=== PATIENT | male | born 1940 | race Caucasian/White ===

== ENCOUNTER 2018-01-16 05:33 | Day surgery (SDC) | payer MEDICARE, SELFPAY ==
--- NOTE | 2018-01-11 15:00 | EKG12_ITS ---
Test Reason : PRE OP Blood Pressure : / mmHG Vent. Rate : 065 BPM Atrial Rate : 048 BPM P-R Int : 000 ms QRS Dur : 102 ms QT Int : 436 ms P-R-T Axes : 000 -25 088 degrees QTc Int : 453 ms Normal sinus rhythm Nonspecific T wave abnormality Abnormal ECG Confirmed by JOHN ABEBE ([id number]), design editor SNOW JHA ([id number]) on 01/15/2018 4:07:25 PM Referred By: Bull Mendoza Confirmed By:JOHN ABEBE
[2018-01-11 15:04] LABS: Hematocrit 32.8 % (40-54); Hemoglobin 10.9 g/dl (13.0-16.5); Mean Corp Hgb Conc 33.2 g/gl (32-36); Mean Corpuscular Hgb 31.6 pg (27.0-32.0); Mean Corpuscular Volume 95.1 fL (80-94); Mean Platelet Vol. 9.9 fl (6.2-12.0); Platelet Count 123 K/mm3 (150-450); RBC Distribution Width CV 13.7 % (11.6-14.6); Red Blood Count 3.45 M/mm3 (4.6-6.2); White Blood Count 5.9 K/mm3 (4.4-11.0)
[2018-01-11 15:11] LABS: Scan Indicated on CBC? Y/N NO
[2018-01-11 15:23] LABS: Anion Gap 8 (5-15); BUN 55 mg/dL (7-18); BUN/Creat Ratio 17.9 RATIO (10-20); Calcium,Total 8.1 mg/dL (8.5-10.1); Chloride 110 mmol/L (98-107); Creatinine, Serum 3.07 mg/dL (0.70-1.30); EST Glomerular Filtration Rate 21 mL/min (>60); Est Glom Filt Rate - Afr Amer 25 mL/min (>60); Glucose 229 mg/dL (74-106); Potassium 4.7 mmol/L (3.5-5.1); Sodium Level 142 mmol/L (136-145)
[2018-01-16 06:06] LABS: Prothrombin Time Fingerstick 15.1 SEC (11.9-14.4)
[2018-01-16 06:12] VITALS: BP 146/57; PULSE 64; RESP 16; TEMP 36.4; O2SAT 97; BMI 34.2
[2018-01-16 06:40] LABS: Bedside Glucose 139 mg/dL (70-110)
[2018-01-16] MEDS: Cefazolin 2 GM in 0.9% Normal Saline 100 ML IV (07:02)
--- NOTE | 2018-01-16 07:08 | PCM.DC.FIST ---
Discharge Diet: Renal Diet Discharge Activity: May Not Drive - for 2-3 days or while taking narcotic pain medications., May Shower, May Take a Tub Bath - in 5 days. Lifting Restrictions: 5 pounds Keep extremity elevated above heart level: - - Keep arm elevated above the heart level for 3 days. Additional Activity Instructions:: Exercise hand vigorously with a stress ball. Call your doctor if your incision/area has: Continuous Slow Oozing, Sudden Increased Bleeding - apply pressure and call your doctor., Increased Pain/ Swelling, Increased Redness, Foul Smelling Discharge Call your doctor if you observe: Fever of 101 or Higher Suture Line Care: Avoid Pulling/Pushing, Avoid Pinching/Bending Cleanse incision/area with: Keep Dressing Clean & Dry Additional Dressing/Incision Instructions:: Elevate your left arm to limit swelling. You may start your left hand exercises tomorrow. You may leave the jony wrap dressing on for 2 days then you may remove it. Continue to keep the incision clean and dry for 4 days total. Allergies/Adverse Reactions: Allergies No Known Allergies Allergy (Unverified 01/11/18 13:18) Medications to take at Discharge amlodipine 5 mg tablet 5 mg PO QDAY 01/09/18 carvedilol 25 mg tablet 25 mg PO BID 01/09/18 clonidine HCl 0.1 mg tablet 0.1 mg PO QDAY tab 01/09/18 furosemide 80 mg tablet 80 mg PO QDAY 01/09/18 glimepiride 4 mg tablet 4 mg PO QAM 01/09/18 hydralazine 25 mg tablet 25 mg PO BID tab 01/09/18 insulin aspart U-100 100 unit/mL subcutaneous pen 5 unit SC TID PRN ml 01/09/18 insulin glargine (U-300) 300 unit/mL (1.5 mL) subcutaneous pen 15 unit SC QHS 01/09/18 pen needle, diabetic 32 gauge x 1/6 See Dose Instructions .ROUTE .MEDSUPPLY #100 ea 01/09/18 simvastatin 40 mg tablet 60 mg PO QPM tab 01/09/18 vitamins-lipotropics tablet 2 tab PO BID 01/09/18 warfarin 1 mg tablet 7 mg PO MOWETHFRSA tab 01/09/18 warfarin 6 mg tablet 8 mg PO SUTU tab 01/09/18 Hydrocodone Bitart/Apap 5-325 [[place] 5MG-325MG] 1 tablet PO Q6H PRN PRN 3 Days #8 tablet 01/16/18 The following prescriptions were given: Hydrocodone Bitart/Apap 5-325 [[place] 5MG-325MG] 1 tablet PO Q6H PRN PRN 3 Days #8 tablet PRN Reason: Pain Primary Care Physician: Sarah Hawkins [Primary Care Provider] - Please Follow Up With: Bull Mnedoza MD - [phone] When: Call to make an appointment for suture removal and follow up in 10 days
[2018-01-16] MEDS: Bupivacaine Mpf 0.5% 30 ML VIAL (07:24)
[2018-01-16] MEDS: Heparin Injection (Vial) 5,000 UNIT/ML VIAL 5000 UNIT (07:40)
--- NOTE | 2018-01-16 09:05 | PCM.OPRPT ---
Problem List (1) Chronic renal disease, stage IV Status: Acute Report of Operation Date of Procedure: 01/16/18 Pre-Operative Diagnosis: Stage IV renal insufficiency Post-Operative Diagnosis: Same Surgery/Procedure Performed:: Transposition left forearm cephalic vein to radial artery arteriovenous fistula creation Description of Surgical Findings:: Timeout and informed consent was obtained. 77-year-old gentleman was taken out from placement table he underwent monitored anesthesia care. Ancef 2 g are given intravenously preoperatively. The left upper extremity was sterilely prepped and draped. 1% lidocaine mixed 50-50 with 0.5% Marcaine was used as a local anesthetic total 23 cc was used. I performed ultrasound imaging of the cephalic vein and marked it out preoperatively. Local was instilled and then a longitudinal incision was made along the vein. Tedious sharp and blunt dissection was performed. Vein branches were secured with 4-0 Vicryl ligatures as well as hemoclips. Dissected free to the antecubital space. Then sharp and blunt dissection used to identify the radial artery and it was circumferentially dissected free. Unfortunately moderately calcified with a thickened wall. The vein was then tunneled medial to the incision from the antecubital space down to the radial artery. At this point the patient received 9000 units of heparin. After adequate circling time peripheral vascular clamps were placed on the radial artery. An 11 blade was used to make an arteriotomy. The vein was spatulated to length and a end-to-side anastomosis was created with a running 7-0 Prolene. Prior to completion the repair appeared to be good positional lie. The anastomosis was completed and immediately there was good pulsatile flow through the fistula with a palpable and audible thrill and bruit. A couple repair sutures of 7-0 Prolene required. Hemostasis was nicely intact. The wound was then closed with a deep layer of interrupted 3-0 Vicryl and then a running septic or 4-0 Monocryl. Steri-Strips Telfa soft roll Roberto wrap gently applied. Sponge instrument and needle counts were reported to the surgeon to be correct. Hand was viable at the completion. No apparent complication. Specimens none. Drains none. Blood loss minimal. Bull Mendoza M.D., F.A.C.S. Type of Anesthesia:: MAC Anesthesiologist: Natalie Cobos
[2018-01-16 09:26] VITALS: BP 141/69; BP 146/57; PULSE 54; RESP 14; TEMP 36.7; O2SAT 96
[2018-01-16 09:30] VITALS: BP 142/63; BP 146/57; PULSE 54; RESP 14; O2SAT 96
[2018-01-16 09:35] VITALS: BP 141/63; BP 146/57; PULSE 52; RESP 16; O2SAT 94
[2018-01-16 09:43] VITALS: BP 142/65; BP 146/57; PULSE 48; RESP 16; TEMP 36.5; O2SAT 97
[2018-01-16 10:55] VITALS: BP 146/57
== END 2018-01-16 10:57 | disposition home or self-care (01) ==
LOC: SDC 05:33 → AC 05:35
PROVIDERS: Family Provider Nurse Practitioner; PCP Nurse Practitioner; Visit Provider Surgery
PROC: (CPT 36820; principal; 2018-01-16 07:00)
DX: Z49.01 Encounter for fitting and adjustment of extracorporeal dialysis catheter (principal); E11.22 Type 2 diabetes mellitus with diabetic chronic kidney disease; I13.0 Hypertensive heart and chronic kidney disease with heart failure and stage 1 through stage 4 chronic kidney disease, or unspecified chronic kidney disease; N18.9 Chronic kidney disease, unspecified; I50.9 Heart failure, unspecified; I25.2 Old myocardial infarction; I48.91 Unspecified atrial fibrillation; G47.30 Sleep apnea, unspecified; K21.9 Gastro-esophageal reflux disease without esophagitis; E78.00 Pure hypercholesterolemia, unspecified; Z85.038 Personal history of other malignant neoplasm of large intestine; Z95.1 Presence of aortocoronary bypass graft; Z79.899 Other long term (current) drug therapy; Z79.01 Long term (current) use of anticoagulants; Z79.4 Long term (current) use of insulin; Z87.891 Personal history of nicotine dependence
CPT/HCPCS: 36820; 36415; 36416; 80048; 82962; 85027; 85610; 93005

== ENCOUNTER → 2018-03-01 09:25 | Outpatient (CLI) | payer MEDICARE, SELFPAY ==
[2018-03-01 12:29] LABS: International Normalized Ratio 2.5; Prothrombin Time (Protime)PT. 27.1 SECONDS (11.7-14.9)
[2018-03-03 10:25] LABS: Carcinoembryonic Antigen 3.9 ng/mL (0.0-4.7)
== END ==
PROVIDERS: Internal Medicine Hematology & Oncology; Family Provider Nurse Practitioner; PCP Nurse Practitioner; Visit Provider Internal Medicine
DX: I48.91 Unspecified atrial fibrillation (principal); C18.2 Malignant neoplasm of ascending colon
CPT/HCPCS: 36415; 82378; 85610

== ENCOUNTER → 2018-07-19 14:16 | Outpatient (CLI) | payer MEDICARE, SELFPAY ==
[2018-07-19 14:46] LABS: International Normalized Ratio 2.2; Prothrombin Time (Protime)PT. 24.8 SECONDS (11.7-14.9)
== END ==
PROVIDERS: Family Provider Nurse Practitioner; PCP Nurse Practitioner; Referring Provider Internal Medicine; Visit Provider Internal Medicine
DX: Z79.01 Long term (current) use of anticoagulants (principal)
CPT/HCPCS: 85610

== ENCOUNTER 2018-08-19 15:40 | Inpatient (IN) | payer MEDICARE, SELFPAY ==
[2018-08-19] VITALS (11 sets, daily range): BP systolic 115–146; BP diastolic 47–87; PULSE 65–102; RESP 16–29; TEMP 36.8–36.9; O2SAT 93–97; BMI 33.5; BMI 33.1; BMI 33.2
--- NOTE | 2018-08-19 15:45 | RAD_ITS ---
STUDY: X-RAY CHEST REASON FOR EXAM: Male, 77 years old. Weakness. Dyspnea. Patient is on renal dialysis. TECHNIQUE: PA and lateral views of the chest. COMPARISON: Comparison is made with prior study dated April 11, 2016. FINDINGS: Mild increased markings at the lung bases suggestive of bibasilar linear atelectasis. Blunting of both costophrenic angles. Mild vascular congestion. Sternal cerclage wires and vascular clips are present from a prior sternotomy and coronary artery bypass graft procedure (CABG). Normal mediastinum and estefany. Normal visualized pulmonary arteries. There is atherosclerotic calcification of the aortic arch with tortuosity. There is demineralization of the osseous structures. Normal visualized ribs, clavicles, and shoulders. Surgical clips are seen in the right upper quadrant. RAD/Chest PA and Lateral IMPRESSION: Mild increased markings at the lung bases suggestive of bibasilar atelectasis with blunting of both costophrenic angle. Mild vascular congestion. Electronically Signed: Jose Junior MD at 16:07 EST Tel [phone], Service support ,
--- NOTE | 2018-08-19 17:22 | EKG12_ITS ---
Test Reason : SOB Blood Pressure : / mmHG Vent. Rate : 076 BPM Atrial Rate : 083 BPM P-R Int : 000 ms QRS Dur : 104 ms QT Int : 432 ms P-R-T Axes : 000 -15 103 degrees QTc Int : 486 ms Atrial fibrillation with a competing junctional pacemaker Nonspecific ST and T wave abnormality Prolonged QT Abnormal ECG Confirmed by RACHEL OLMOS, JOSE DE JESUS ([id number]), newspaper editor managing [facility]OW [facility] ([id number]) on 08/22/2018 1:36:51 PM Referred By: SHEA Confirmed By:JOSE DE JESUS RAMOS MD
[2018-08-19 18:14] LABS: Absolute Lymphocyte Count 0.68 X10^3/ul (0.83-4.51); Absolute Neutrophil Count 5.9 X10^3/uL (2.0-7.7); Basophil# 0.01 X10^3/uL; Basophil% 0.1 % (0-1); Eosinophil# 0.05 X10^3/uL; Eosinophils% 0.7 % (0-5); Hematocrit 26.3 % (40-54); Hemoglobin 8.4 g/dl (13.0-16.5); Lymphocyte # 0.68 X10^3/ul (4.0); Mean Corp Hgb Conc 31.9 g/gl (32-36); Mean Corpuscular Hgb 31.6 pg (27.0-32.0); Mean Corpuscular Volume 98.9 fL (80-94); Mean Platelet Vol. 9.3 fl (6.2-12.0); Monocyte# 0.87 X10^3/uL; Monocyte% 11.6 % (0-10); Neutrophil # 5.85 X10^3/uL (2.7-7.7); Neutrophil % 77.8 % (47-70); POSITIVE COUNT NO; POSITIVE DIFFERENTIAL NO; POSITIVE MORPHOLOGY NO; Platelet Count 164 K/mm3 (150-450); RBC Distribution Width CV 16.4 % (11.6-14.6); Red Blood Count 2.66 M/mm3 (4.6-6.2); White Blood Count 7.5 K/mm3 (4.4-11.0)
[2018-08-19 18:18] LABS: International Normalized Ratio 1.3; Prothrombin Time (Protime)PT. 16.2 SECONDS (11.7-14.9)
[2018-08-19 18:31] LABS: Anion Gap 13 (5-15); BUN 38 mg/dL (7-18); BUN/Creat Ratio 9.3 RATIO (10-20); Calcium,Total 7.8 mg/dL (8.5-10.1); Chloride 96 mmol/L (98-107); Creatinine, Serum 4.08 mg/dL (0.70-1.30); EST Glomerular Filtration Rate 15 mL/min (>60); Est Glom Filt Rate - Afr Amer 18 mL/min (>60); Estimated Creatinine Clearance 15.64 ml/min; Glucose 187 mg/dL (74-106); Potassium 3.7 mmol/L (3.5-5.1); Sodium Level 139 mmol/L (136-145)
--- NOTE | 2018-08-19 20:49 | ED.VISSUMM ---
- ER Visit Summary Date of Service: 08/19/18 Chief Complaint: Shortness of breath. History of Present Illness: The patient is a 77 M history of insulin diabetes, hypertension, CAD, A. fib, recent liver resection end-stage renal disease on dialysis he was dialyzed today. Prior single-vessel CABG. On Coumadin. Patient states that he has progressively been more short of breath over the last several weeks to months. He feels deconditioned. He denies any nausea or vomiting. No melena. No fever. He denies any chest pain. He denies any hemoptysis. Just states he is feeling worse each week. Physical Examination: Older male no acute distress. Vital signs are stable afebrile. Pulse ox 97% on room air no signs of hypoxia. HEENT exam unremarkable. Neck nontender. Lungs there to auscultation bilaterally. Heart irregularly irregular rate in 70s. Consistent with A. fib. Abdomen soft nontender. Normal bowel sounds no peritoneal signs. Patient moving all 4 extremities. Calves are nontender without edema or cords. Skin is pale. Neurologically is awake and alert with no focal motor deficits. Test Results: Chest x-ray chronic changes no acute process. CBC White count 7. Hemoglobin 8.4 previously was 10.9. Electrolytes are unremarkable BUN of 38 creatinine of 4.0. Gap of 13. He supposedly on Coumadin his INR however is only 1.3. Troponin normal. EKG A. fib with lateral ST depression which is consistent with her prior EKG in December. Emergency Department Course and Treatment: Repeat exam is unchanged at 2044. Patient family just states that they are having trouble caring for him at home. He is having difficulty in daily activities. Treatment Plan: Admission. I spoke to the hospitalist. Disposition: Observation Impression: Dyspnea Chronic A. fib Failure to thrive Acute on chronic anemia Subtherapeutic anticoagulation Generalized weakness This note was generated with [employer] dictation software. It may contain incorrect words, spelling, and punctuation that were not noted in review of the chart prior to signing ED Disposition - Plan for ED Patient: Chief Complaint: Shortness of Breath Referrals: Sarah Hawkins, DELIVERY ROOM CLERK-C [Primary Care Provider] -
--- NOTE | 2018-08-19 21:10 | HP.PCM_ITS ---
Problem List (1) Debility Status: Acute (2) Chronic renal disease, stage IV Status: Chronic (3) Hypercholesterolemia Status: Chronic (4) History of colectomy Status: Chronic (5) Acid reflux Status: Chronic (6) Hypertension Status: Chronic (7) Afib Status: Chronic (8) Heart disease Status: Chronic (9) Colon cancer Status: Chronic (10) Diabetes Status: Chronic (11) Renal failure Status: Chronic History of Present Illness Date of Admission: 08/19/18 Chief Complaint: generalized weakness The patient is a 77 year old male patient presents to the ER with generalized weakness. He has a history of hypertension, diabetes, CAD, atrial fibrillation, colon cancer status post partial liver resection for metastatic disease one week ago, end stage renal disease now on dialysis for three weeks. He is short of breath and unable to walk for more than a few steps without feeling as if he would fall. No chest pain at this time. His pulse oxygenation on room air is 97% at rest but he is unable physically to walk for more than a few steps. He is unable to perform activities of daily living and will be admitted for further management. He states his appetite is intact. Hemoglobin today is 8.4. Past Medical History Past Medical History (Chronic Problems): Chronic Problems (Last Reviewed 04/04/18 @ 08:44 by Kendra Aviles) Chronic renal disease, stage IV (Chronic) Hypercholesterolemia (Chronic) History of colectomy (Chronic) Acid reflux (Chronic) Hypertension (Chronic) Afib (Chronic) Heart disease (Chronic) Colon cancer (Chronic) Diabetes (Chronic) Renal failure (Chronic) Medical History: Medical History (Last Reviewed 04/04/18 @ 08:44 by Kendra Aviles) Hypercholesterolemia (Acute) E78.00 Blood in stool (Acute) K92.1 Hemorrhoids (Acute) K64.9 Acid reflux (Acute) K21.9 Hypertension (Chronic) I10 Afib (Acute) I48.91 Heart disease (Acute) I51.9 Colon cancer (Acute) C18.9 Diabetes (Acute) E11.9 Renal failure (Acute) N19 Allergies No Known Allergies Allergy (Verified 04/04/18 08:45) Home Medications: Ambulatory Orders Medication Instructions Recorded amlodipine 5 mg tablet 5 mg PO QDAY 01/09/18 carvedilol 25 mg tablet 25 mg PO BID 04/25/18 clonidine HCl 0.1 mg tablet 0.1 mg PO QDAY tab 01/09/18 furosemide 80 mg tablet 80 mg PO QDAY 01/09/18 glimepiride 4 mg tablet 4 mg PO QAM 01/09/18 hydralazine 25 mg tablet 25 mg PO BID tab 01/09/18 insulin aspart U- 100 100 unit/mL 5 unit SC TID PRN ml 01/09/18 subcutaneous pen insulin glargine (U-300) conc. 300 15 unit SC QHS 01/09/18 unit/mL (1.5 mL) subcutaneous pen pen needle, diabetic 32 gauge x See Dose Instructions .ROUTE 01/09/1809/22 .MEDSUPPLY #100 ea simvastatin 40 mg tablet 60 mg PO QPM tab 01/09/18 vitamins-lipotropics tablet 2 tab PO BID 01/09/18 warfarin 1 mg tablet 7 mg PO MOWETHFRSA tab 01/09/18 warfarin 6 mg tablet 8 mg PO SUTUTH tab 01/09/18 Hydrocodone Bitart/Apap 5-325 1 tab PO Q6H PRN PRN 3 Days #8 tab 01/16/18 [[place] 5MG-325MG] Surgical History: Surgical History (Last Updated 04/04/18 @ 08:45 by Kendra Aviles) Surgically constructed arteriovenous graft (Acute) Onset Date: ~02/2018 Z95.828 01/16/2018 History of colectomy (Acute) Z90.49 Surgical History: no surgical history Smoking Status: Former smoker - *Family History Maternal Family History: Family History (Last Reviewed 04/04/18 @ 08:44 by Kendra Aviles) Father Colon cancer Sister Diabetes Brother Diabetes Mother Heart disease History Items: No pertinent history Review of Systems Constitutional: Reports: Malaise, Weakness, Fatigue. Denies: Chills, Fever, Weight Change HEENT: Denies: Head Aches, Sinus Congestion, Sinus Drainage Cardiovascular: Denies: Chest Pain, Palpitations Respiratory: Reports: Shortness of breath at rest. Denies: Cough, Sputum production Gastrointestinal: Denies: Abdominal Pain, Nausea, Vomiting Genitourinary: Denies: Dysuria Musculoskeletal: Denies: Joint Pain, Joint Tenderness Skin: Denies: Rash, Wounds Neurological: Denies: Numbness, Tingling, Focal weakness Psychiatric: Denies: Anxiety, Depression, Homicidal Ideations, Suicidal Ideations Hematologic/ Lymphatic: Denies: Easy Bruising, Easy Bleeding VTE Information - Inpt Only VTE Present on Admission: No VTE Mechan Device Prophylaxis: SCD's VTE Pharm Prophylaxis ordered?: No Reason prophylaxis not ordered:: Medical Contraindication Patient Problems: Active and Suspected Problems (Last Reviewed 04/04/18 @ 08:44 by Kendra Aviles) Debility (Acute) - Physical Exam General: Alert, Oriented x3, Cooperative HEENT: Atraumatic, Normocephalic Neck: Supple Lungs: Clear to auscultation, Normal air movement, No rhonchi, No wheeze, No rales Cardiovascular: Normal S1, Normal S2, No murmurs, Irregular Rate Abdomen: Bowel Sounds Present, Soft, Non Tender, Obese Extremities: Capillary Refill Less than 3 Seconds, Edema - 2+lower ext edema Skin: No rashes, No breakdown Musculoskeletal: No Tenderness to Palpation of Joints or Extremities Neurological: Neuro grossly intact Psych/Mental Status: Normal Affect, Appropriate Vital Signs Temp Pulse Resp BP Pulse Ox 98.3 F 65 20 H 128/49 H 94 08/19/18 15:40 08/19/18 20:30 08/19/18 20:30 08/19/18 20:30 08/19/18 20:30 Oxygen Delivery Method Room Air Weight: 240 lb Body Mass Index (BMI) 33.5 Laboratory Tests Past 24 Hrs 08/19/18 08/19/18 08/19/18 18:00 18:00 18:00 WBC 7.5 RBC 2.66 L Hgb 8.4 L Hct 26.3 L MCV 98.9 H MCH 31.6 MCHC 31.9 L RDW 16.4 H RDW Differential 55.0 H Plt Count 164 MPV 9.3 Immature Gran % (Auto) 0.800 Neut % (Auto) 77.8 H Lymph % (Auto) 9.0 L [place] % (Auto) 11.6 H Eos % (Auto) 0.7 Baso % (Auto) 0.1 Absolute Neuts (auto) 5.9 Absolute Lymphs (auto) 0.68 L Total Counted Not Reportable PT 16.2 H INR 1.3 Sodium 139 Potassium 3.7 Chloride 96 L Carbon Dioxide 30.0 Anion Gap 13 BUN 38 H Creatinine 4.08 H Estim Creat Clear Calc 15.64 Est GFR (MDRD) Af Amer 18 L Est GFR (MDRD) Non-Af 15 L BUN/Creatinine Ratio 9.3 L Glucose 187 H Calcium 7.8 L Troponin I 0.028 Assessment/Plan All Active Problems (Last Reviewed 04/04/18 @ 08:44 by Kendra Aviles) Debility (Acute) Surgically constructed arteriovenous graft (Acute ~02/2018) Blood in stool (Acute) Hemorrhoids (Acute) Assessment - Generalized weakness, debility with significant risk for falling Chronic Problems (Last Reviewed 04/04/18 @ 08:44 by Kendra Aviles) Chronic renal disease, stage IV (Chronic) Hypercholesterolemia (Chronic) History of colectomy (Chronic) Acid reflux (Chronic) Hypertension (Chronic) Afib (Chronic) Heart disease (Chronic) Colon cancer (Chronic) Diabetes (Chronic) Renal failure (Chronic) Plan - admit to medical surgical floor - renal diet - cbc, bmp in am - consult PT evaluate and treat for ADLs, disease case manager rn for dc plan - continue routine home medications - bedside commode with assistance otherwise bed rest - scds for dvt prophylaxis Code Visit Inpatient E&M: 96310 Init Hosp L3
[2018-08-19] MEDS: hydrALAZINE 25 MG Tablet PO (22:55)
[2018-08-19] MEDS: Carvedilol 25 MG Tablet PO (22:55)
[2018-08-19] MEDS: Atorvastatin Calcium 10 MG Tablet 30 MG PO (22:56)
[2018-08-19 23:05] LABS: Bedside Glucose 203 mg/dL (70-110)
[2018-08-20] VITALS (14 sets, daily range): BP systolic 104–124; BP diastolic 43–60; PULSE 63–68; RESP 18; TEMP 36.5–37.1; O2SAT 93–99
[2018-08-20 05:59] LABS: Absolute Lymphocyte Count 1.06 X10^3/ul (0.83-4.51); Absolute Neutrophil Count 4.2 X10^3/uL (2.0-7.7); Basophil# 0.01 X10^3/uL; Basophil% 0.2 % (0-1); Eosinophil# 0.08 X10^3/uL; Eosinophils% 1.3 % (0-5); Hematocrit 23.3 % (40-54); Hemoglobin 7.1 g/dl (13.0-16.5); Lymphocyte # 1.06 X10^3/ul (4.0); Lymphocyte % 17.1 % (19-41); Mean Corp Hgb Conc 30.5 g/gl (32-36); Mean Corpuscular Hgb 31.3 pg (27.0-32.0); Mean Corpuscular Volume 102.6 fL (80-94); Mean Platelet Vol. 9.7 fl (6.2-12.0); Monocyte# 0.76 X10^3/uL; Monocyte% 12.3 % (0-10); Neutrophil # 4.23 X10^3/uL (2.7-7.7); Neutrophil % 68.1 % (47-70); Platelet Count 164 K/mm3 (150-450); RBC Distribution Width CV 16.5 % (11.6-14.6); RBC Distribution Width SD 54.4 fl (35.1-43.9); Red Blood Count 2.27 M/mm3 (4.6-6.2); White Blood Count 6.2 K/mm3 (4.4-11.0)
[2018-08-20 06:07] LABS: POSITIVE COUNT NO; POSITIVE DIFFERENTIAL NO; POSITIVE MORPHOLOGY NO
[2018-08-20 06:11] LABS: Anion Gap 9 (5-15); BUN 47 mg/dL (7-18); BUN/Creat Ratio 9.5 RATIO (10-20); Calcium,Total 7.2 mg/dL (8.5-10.1); Chloride 98 mmol/L (98-107); Creatinine, Serum 4.94 mg/dL (0.70-1.30); EST Glomerular Filtration Rate 12 mL/min (>60); Est Glom Filt Rate - Afr Amer 15 mL/min (>60); Estimated Creatinine Clearance 12.52 ml/min; Glucose 175 mg/dL (74-106); Potassium 3.7 mmol/L (3.5-5.1); Sodium Level 138 mmol/L (136-145)
--- NOTE | 2018-08-20 07:28 | PCM.PN.HOSP ---
Patient Problems: Active and Suspected Problems (Last Reviewed 04/04/18 @ 08:44 by Kendra Aviles) Debility (Acute) Subjective: Patient is a 77-year-old gentleman with multiple comorbidities including diabetes mellitus type 2, end-stage renal disease on hemodynamic with previous CABG, paroxysmal A. fib on systemic anticoagulation with Coumadin and recent resection of the liver who presented with progressive shortness of breath. Checks x-ray obtained in the emergency department demonstrated vascular congestion patient was also found to be anemic with hemoglobin of 7.1 admitted to regular nursing floor for subsequent evaluation and management. Objective: GENERAL: cooperative HEENT: Atraumatic; EYES; Anicteric, NECK; supple, normal thyroid, RESPIRATORY: Diminished to auscultation bilaterally, CARDIOVASCULAR: Regular S1 S2, no audible murmurs GI: Right upper quadrant incision clean dry and intact : No Renal angle tenderness; EXTREMITIES: Trace bipedal edema, no clubbing, MUSCULOSKELETAL: No Joint Tenderness; NEURO: Awake; no lateralizing signs. SKIN: No Rash PSYCH; Normal affect Vitals/I&O's: Vital Signs Temp Pulse Resp BP Pulse Ox 98.6 F 64 18 120/50 L 93 08/20/18 04:03 08/20/18 04:03 08/20/18 04:03 08/20/18 04:03 08/20/18 04:03 Oxygen Delivery Method Room Air Weight: 104.8 kg Body Mass Index (BMI) 33.1 Intake and Output for Last 24 Hours 08/18/18 08/19/18 08/20/18 23:59 23:59 23:59 Intake Total 50 / 50 100 / 100 Output Total 100 / 100 Balance -50 / -50 100 / 100 Laboratory Results 08/19/18 18:00: WBC 7.5, RBC 2.66 L, Hgb 8.4 L, Hct 26.3 L, MCV 98.9 H, MCH 31.6, MCHC 31.9 L, RDW 16.4 H, RDW Differential 55.0 H, Plt Count 164, MPV 9.3, Immature Gran % (Auto) 0.800, Neut % (Auto) 77.8 H, Lymph % (Auto) 9.0 L, Stevens % (Auto) 11.6 H, Eos % (Auto) 0.7, Baso % (Auto) 0.1, Absolute Neuts (auto) 5.9, Absolute Lymphs (auto) 0.68 L, Total Counted Not Reportable 08/19/18 18:00: Sodium 139, Potassium 3.7, Chloride 96 L, Carbon Dioxide 30.0, Anion Gap 13, BUN 38 H, Creatinine 4.08 H, Estim Creat Clear Calc 15.64, Est GFR (MDRD) Af Amer 18 L, Est GFR (MDRD) Non-Af 15 L, BUN/Creatinine Ratio 9.3 L, Glucose 187 H, Calcium 7.8 L, Troponin I 0.028 08/19/18 18:00: PT 16.2 H, INR 1.3 08/19/18 22:54: POC Glucose 203 H 08/20/18 05:25: WBC 6.2, RBC 2.27 L, Hgb 7.1 L, Hct 23.3 L, MCV 102.6 H, MCH 31.3, MCHC 30.5 L, RDW 16.5 H, RDW Differential 54.4 H, Plt Count 164, MPV 9.7, Immature Gran % (Auto) 1.000 H, Neut % (Auto) 68.1, Lymph % (Auto) 17.1 L, Stevens % (Auto) 12.3 H, Eos % (Auto) 1.3, Baso % (Auto) 0.2, Absolute Neuts (auto) 4.2, Absolute Lymphs (auto) 1.06, Total Counted Not Reportable 08/20/18 05:25: Sodium 138, Potassium 3.7, Chloride 98, Carbon Dioxide 31.0, Anion Gap 9, BUN 47 H, Creatinine 4.94 H, Estim Creat Clear Calc 12.52, Est GFR (MDRD) Af Amer 15 L, Est GFR (MDRD) Non-Af 12 L, BUN/Creatinine Ratio 9.5 L, Glucose 175 H, Calcium 7.2 L 08/20/18 07:16: Blood Type Pending, Antibody Screen Pending, Crossmatch See Detail Current Medications Hydrocodone Bitart/Acetaminophen ([place] 5mg-325mg) 1 tablet PO Q6H PRN PRN PRN Reason: PAIN Amlodipine Besylate (Norvasc) 5 mg PO DAILY [facility] Atorvastatin Calcium (Lipitor) 30 mg PO QHS [facility] Last Admin: 08/19/18 22:56 Dose: 30 mg Carvedilol (Coreg) 25 mg PO BID [facility] Last Admin: 08/19/18 22:55 Dose: 25 mg Clonidine (Catapres) 0.1 mg PO DAILY [facility] Furosemide (Lasix) 80 mg PO DAILY [facility] Glimepiride (Amaryl) 4 mg PO QAM@0800 [facility] Hydralazine HCl (Apresoline) 25 mg PO BID [facility] Last Admin: 08/19/18 22:55 Dose: 25 mg Insulin Glargine (Lantus (Bkc)) 15 units SC QHS [facility] Last Admin: 08/19/18 22:56 Dose: 15 units Insulin Human Lispro (Humalog Kwikpen ([facility])) 5 unit SC TIDCM PRN PRN Reason: IF BS>100 Magnesium Hydroxide (Milk Of Magnesia) 30 ml PO DAILY PRN PRN PRN Reason: Constipation Sodium Chloride () 5 - 15 ml IV UD PRN PRN Reason: SALINE FLUSH Warfarin Sodium (Coumadin (Pbkc)) 8 mg PO SuTuThSa@1700 [facility] Warfarin Sodium 5 mg/ Warfarin (Sodium 2 mg) 7 mg PO MoWeFr@1700 [facility] Medical Necessity - Tobacco Use Smoking Status: Former smoker Assessment/Plan All Active Problems (Last Reviewed 04/04/18 @ 08:44 by Kendra Aviles) Debility (Acute) Surgically constructed arteriovenous graft (Acute ~02/2018) Blood in stool (Acute) Hemorrhoids (Acute) Patient is a 77-year-old gentleman with multiple comorbidities including diabetes mellitus type 2, end-stage renal disease on hemodynamic with previous CABG, paroxysmal A. fib on systemic anticoagulation with Coumadin and recent resection of the liver who presented with progressive shortness of breath. Checks x-ray obtained in the emergency department demonstrated vascular congestion patient was also found to be anemic with hemoglobin of 7.1 admitted to regular nursing floor for subsequent evaluation and management. 1. Acute dyspnea secondary to pulmonary vascular congestion as well as symptomatic anemia 2. Anemia secondary to anemia of chronic blood loss as well as acute blood loss from patient recent surgery with the patient be symptomatic and was given for patient to be transfusing 1 unit PRBC with subsequent serial H&H ordered following his transfusion 3. Recent resection of the liver to [facility]. Requisition placed for old records 4. Acute congestive heart failure possibly diastolic echo ordered for EF assessment patient is on Lasix with monitoring of daily weights and strict input and output 5. Diabetes mellitus type 2 with complications including end-stage renal disease patient is on long-acting insulin in addition to scheduled pre-meal insulin. Also placed on Accu-Cheks before meals and at bedtime with sliding scale coverage 6. Paroxysmal A. fib rate controlled on carvedilol on systemic anticoagulation with Coumadin and INR on admission was 1.3 7. End-stage renal disease on hemodialysis on Wednesdays and Fridays patient was placed to the patient's upholsterer inside for dialysis orders 8. Dyslipidemia-patient is on statin therapy, continued at home dose 9. CAD with previous history of single-vessel CABG 10. DVT prophylaxis on Coumadin no need for additional measures Active Medications Hydrocodone Bitart/Acetaminophen ([place] 5mg-325mg) 1 tablet PO Q6H PRN PRN PRN Reason: PAIN Amlodipine Besylate (Norvasc) 5 mg PO DAILY [facility] Atorvastatin Calcium (Lipitor) 30 mg PO QHS [facility] Last Admin: 08/19/18 22:56 Dose: 30 mg Carvedilol (Coreg) 25 mg PO BID [facility] Last Admin: 08/19/18 22:55 Dose: 25 mg Clonidine (Catapres) 0.1 mg PO DAILY [facility] Furosemide (Lasix) 80 mg PO DAILY [facility] Glimepiride (Amaryl) 4 mg PO QAM@0800 [facility] Last Admin: 08/20/18 07:45 Dose: 4 mg Hydralazine HCl (Apresoline) 25 mg PO BID [facility] Last Admin: 08/19/18 22:55 Dose: 25 mg Insulin Glargine (Lantus (Bkc)) 15 units SC QHS [facility] Last Admin: 08/19/18 22:56 Dose: 15 units Insulin Human Lispro (Humalog Kwikpen (Bkc)) 5 unit SC TIDCM PRN PRN Reason: IF BS>100 Magnesium Hydroxide (Milk Of Magnesia) 30 ml PO DAILY PRN PRN PRN Reason: Constipation Sodium Chloride () 5 - 15 ml IV UD PRN PRN Reason: SALINE FLUSH Warfarin Sodium (Coumadin (Pbkc)) 8 mg PO SuTuThSa@1700 [facility] Warfarin Sodium 5 mg/ Warfarin (Sodium 2 mg) 7 mg PO MoWeFr@1700 [facility] Clinical Impression(s) from Imaging Studies Chest X-Ray 08/19/18 15:45 IMPRESSION: Mild increased markings at the lung bases suggestive of bibasilar atelectasis with blunting of both costophrenic angle. Mild vascular congestion. Electronically Signed: Jose Junior MD at 16:07 EST Tel [phone], Service support , Code Visit Inpatient E&M: 44271 Subs Hosp L3
--- NOTE | 2018-08-20 07:38 | PN_ITS ---
Patient Problems: Active and Suspected Problems (Last Reviewed 04/04/18 @ 08:44 by Kendra Aviles) Debility (Acute) Subjective: Patient is a 77-year-old gentleman with multiple comorbidities including diabetes mellitus type 2, end-stage renal disease on hemodynamic with previous CABG, paroxysmal A. fib on systemic anticoagulation with Coumadin and recent resection of the liver who presented with progressive shortness of breath. Checks x-ray obtained in the emergency department demonstrated vascular congestion patient was also found to be anemic with hemoglobin of 7.1 admitted to regular nursing floor for subsequent evaluation and management. Objective: GENERAL: cooperative HEENT: Atraumatic; EYES; Anicteric, NECK; supple, normal thyroid, RESPIRATORY: Diminished to auscultation bilaterally, CARDIOVASCULAR: Regular S1 S2, no audible murmurs GI: Right upper quadrant incision clean dry and intact : No Renal angle tenderness; EXTREMITIES: Trace bipedal edema, no clubbing, MUSCULOSKELETAL: No Joint Tenderness; NEURO: Awake; no lateralizing signs. SKIN: No Rash PSYCH; Normal affect Vitals/I&O's: Vital Signs Temp Pulse Resp BP Pulse Ox 98.6 F 64 18 120/50 L 93 08/20/18 04:03 08/20/18 04:03 08/20/18 04:03 08/20/18 04:03 08/20/18 04:03 Oxygen Delivery Method Room Air Weight: 104.8 kg Body Mass Index (BMI) 33.1 Intake and Output for Last 24 Hours 08/18/18 08/19/18 08/20/18 23:59 23:59 23:59 Intake Total 50 / 50 100 / 100 Output Total 100 / 100 Balance -50 / -50 100 / 100 Laboratory Results 08/19/18 18:00: WBC 7.5, RBC 2.66 L, Hgb 8.4 L, Hct 26.3 L, MCV 98.9 H, MCH 31.6, MCHC 31.9 L, RDW 16.4 H, RDW Differential 55.0 H, Plt Count 164, MPV 9.3, Immature Gran % (Auto) 0.800, Neut % (Auto) 77.8 H, Lymph % (Auto) 9.0 L, [place] % (Auto) 11.6 H, Eos % (Auto) 0.7, Baso % (Auto) 0.1, Absolute Neuts (auto) 5.9, Absolute Lymphs (auto) 0.68 L, Total Counted Not Reportable 08/19/18 18:00: Sodium 139, Potassium 3.7, Chloride 96 L, Carbon Dioxide 30.0, Anion Gap 13, BUN 38 H, Creatinine 4.08 H, Estim Creat Clear Calc 15.64, Est GFR (MDRD) Af Amer 18 L, Est GFR (MDRD) Non-Af 15 L, BUN/Creatinine Ratio 9.3 L, Glucose 187 H, Calcium 7.8 L, Troponin I 0.028 08/19/18 18:00: PT 16.2 H, INR 1.3 08/19/18 22:54: POC Glucose 203 H 08/20/18 05:25: WBC 6.2, RBC 2.27 L, Hgb 7.1 L, Hct 23.3 L, MCV 102.6 H, MCH 31.3, MCHC 30.5 L, RDW 16.5 H, RDW Differential 54.4 H, Plt Count 164, MPV 9.7, Immature Gran % (Auto) 1.000 H, Neut % (Auto) 68.1, Lymph % (Auto) 17.1 L, Stan[place] % (Auto) 12.3 H, Eos % (Auto) 1.3, Baso % (Auto) 0.2, Absolute Neuts (auto) 4.2, Absolute Lymphs (auto) 1.06, Total Counted Not Reportable 08/20/18 05:25: Sodium 138, Potassium 3.7, Chloride 98, Carbon Dioxide 31.0, Anion Gap 9, BUN 47 H, Creatinine 4.94 H, Estim Creat Clear Calc 12.52, Est GFR (MDRD) Af Amer 15 L, Est GFR (MDRD) Non-Af 12 L, BUN/Creatinine Ratio 9.5 L, Glucose 175 H, Calcium 7.2 L 08/20/18 07:16: Blood Type Pending, Antibody Screen Pending, Crossmatch See Detail Current Medications Hydrocodone Bitart/Acetaminophen ([place] 5mg-325mg) 1 tablet PO Q6H PRN PRN PRN Reason: PAIN Amlodipine Besylate (Norvasc) 5 mg PO DAILY [facility] Atorvastatin Calcium (Lipitor) 30 mg PO QHS [facility] Last Admin: 08/19/18 22:56 Dose: 30 mg Carvedilol (Coreg) 25 mg PO BID [facility] Last Admin: 08/19/18 22:55 Dose: 25 mg Clonidine (Catapres) 0.1 mg PO DAILY [facility] Furosemide (Lasix) 80 mg PO DAILY [facility] Glimepiride (Amaryl) 4 mg PO QAM@0800 [facility] Hydralazine HCl (Apresoline) 25 mg PO BID [facility] Last Admin: 08/19/18 22:55 Dose: 25 mg Insulin Glargine (Lantus (Bkc)) 15 units SC QHS [facility] Last Admin: 08/19/18 22:56 Dose: 15 units Insulin Human Lispro (Humalog Kwikpen ([facility])) 5 unit SC TIDCM PRN PRN Reason: IF BS>100 Magnesium Hydroxide (Milk Of Magnesia) 30 ml PO DAILY PRN PRN PRN Reason: Constipation Sodium Chloride () 5 - 15 ml IV UD PRN PRN Reason: SALINE FLUSH Warfarin Sodium (Coumadin (Pbkc)) 8 mg PO SuTuThSa@1700 [facility] Warfarin Sodium 5 mg/ Warfarin (Sodium 2 mg) 7 mg PO MoWeFr@1700 [facility] Medical Necessity - Tobacco Use Smoking Status: Former smoker Assessment/Plan All Active Problems (Last Reviewed 04/04/18 @ 08:44 by Kendra Aviles) Debility (Acute) Surgically constructed arteriovenous graft (Acute ~02/2018) Blood in stool (Acute) Hemorrhoids (Acute) Patient is a 77-year-old gentleman with multiple comorbidities including diabetes mellitus type 2, end-stage renal disease on hemodynamic with previous CABG, paroxysmal A. fib on systemic anticoagulation with Coumadin and recent resection of the liver who presented with progressive shortness of breath. Checks x-ray obtained in the emergency department demonstrated vascular congestion patient was also found to be anemic with hemoglobin of 7.1 admitted to regular nursing floor for subsequent evaluation and management. 1. Acute dyspnea secondary to pulmonary vascular congestion as well as symptomatic anemia 2. Anemia secondary to anemia of chronic blood loss as well as acute blood loss from patient recent surgery with the patient be symptomatic and was given for patient to be transfusing 1 unit PRBC with subsequent serial H&H ordered following his transfusion 3. Recent resection of the liver to [facility]. Requisition placed for old records 4. Acute congestive heart failure possibly diastolic echo ordered for EF assessment patient is on Lasix with monitoring of daily weights and strict input and output 5. Diabetes mellitus type 2 with complications including end-stage renal disease patient is on long-acting insulin in addition to scheduled pre-meal insulin. Also placed on Accu-Cheks before meals and at bedtime with sliding scale coverage 6. Paroxysmal A. fib rate controlled on carvedilol on systemic anticoagulation with Coumadin and INR on admission was 1.3 7. 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 Dyslipidemia-patient is on statin therapy, continued at home dose 9. CAD with previous history of single-vessel CABG 10. DVT prophylaxis on Coumadin no need for additional measures Active Medications Hydrocodone Bitart/Acetaminophen ([place] 5mg-325mg) 1 tablet PO Q6H PRN PRN PRN Reason: PAIN Amlodipine Besylate (Norvasc) 5 mg PO DAILY [facility] Atorvastatin Calcium (Lipitor) 30 mg PO QHS [facility] Last Admin: 08/19/18 22:56 Dose: 30 mg Carvedilol (Coreg) 25 mg PO BID [facility] Last Admin: 08/19/18 22:55 Dose: 25 mg Clonidine (Catapres) 0.1 mg PO DAILY [facility] Furosemide (Lasix) 80 mg PO DAILY [facility] Glimepiride (Amaryl) 4 mg PO QAM@0800 [facility] Last Admin: 08/20/18 07:45 Dose: 4 mg Hydralazine HCl (Apresoline) 25 mg PO BID [facility] Last Admin: 08/19/18 22:55 Dose: 25 mg Insulin Glargine (Lantus (Bkc)) 15 units SC QHS [facility] Last Admin: 08/19/18 22:56 Dose: 15 units Insulin Human Lispro (Humalog Kwikpen (Bkc)) 5 unit SC TIDCM PRN PRN Reason: IF BS>100 Magnesium Hydroxide (Milk Of Magnesia) 30 ml PO DAILY PRN PRN PRN Reason: Constipation Sodium Chloride () 5 - 15 ml IV UD PRN PRN Reason: SALINE FLUSH Warfarin Sodium (Coumadin (Pbkc)) 8 mg PO SuTuThSa@1700 [facility] Warfarin Sodium 5 mg/ Warfarin (Sodium 2 mg) 7 mg PO MoWeFr@1700 [facility] Clinical Impression(s) from Imaging Studies Chest X-Ray 08/19/18 15:45 IMPRESSION: Mild increased markings at the lung bases suggestive of bibasilar atelectasis with blunting of both costophrenic angle. Mild vascular congestion. Electronically Signed: Jose Junior MD at 16:07 EST Tel [phone], Service support , Code Visit Inpatient E&M: 94014 Subs Hosp L3
[2018-08-20] MEDS: Glimepiride 4 MG Tablet PO (07:45)
--- NOTE | 2018-08-20 08:41 | ECHOCS_ITS ---
Reason For Study: CHF Procedure This was a 2D Doppler, Color Flow transthoracic echocardiogram. The study was technically difficult. Contrast injection was performed. Exam performed portable in patient room. Left Ventricle Normal LV size. Left ventricular systolic function is normal. The estimated ejection fraction is 65 %. No regional wall motion abnormalities noted. Right Ventricle Normal RV size. Normal systolic function. Atria The left atrium is moderately enlarged. Normal right atrium. No doppler evidence for ASD. Mitral Valve There is moderate mitral annular calcification. Extension of the mitral annular calcification onto the posterior mitral valve leaflet. Trivial mitral valve insufficiency. Tricuspid Valve Normal tricuspid valve. Mild tricuspid valve insufficiency. Right ventricular systolic pressure estimated to be 40 mmHg. Aortic Valve Trisinus/trileaflet aortic valve. Mild focal aortic valve thickening. Pulmonic Valve The pulmonic valve is not well visualized. Great Vessels Normal sized aortic root. Pericardium/Pleural No pericardial effusion. Medication Diluted definity 3.0ml given slow IV push to enhance endocardial definition. MMode/2D Measurements & Calculations LVIDd: 4.7 cm IVSd: 1.3 cm LVOT diam: 2.2 cm LVIDs: 3.2 cm LVPWd: 1.3 cm RVDd: 4.0 cm FS: 31.3 % LVOT area: 3.7 cm2 Ao root diam: 3.6 cm LAV(MOD-bp): 94.5 ml LA A4 area: 26.4 cm2 LAV(MOD-bp) Indexed: 42.6 ml/m2 LAV(MOD-sp2): 96.2 ml LAV(MOD-sp4): 87.9 ml LA dimension(2D): 4.6 cm RA A4 area: 20.2 cm2 Time Measurements MV dec time: 0.32 sec Doppler Measurements & Calculations MV E max alejandro: 170.6 cm/sec Lat Peak E' Alejandro: 9.2 cm/sec Med Peak E' Alejandro: 6.8 cm/sec MV A max alejandro: 77.5 cm/sec E/E' lat: 18.5 E/E' med: 25.1 MV E/A: 2.2 MV V2 max: 184.1 cm/sec MV P1/2t max alejandro: 174.5 cm/sec Ao V2 max: 161.2 cm/sec MV max P.6 mmHg MV P1/2t: 82.4 msec Ao max P.4 mmHg MV V2 mean: 90.2 cm/sec MV dec slope: 620.2 cm/sec2 MAKAYLA(V,D): 2.3 cm2 MV mean P.1 mmHg MV V2 VTI: 50.1 cm MVA(P1/2t): 2.7 cm2 LV V1 max: 100.9 cm/sec PA V2 max: 106.9 cm/sec TR max alejandro: 280.9 cm/sec LV V1 max P.1 mmHg TR max P.6 mmHg MV P1/2t-pr_phl: 107.5 msec Interpretation Summary The study was technically difficult. Contrast injection was performed. Left ventricular systolic function is normal. The estimated ejection fraction is 65 %. The left atrium is moderately enlarged. Trivial mitral valve insufficiency. Mild tricuspid valve insufficiency. Mild focal aortic valve thickening. Right ventricular systolic pressure estimated to be 40 mmHg. Transmitral diastolic flow velocities suggest diastolic dysfunction (pseudonormal pattern). Ordering Physician: Owen Aquino Referring Physician: Sarah Hawkins Performed By: Johanne Evans RDCS, RVT
[2018-08-20] MEDS: cloNIDine HCl 0.1 MG Tablet PO (10:14)
[2018-08-20] MEDS: hydrALAZINE 25 MG Tablet PO ×2 (10:14→21:18)
[2018-08-20] MEDS: Furosemide 80 MG Tablet PO (10:14)
[2018-08-20] MEDS: Carvedilol 25 MG Tablet PO ×2 (10:14→21:18)
[2018-08-20] MEDS: amLODIPine 5 MG Tablet PO (10:16)
[2018-08-20] MEDS: Senna/Docusate Sodium 1 Tablet 2 TABLET PO ×2 (10:18→21:19)
--- NOTE | 2018-08-20 10:50 | CASEMGMT ---
NERY MAJOR INITIAL ASSESSMENT D/C PLAN: Home Face to Face with patient for initial transition planning/care coordination assessment. NERY MAJOR introduced self and role at [facility]. Pt resting in bed. Family at bedside visiting. Pt agreeable to participate in assessment and states okay for family/visitors to be present. Care providers, pharmacy, and demographics verified. PCP: Sarah Hawkins Specialists: Sina Ruano (manager group home @ [place]) Preferred Pharmacy: [facility] Insurance: [employer] [facility] Prescription Benefit: Yes Living Will/HPOA: Has both LW and HCPOA, who is Yovanny Little LNOK: Living Arrangements: Lives with in one-story home w/ramp @ entrance. Transportation: Pt drives. able to help provide transportation if needed. DME: Has shower chair, hand-held shower, and cane, which he uses. Has a walker and W/C available but does not use either. HHC: Has never used HHC services before. States if he would go home with HHC, he has no preference of any agency. SNF: Pt states he has been @ [facility] in the past. Dialysis: Pt gets dialysis @ [facility] in [place] . Chair time is @ 1000. Pt wishes to return home. States he does not want to go to a SNF. States is agreeable to HHC or possibly Out-pt therapy, depending on how he does with therapy and his level of strength. If he would do Out-pt therapy, pt states would prefer going to [facility] in [place]. Awaiting PT/OT nikki. PEDRITO to follow for any further discharge planning needs that may arise. Karolina PENAN NERY MAJOR
[2018-08-20 11:40] LABS: Bedside Glucose 190 mg/dL (70-110)
[2018-08-20] MEDS: Insulin Lispro 100 UNIT/ML INSULN.PEN SQ ×3 (11:45→21:18)
[2018-08-20] MEDS: Insulin Lispro 100 UNIT/ML INSULN.PEN SC (16:45)
[2018-08-20 16:46] LABS: Hematocrit 26.7 % (40-54); Hemoglobin 8.5 g/dl (13.0-16.5)
[2018-08-20 17:06] LABS: Bedside Glucose 175 mg/dL (70-110)
[2018-08-20] MEDS: Atorvastatin Calcium 10 MG Tablet 30 MG PO (21:19)
[2018-08-20 22:11] LABS: Bedside Glucose 178 mg/dL (70-110)
[2018-08-21] VITALS (8 sets, daily range): BP systolic 110–125; BP diastolic 47–50; PULSE 63–66; RESP 18–20; TEMP 36.4–37.2; O2SAT 96–99
[2018-08-21 06:05] LABS: Hematocrit 25.8 % (40-54); Mean Corpuscular Hgb 31.3 pg (27.0-32.0); Mean Corpuscular Volume 100.8 fL (80-94); Mean Platelet Vol. 9.7 fl (6.2-12.0); Platelet Count 162 K/mm3 (150-450); RBC Distribution Width CV 18.1 % (11.6-14.6); RBC Distribution Width SD 59.5 fl (35.1-43.9); Red Blood Count 2.56 M/mm3 (4.6-6.2); White Blood Count 6.4 K/mm3 (4.4-11.0)
[2018-08-21 06:10] LABS: International Normalized Ratio 1.3; Prothrombin Time (Protime)PT. 15.9 SECONDS (11.7-14.9)
[2018-08-21 06:11] LABS: Scan Indicated on CBC? Y/N NO
[2018-08-21 06:27] LABS: Anion Gap 11 (5-15); BUN 66 mg/dL (7-18); BUN/Creat Ratio 10.6 RATIO (10-20); Calcium,Total 7.2 mg/dL (8.5-10.1); Chloride 98 mmol/L (98-107); Creatinine, Serum 6.23 mg/dL (0.70-1.30); EST Glomerular Filtration Rate 9 mL/min (>60); Est Glom Filt Rate - Afr Amer 11 mL/min (>60); Estimated Creatinine Clearance 9.93 ml/min; Glucose 165 mg/dL (74-106); Magnesium 2.7 mg/dL (1.6-2.6); Potassium 3.7 mmol/L (3.5-5.1); Sodium Level 138 mmol/L (136-145)
[2018-08-21] MEDS: Insulin Lispro 100 UNIT/ML INSULN.PEN SQ ×3 (06:44→21:17)
[2018-08-21 07:01] LABS: Bedside Glucose 155 mg/dL (70-110)
--- NOTE | 2018-08-21 08:42 | PN_ITS ---
Patient Problems: Active and Suspected Problems (Last Reviewed 04/04/18 @ 08:44 by Kendra Aviles) Debility (Acute) Subjective: Patient seen remains somewhat dyspneic at rest. Patient was transfused with 1 unit PRBC on 08/20/2018. Hemoglobin went up to 8.5 following the blood transfusion dropped to 8.0 this a.m. Patient is scheduled to undergo dialysis Objective: GENERAL: cooperative HEENT: Atraumatic; EYES; Anicteric, NECK; supple, normal thyroid, RESPIRATORY: Diminished to auscultation bilaterally, CARDIOVASCULAR: Regular S1 S2, no audible murmurs GI: Right upper quadrant incision clean dry and intact : No Renal angle tenderness; EXTREMITIES: Trace bipedal edema, no clubbing, MUSCULOSKELETAL: No Joint Tenderness; NEURO: Awake; no lateralizing signs. SKIN: No Rash PSYCH; Normal affect Vitals/I&O's: Vital Signs Temp Pulse Resp BP Pulse Ox 98.4 F 66 18 110/49 L 97 08/21/18 08:39 08/21/18 08:39 08/21/18 08:39 08/21/18 08:39 08/21/18 08:39 Oxygen Flow Rate (L/min) 2 Oxygen Delivery Method Room Air Weight: 105.6 kg Body Mass Index (BMI) 33.1 Intake and Output for Last 24 Hours 08/19/18 08/20/18 08/21/18 23:59 23:59 23:59 Intake Total 50 / 50 1875 / 1875 300 / 300 Output Total 100 / 100 Balance -50 / -50 1875 / 1875 300 / 300 Laboratory Results 08/20/18 07:16: Blood Type A POSITIVE, Antibody Screen NEGATIVE, Crossmatch See Detail 08/20/18 11:20: POC Glucose 190 H 08/20/18 16:24: Hgb 8.5 L, Hct 26.7 L 08/20/18 16:43: POC Glucose 175 H 08/20/18 21:16: POC Glucose 178 H 08/21/18 05:45: WBC 6.4, RBC 2.56 L, Hgb 8.0 L, Hct 25.8 L, MCV 100.8 H, MCH 31.3, MCHC 31.0 L, RDW 18.1 H, RDW Differential 59.5 H, Plt Count 162, MPV 9.7 08/21/18 05:45: PT 15.9 H, INR 1.3 08/21/18 05:45: Sodium 138, Potassium 3.7, Chloride 98, Carbon Dioxide 29.0, Anion Gap 11, BUN 66 H, Creatinine 6.23 H, Estim Creat Clear Calc 9.93, Est GFR (MDRD) Af Amer 11 L, Est GFR (MDRD) Non-Af 9 L, BUN/Creatinine Ratio 10.6, Glucose 165 H, Calcium 7.2 L, Magnesium 2.7 H 08/21/18 06:41: POC Glucose 155 H Current Medications Hydrocodone Bitart/Acetaminophen ([place] 5mg-325mg) 1 tablet PO Q6H PRN PRN PRN Reason: PAIN Amlodipine Besylate (Norvasc) 5 mg PO DAILY [facility] Last Admin: 08/20/18 10:16 Dose: 5 mg Atorvastatin Calcium (Lipitor) 30 mg PO QHS [facility] Last Admin: 08/20/18 21:19 Dose: 30 mg Carvedilol (Coreg) 25 mg PO BID [facility] Last Admin: 08/20/18 21:18 Dose: 25 mg Clonidine (Catapres) 0.1 mg PO DAILY [facility] Last Admin: 08/20/18 10:14 Dose: 0.1 mg Dextrose (D50w Syringe) 0 gm IV X1 PRN; Protocol PRN Reason: Hypoglycemia Furosemide (Lasix) 80 mg PO DAILY [facility] Last Admin: 08/20/18 10:14 Dose: 80 mg Glucagon () 1 mg IM .X1 PRN PRN Reason: Hypoglycemia Hydralazine HCl (Apresoline) 25 mg PO BID [facility] Last Admin: 08/20/18 21:18 Dose: 25 mg Insulin Glargine (Lantus (Bkc)) 15 units SC QHS [facility] Last Admin: 08/20/18 21:19 Dose: 15 units Insulin Human Lispro (Humalog Kwikpen (Bkc)) 5 unit SC TIDCM PRN PRN Reason: IF BS>100 Last Admin: 08/20/18 16:45 Dose: 5 u Insulin Human Lispro (Humalog Kwikpen (Bkc)) 0 unit SQ ACHS [facility]; Protocol Last Admin: 08/21/18 06:44 Dose: 1 u Magnesium Hydroxide (Milk Of Magnesia) 30 ml PO DAILY PRN PRN PRN Reason: Constipation Senna/Docusate Sodium (Senokot-S, [place]Colace) 2 tablet PO BID [facility] Last Admin: 08/20/18 21:19 Dose: 2 tablet Sodium Chloride () 5 - 15 ml IV UD PRN PRN Reason: SALINE FLUSH Warfarin Sodium (Coumadin (Pbkc)) 8 mg PO SuTuThSa@1700 [facility] Last Admin: 08/20/18 16:49 Dose: 8 mg Warfarin Sodium 5 mg/ Warfarin (Sodium 2 mg) 7 mg PO MoWeFr@1700 [facility] Medical Necessity - Tobacco Use Smoking Status: Former smoker Assessment/Plan All Active Problems (Last Reviewed 04/04/18 @ 08:44 by Kendra Aviles) Debility (Acute) Surgically constructed arteriovenous graft (Acute ~02/2018) Blood in stool (Acute) Hemorrhoids (Acute) Patient is a 77-year-old gentleman with multiple comorbidities including diabetes mellitus type 2, end-stage renal disease on hemodynamic with previous CABG, paroxysmal A. fib on systemic anticoagulation with Coumadin and recent resection of the liver who presented with progressive shortness of breath. Chest x-ray obtained in the emergency department demonstrated vascular congestion patient was also found to be anemic with hemoglobin of 7.1 admitted to regular nursing floor for subsequent evaluation and management. 1. Acute dyspnea secondary to pulmonary vascular congestion as well as sy mptomatic anemia; management as discussed below 2. Anemia secondary to anemia of chronic blood loss as well as acute blood loss from patient recent surgery with the patient be symptomatic and was given for patient to be transfusing 1 unit PRBC with subsequent serial H&H ordered following his transfusion. Hemoglobin did go up to 8.5 following the transfusion dropped to 8.0 on the morning of 08/21/2018 3. Recent resection of the liver to more at [facility]. Requisition placed for old records 4. Acute congestive heart failure possibly diastolic echo ordered for EF assessment patient is on Lasix with monitoring of daily weights and strict input and output 5. Diabetes mellitus type 2 with complications including end-stage renal disease patient is on long-acting insulin in addition to scheduled pre-meal insulin. Also placed on Accu-Cheks before meals and at bedtime with sliding scale coverage 6. Paroxysmal A. fib rate controlled on carvedilol on systemic anticoagulation with Coumadin and INR on admission was 1.3 7. 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 Dyslipidemia-patient is on statin therapy, continued at home dose 9. CAD with previous history of single-vessel CABG 10. DVT prophylaxis on Coumadin no need for additional measures Active Medications Hydrocodone Bitart/Acetaminophen ([place] 5mg-325mg) 1 tablet PO Q6H PRN PRN PRN Reason: PAIN Amlodipine Besylate (Norvasc) 5 mg PO DAILY [facility] Atorvastatin Calcium (Lipitor) 30 mg PO QHS [facility] Last Admin: 08/19/18 22:56 Dose: 30 mg Carvedilol (Coreg) 25 mg PO BID [facility] Last Admin: 08/19/18 22:55 Dose: 25 mg Clonidine (Catapres) 0.1 mg PO DAILY [facility] Furosemide (Lasix) 80 mg PO DAILY [facility] Glimepiride (Amaryl) 4 mg PO QAM@0800 [facility] Last Admin: 08/20/18 07:45 Dose: 4 mg Hydralazine HCl (Apresoline) 25 mg PO BID [facility] Last Admin: 08/19/18 22:55 Dose: 25 mg Insulin Glargine (Lantus (Bkc)) 15 units SC QHS [facility] Last Admin: 08/19/18 22:56 Dose: 15 units Insulin Human Lispro (Humalog Kwikpen (Bkc)) 5 unit SC TIDCM PRN PRN Reason: IF BS>100 Magnesium Hydroxide (Milk Of Magnesia) 30 ml PO DAILY PRN PRN PRN Reason: Constipation Sodium Chloride () 5 - 15 ml IV UD PRN PRN Reason: SALINE FLUSH Warfarin Sodium (Coumadin (Pbkc)) 8 mg PO SuTuThSa@1700 [facility] Warfarin Sodium 5 mg/ Warfarin (Sodium 2 mg) 7 mg PO MoWeFr@1700 [facility] Clinical Impression(s) from Imaging Studies Chest X-Ray 08/19/18 15:45 IMPRESSION: Mild increased markings at the lung bases suggestive of bibasilar atelectasis with blunting of both costophrenic angle. Mild vascular congestion. Electronically Signed: Jose Junior MD at 16:07 EST Tel [phone], Service support , Code Visit Inpatient E&M: 35231 Subs Hosp L3
[2018-08-21] MEDS: cloNIDine HCl 0.1 MG Tablet PO (09:02)
[2018-08-21] MEDS: hydrALAZINE 25 MG Tablet PO ×2 (09:02→21:17)
[2018-08-21] MEDS: Carvedilol 25 MG Tablet PO ×2 (09:03→21:17)
[2018-08-21] MEDS: Senna/Docusate Sodium 1 Tablet 2 TABLET PO ×2 (09:03→21:19)
[2018-08-21] MEDS: amLODIPine 5 MG Tablet PO (09:03)
[2018-08-21] MEDS: Furosemide 80 MG Tablet PO (09:03)
[2018-08-21 12:11] LABS: Bedside Glucose 245 mg/dL (70-110)
--- NOTE | 2018-08-21 12:14 | PCM.CONS.R ---
Consultation - Renal 08/21/18 PCP/ Referring MD: Requesting physician: [] Primary care physician: Sarah Hawkins NP Reason for Consultation:: ESRD - History of Present Illness History of Present Illness: The patient is a 77 year old M with multiple comorbidities including diabetes mellitus type 2, end-stage renal disease on hemodynamic with previous CABG, paroxysmal A. fib on systemic anticoagulation with Coumadin and recent resection of the liver who presented with progressive shortness of breath. Hemoglobin of 7.1 admitted to regular nursing floor for subsequent evaluation and management.S/P PRBC. - Allergies Allergies: Allergies No Known Allergies Allergy (Verified 04/04/18 08:45) - Current Medications Current Medications: Current Medications Hydrocodone Bitart/Acetaminophen ([place] 5mg-325mg) 1 tablet PO Q6H PRN PRN PRN Reason: PAIN Amlodipine Besylate (Norvasc) 5 mg PO DAILY [facility] Last Admin: 08/21/18 09:03 Dose: 5 mg Atorvastatin Calcium (Lipitor) 30 mg PO QHS [facility] Last Admin: 08/20/18 21:19 Dose: 30 mg Carvedilol (Coreg) 25 mg PO BID [facility] Last Admin: 08/21/18 09:03 Dose: 25 mg Clonidine (Catapres) 0.1 mg PO DAILY [facility] Last Admin: 08/21/18 09:02 Dose: 0.1 mg Dextrose (D50w Syringe) 0 gm IV X1 PRN; Protocol PRN Reason: Hypoglycemia Furosemide (Lasix) 80 mg PO DAILY [facility] Last Admin: 08/21/18 09:03 Dose: 80 mg Glucagon () 1 mg IM .X1 PRN PRN Reason: Hypoglycemia Hydralazine HCl (Apresoline) 25 mg PO BID [facility] Last Admin: 08/21/18 09:02 Dose: 25 mg Insulin Glargine (Lantus (Bkc)) 15 units SC QHS [facility] Last Admin: 08/20/18 21:19 Dose: 15 units Insulin Human Lispro (Humalog Kwikpen (Bkc)) 5 unit SC TIDCM PRN PRN Reason: IF BS>100 Last Admin: 08/20/18 16:45 Dose: 5 u Insulin Human Lispro (Humalog Kwikpen (Bkc)) 0 unit SQ ACHS [facility]; Protocol Last Admin: 08/21/18 12:03 Dose: 3 u Magnesium Hydroxide (Milk Of Magnesia) 30 ml PO DAILY PRN PRN PRN Reason: Constipation Senna/Docusate Sodium (Senokot-S, [place]Colace) 2 tablet PO BID [facility] Last Admin: 08/21/18 09:03 Dose: 2 tablet Sodium Chloride () 5 - 15 ml IV UD PRN PRN Reason: SALINE FLUSH Warfarin Sodium (Coumadin (Pbkc)) 8 mg PO SuTuThSa@1700 [facility] Last Admin: 08/20/18 16:49 Dose: 8 mg Warfarin Sodium 5 mg/ Warfarin (Sodium 2 mg) 7 mg PO MoWeFr@1700 [facility] - Past Medical History Past Medical History (Chronic Problems): Chronic Problems (Last Reviewed 04/04/18 @ 08:44 by Kendra Aviles) Chronic renal disease, stage IV (Chronic) Hypercholesterolemia (Chronic) History of colectomy (Chronic) Acid reflux (Chronic) Hypertension (Chronic) Afib (Chronic) Heart disease (Chronic) Colon cancer (Chronic) Diabetes (Chronic) Renal failure (Chronic) - Past Surgical History Surgical History: no surgical history - Social History Smoking Status: Former smoker - Family History Maternal Family History: Family History (Last Reviewed 04/04/18 @ 08:44 by Kendra Aviles) Father Colon cancer Sister Diabetes Brother Diabetes Mother Heart disease History Items: No pertinent history Review of Systems Constitutional: Denies: Chills, Fever, Weight Change HEENT: Reports: Difficulty Hearing Cardiovascular: Denies: Chest Pain, Palpitations Respiratory: Denies: Cough, Shortness of breath at rest, Sputum production Gastrointestinal: Denies: Abdominal Pain, Nausea, Vomiting Genitourinary: Denies: Dysuria Musculoskeletal: Denies: Joint Pain, Joint Tenderness Skin: Denies: Rash, Wounds Neurological: Denies: Numbness, Tingling, Focal weakness Psychiatric: Denies: Anxiety, Depression, Homicidal Ideations, Suicidal Ideations Hematologic/ Lymphatic: Reports: Adenopathy Patient Problems: Active and Suspected Problems (Last Reviewed 04/04/18 @ 08:44 by Kendra Aviles) Debility (Acute) - Physical Exam General: Alert, Oriented x3, Cooperative HEENT: Atraumatic, PERRLA, EOMI, Normocephalic Neck: Supple, No JVD, Negative Carotid Bruits Lungs: Clear to auscultation, Normal air movement Cardiovascular: Regular rate, No murmurs Abdomen: Bowel Sounds Present, Soft, Non Tender Extremities: No clubbing Skin: No rashes, No breakdown Musculoskeletal: No Tenderness to Palpation of Joints or Extremities Neurological: Cranial nerves II-XII grossly intact Vital Signs Temp Pulse Resp BP Pulse Ox 98.4 F 66 18 110/49 L 97 08/21/18 08:39 08/21/18 09:02 08/21/18 08:39 08/21/18 09:02 08/21/18 08:39 Oxygen Flow Rate (L/min) 2 Oxygen Delivery Method Room Air Weight: 105.6 kg Body Mass Index (BMI) 33.1 Intake and Output for Last 24 Hours 08/19/18 08/20/18 08/21/18 23:59 23:59 23:59 Intake Total 50 / 50 1875 / 1875 300 / 300 Output Total 100 / 100 Balance -50 / -50 1875 / 1875 300 / 300 Laboratory Tests Past 24 Hrs 08/20/18 08/20/18 08/21/18 07:16 16:24 05:45 WBC 6.4 RBC 2.56 L Hgb 8.5 L 8.0 L Hct 26.7 L 25.8 L MCV 100.8 H MCH 31.3 MCHC 31.0 L RDW 18.1 H RDW Differential 59.5 H Plt Count 162 MPV 9.7 PT INR Sodium Potassium Chloride Carbon Dioxide Anion Gap BUN Creatinine Estim Creat Clear Calc Est GFR (MDRD) Af Amer Est GFR (MDRD) Non-Af BUN/Creatinine Ratio Glucose Calcium Magnesium Crossmatch See Detail 08/21/18 08/21/18 05:45 05:45 WBC RBC Hgb Hct MCV MCH MCHC RDW RDW Differential Plt Count MPV PT 15.9 H INR 1.3 Sodium 138 Potassium 3.7 Chloride 98 Carbon Dioxide 29.0 Anion Gap 11 BUN 66 H Creatinine 6.23 H Estim Creat Clear Calc 9.93 Est GFR (MDRD) Af Amer 11 L Est GFR (MDRD) Non-Af 9 L BUN/Creatinine Ratio 10.6 Glucose 165 H Calcium 7.2 L Magnesium 2.7 H Crossmatch POC Glucose 08/21/18 08/21/18 08/20/18 12:00 06:41 21:16 POC Glucose 245 H 155 H 178 H 08/20/18 16:43 POC Glucose 175 H Assessment/Plan All Active Problems (Last Reviewed 04/04/18 @ 08:44 by Kendra Aviles) Debility (Acute) Surgically constructed arteriovenous graft (Acute ~02/2018) Blood in stool (Acute) Hemorrhoids (Acute) ESRD at [facility] via left AVF HD MWF Anemia s/p PRBC HD today follow chronic orders Acute dyspnea secondary to pulmonary vascular congestion as well as symptomatic anemia; management PCP Diabetes mellitus type 2 with complications including end-stage renal disease patient is on long-acting insulin in addition to scheduled pre-meal insulin. Also placed on Accu-Cheks before meals and at bedtime with sliding scale coverage Paroxysmal A. fib rate controlled on carvedilol on systemic anticoagulation with Coumadin and INR on admission was 1.3 Dyslipidemia-patient is on statin therapy, continued at home dose CAD with previous history of single-vessel CABG DVT prophylaxis on Coumadin no need for additional measures
--- NOTE | 2018-08-21 12:17 | CON.PCM_ITS ---
Consultation - Renal 08/21/18 PCP/ Referring MD: Requesting physician: [] Primary care physician: Sarah Hawkins NP Reason for Consultation:: ESRD - History of Present Illness History of Present Illness: The patient is a 77 year old M with multiple comorbidities including diabetes mellitus type 2, end-stage renal disease on hemodynamic with previous CABG, paroxysmal A. fib on systemic anticoagulation with Coumadin and recent resection of the liver who presented with progressive shortness of breath. Hemoglobin of 7.1 admitted to regular nursing floor for subsequent evaluation and management.S/P PRBC. - Allergies Allergies: Allergies No Known Allergies Allergy (Verified 04/04/18 08:45) - Current Medications Current Medications: Current Medications Hydrocodone Bitart/Acetaminophen ([place] 5mg-325mg) 1 tablet PO Q6H PRN PRN PRN Reason: PAIN Amlodipine Besylate (Norvasc) 5 mg PO DAILY [facility] Last Admin: 08/21/18 09:03 Dose: 5 mg Atorvastatin Calcium (Lipitor) 30 mg PO QHS [facility] Last Admin: 08/20/18 21:19 Dose: 30 mg Carvedilol (Coreg) 25 mg PO BID [facility] Last Admin: 08/21/18 09:03 Dose: 25 mg Clonidine (Catapres) 0.1 mg PO DAILY [facility] Last Admin: 08/21/18 09:02 Dose: 0.1 mg Dextrose (D50w Syringe) 0 gm IV X1 PRN; Protocol PRN Reason: Hypoglycemia Furosemide (Lasix) 80 mg PO DAILY [facility] Last Admin: 08/21/18 09:03 Dose: 80 mg Glucagon () 1 mg IM .X1 PRN PRN Reason: Hypoglycemia Hydralazine HCl (Apresoline) 25 mg PO BID [facility] Last Admin: 08/21/18 09:02 Dose: 25 mg Insulin Glargine (Lantus (Bkc)) 15 units SC QHS [facility] Last Admin: 08/20/18 21:19 Dose: 15 units Insulin Human Lispro (Humalog Kwikpen (Bkc)) 5 unit SC TIDCM PRN PRN Reason: IF BS>100 Last Admin: 08/20/18 16:45 Dose: 5 u Insulin Human Lispro (Humalog Kwikpen (Bkc)) 0 unit SQ ACHS [facility]; Protocol Last Admin: 08/21/18 12:03 Dose: 3 u Magnesium Hydroxide (Milk Of Magnesia) 30 ml PO DAILY PRN PRN PRN Reason: Constipation Senna/Docusate Sodium (Senokot-S, [place]Colace) 2 tablet PO BID [facility] Last Admin: 08/21/18 09:03 Dose: 2 tablet Sodium Chloride () 5 - 15 ml IV UD PRN PRN Reason: SALINE FLUSH Warfarin Sodium (Coumadin (Pbkc)) 8 mg PO SuTuThSa@1700 [facility] Last Admin: 08/20/18 16:49 Dose: 8 mg Warfarin Sodium 5 mg/ Warfarin (Sodium 2 mg) 7 mg PO MoWeFr@1700 [facility] - Past Medical History Past Medical History (Chronic Problems): Chronic Problems (Last Reviewed 04/04/18 @ 08:44 by Kendra Aviles) Chronic renal disease, stage IV (Chronic) Hypercholesterolemia (Chronic) History of colectomy (Chronic) Acid reflux (Chronic) Hypertension (Chronic) Afib (Chronic) Heart disease (Chronic) Colon cancer (Chronic) Diabetes (Chronic) Renal failure (Chronic) - Past Surgical History Surgical History: no surgical history - Social History Smoking Status: Former smoker - Family History Maternal Family History: Family History (Last Reviewed 04/04/18 @ 08:44 by Kendra Aviles) Father Colon cancer Sister Diabetes Brother Diabetes Mother Heart disease History Items: No pertinent history Review of Systems Constitutional: Denies: Chills, Fever, Weight Change HEENT: Reports: Difficulty Hearing Cardiovascular: Denies: Chest Pain, Palpitations Respiratory: Denies: Cough, Shortness of breath at rest, Sputum production Gastrointestinal: Denies: Abdominal Pain, Nausea, Vomiting Genitourinary: Denies: Dysuria Musculoskeletal: Denies: Joint Pain, Joint Tenderness Skin: Denies: Rash, Wounds Neurological: Denies: Numbness, Tingling, Focal weakness Psychiatric: Denies: Anxiety, Depression, Homicidal Ideations, Suicidal Id eations Hematologic/ Lymphatic: Reports: Adenopathy Patient Problems: Active and Suspected Problems (Last Reviewed 04/04/18 @ 08:44 by Kendra Aviles) Debility (Acute) - Physical Exam General: Alert, Oriented x3, Cooperative HEENT: Atraumatic, PERRLA, EOMI, Normocephalic Neck: Supple, No JVD, Negative Carotid Bruits Lungs: Clear to auscultation, Normal air movement Cardiovascular: Regular rate, No murmurs Abdomen: Bowel Sounds Present, Soft, Non Tender Extremities: No clubbing Skin: No rashes, No breakdown Musculoskeletal: No Tenderness to Palpation of Joints or Extremities Neurological: Cranial nerves II-XII grossly intact Vital Signs Temp Pulse Resp BP Pulse Ox 98.4 F 66 18 110/49 L 97 08/21/18 08:39 08/21/18 09:02 08/21/18 08:39 08/21/18 09:02 08/21/18 08:39 Oxygen Flow Rate (L/min) 2 Oxygen Delivery Method Room Air Weight: 105.6 kg Body Mass Index (BMI) 33.1 Intake and Output for Last 24 Hours 08/19/18 08/20/18 08/21/18 23:59 23:59 23:59 Intake Total 50 / 50 1875 / 1875 300 / 300 Output Total 100 / 100 Balance -50 / -50 1875 / 1875 300 / 300 Laboratory Tests Past 24 Hrs 08/20/18 08/20/18 08/21/18 07:16 16:24 05:45 WBC 6.4 RBC 2.56 L Hgb 8.5 L 8.0 L Hct 26.7 L 25.8 L MCV 100.8 H MCH 31.3 MCHC 31.0 L RDW 18.1 H RDW Differential 59.5 H Plt Count 162 MPV 9.7 PT INR Sodium Potassium Chloride Carbon Dioxide Anion Gap BUN Creatinine Estim Creat Clear Calc Est GFR (MDRD) Af Amer Est GFR (MDRD) Non-Af BUN/Creatinine Ratio Glucose Calcium Magnesium Crossmatch See Detail 08/21/18 08/21/18 05:45 05:45 WBC RBC Hgb Hct MCV MCH MCHC RDW RDW Differential Plt Count MPV PT 15.9 H INR 1.3 Sodium 138 Potassium 3.7 Chloride 98 Carbon Dioxide 29.0 Anion Gap 11 BUN 66 H Creatinine 6.23 H Estim Creat Clear Calc 9.93 Est GFR (MDRD) Af Amer 11 L Est GFR (MDRD) Non-Af 9 L BUN/Creatinine Ratio 10.6 Glucose 165 H Calcium 7.2 L Magnesium 2.7 H Crossmatch POC Glucose 08/21/18 08/21/18 08/20/18 12:00 06:41 21:16 POC Glucose 245 H 155 H 178 H 08/20/18 16:43 POC Glucose 175 H Assessment/Plan All Active Problems (Last Reviewed 04/04/18 @ 08:44 by Kendra Aviles) Debility (Acute) Surgically constructed arteriovenous graft (Acute ~02/2018) Blood in stool (Acute) Hemorrhoids (Acute) ESRD at [facility] via left AVF HD MWF Anemia s/p PRBC HD today follow chronic orders Acute dyspnea secondary to pulmonary vascular congestion as well as symptomatic anemia; management PCP Diabetes mellitus type 2 with complications including end-stage renal disease patient is on long-acting insulin in addition to scheduled pre-meal insulin. Also placed on Accu-Cheks before meals and at bedtime with sliding scale coverage Paroxysmal A. fib rate controlled on carvedilol on systemic anticoagulation with Coumadin and INR on admission was 1.3 Dyslipidemia-patient is on statin therapy, continued at home dose CAD with previous history of single-vessel CABG DVT prophylaxis on Coumadin no need for additional measures
--- NOTE | 2018-08-21 13:21 | CASEMGMT ---
As per admitting RN, pt not able to bring in LW/POA forms at this time. HANNAH Slaughter, STAMP CLASSIFIER
--- NOTE | 2018-08-21 17:22 | DIALYSIS ---
Hemodialysis tx completed x 3.5 hours without complications. Pt tolerated tx well. Fluid removed 2,000ml. Verbal report given to NERY Jsoue post tx. Next scheduled dialysis tx 08/23/18.
[2018-08-21 18:10] LABS: Bedside Glucose 136 mg/dL (70-110)
[2018-08-21] MEDS: Atorvastatin Calcium 10 MG Tablet 30 MG PO (21:18)
[2018-08-21 21:27] LABS: Bedside Glucose 216 mg/dL (70-110)
[2018-08-22 03:20] VITALS: BP 141/57; PULSE 64; RESP 18; TEMP 37.3; O2SAT 96
[2018-08-22 05:47] LABS: Hematocrit 26.8 % (40-54); Hemoglobin 8.5 g/dl (13.0-16.5); Mean Corp Hgb Conc 31.7 g/gl (32-36); Mean Corpuscular Volume 100.8 fL (80-94); Mean Platelet Vol. 9.8 fl (6.2-12.0); Platelet Count 173 K/mm3 (150-450); RBC Distribution Width CV 17.6 % (11.6-14.6); RBC Distribution Width SD 59.1 fl (35.1-43.9); Red Blood Count 2.66 M/mm3 (4.6-6.2); White Blood Count 6.7 K/mm3 (4.4-11.0)
[2018-08-22 05:51] LABS: Scan Indicated on CBC? Y/N NO
[2018-08-22 05:52] LABS: International Normalized Ratio 1.3; Prothrombin Time (Protime)PT. 16.2 SECONDS (11.7-14.9)
[2018-08-22 06:06] LABS: Anion Gap 8 (5-15); BUN 42 mg/dL (7-18); BUN/Creat Ratio 10.2 RATIO (10-20); Calcium,Total 7.3 mg/dL (8.5-10.1); Chloride 99 mmol/L (98-107); Creatinine, Serum 4.11 mg/dL (0.70-1.30); EST Glomerular Filtration Rate 15 mL/min (>60); Est Glom Filt Rate - Afr Amer 18 mL/min (>60); Estimated Creatinine Clearance 15.05 ml/min; Glucose 129 mg/dL (74-106); Potassium 3.9 mmol/L (3.5-5.1); Sodium Level 137 mmol/L (136-145)
[2018-08-22 06:31] LABS: Bedside Glucose 112 mg/dL (70-110)
[2018-08-22 07:34] VITALS: O2SAT 95
[2018-08-22 09:24] VITALS: BP 124/64; PULSE 65; RESP 16; TEMP 36.7; O2SAT 98
--- NOTE | 2018-08-22 09:25 | DCINST_ITS ---
- Discharge Diagnoses Current Active Problems: Current Active and Chronic Problems (Last Reviewed 04/04/18 @ 08:44 by Kendra Aviles) Debility (Acute) You will use the following diet at home:: Calorie/Carbohydrate Controlled (specify 1200, 1400, etc) - 1800, Renal (restricted protein/sodium) Your food should be the consistency of: Regular Discharge Activity: Return to Normal Activity, May not drive while taking narcotic pain medications. Allergies/Adverse Reactions: Allergies No Known Allergies Allergy (Verified 04/04/18 08:45) Medications to take at Discharge amlodipine 5 mg tablet 5 mg PO QDAY 01/09/18 carvedilol 25 mg tablet 25 mg PO BID 01/09/18 clonidine HCl 0.1 mg tablet 0.1 mg PO QDAY tab 01/09/18 furosemide 80 mg tablet 80 mg PO QDAY 01/09/18 hydralazine 25 mg tablet 25 mg PO BID tab 01/09/18 insulin aspart U- 100 100 unit/mL subcutaneous pen 5 unit SC TIDCM ml 01/09/18 insulin glargine (U-300) conc. 300 unit/mL (1.5 mL) subcutaneous pen 15 unit SC QHS 01/09/18 pen needle, diabetic 32 gauge x 1/6 See Dose Instructions .ROUTE .MEDSUPPLY #100 ea 01/09/18 simvastatin 40 mg tablet 60 mg PO QPM tab 01/09/18 vitamins-lipotropics tablet 2 tab PO BID 01/09/18 warfarin 6 mg tablet 8 mg PO SUTUTHSA tab 01/09/18 Warfarin [Coumadin] 8 mg PO DAILY tablet 08/22/18 Primary Care Physician: Sarah Hawkins, SARAVANAN-C [Primary Care Provider] - Please follow up with your Primary Care Physician in: in 5-7 days Test Results: Test results from this visit will be discussed in further detail at your follow- up appointment, if applicable. Please Follow Up With: Greg Negro MD When: for dialysis Please Follow Up With: WITH YOUR SURGEON When: as previously scheduled Proposed Discharge Date: 08/22/18
--- NOTE | 2018-08-22 09:25 | PCM.DC.SUM ---
Discharge Date and Diagnosis - Problem List Patient Problems: Active and Suspected Problems (Last Reviewed 04/04/18 @ 08:44 by Kendra Aviles) Debility (Acute) Date of Admission: 08/19/18 Date of Discharge: 08/22/18 - Primary Discharge Diagnosis Active and Suspected Problems (Last Reviewed 04/04/18 @ 08:44 by Kendra Aviles) Debility (Acute) - Secondary Discharge Diagnosis Chronic Problems (Last Reviewed 04/04/18 @ 08:44 by Kendra Aviles) Chronic renal disease, stage IV (Chronic) Hypercholesterolemia (Chronic) History of colectomy (Chronic) Acid reflux (Chronic) Hypertension (Chronic) Afib (Chronic) Heart disease (Chronic) Colon cancer (Chronic) Diabetes (Chronic) Renal failure (Chronic) Hospital Course and Treatment Imaging Results: Clinical Impression(s) from Imaging Studies Chest X-Ray 08/19/18 15:45 IMPRESSION: Mild increased markings at the lung bases suggestive of bibasilar atelectasis with blunting of both costophrenic angle. Mild vascular congestion. Electronically Signed: Jose Junior MD at 16:07 EST Tel [phone], Service support , Summary of Care Provided: Patient is a 77-year-old gentleman with multiple comorbidities including diabetes mellitus type 2, end-stage renal disease on hemodynamic with previous CABG, paroxysmal A. fib on systemic anticoagulation with Coumadin and recent resection of the liver who presented with progressive shortness of breath. Chest x-ray obtained in the emergency department demonstrated vascular congestion patient was also found to be anemic with hemoglobin of 7.1 admitted to regular nursing floor for subsequent evaluation and management. 1. Acute dyspnea secondary to pulmonary vascular congestion as well as symptomatic anemia; management as discussed below 2. Anemia secondary to anemia of chronic blood loss as well as acute blood loss from patient recent surgery with the patient be symptomatic and was given for patient to be transfusing 1 unit PRBC with subsequent serial H&H ordered following his transfusion. Hemoglobin did go up to 8.5 following the transfusion dropped to 8.0 on the morning of 08/21/2018 3. Recent resection of the liver to [facility]. Requisition placed for old records 4. Acute congestive heart failure possibly diastolic echo ordered for EF assessment patient is on Lasix with monitoring of daily weights and strict input and output 5. Diabetes mellitus type 2 with complications including end-stage renal disease patient is on long-acting insulin in addition to scheduled pre-meal insulin. Also placed on Accu-Cheks before meals and at bedtime with sliding scale coverage 6. Paroxysmal A. fib rate controlled on carvedilol on systemic anticoagulation with Coumadin and INR on admission was 1.3; patient Coumadin dose was adjusted on this 7. 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 Dyslipidemia-patient is on statin therapy, continued at home dose 9. CAD with previous history of single-vessel CABG 10. DVT prophylaxis on Coumadin no need for additional measures Patient Problems: Active and Suspected Problems (Last Reviewed 04/04/18 @ 08:44 by Kendra Aviles) Debility (Acute) - Physical Exam General: Alert, Oriented x3 Neck: Supple Lungs: Diminished Cardiovascular: Regular rate Extremities: No clubbing, No cyanosis Neurological: Neuro grossly intact Psych/Mental Status: Normal Affect Vital Signs Temp Pulse Resp BP Pulse Ox 99.1 F 64 18 141/57 H 95 08/22/18 03:20 08/22/18 03:20 08/22/18 03:20 08/22/18 03:20 08/22/18 07:34 Oxygen Flow Rate (L/min) 2 Oxygen Delivery Method Room Air Weight: 105.6 kg Body Mass Index (BMI) 33.1 Intake and Output for Last 24 Hours 08/20/18 08/21/18 08/22/18 23:59 23:59 23:59 Intake Total 1874 1090 / 1090 Output Total 1999 Balance 1875 / 187 -910 / -910 Laboratory Tests Past 24 Hrs 08/22/18 08/22/18 08/22/18 05:04 05:04 05:04 WBC 6.7 RBC 2.66 L Hgb 8.5 L Hct 26.8 L MCV 100.8 H MCH 32.0 MCHC 31.7 L RDW 17.6 H RDW Differential 59.1 H Plt Count 173 MPV 9.8 PT 16.2 H INR 1.3 Sodium 137 Potassium 3.9 Chloride 99 Carbon Dioxide 30.0 Anion Gap 8 BUN 42 H Creatinine 4.11 H Estim Creat Clear Calc 15.05 Est GFR (MDRD) Af Amer 18 L Est GFR (MDRD) Non-Af 15 L BUN/Creatinine Ratio 10.2 Glucose 129 H Calcium 7.3 L POC Glucose 08/22/18 08/21/18 08/21/18 06:25 21:13 18:03 POC Glucose 112 H 216 H 136 H 08/21/18 12:00 POC Glucose 245 H Discharge Diet: 1800 Calorie Control Diet, Renal Diet Discharge Activity: Return to Normal Activity, May not drive while taking narcotic pain medications. Home Medications: Medications to take at Discharge amlodipine 5 mg tablet 5 mg PO QDAY 01/09/18 carvedilol 25 mg tablet 25 mg PO BID 01/09/18 clonidine HCl 0.1 mg tablet 0.1 mg PO QDAY tab 01/09/18 furosemide 80 mg tablet 80 mg PO QDAY 01/09/18 hydralazine 25 mg tablet 25 mg PO BID tab 01/09/18 insulin aspart U- 100 100 unit/mL subcutaneous pen 5 unit SC TIDCM ml 01/09/18 insulin glargine (U-300) conc. 300 unit/mL (1.5 mL) subcutaneous pen 15 unit SC QHS 01/09/18 pen needle, diabetic 32 gauge x 1/6 See Dose Instructions .ROUTE .MEDSUPPLY #100 ea 01/09/18 simvastatin 40 mg tablet 60 mg PO QPM tab 01/09/18 vitamins-lipotropics tablet 2 tab PO BID 01/09/18 warfarin 6 mg tablet 8 mg PO SUTUTHSA tab 01/09/18 Warfarin [Coumadin] 8 mg PO DAILY tablet 08/22/18 Primary Care Physician: Sarah Hawkins NP-C [Primary Care Provider] - Please follow up with your Primary Care Physician in: in 5-7 days Please Follow Up With: Greg Negro MD When: for dialysis Please Follow Up With: WITH YOUR SURGEON When: as previously scheduled Disposition: Home Minutes spent on discharge:: 45 Patient Condition:: Stable Medical Necessity - Tobacco Use Smoking Status: Former smoker Meaningful Use Info Meaningful Use Diagnoses (Choose all that apply): CHF - CHF VIOLET/ARB ordered at discharge?: No Reason VIOLET/ARB not ordered?: Worsening renal disease Documented LVEF (%): 65 Code Visit Inpatient E&M: 73499 Disch Hosp
--- NOTE | 2018-08-22 09:28 | DS.PCM_ITS ---
Discharge Date and Diagnosis - Problem List Patient Problems: Active and Suspected Problems (Last Reviewed 04/04/18 @ 08:44 by Kendra Aviles) Debility (Acute) Date of Admission: 08/19/18 Date of Discharge: 08/22/18 - Primary Discharge Diagnosis Active and Suspected Problems (Last Reviewed 04/04/18 @ 08:44 by Kendra Aviles) Debility (Acute) - Secondary Discharge Diagnosis Chronic Problems (Last Reviewed 04/04/18 @ 08:44 by Kendra Aviles) Chronic renal disease, stage IV (Chronic) Hypercholesterolemia (Chronic) History of colectomy (Chronic) Acid reflux (Chronic) Hypertension (Chronic) Afib (Chronic) Heart disease (Chronic) Colon cancer (Chronic) Diabetes (Chronic) Renal failure (Chronic) Hospital Course and Treatment Imaging Results: Clinical Impression(s) from Imaging Studies Chest X-Ray 08/19/18 15:45 IMPRESSION: Mild increased markings at the lung bases suggestive of bibasilar atelectasis with blunting of both costophrenic angle. Mild vascular congestion. Electronically Signed: Jose Junior MD at 16:07 EST Tel [phone], Service support , Summary of Care Provided: Patient is a 77-year-old gentleman with multiple comorbidities including diabetes mellitus type 2, end-stage renal disease on hemodynamic with previous CABG, paroxysmal A. fib on systemic anticoagulation with Coumadin and recent resection of the liver who presented with progressive shortness of breath. Chest x-ray obtained in the emergency department demonstrated vascular congestion patient was also found to be anemic with hemoglobin of 7.1 admitted to regular nursing floor for subsequent evaluation and management. 1. Acute dyspnea secondary to pulmonary vascular congestion as well as symptomatic anemia; management as discussed below 2. Anemia secondary to anemia of chronic blood loss as well as acute blood loss from patient recent surgery with the patient be symptomatic and was given for patient to be transfusing 1 unit PRBC with subsequent serial H&H ordered following his transfusion. Hemoglobin did go up to 8.5 following the transfu anahy dropped to 8.0 on the morning of 08/21/2018 3. Recent resection of the liver to [facility]. Requisition placed for old records 4. Acute congestive heart failure possibly diastolic echo ordered for EF assessment patient is on Lasix with monitoring of daily weights and strict input and output 5. Diabetes mellitus type 2 with complications including end-stage renal disease patient is on long-acting insulin in addition to scheduled pre-meal insulin. Also placed on Accu-Cheks before meals and at bedtime with sliding scale coverage 6. Paroxysmal A. fib rate controlled on carvedilol on systemic anticoagulation with Coumadin and INR on admission was 1.3; patient Coumadin dose was adjusted on this 7. End-stage renal disease on hemodialysis on Wednesdays and Fridays patient was placed to the patient's hand molder and caster for dialysis orders 8. Dyslipidemia-patient is on statin therapy, continued at home dose 9. CAD with previous history of single-vessel CABG 10. DVT prophylaxis on Coumadin no need for additional measures Patient Problems: Active and Suspected Problems (Last Reviewed 04/04/18 @ 08:44 by Kendra Aviles) Debility (Acute) - Physical Exam General: Alert, Oriented x3 Neck: Supple Lungs: Diminished Cardiovascular: Regular rate Extremities: No clubbing, No cyanosis Neurological: Neuro grossly intact Psych/Mental Status: Normal Affect Vital Signs Temp Pulse Resp BP Pulse Ox 99.1 F 64 18 141/57 H 95 08/22/18 03:20 08/22/18 03:20 08/22/18 03:20 08/22/18 03:20 08/22/18 07:34 Oxygen Flow Rate (L/min) 2 Oxygen Delivery Method Room Air Weight: 105.6 kg Body Mass Index (BMI) 33.1 Intake and Output for Last 24 Hours 08/20/18 08/21/18 08/22/18 23:59 23:59 23:59 Intake Total 1874 1090 / 1090 Output Total 1999 Balance 1875 / 1875 -910 / -910 Laboratory Tests Past 24 Hrs 08/22/18 08/22/18 08/22/18 05:04 05:04 05:04 WBC 6.7 RBC 2.66 L Hgb 8.5 L Hct 26.8 L MCV 100.8 H MCH 32.0 MCHC 31.7 L RDW 17.6 H RDW Differential 59.1 H Plt Count 173 MPV 9.8 PT 16.2 H INR 1.3 Sodium 137 Potassium 3.9 Chloride 99 Carbon Dioxide 30.0 Anion Gap 8 BUN 42 H Creatinine 4.11 H Estim Creat Clear Calc 15.05 Est GFR (MDRD) Af Amer 18 L Est GFR (MDRD) Non-Af 15 L BUN/Creatinine Ratio 10.2 Glucose 129 H Calcium 7.3 L POC Glucose 08/22/18 08/21/18 08/21/18 06:25 21:13 18:03 POC Glucose 112 H 216 H 136 H 08/21/18 12:00 POC Glucose 245 H Discharge Diet: 1800 Calorie Control Diet, Renal Diet Discharge Activity: Return to Normal Activity, May not drive while taking narcotic pain medications. Home Medications: Medications to take at Discharge amlodipine 5 mg tablet 5 mg PO QDAY 01/09/18 carvedilol 25 mg tablet 25 mg PO BID 01/09/18 clonidine HCl 0.1 mg tablet 0.1 mg PO QDAY tab 01/09/18 furosemide 80 mg tablet 80 mg PO QDAY 01/09/18 hydralazine 25 mg tablet 25 mg PO BID tab 01/09/18 insulin aspart U- 100 100 unit/mL subcutaneous pen 5 unit SC TIDCM ml 01/09/18 insulin glargine (U-300) conc. 300 unit/mL (1.5 mL) subcutaneous pen 15 unit SC QHS 01/09/18 pen needle, diabetic 32 gauge x 1/6 See Dose Instructions .ROUTE .MEDSUPPLY #100 ea 01/09/18 simvastatin 40 mg tablet 60 mg PO QPM tab 01/09/18 vitamins-lipotropics tablet 2 tab PO BID 01/09/18 warfarin 6 mg tablet 8 mg PO SUTUTHSA tab 01/09/18 Warfarin [Coumadin] 8 mg PO DAILY tablet 08/22/18 Primary Care Physician: Sarah Hawkins NP-C [Primary Care Provider] - Please follow up with your Primary Care Physician in: in 5-7 days Please Follow Up With: Greg Negro MD When: for dialysis Please Follow Up With: WITH YOUR SURGEON When: as previously scheduled Disposition: Home Minutes spent on discharge:: 45 Patient Condition:: Stable Medical Necessity - Tobacco Use Smoking Status: Former smoker Meaningful Use Info Meaningful Use Diagnoses (Choose all that apply): CHF - CHF VIOLET/ARB ordered at discharge?: No Reason VIOLET/ARB not ordered?: Worsening renal disease Documented LVEF (%): 65 Code Visit Inpatient E&M: 73312 Disch Hosp
--- NOTE | 2018-08-22 09:41 | CASEMGMT ---
NERY MAJOR NOTE: PT/OT notes reviewed. To room to talk with pt re: therapy. Pt states he prefers HHC instead of Out-pt therapy, stating it is still difficult to leave his home d/t SOB and weakness. States has no preference of HHC agency. Referral made with Mayela @ [facility] and she is aware pt is discharging today. Awaiting acceptance. Karolina BOTELLO RN CM
--- NOTE | 2018-08-22 09:59 | CASEMGMT ---
NERY MAJOR NOTE: Received call from Mayela @ [facility]. They are able to accept pt. Pt receiveS dialysis MWF and states is really tired after dialysis, so he prefers [facility] to come on Tuesdays and and is agreeable to Start of Care Sunday08/27/18. Mayela @ [facility] aware. Karolina BOTELLO RN CM
--- NOTE | 2018-08-22 11:20 | NURSING ---
signed home medication list arrived to unit after pts dc. communication sent and response received from dr thompson. called pt at home to clarify, spoke to pts and instructed to stop the amaryl and take 8mg coumadin daily.
--- NOTE | 2018-08-23 16:05 | CASEMGMT ---
NERY MAJOR Discharge Follow-Up Phone Call. STELLA: William Strata: 3 Discharge Date: 08-22-18 Adm Dx: Generalized Weakness. Call placed to pt to inquire about how he has been doing since he left the hospital. Pt states, I've done really good. States he had dialysis today and that always makes me tired but that he is doing well over-all. Pt states he still does not have much strength but that he is able to take rest breaks and relax until he feels better. Pt denies having any questions about discharge instructions or medications. He states he plans on calling to make an appt with [facility] Sarah Hawkins today yet, stating, they're open until 5 today so I'm going to try and call them yet today. Pt states he is also aware he needs to make an appt with his surgeon. Pt states he already has an appt coming up soon with Dr Ruano. Pt states [facility] has not contacted him yet to set up HHC. Pt states is aware they were planning on starting care on Sunday. NERY MAJOR provided pt with [facility] phone number and instructed him to contact them if he has not heard from them by Sunday or Sunday. Pt voices understanding. Pt also instructed to contact CM office @ [facility] if he would have any questions or concerns. Pt states he has no suggestions for [facility], stating, they done really good and that everyone treated him really well. NERY MAJOR thanked pt for taking the time to talk to NERY MAJOR today and thanked him for choosing [facility]. Karolina BOTELLO RN, CM
== END 2018-08-22 10:25 | disposition home or self-care (01) | DRG 811 ==
LOC: ED 17:32 → MS2 21:19
PROVIDERS: Admitting Provider Family Medicine; Emergency Provider Emergency Medicine; Family Provider Nurse Practitioner; PCP Nurse Practitioner; Visit Provider Internal Medicine
DX: D62 Acute posthemorrhagic anemia (principal); I50.31 Acute diastolic (congestive) heart failure; I13.2 Hypertensive heart and chronic kidney disease with heart failure and with stage 5 chronic kidney disease, or end stage renal disease; D50.0 Iron deficiency anemia secondary to blood loss (chronic); E11.22 Type 2 diabetes mellitus with diabetic chronic kidney disease; I48.0 Paroxysmal atrial fibrillation; R53.81 Other malaise; I25.10 Atherosclerotic heart disease of native coronary artery without angina pectoris; K21.9 Gastro-esophageal reflux disease without esophagitis; Z95.1 Presence of aortocoronary bypass graft; Z99.2 Dependence on renal dialysis; Z79.01 Long term (current) use of anticoagulants; Z90.49 Acquired absence of other specified parts of digestive tract; Z79.4 Long term (current) use of insulin; Z79.899 Other long term (current) drug therapy; Z87.891 Personal history of nicotine dependence; Z85.038 Personal history of other malignant neoplasm of large intestine; E78.00 Pure hypercholesterolemia, unspecified
CPT/HCPCS: 36415; 71046; 80048; 82962; 83735; 84484; 85014; 85018; 85025; 85027; 85610; 86850; 86900; 86920; 86922; 90937; 93005; 93306; 97116; 97162; 97165; 97530; 97802; 99283; J0885; J1756; J7040; P9016; Q9957; A4216; C8929; G0257

== ENCOUNTER 2018-10-10 08:34 | Day surgery (SDC) | payer MEDICARE, SELFPAY ==
[2018-09-03 14:01] VITALS: BMI 33.1
[2018-09-26 11:10] VITALS: BP 147/60; PULSE 68; RESP 18; TEMP 36.8; O2SAT 99; BMI 32.7
[2018-09-26 11:16] LABS: Absolute Lymphocyte Count 1.74 X10^3/ul (0.83-4.51); Absolute Neutrophil Count 4.7 X10^3/uL (2.0-7.7); Basophil# 0.02 X10^3/uL; Basophil% 0.3 % (0-1); Eosinophil# 0.07 X10^3/uL; Hematocrit 39.3 % (40-54); Hemoglobin 12.2 g/dl (13.0-16.5); Lymphocyte # 1.74 X10^3/ul (4.0); Lymphocyte % 24.4 % (19-41); Mean Corpuscular Hgb 31.8 pg (27.0-32.0); Mean Corpuscular Volume 102.3 fL (80-94); Mean Platelet Vol. 10.2 fl (6.2-12.0); Monocyte# 0.58 X10^3/uL; Monocyte% 8.1 % (0-10); Neutrophil # 4.71 X10^3/uL (2.7-7.7); Neutrophil % 65.9 % (47-70); Platelet Count 150 K/mm3 (150-450); RBC Distribution Width CV 15.9 % (11.6-14.6); RBC Distribution Width SD 59.3 fl (35.1-43.9); Red Blood Count 3.84 M/mm3 (4.6-6.2); White Blood Count 7.1 K/mm3 (4.4-11.0)
[2018-09-26 11:18] LABS: POSITIVE COUNT NO; POSITIVE DIFFERENTIAL NO; POSITIVE MORPHOLOGY NO
[2018-09-26 11:28] LABS: Anion Gap 12 (5-15); BUN 31 mg/dL (7-18); BUN/Creat Ratio 8.7 RATIO (10-20); Calcium,Total 8.9 mg/dL (8.5-10.1); Chloride 101 mmol/L (98-107); Creatinine, Serum 3.58 mg/dL (0.70-1.30); EST Glomerular Filtration Rate 18 mL/min (>60); Est Glom Filt Rate - Afr Amer 21 mL/min (>60); Estimated Creatinine Clearance 17.28 ml/min; Glucose 195 mg/dL (74-106); Sodium Level 142 mmol/L (136-145)
--- NOTE | 2018-10-10 08:53 | EKG12_ITS ---
Test Reason : PREOP Blood Pressure : / mmHG Vent. Rate : 075 BPM Atrial Rate : 085 BPM P-R Int : 000 ms QRS Dur : 098 ms QT Int : 426 ms P-R-T Axes : 000 -25 165 degrees QTc Int : [address] & T wave abnormality, consider anterolateral ischemia Prolonged QT Abnormal ECG Confirmed by RACHEL OLMOS, JOSE DE JESUS ([id number]), video effects editor SNOW JHA ([id number]) on 10/15/2018 3:59:51 PM Referred By: Bull Mendoza Confirmed By:JOSE DE JESUS RAMOS MD
[2018-10-10 08:54] VITALS: BP 139/75; PULSE 82; RESP 16; TEMP 36.6; O2SAT 100; BMI 32.9
[2018-10-10 09:05] LABS: Prothrombin Time Fingerstick 15.6 SEC (11.9-14.4)
[2018-10-10 09:11] LABS: Bedside Glucose 172 mg/dL (70-110)
--- NOTE | 2018-10-10 10:51 | PCM.HP.STD ---
Problem List (1) Chronic renal failure, stage 5 Status: Acute History of Present Illness Date of Admission: 10/10/18 Chief Complaint: Chronic renal failure. In need of dialysis access via home therapy The patient is a 77 year old M who I am following for chronic renal failure. He presents for an elective peritoneal dialysis catheter placement and update history and physical. Patient notes he recently, 2 days ago, had a fistulogram at [place]. Per patient, they were not able to perform angioplasty down to the anastomosis, so they will have to perform a repeat fistulogram. I do not have that operative report present. Patient was previously scheduled for the peritoneal dialysis catheters, however he did not stop his Coumadin. Patient denies recent hospitalizations or illnesses. He denies recent medications changes. He notes cardiac bypass in approximately late 1989'. He is on Coumadin for A Fib. He is currently on dialysis M,W,F. Patient's previous history per Dr. Mendoza: ANDERSON PAEZ, is a 77 M who presents to the office today for discussion of peritoneal dialysis catheter placement. On January 16, 2018 I created for him a transposition left forearm cephalic vein to radial artery arteriovenous hemodialysis fistula. By verbal report from him it is functioning well. The patient however does not like to be in the dialysis center 3 times per week for 3-4-hour sessions. He is interested in pursuing peritoneal dialysis catheters. He notes that just a month ago at [facility] performed a liver resection of a tumor. The patient states that adjuvant chemoradiation will not be required. The patient also notes that in 2012 he had a colectomy done for colon cancer. That operation was performed at [facility]. The patient also states that he has had mesh repair of a hiatal hernia or ventral hernia. Body weight is 233 pounds with a BMI of 33.4 with majority of his weight carried in his abdomen Patient is referred for surgical consultation by for the placement of peritoneal dialysis catheters and a written copy of my surgical consult recommendations will be returned to him. I have information dated August 15, [address] Sarahi Torre who at [facility] performed a laparoscopic partial right hepatic lobectomy and laparoscopic liver ultrasound for hepatocellular carcinoma. Final pathology demonstrated a 9 x 6 x 4.5 cm solitary tumor. Margins were clear by 2.5 mm. Small vessel at venous invasion. Regional nodes were not sampled. The gallbladder was not remarkable. No mention is made during this liver resection of any additional adhesions within the abdomen It is of additional note that March 21, 2013 the patient had a right colectomy. This was started laparoscopically and converted to an open procedure. 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 The tumor extends through the muscular wall and into the pericolonic fat but not to the free serosal margin. Surgical margins were free. 15 lymph nodes were negative. That tumor measured 4.7 x 4.5 cm. With this information I believe that it would be best to discuss potential placement of peritoneal dialysis catheter with . Past Medical History Past Medical History (Chronic Problems): Chronic Problems (Last Reviewed 09/03/18 @ 13:49 by Johanne Geiger) Chronic renal disease, stage IV (Chronic) Hypercholesterolemia (Chronic) History of colectomy (Chronic) Acid reflux (Chronic) Hypertension (Chronic) Afib (Chronic) Heart disease (Chronic) Colon cancer (Chronic) Diabetes (Chronic) Renal failure (Chronic) Medical History: Medical History (Last Reviewed 10/10/18 @ 11:02 by Elisha Torres PA-C) Debility (Acute) R53.81 Chronic renal disease, stage IV (Chronic) N18.4 Hypercholesterolemia (Chronic) E78.00 Blood in stool (Acute) K92.1 Hemorrhoids (Acute) K64.9 Acid reflux (Chronic) K21.9 Hypertension (Chronic) I10 Afib (Chronic) I48.91 Heart disease (Chronic) I51.9 Colon cancer (Chronic) C18.9 Diabetes (Chronic) E11.9 Renal failure (Chronic) N19 Heart disease I51.9 Liver cancer C22.9 Allergies mold Adverse Reaction (Verified 09/25/18 09:29) Other Home Medications: Ambulatory Orders Medication Instructions Recorded amlodipine 5 mg tablet 5 mg PO QDAY 01/09/18 carvedilol 25 mg tablet 25 mg PO BID 01/09/18 clonidine HCl 0.1 mg tablet 0.1 mg PO QDAY tab 01/09/18 furosemide 80 mg tablet 80 mg PO QDAY 01/09/18 insulin aspart U- 100 100 unit/mL 5 unit SC TIDCM ml 01/09/18 subcutaneous pen insulin glargine (U-300) conc. 300 15 unit SC QHS 01/09/18 unit/mL (1.5 mL) subcutaneous pen pen needle, diabetic 32 gauge x See Dose Instructions .ROUTE 01/09/1809/22 .MEDSUPPLY #100 ea simvastatin 40 mg tablet 60 mg PO QPM tab 01/09/18 vitamins-lipotropics tablet 2 tab PO BID 01/09/18 warfarin 6 mg tablet 8 mg PO SUTUTHSA tab 01/09/18 Warfarin [Coumadin] 8 mg PO DAILY tab 08/22/18 glimepiride 4 mg tablet 4 mg PO QAM 09/03/18 hydralazine 25 mg tablet 50 mg PO TID tab 09/03/18 Surgical History: Surgical History (Last Reviewed 10/10/18 @ 11:02 by Elisha Torres PA-C) Surgically constructed arteriovenous graft (Acute) Onset Date: ~02/2018 Z95.828 01/16/2018 History of colectomy (Chronic) Z90.49 Surgical History: no surgical history Psychiatric History: No pertinent psych hx Lives: Spouse/ Significant Other Smoking Status: Former smoker - *Family History Maternal Family History: Family History (Last Reviewed 10/10/18 @ 11:02 by Elisha Torres PA-C) Father Colon cancer Sister Diabetes Brother Diabetes Mother Heart disease History Items: No pertinent history Review of Systems Constitutional: Reports: Weight Change, Fatigue. Denies: Anorexia, Weakness HEENT: Denies: Head Aches, Sinus Congestion, Sinus Drainage Cardiovascular: Denies: Chest Pain, Palpitations Respiratory: Reports: Shortness of Breath. Denies: Cough, Shortness of breath at rest, Sputum production, Wheezing Gastrointestinal: Reports: Melena. Denies: Abdominal Pain, Nausea, Vomiting Genitourinary: Reports: Retention Musculoskeletal: Denies: Joint Pain, Joint Tenderness Skin: Denies: Rash, Wounds Neurological: Denies: Numbness, Tingling, Focal weakness Psychiatric: Denies: Anxiety, Depression, Homicidal Ideations, Suicidal Ideations Hematologic/ Lymphatic: Reports: Anemia, Easy Bruising, Easy Bleeding. Denies: Hx of blood clot VTE Information - Inpt Only VTE Present on Admission: Yes VTE Mechan Device Prophylaxis: SCD's - Physical Exam General: Alert, Oriented x3, Cooperative HEENT: Atraumatic, PERRLA, EOMI, Normocephalic Neck: Supple, No JVD, Negative Carotid Bruits Lungs: Clear to auscultation, Normal air movement Cardiovascular: Regular rate, No murmurs Abdomen: Bowel Sounds Present, Soft, Non Tender, Obese Extremities: Edema - 1+, - - Left forearm fistula- excellent pulse, bruit and thrill Skin: No rashes, No breakdown Musculoskeletal: No Tenderness to Palpation of Joints or Extremities Neurological: Neuro grossly intact Psych/Mental Status: Normal Affect Vital Signs Temp Pulse Resp BP Pulse Ox 97.9 F 82 16 139/75 H 100 10/10/18 08:54 10/10/18 08:54 10/10/18 08:54 10/10/18 08:54 10/10/18 08:54 Oxygen Delivery Method Room Air Weight: 233 lb 0.458 oz Body Mass Index (BMI) 32.9 Laboratory Tests Past 24 Hrs 10/10/18 08:57 POC PT 15.6 H INR 1.30 POC Glucose 10/10/18 08:56 POC Glucose 172 H Assessment/Plan All Active Problems (Last Reviewed 09/03/18 @ 13:49 by Johanne Geiger) Chronic renal failure, stage 5 (Acute) Debility (Acute) Surgically constructed arteriovenous graft (Acute ~02/2018) Blood in stool (Acute) Hemorrhoids (Acute) Impression: Chronic renal failure. Plan: Dr. Mendoza will plan to perform laparoscopic peritoneal dialysis catheters with omentopexy. Procedure details, risks and benefit have been reviewed. Patient and his spouse have had the opportunity to ask and have questions answered. Patient verbally understands and agrees with the plan. Patient has been off of his Coumadin. Patient desires to proceed with the proposed procedure. Code Visit Inpatient E&M: 83202 Subs Hosp L1 - NO CHARGE. UPDATE H&P
--- NOTE | 2018-10-10 11:27 | DCINST_ITS ---
Discharge Diet: Renal Diet Discharge Activity: May Not Drive - No driving for approximately 5-7 days, May Not Shower Lifting Restrictions: 10 pounds Call your doctor if your incision/area has: Continuous Slow Oozing, Sudden Increased Bleeding, Increased Pain/ Swelling, Increased Redness, Foul Smelling Discharge Call your doctor if you observe: Fever of 101 or Higher Suture Line Care: Avoid Pulling/Pushing, Avoid Pinching/Bending Additional Dressing/Incision Instructions:: Please keep your dialysis catheter site clean and dry. The dialysis center will assist with dressing changes. Allergies/Adverse Reactions: Allergies mold Adverse Reaction (Verified 09/25/18 09:29) Other Medications to take at Discharge amlodipine 5 mg tablet 5 mg PO QDAY 01/09/18 carvedilol 25 mg tablet 25 mg PO BID 01/09/18 clonidine HCl 0.1 mg tablet 0.1 mg PO QDAY tab 01/09/18 furosemide 80 mg tablet 80 mg PO QDAY 01/09/18 insulin aspart U- 100 100 unit/mL subcutaneous pen 5 unit SC TIDCM ml 01/09/18 insulin glargine (U-300) conc. 300 unit/mL (1.5 mL) subcutaneous pen 15 unit SC QHS 01/09/18 pen needle, diabetic 32 gauge x 1/6 See Dose Instructions .ROUTE .MEDSUPPLY #100 ea 01/09/18 simvastatin 40 mg tablet 60 mg PO QPM tab 01/09/18 vitamins-lipotropics tablet 2 tab PO BID 01/09/18 warfarin 6 mg tablet 8 mg PO SUTUTHSA tab 01/09/18 Warfarin [Coumadin] 8 mg PO DAILY tab 08/22/18 glimepiride 4 mg tablet 4 mg PO QAM 09/03/18 hydralazine 25 mg tablet 50 mg PO TID tab 09/03/18 Hydrocodone Bitart/Apap 5-325 [[place] 5MG-325MG] 1 tablet PO Q6H PRN PRN 3 Days #6 tablet 10/10/18 The following prescriptions were given: Hydrocodone Bitart/Apap 5-325 [[place] 5MG-325MG] 1 tablet PO Q6H PRN PRN 3 Days #6 tablet PRN Reason: Pain Primary Care Physician: Sarah Hawkins NP-C [Primary Care Provider] - Test Results: Test results from this visit will be discussed in further detail at your follow- up appointment, if applicable. Please Follow Up With: Bull Mendoza MD - [phone] When: Call to make an appointment to be seen in about 10 days.
[2018-10-10] MEDS: Cefazolin 2 GM in 0.9% Normal Saline 100 ML IV (11:29)
[2018-10-10] MEDS: Bupivacaine Mpf 0.5% 30 ML VIAL (11:47)
[2018-10-10] MEDS: Heparin Injection (Vial) 5,000 UNIT/ML VIAL 5000 UNIT (12:25)
--- NOTE | 2018-10-10 12:32 | PCM.OPRPT ---
Problem List (1) Chronic renal failure, stage 5 Status: Acute Report of Operation Date of Procedure: 10/10/18 Pre-Operative Diagnosis: Stage V chronic renal insufficiency desiring peritoneal dialysis catheter placement Post-Operative Diagnosis: Same Surgery/Procedure Performed:: Laparoscopic peritoneal dialysis catheter placement Description of Surgical Findings:: Timeout and informed consent was obtained. 77-year-old gent was taken the operating placement the table and with gentle V. The abdomen sterilely prepped and draped. Ioban drape was used to help hold the drapes in place. To the right of the umbilicus slightly superiorly local was instilled 0.5% Marcaine. Throughout the procedure a total of 4 cc was used. Then a small transverse incision was created and very carefully using a 5 mm Visiport careful slow access was gained to the abdomen. Was able to penetrate the peritoneum insufflated the abdomen advance the trocar revealed that I was in a small pocket of normal area with multiple adhesions of omentum surrounding. I was able to look look toward the pelvis and find a window of opportunity to Gregory the 5 mm scope down toward the pelvis. Although there was extensive adhesions of omentum to the anterior abdominal wall in the midline the entire right side of the abdomen the left side was free. I was able under visualization place a pulmonary port in the left mid upper quadrant. Inspecting the abdomen revealed extensive adhesions extending from below the umbilicus all the way up to the midline all the way to the right side of the abdomen of the omentum. There did not appear to be small bowel adhesions. I measured the double cuff peritoneal dialysis catheter. Lot #[id number]. Expiry date 04/30/2023. Reference #[id number] Made an appropriate incision inferior to the left of the umbilicus used as retractors dissect down through the abdomen to the anterior rectus sheath inserted a varies needle with a dilating trocar advanced that for 6 cm and then exited under laparoscopic visualization through the retroperitoneum and toward the pelvis. I inserted the 8 mm dilator. I advanced the catheter over a guidewire into the pelvis. The internal cuff was placed just beneath the peritoneum. The external cuff nicely was placed at the incision site. Was able to range the curl tip of the catheter into the pelvis anterior to the sigmoid appeared to have good position. I then tunneled the catheter with a special exiting trocar so that the catheter would exit in the left lateral abdomen at a 30 degree angle. I then attached the titanium attachment device we instilled 1 L fluid easily the fluid was then allowed to return with good return the left [address] I then injected 60 cc of heparinized saline. Attachment device was placed to the titanium And then I placed a Betadine. All wounds were closed with interrupted 4 Monocryl subdermal stitches. Silver impregnated dressing was applied at the catheter exit site followed by multiple cushioning gauze and then an OpSite dressing to completely secure the catheter in position. Because of the extensive adhesions of omentum to the anterior abdominal wall of omentopexy was not required. Blood loss was minimal specimens none drains none. Impression successfully placed peritoneal dialysis catheter. Specimens none. Drains none. Blood loss minimal. The patient was taken to the recovery area in satisfactory condition without apparent complication Bull Mendoza M.D., F.A.C.S. Type of Anesthesia:: General Anesthesiologist: Sarah Donohue
[2018-10-10 12:49] VITALS: BP 139/75; BP 179/72; PULSE 78; RESP 16; TEMP 36.3; O2SAT 96
[2018-10-10 13:00] VITALS: BP 139/75; BP 151/74; PULSE 76; RESP 18; O2SAT 99
[2018-10-10 13:13] VITALS: BP 139/75; BP 183/91; PULSE 81; RESP 18; TEMP 36.3; O2SAT 100
[2018-10-10 14:11] VITALS: BP 139/75; BP 149/58; PULSE 68; RESP 16; TEMP 36.4; O2SAT 97
== END 2018-10-10 14:28 | disposition home or self-care (01) ==
LOC: SDC 08:36 → AC 08:38
PROVIDERS: Family Provider Nurse Practitioner; PCP Nurse Practitioner; Referring Provider Surgery; Visit Provider Surgery
PROC: 0WHG43Z Insertion of Infusion Device into Peritoneal Cavity, Percutaneous Endoscopic Approach (ICD-10-PCS; CPT 49324; principal; 2018-10-10 10:45)
DX: Z49.02 Encounter for fitting and adjustment of peritoneal dialysis catheter (principal); E11.22 Type 2 diabetes mellitus with diabetic chronic kidney disease; I12.0 Hypertensive chronic kidney disease with stage 5 chronic kidney disease or end stage renal disease; N18.5 Chronic kidney disease, stage 5; K21.9 Gastro-esophageal reflux disease without esophagitis; I48.91 Unspecified atrial fibrillation; Z79.01 Long term (current) use of anticoagulants; Z99.2 Dependence on renal dialysis; Z85.038 Personal history of other malignant neoplasm of large intestine; C22.0 Liver cell carcinoma; I25.10 Atherosclerotic heart disease of native coronary artery without angina pectoris; Z79.899 Other long term (current) drug therapy; Z79.84 Long term (current) use of oral hypoglycemic drugs; Z87.891 Personal history of nicotine dependence; K66.0 Peritoneal adhesions (postprocedural) (postinfection); G47.30 Sleep apnea, unspecified
CPT/HCPCS: 49324; 36415; 36416; 80048; 82962; 85025; 85610; 93005; J7120; J2405

== ENCOUNTER 2018-11-19 16:05 | Inpatient (IN) | payer MEDICARE, SELFPAY ==
[2018-11-19 15:07] VITALS: BMI 32.9
--- NOTE | 2018-11-19 15:54 | CT_ITS ---
STUDY: CT ABDOMEN AND PELVIS WITHOUT CONTRAST REASON FOR EXAM: Male, 77 years old. Infected peritoneal dialysis catheter with cellulitis and erythema. History of colon/liver cancer. RADIATION DOSAGE (If Supplied By Facility): CTDIvol = ( 18.61 ) mGy, DLP = ( 1013.56 ) mGycm TECHNIQUE: Transaxial images were obtained from the dome of the diaphragm to the symphysis pubis without oral contrast, and without intravenous contrast. Sagittal and coronal images were reconstructed. Individualized dose optimization techniques were used for this CT. COMPARISON: None. FINDINGS: There is minor peribronchial thickening and wispy peribronchial densities of minor volume loss or inflammatory change in the posterior lung bases. Small calcified granuloma seen in the anterolateral periphery of the right middle lobe. The heart size is upper normal . There are calcifications in the mitral valve annulus as well as atherosclerotic calcifications of the coronary arteries. There is a benign-appearing 1.15 x 0.6 x 0.8 cm lymph node in the right anterior epicardial fatty tissues. Surgical clips seen in the intercostal tissues between the costal cartilages of the anterior fifth and sixth ribs. The patient has undergone prior partial right hepatectomy and cholecystectomy. Surgical clips and suture lines are noted along the right hepatic margin and gallbladder fossa. The portal vein diameter is 16 mm. The spleen size is upper normal. Normal pancreas. Normal bilateral adrenal glands. Normal right kidney. There is an oblong 8.4 mm nonobstructing stone in the lower pole calyx of the left kidney. No hydronephrosis Normal visualized stomach. Normal small intestine. The patient has undergone prior right colectomy, and there is an anastomotic suture line near the hepatic flexure. No suspicious mural thickening at the level of the anastomosis. There is a rare left colonic diverticulum without acute diverticulitis. There is non-visualization of the appendix. There is atherosclerotic calcification of the abdominal aorta iliofemoral arteries, and mesenteric arteries, without a demonstrated aneurysm. Normal inferior vena cava. Normal retroperitoneum. Normal urinary bladder. The prostate gland is 3.7 x 4.7 x 3.5 cm (R 31 cc). Peritoneal dialysis catheter enters the left lower quadrant through the medial aspect of the left rectus abdominis muscle. There is ill-defined stranding in the subcutaneous tissues surrounding the tunneled aspect of the catheter and mild overlying cutaneous thickening, consistent with a history of cellulitis. The distal catheter coils in the inferior margin of the right peritoneal cavity. There are also a healed midline and right upper quadrant surgical incisions. There are diffuse degenerative changes of the visualized spine, as well as degenerative arthroses of the bilateral sacroiliac and hip joints small, irregular, benign-appearing sclerotic density seen in the lateral roof of the left acetabulum.. CT/Abdomen/Pelvis without Cont IMPRESSION: 1. Peritoneal dialysis catheter passes through the medial aspect of left rectus muscle, its distal end coiling in the inferior right peritoneal cavity. There is ill-defined stranding about the subcutaneous, tunneled portion of the catheter and mild overlying cutaneous thickening, consistent with history of cellulitis. No defined fluid pocket/abscess. 2. Prior partial right hepatectomy and cholecystectomy. 3. Prior right colectomy with colonic enteric anastomosis near the hepatic flexure. No sign of recurrent mass nor sign of obstruction. There is a rare left colonic diverticula without acute diverticulitis. 4. Dracut 8.4 mm nonobstructing stone in the lower pole of the left kidney. No hydronephrosis. 5. Atherosclerotic vascular calcifications are present. No demonstrated aortic aneurysm. 6. Mildly enlarged prostate gland. 7. Minor peribronchial thickening and wispy densities of volume loss or inflammatory change in the posterior lung bases. 8. Degenerative changes of the spine and pelvis, as noted. Electronically Signed: Raffy Barry MD at 19:47 EST , Service support ,
--- NOTE | 2018-11-19 16:03 | PCM.HP.BLA ---
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 300 unit/mL (1.5 mL) subcutaneous pen 15 unit SC QHS 01/09/18 [History Confirmed 11/12/18] pen needle, diabetic 32 gauge x 1/6 See Dose Instructions .ROUTE .MEDSUPPLY #100 ea 01/09/18 [History Confirmed 11/12/18] simvastatin 40 mg tablet 60 mg PO QPM tab 01/09/18 [History Confirmed 11/12/18] vitamins-lipotropics tablet 2 tab PO BID 01/09/18 [History Confirmed 11/12/18] warfarin 6 mg tablet 8 mg PO SUTUTHSA tab 01/09/18 [History Confirmed 11/12/18] Warfarin [Coumadin] 8 mg PO DAILY tab 08/22/18 [Rx Confirmed 11/12/18] glimepiride 4 mg tablet 4 mg PO QAM 09/03/18 [History Confirmed 11/12/18] hydralazine 25 mg tablet 50 mg PO TID tab 09/03/18 [History Confirmed 11/12/18] [facility] Medical History Heart disease (Acute) Liver cancer (Acute) Debility (Acute) Chronic renal disease, stage IV (Chronic) Hypercholesterolemia (Chronic) Blood in stool (Acute) Hemorrhoids (Acute) Acid reflux (Chronic) Hypertension (Chronic) Afib (Chronic) Heart disease (Chronic) Colon cancer (Chronic) Diabetes (Chronic) Renal failure (Chronic) Surgical History hx of PD cath insertion (Acute) Surgically constructed arteriovenous graft (Acute ~02/2018) History of colectomy (Chronic) Family History Father Colon cancer Sister Diabetes Brother Diabetes Mother Heart disease Social History Smoking Status: Former smoker alcohol intake: never substance use type: does not use HPI HPI HPI: ANDERSON PAEZ, is a 77 M who presents to the office today for infected PD catheter. The patient reports that he has been using his hemodialysis fistula instead of the catheter. He reports that it has become red and started draining purulent material. He is not having any fevers or chills. He reports that this drainage is been going on for a few days. He was given 1 dose of antibiotics during dialysis yesterday. This catheter was placed in September of this year. ROS General General: Yes weight change, fatigue and colon cancer; no appetite, breast cancer or weakness HEENT HEENT: No difficulty swallowing, eye injury, eye surgery, swollen glands or hoarseness Endo Endocrine: Yes diabetes mellitus; no thyroid disease, thyroid cancer, Hair loss, heat intolerance or cold intolerance Skin Skin: No rash or changing moles Breast Breast: No left breast lump, right breast lump, nipple discharge, breast pain, abnormal mammogram, abnormal US or breast enlargement Musc Musculoskeletal: No back problems, arthritis, rheumatoid arthritis, gout or joint pain Cardio Cardiovascular: Yes murmur, heart disease and high blood pressure; no pacemaker, atrial fibrillation, heart attack, heart stent, palpitations, shortness of breat with exertion or chest pain Psych Psychiatric: No depression, anxiety or hearing voices Resp Respiratory: Yes shortness of breath, No sleep apnea, No cough, No COPD, No asthma, No emphysema, No wheezing Gastro Gastrointestinal: No abdominal pain, No nausea or vomiting, No diarrhea, No constipation, No blood in stool, Yes acid reflux, Yes hemorrhoids, No ulcers, No gallbladder problem, Yes black,tarry stools Jaime Hematologic: Yes blood thinners, No blood disorders, No bleeding, No anemia, No blood clots Neuro Neurologic: No weakness Exam Const General: cooperative Orientation: alert, oriented x3 Chest Breast Palpation: No nipple discharge Resp Effort & Inspection: normal respiratory effort Auscultation: clear to auscultation bilaterally Cardio Rate: regular rate Rhythm: regular rhythm Heart Sounds: murmur GI Inspection: non-distended Palpation: soft, nontender Other: The patient has brown purulent material coming out around his PD catheter. There is a lot more material expressed with palpation of the abdomen. He has a large area of cellulitis with erythema. This measures approximately 15 x 20 cm. It is tender to the touch and blanching. Assessment & Plan Problems 1. Peritoneal dialysis catheter exit site infection, initial encounter T85.71XA Plan 1. The patient has infection of the abdominal wall associated with the peritoneal dialysis catheter. At this point the patient has extensive cellulitis as well as purulent draining material. I believe his catheter needs to be removed once his INR is normalized and I believe he warrants admission to the hospital for IV antibiotics. I will admitted to [facility] on telemetry and consult hospitalist for medical management. I will start antibiotics and make him n.p.o. after midnight and likely take him tomorrow for PD catheter removal under MAC anesthesia as well as debridement of this abscess with drainage. Yordy Messina MD Pager: [facility] [address] [place] [address], [address] [place] [address] Office:
[2018-11-19 16:05] VITALS: BP 135/55; PULSE 61; RESP 18; TEMP 37; O2SAT 98
[2018-11-19 16:07] VITALS: BMI 32.8
--- NOTE | 2018-11-19 16:43 | PCM.PROGNOTE ---
<Ailyn Snow - Last Filed: 11/19/18 17:10> Patient Problems: Active and Suspected Problems (Last Reviewed 11/19/18 @ 15:06 by Kendra Aviles) Peritoneal dialysis catheter site infection (Acute) Abdominal wall cellulitis (Acute) Subjective: Patient presents with an infected peritoneal dialysis catheter and cellulitis. He reports he has had drainage and surrounding redness for the past week which has been increasing since that time. He denies fever, chills. Denies nausea, vomiting. Denies other associated complaints. He has been using AV fistula in the right upper extremity for his dialysis and has had no issues with this. Patient admitted under general surgery with plans for peritoneal dialysis catheter removal tomorrow. Hospitalist services consulted for medical management. - Physical Exam General: Alert, Oriented x3, Cooperative, No apparent distress HEENT: Atraumatic, PERRLA, EOMI, Normocephalic Neck: Supple, No JVD, Negative Carotid Bruits Lungs: Clear to auscultation, Normal air movement Cardiovascular: Regular rate, Regular Rhythm, Normal S1, Normal S2, No murmurs Abdomen: Bowel Sounds Present, Soft, Non Tender, Non-Distended, Obese, - - LLQ PD catheter present. Surrounding erythema. Dressing in place over catheter. Extremities: No clubbing, No cyanosis, No edema, Capillary Refill Less than 3 Seconds Skin: No rashes, No breakdown Musculoskeletal: No Tenderness to Palpation of Joints or Extremities Neurological: Cranial nerves II-XII grossly intact, Neuro grossly intact Psych/Mental Status: Normal Affect, Appropriate Body Mass Index (BMI) 32.9 Medical Necessity - Tobacco Use Smoking Status: Former smoker Assessment/Plan All Active Problems (Last Reviewed 11/19/18 @ 15:06 by Kendra Aviles) Peritoneal dialysis catheter site infection (Acute) Abdominal wall cellulitis (Acute) hx of PD cath insertion (Acute) Chronic renal failure, stage 5 (Acute) Heart disease (Acute) Liver cancer (Acute) Debility (Acute) Surgically constructed arteriovenous graft (Acute ~02/2018) Blood in stool (Acute) Hemorrhoids (Acute) 1. Infected peritoneal dialysis catheter with cellulitis- General surgery plans for PD catheter removal tomorrow with I&D if INR is appropriate. Continue IV Zosyn. NPO after midnight. 2. End-stage renal disease on hemodialysis- Follows with Dr. Chris. M,W,F schedule. Patient has been using RUE AV fistula instead of peritoneal dialysis catheter. Plan for peritoneal dialysis catheter removal given current infection. 3. Type 2 diabetes [id number]-Vaxo-Uexlb AC at bedtime. Continue home long-acting regimen and scheduled mealtime insulin. Hold oral regimen. 4. Anemia of chronic disease-admission CBC pending. 5. Paroxysmal atrial fibrillation-continue carvedilol. Coumadin regimen on hold given plan for peritoneal dialysis catheter removal. 6. Hypertension-continue home amlodipine, carvedilol, clonidine, hydralazine, furosemide regimen. 7. CAD status post single-vessel CABG-continue statin, carvedilol. 8. History of partial right hepatic lobectomy- [facility] by Dr. Torre in 09/03. Reports no chemo/radiation was required. 9. History of colon cancer s/p colon resection 10. Chronic diastolic CHF-no acute exacerbation. Continue Lasix regimen. 11. Hyperlipidemia-continue statin. DVT prophylaxis-SCDs, coumadin on hold This patient was seen by LONNIE Paulson under the supervision of Dr. Walker. <Lj Walker - Last Filed: 11/19/18 20:01> Subjective: States that he has had chronic issues with his peritoneal dialysis catheter since being placed in July. Has never been able to fully use it and has been on hemodialysis during that time has had pain but also had had blood drawn from his peritoneal dialysis catheter. Noticed increased erythema and drainage. Saw Dr. Messina who noted pus coming out of the peritoneal dialysis catheter and direct admit the patient to the hospital to have the peritoneal dialysis catheter removed on November 20. The hospitalist service was consulted for medical management during this patient's hospitalization. - Physical Exam General: Alert, Cooperative, No apparent distress HEENT: Atraumatic, Normocephalic Oral: Moist Mucosa, No Gingival or Mucosal Lesions/ Ulcerations Neck: No Nodes, Thyroid Normal Size and Texture Lungs: Clear to auscultation, Normal air movement, No rhonchi, No wheeze Cardiovascular: Regular rate, Regular Rhythm, Normal S1, Normal S2, No murmurs Abdomen: Bowel Sounds Present, Soft, Non Tender, Non-Distended, - Extremities: No edema, No Calf Tenderness Skin: No rashes, No breakdown Musculoskeletal: No Tenderness to Palpation of Joints or Extremities Neurological: Cranial nerves II-XII grossly intact, Neuro grossly intact, Coordination normal Psych/Mental Status: Normal Affect, Appropriate Vital Signs Temp Pulse Resp BP Pulse Ox 37.0 C 67 18 135/55 H 98 11/19/18 16:05 11/19/18 19:23 11/19/18 16:05 11/19/18 16:05 11/19/18 16:05 Oxygen Delivery Method Room Air Weight: 103.8 kg Body Mass Index (BMI) 32.8 Intake and Output for Last 24 Hours 11/17/18 11/18/18 11/19/18 23:59 23:59 23:59 Intake Total 200 / 200 Balance 200 / 200 Laboratory Tests Past 24 Hrs 11/19/18 11/19/18 11/19/18 17:08 17:08 17:08 WBC 7.6 RBC 3.04 L Hgb 9.9 L Hct 30.6 L MCV 100.7 H MCH 32.6 H MCHC 32.4 RDW 14.3 RDW Differential 52.0 H Plt Count 111 L MPV 9.7 Immature Gran % (Auto) 0.000 Neut % (Auto) 72.0 H Lymph % (Auto) 17.6 L [place] % (Auto) 9.4 Eos % (Auto) 0.9 Baso % (Auto) 0.1 Absolute Neuts (auto) 5.5 Absolute Lymphs (auto) 1.34 Total Counted Not Reportable PT 20.0 H INR 1.7 Sodium 139 Potassium 3.3 L Chloride 102 Carbon Dioxide 27.0 Anion Gap 10 BUN 45 H Creatinine 4.20 H Estim Creat Clear Calc 14.73 Est GFR (MDRD) Af Amer 18 L Est GFR (MDRD) Non-Af 15 L BUN/Creatinine Ratio 10.7 Glucose 184 H Calcium 8.1 L Total Bilirubin 0.50 AST 22 ALT 20 Alkaline Phosphatase 63 Total Protein 7.3 Albumin 2.7 L Globulin 4.6 H Albumin/Globulin Ratio 0.6 L POC Glucose 11/19/18 17:50 POC Glucose 163 H Assessment/Plan Patient seen and examined independently. Data reviewed. I agree with the above note by the nurse practitioner. 1. Infected peritoneal dialysis catheter with a surrounding cellulitis: Plan is for the patient to go to the operating room on the 6 for removal. Check a wound culture if still drainage. Continue with the Zosyn and vancomycin for now. Favoring that this is prior more of a gram-positive organism some vancomycin would likely be the agent necessary at this point in time. Await final culture results and adjust antibiotics accordingly. 2. End-stage renal disease: On dialysis are Sunday. Nephrology on consultation to continue with his hemodialysis. His peritoneal dialysis catheter was never used for dialysis. 3. 3. Diabetes mellitus type 2: Continue with his home regimen for now and monitor. 4. Paroxysmal atrial fibrillation: Continue with carvedilol. INR 1.7. Coumadin being held. Follow-up INR. 5. DVT prophylaxis with SCDs. Thank you for the consult. The hospitalist service will continue to follow along during the course of this hospitalization. Code Visit Inpatient E&M: [id number] [facility] Hosp L3
[2018-11-19 17:23] LABS: Absolute Lymphocyte Count 1.34 X10^3/ul (0.83-4.51); Absolute Neutrophil Count 5.5 X10^3/uL (2.0-7.7); Basophil# 0.01 X10^3/uL; Basophil% 0.1 % (0-1); Eosinophil# 0.07 X10^3/uL; Eosinophils% 0.9 % (0-5); Hematocrit 30.6 % (40-54); Hemoglobin 9.9 g/dl (13.0-16.5); Lymphocyte # 1.34 X10^3/ul (4.0); Lymphocyte % 17.6 % (19-41); Mean Corp Hgb Conc 32.4 g/gl (32-36); Mean Corpuscular Hgb 32.6 pg (27.0-32.0); Mean Corpuscular Volume 100.7 fL (80-94); Mean Platelet Vol. 9.7 fl (6.2-12.0); Monocyte# 0.72 X10^3/uL; Monocyte% 9.4 % (0-10); Neutrophil # 5.48 X10^3/uL (2.7-7.7); POSITIVE COUNT NO; POSITIVE DIFFERENTIAL NO; POSITIVE MORPHOLOGY NO; Platelet Count 111 K/mm3 (150-450); RBC Distribution Width CV 14.3 % (11.6-14.6); Red Blood Count 3.04 M/mm3 (4.6-6.2); White Blood Count 7.6 K/mm3 (4.4-11.0)
[2018-11-19 17:31] LABS: International Normalized Ratio 1.7
[2018-11-19 17:38] LABS: ALB/GLOB Ratio 0.6 RATIO (0.9-2.4); AST(SGOT) 22 U/L (15-37); Alanine Aminotransfer ALT/SGPT 20 U/L (16-61); Albumin, Serum 2.7 g/dL (3.2-5.0); Alkaline Phosphatase 63 U/L (45-117); Anion Gap 10 (5-15); BUN 45 mg/dL (7-18); BUN/Creat Ratio 10.7 RATIO (10-20); Calcium,Total 8.1 mg/dL (8.5-10.1); Chloride 102 mmol/L (98-107); EST Glomerular Filtration Rate 15 mL/min (>60); Est Glom Filt Rate - Afr Amer 18 mL/min (>60); Estimated Creatinine Clearance 14.73 ml/min; Globulin 4.6 g/dL (2.2-4.2); Glucose 184 mg/dL (74-106); Potassium 3.3 mmol/L (3.5-5.1); Protein, Total 7.3 g/dL (6.4-8.2); Sodium Level 139 mmol/L (136-145)
[2018-11-19] MEDS: Acetaminophen 325 MG Tablet 650 MG PO (18:41)
[2018-11-19 19:23] VITALS: PULSE 67
[2018-11-19 19:50] LABS: Bedside Glucose 163 mg/dL (70-110)
[2018-11-19 19:57] VITALS: PULSE 68
[2018-11-19 20:18] VITALS: BP 123/59; PULSE 70; RESP 18; TEMP 36.9; O2SAT 96
[2018-11-19 21:56] VITALS: PULSE 70
[2018-11-19] MEDS: Carvedilol 25 MG Tablet PO (21:56)
[2018-11-19] MEDS: Atorvastatin Calcium 20 MG Tablet PO (21:56)
[2018-11-19] MEDS: hydrALAZINE 25 MG Tablet 50 MG PO (21:56)
[2018-11-19] MEDS: 0.9% NaCl Peripheral Flush Adult/Peds IV (21:56)
[2018-11-19 22:06] LABS: Bedside Glucose 188 mg/dL (70-110)
[2018-11-20] VITALS (20 sets, daily range): BP systolic 129–170; BP diastolic 58–85; PULSE 62–74; RESP 16–20; TEMP 35.8–37.3; O2SAT 95–99
[2018-11-20] MEDS: 0.9% Normal Saline 1,000 ML 75 ML IV (00:52)
[2018-11-20] MEDS: hydrALAZINE 25 MG Tablet 50 MG PO ×3 (05:51→23:06)
[2018-11-20] MEDS: Acetaminophen 325 MG Tablet 650 MG PO ×2 (05:51→17:38)
--- NOTE | 2018-11-20 06:00 | EKG12_ITS ---
Test Reason : PRE-OP Blood Pressure : / mmHG Vent. Rate : 070 BPM Atrial Rate : 150 BPM P-R Int : 000 ms QRS Dur : 104 ms QT Int : 452 ms P-R-T Axes : 000 -16 077 degrees QTc Int : 488 ms Atrial fibrillation Inferior infarct , age undetermined ST & T wave abnormality, consider lateral ischemia Abnormal ECG When compared with ECG of 10-OCT-2018 09:06, No significant change was found Confirmed by HANNAH OLMOS, HEENA ([id number]), television news video editor SNOW JHA ([id number]) on 11/22/2018 1:55:56 PM Referred By: Yordy Messina Confirmed By:HEENA YOUNG MD
[2018-11-20 06:34] LABS: International Normalized Ratio 1.6; Prothrombin Time (Protime)PT. 19.2 SECONDS (11.7-14.9)
[2018-11-20 06:35] LABS: Absolute Lymphocyte Count 1.23 X10^3/ul (0.83-4.51); Absolute Neutrophil Count 4.4 X10^3/uL (2.0-7.7); Basophil# 0.02 X10^3/uL; Basophil% 0.3 % (0-1); Eosinophil# 0.18 X10^3/uL; Eosinophils% 2.8 % (0-5); Hematocrit 31.2 % (40-54); Hemoglobin 9.6 g/dl (13.0-16.5); Lymphocyte # 1.23 X10^3/ul (4.0); Lymphocyte % 19.3 % (19-41); Mean Corp Hgb Conc 30.8 g/gl (32-36); Monocyte# 0.53 X10^3/uL; Monocyte% 8.3 % (0-10); Neutrophil # 4.39 X10^3/uL (2.7-7.7); POSITIVE COUNT NO; POSITIVE DIFFERENTIAL NO; POSITIVE MORPHOLOGY NO; Platelet Count 108 K/mm3 (150-450); RBC Distribution Width CV 13.8 % (11.6-14.6); RBC Distribution Width SD 50.8 fl (35.1-43.9); White Blood Count 6.4 K/mm3 (4.4-11.0)
[2018-11-20 06:40] LABS: Anion Gap 13 (5-15); BUN 50 mg/dL (7-18); BUN/Creat Ratio 11.1 RATIO (10-20); Calcium,Total 7.9 mg/dL (8.5-10.1); Chloride 103 mmol/L (98-107); Creatinine, Serum 4.49 mg/dL (0.70-1.30); EST Glomerular Filtration Rate 14 mL/min (>60); Est Glom Filt Rate - Afr Amer 16 mL/min (>60); Estimated Creatinine Clearance 13.77 ml/min; Glucose 141 mg/dL (74-106); Potassium 3.8 mmol/L (3.5-5.1); Sodium Level 142 mmol/L (136-145)
[2018-11-20 08:37] LABS: Hemoglobin A1c 8.5 % (4.2-6.3)
--- NOTE | 2018-11-20 08:45 | PCM.PN.SRG ---
Patient Problems: Active and Suspected Problems (Last Reviewed 11/19/18 @ 15:06 by Kendra Aviles) Abdominal wall cellulitis (Acute) Peritoneal dialysis catheter site infection (Acute) Subjective: No complaints overnight - Physical Exam General: Alert, Oriented x3, Cooperative Cardiovascular: Regular rate, Regular Rhythm Abdomen: Soft, Non-Distended, - - Erythema appears to be the same with no reduction. Vital Signs Temp Pulse Resp BP Pulse Ox 98.3 F 63 18 149/61 H 96 11/20/18 08:20 11/20/18 08:20 11/20/18 08:20 11/20/18 08:20 11/20/18 08:20 Oxygen Delivery Method Room Air Weight: 232 lb 2.348 oz Body Mass Index (BMI) 32.8 Intake and Output for Last 24 Hours 11/18/18 11/19/18 11/20/18 23:59 23:59 23:59 Intake Total 200 / 200 1192 / 1192 Balance 200 / 200 1192 / 1192 Laboratory Tests Past 24 Hrs 11/19/18 11/19/18 11/19/18 17:08 17:08 17:08 WBC 7.6 RBC 3.04 L Hgb 9.9 L Hct 30.6 L MCV 100.7 H MCH 32.6 H MCHC 32.4 RDW 14.3 RDW Differential 52.0 H Plt Count 111 L MPV 9.7 Immature Gran % (Auto) 0.000 Neut % (Auto) 72.0 H Lymph % (Auto) 17.6 L [place] % (Auto) 9.4 Eos % (Auto) 0.9 Baso % (Auto) 0.1 Absolute Neuts (auto) 5.5 Absolute Lymphs (auto) 1.34 Total Counted Not Reportable PT 20.0 H INR 1.7 Sodium 139 Potassium 3.3 L Chloride 102 Carbon Dioxide 27.0 Anion Gap 10 BUN 45 H Creatinine 4.20 H Estim Creat Clear Calc 14.73 Est GFR (MDRD) Af Amer 18 L Est GFR (MDRD) Non-Af 15 L BUN/Creatinine Ratio 10.7 Glucose 184 H Hemoglobin A1c Calcium 8.1 L Total Bilirubin 0.50 AST 22 ALT 20 Alkaline Phosphatase 63 Total Protein 7.3 Albumin 2.7 L Globulin 4.6 H Albumin/Globulin Ratio 0.6 L 11/20/18 11/20/18 11/20/18 06:15 06:15 06:15 WBC 6.4 RBC 3.00 L Hgb 9.6 L Hct 31.2 L MCV 104.0 H MCH 32.0 MCHC 30.8 L RDW 13.8 RDW Differential 50.8 H Plt Count 108 L MPV 10.0 Immature Gran % (Auto) 0.300 Neut % (Auto) 69.0 Lymph % (Auto) 19.3 [place] % (Auto) 8.3 Eos % (Auto) 2.8 Baso % (Auto) 0.3 Absolute Neuts (auto) 4.4 Absolute Lymphs (auto) 1.23 Total Counted Not Reportable PT 19.2 H INR 1.6 Sodium 142 Potassium 3.8 Chloride 103 Carbon Dioxide 26.0 Anion Gap 13 BUN 50 H Creatinine 4.49 H Estim Creat Clear Calc 13.77 Est GFR (MDRD) Af Amer 16 L Est GFR (MDRD) Non-Af 14 L BUN/Creatinine Ratio 11.1 Glucose 141 H Hemoglobin A1c Calcium 7.9 L Total Bilirubin AST ALT Alkaline Phosphatase Total Protein Albumin Globulin Albumin/Globulin Ratio 11/20/18 06:15 WBC RBC Hgb Hct MCV MCH MCHC RDW RDW Differential Plt Count MPV Immature Gran % (Auto) Neut % (Auto) Lymph % (Auto) [place] % (Auto) Eos % (Auto) Baso % (Auto) Absolute Neuts (auto) Absolute Lymphs (auto) Total Counted PT INR Sodium Potassium Chloride Carbon Dioxide Anion Gap BUN Creatinine Estim Creat Clear Calc Est GFR (MDRD) Af Amer Est GFR (MDRD) Non-Af BUN/Creatinine Ratio Glucose Hemoglobin A1c 8.5 H Calcium Total Bilirubin AST ALT Alkaline Phosphatase Total Protein Albumin Globulin Albumin/Globulin Ratio POC Glucose 11/19/18 11/19/18 21:51 17:50 POC Glucose 188 H 163 H Medical Necessity - Tobacco Use Smoking Status: Former smoker Assessment/Plan All Active Problems (Last Reviewed 11/19/18 @ 15:06 by Kendra Aviles) Abdominal wall cellulitis (Acute) Peritoneal dialysis catheter site infection (Acute) hx of PD cath insertion (Acute) Chronic renal failure, stage 5 (Acute) Heart disease (Acute) Liver cancer (Acute) Debility (Acute) Surgically constructed arteriovenous graft (Acute ~02/2018) Blood in stool (Acute) Hemorrhoids (Acute) 77-year-old male with PE catheter infection 1. Patient has a large area of erythema as well as purulent discharge around his drain. CT scan yesterday did not reveal a deep abscess pocket. Likely this is only around the catheter and once the catheter was removed this will resolve. Patient was started on Zosyn and his erythema has not retracted at all. 2. Plan to take patient late morning for PD catheter removal under MAC anesthesia. Continue antibiotics. Patient will need dialysis after surgery. Nephrology was consulted. Continue home meds except for Coumadin. Yordy Messina MD Pager: [facility] [address] [place] [address], [address] [place] [address] Office:
[2018-11-20 09:01] LABS: Bedside Glucose 137 mg/dL (70-110)
--- NOTE | 2018-11-20 11:35 | PCM.CONS.R ---
Problem List (1) ESRD (end stage renal disease) Status: Acute Consultation - Renal 11/20/18 PCP/ Referring MD: Requesting physician: Dr Messina Primary care physician: Sarah Hawkins NP Reason for Consultation:: ESRD - History of Present Illness History of Present Illness: The patient is a 77 year old M well known to us. ESRD on HD MWF schedule. Planned to switch to PD recently. PD catheter was placed and training was started. However he had issues with catheter draining and he could not complete training. received a call from PD clinic on sunday about redness, drainage around PD catheter site. PD fluid was sent for analysis. we made an appt for catheter removal and started vanco on sunday with HD. seems like he got worse clinically and hence came in. scheduled for PD catheter removal today - Allergies Allergies: Allergies mold Adverse Reaction (Verified 11/19/18 16:54) dizzy spells cattle Allergy (Uncoded 11/19/18 16:54) dizzy spells - Current Medications Current Medications: Current Medications Acetaminophen (Tylenol) 650 mg PO Q6H PRN PRN PRN Reason: PAIN Last Admin: 11/20/18 05:51 Dose: 650 mg Amlodipine Besylate (Norvasc) 5 mg PO DAILY [facility] Atorvastatin Calcium (Lipitor) 20 mg PO QHS [facility] Last Admin: 11/19/18 21:56 Dose: 20 mg Carvedilol (Coreg) 25 mg PO BID [facility] Last Admin: 11/19/18 21:56 Dose: 25 mg Clonidine (Catapres) 0.1 mg PO DAILY [facility] Docusate Sodium (Colace) 200 mg PO BID [facility] Last Admin: 11/19/18 21:57 Dose: Not Given Furosemide (Lasix) 80 mg PO DAILY [facility] Glimepiride (Amaryl) 2 mg PO BID [facility] Last Admin: 11/19/18 21:57 Dose: Not Given Hydralazine HCl (Apresoline) 50 mg PO TID [facility] Last Admin: 11/20/18 05:51 Dose: 50 mg Sodium Chloride () 1,000 mls @ 75 mls/hr IV .[id number] [facility] Last Admin: 11/20/18 00:52 Dose: 75 mls/hr Piperacillin Sod/Tazobactam (Sod 3.375 gm/ Sodium Chloride) 50 mls @ 12.5 mls/hr IV Q12 [facility] Last Admin: 11/20/18 11:01 Dose: 12.5 mls/hr Insulin Glargine (Lantus ([facility])) 15 units SC QHS [facility] Last Admin: 11/19/18 21:57 Dose: Not Given Insulin Human Lispro (Humalog Kwikpen (Bk)) 0 unit SC ACHS [facility]; Protocol Last Admin: 11/20/18 10:20 Dose: Not Given Insulin Human Lispro (Humalog Kwikpen ([facility])) 5 unit SC TIDCM [facility] Last Admin: 11/20/18 10:21 Dose: Not Given Morphine Sulfate () 2 - 4 mg IV Q2H PRN PRN PRN Reason: PAIN Morphine Sulfate () 2 - 4 mg IV Q2H PRN PRN PRN Reason: PAIN Multivit/Ca Carb/B Cmplx/FA/Prenat (Nephrocaps, Renaphro) 1 capsule PO DAILY [facility] Ondansetron HCl (Zofran) 4 mg IV Q8H PRN PRN PRN Reason: NAUSEA Pantoprazole Sodium (Protonix) 40 mg PO DAILY [facility] Sodium Chloride () 5 - 15 ml IV UD PRN PRN Reason: SALINE FLUSH Last Admin: 11/19/18 21:56 Dose: 10 ml - Past Medical History Past Medical History (Chronic Problems): Chronic Problems (Last Reviewed 11/19/18 @ 15:06 by Kendra Aviles) Chronic renal disease, stage IV (Chronic) Hypercholesterolemia (Chronic) History of colectomy (Chronic) Acid reflux (Chronic) Hypertension (Chronic) Afib (Chronic) Heart disease (Chronic) Colon cancer (Chronic) Diabetes (Chronic) Renal failure (Chronic) - Past Surgical History Surgical History: no surgical history - Social History Smoking Status: Former smoker - Family History Maternal Family History: Family History (Last Reviewed 11/19/18 @ 15:06 by Kendra Aviles) Father Colon cancer Sister Diabetes Brother Diabetes Mother Heart disease History Items: No pertinent history Review of Systems Constitutional: Denies: Chills, Fever, Weight Change HEENT: Denies: Head Aches, Sinus Congestion, Sinus Drainage Cardiovascular: Denies: Chest Pain, Palpitations Respiratory: Denies: Cough, Shortness of breath at rest, Sputum production Gastrointestinal: Denies: Abdominal Pain, Nausea, Vomiting Genitourinary: Denies: Dysuria Musculoskeletal: Denies: Joint Pain, Joint Tenderness Skin: Denies: Rash, Wounds Neurological: Denies: Numbness, Tingling, Focal weakness Psychiatric: Denies: Anxiety, Depression, Homicidal Ideations, Suicidal Ideations Hematologic/ Lymphatic: Denies: Easy Bruising, Easy Bleeding Patient Problems: Active and Suspected Problems (Last Reviewed 11/19/18 @ 15:06 by Kendra Aviles) ESRD (end stage renal disease) (Acute) Abdominal wall cellulitis (Acute) Peritoneal dialysis catheter site infection (Acute) - Physical Exam General: Alert, Oriented x3, Cooperative HEENT: Atraumatic, PERRLA, EOMI, Normocephalic Neck: Supple, No JVD, Negative Carotid Bruits Lungs: Clear to auscultation, Normal air movement Cardiovascular: Regular rate, No murmurs Extremities: No edema, Capillary Refill Less than 3 Seconds Skin: No rashes, No breakdown Musculoskeletal: No Tenderness to Palpation of Joints or Extremities Neurological: Cranial nerves II-XII grossly intact Psych/Mental Status: Normal Affect, Appropriate Vital Signs Temp Pulse Resp BP Pulse Ox 98.5 F 67 16 170/66 H 99 11/20/18 11:00 11/20/18 11:16 11/20/18 11:00 11/20/18 11:00 11/20/18 11:00 Oxygen Delivery Method Room Air Weight: 105.3 kg Body Mass Index (BMI) 32.8 Intake and Output for Last 24 Hours 11/18/18 11/19/18 11/20/18 23:59 23:59 23:59 Intake Total 200 / 200 1192 / 1192 Balance 200 / 200 1192 / 1192 Laboratory Tests Past 24 Hrs 11/19/18 11/19/18 11/19/18 17:08 17:08 17:08 WBC 7.6 RBC 3.04 L Hgb 9.9 L Hct 30.6 L MCV 100.7 H MCH 32.6 H MCHC 32.4 RDW 14.3 RDW Differential 52.0 H Plt Count 111 L MPV 9.7 Immature Gran % (Auto) 0.000 Neut % (Auto) 72.0 H Lymph % (Auto) 17.6 L [place] % (Auto) 9.4 Eos % (Auto) 0.9 Baso % (Auto) 0.1 Absolute Neuts (auto) 5.5 Absolute Lymphs (auto) 1.34 Total Counted Not Reportable PT 20.0 H INR 1.7 Sodium 139 Potassium 3.3 L Chloride 102 Carbon Dioxide 27.0 Anion Gap 10 BUN 45 H Creatinine 4.20 H Estim Creat Clear Calc 14.73 Est GFR (MDRD) Af Amer 18 L Est GFR (MDRD) Non-Af 15 L BUN/Creatinine Ratio 10.7 Glucose 184 H Hemoglobin A1c Calcium 8.1 L Total Bilirubin 0.50 AST 22 ALT 20 Alkaline Phosphatase 63 Total Protein 7.3 Albumin 2.7 L Globulin 4.6 H Albumin/Globulin Ratio 0.6 L 11/20/18 11/20/18 11/20/18 06:15 06:15 06:15 WBC 6.4 RBC 3.00 L Hgb 9.6 L Hct 31.2 L MCV 104.0 H MCH 32.0 MCHC 30.8 L RDW 13.8 RDW Differential 50.8 H Plt Count 108 L MPV 10.0 Immature Gran % (Auto) 0.300 Neut % (Auto) 69.0 Lymph % (Auto) 19.3 [place] % (Auto) 8.3 Eos % (Auto) 2.8 Baso % (Auto) 0.3 Absolute Neuts (auto) 4.4 Absolute Lymphs (auto) 1.23 Total Counted Not Reportable PT 19.2 H INR 1.6 Sodium 142 Potassium 3.8 Chloride 103 Carbon Dioxide 26.0 Anion Gap 13 BUN 50 H Creatinine 4.49 H Estim Creat Clear Calc 13.77 Est GFR (MDRD) Af Amer 16 L Est GFR (MDRD) Non-Af 14 L BUN/Creatinine Ratio 11.1 Glucose 141 H Hemoglobin A1c Calcium 7.9 L Total Bilirubin AST ALT Alkaline Phosphatase Total Protein Albumin Globulin Albumin/Globulin Ratio 11/20/18 06:15 WBC RBC Hgb Hct MCV MCH MCHC RDW RDW Differential Plt Count MPV Immature Gran % (Auto) Neut % (Auto) Lymph % (Auto) [place] % (Auto) Eos % (Auto) Baso % (Auto) Absolute Neuts (auto) Absolute Lymphs (auto) Total Counted PT INR Sodium Potassium Chloride Carbon Dioxide Anion Gap BUN Creatinine Estim Creat Clear Calc Est GFR (MDRD) Af Amer Est GFR (MDRD) Non-Af BUN/Creatinine Ratio Glucose Hemoglobin A1c 8.5 H Calcium Total Bilirubin AST ALT Alkaline Phosphatase Total Protein Albumin Globulin Albumin/Globulin Ratio POC Glucose 11/20/18 11/19/18 11/19/18 08:42 21:51 17:50 POC Glucose 137 H 188 H 163 H Assessment/Plan All Active Problems (Last Reviewed 11/19/18 @ 15:06 by Kendra Aviles) ESRD (end stage renal disease) (Acute) Abdominal wall cellulitis (Acute) Peritoneal dialysis catheter site infection (Acute) hx of PD cath insertion (Acute) Chronic renal failure, stage 5 (Acute) Heart disease (Acute) Liver cancer (Acute) Debility (Acute) Surgically constructed arteriovenous graft (Acute ~02/2018) Blood in stool (Acute) Hemorrhoids (Acute) ESRD. HD arranged for later today with left arm AVF PD catheter exit site infection. PD catheter to be removed today. he was getting vanco with HD. received zosyn here. will have to figure out if any antibiotics are needed at the time of dc
--- NOTE | 2018-11-20 11:42 | CON.PCM_ITS ---
Problem List (1) ESRD (end stage renal disease) Status: Acute Consultation - Renal 11/20/18 PCP/ Referring MD: Requesting physician: Dr Messina Primary care physician: Sarah Hawkins NP Reason for Consultation:: ESRD - History of Present Illness History of Present Illness: The patient is a 77 year old M well known to us. ESRD on HD MWF schedule. Planned to switch to PD recently. PD catheter was placed and training was started. However he had issues with catheter draining and he could not complete training. received a call from PD clinic on sunday about redness, drainage around PD catheter site. PD fluid was sent for analysis. we made an appt for catheter removal and started vanco on sunday with HD. seems like he got worse clinically and hence came in. scheduled for PD catheter removal today - Allergies Allergies: Allergies mold Adverse Reaction (Verified 11/19/18 16:54) dizzy spells cattle Allergy (Uncoded 11/19/18 16:54) dizzy spells - Current Medications Current Medications: Current Medications Acetaminophen (Tylenol) 650 mg PO Q6H PRN PRN PRN Reason: PAIN Last Admin: 11/20/18 05:51 Dose: 650 mg Amlodipine Besylate (Norvasc) 5 mg PO DAILY [facility] Atorvastatin Calcium (Lipitor) 20 mg PO QHS [facility] Last Admin: 11/19/18 21:56 Dose: 20 mg Carvedilol (Coreg) 25 mg PO BID [facility] Last Admin: 11/19/18 21:56 Dose: 25 mg Clonidine (Catapres) 0.1 mg PO DAILY [facility] Docusate Sodium (Colace) 200 mg PO BID [facility] Last Admin: 11/19/18 21:57 Dose: Not Given Furosemide (Lasix) 80 mg PO DAILY [facility] Glimepiride (Amaryl) 2 mg PO BID [facility] Last Admin: 11/19/18 21:57 Dose: Not Given Hydralazine HCl (Apresoline) 50 mg PO TID [facility] Last Admin: 11/20/18 05:51 Dose: 50 mg Sodium Chloride () 1,000 mls @ 75 mls/hr IV .[id number] [facility] Last Admin: 11/20/18 00:52 Dose: 75 mls/hr Piperacillin Sod/Tazobactam (Sod 3.375 gm/ Sodium Chloride) 50 mls @ 12.5 mls/hr IV Q12 [facility] Last Admin: 11/20/18 11:01 Dose: 12.5 mls/hr Insulin Glargine (Lantus ([facility])) 15 units SC QHS [facility] Last Admin: 11/19/18 21:57 Dose: Not Given Insulin Human Lispro (Humalog Kwikpen (Bk)) 0 unit SC ACHS [facility]; Protocol Last Admin: 11/20/18 10:20 Dose: Not Given Insulin Human Lispro (Humalog Kwikpen ([facility])) 5 unit SC TIDCM [facility] Last Admin: 11/20/18 10:21 Dose: Not Given Morphine Sulfate () 2 - 4 mg IV Q2H PRN PRN PRN Reason: PAIN Morphine Sulfate () 2 - 4 mg IV Q2H PRN PRN PRN Reason: PAIN Multivit/Ca Carb/B Cmplx/FA/Prenat (Nephrocaps, Renaphro) 1 capsule PO DAILY [facility] Ondansetron HCl (Zofran) 4 mg IV Q8H PRN PRN PRN Reason: NAUSEA Pantoprazole Sodium (Protonix) 40 mg PO DAILY [facility] Sodium Chloride () 5 - 15 ml IV UD PRN PRN Reason: SALINE FLUSH Last Admin: 11/19/18 21:56 Dose: 10 ml - Past Medical History Past Medical History (Chronic Problems): Chronic Problems (Last Reviewed 11/19/18 @ 15:06 by Kendra Aviles) Chronic renal disease, stage IV (Chronic) Hypercholesterolemia (Chronic) History of colectomy (Chronic) Acid reflux (Chronic) Hypertension (Chronic) Afib (Chronic) Heart disease (Chronic) Colon cancer (Chronic) Diabetes (Chronic) Renal failure (Chronic) - Past Surgical History Surgical History: no surgical history - Social History Smoking Status: Former smoker - Family History Maternal Family History: Family History (Last Reviewed 11/19/18 @ 15:06 by Kendra Aviles) Father Colon cancer Sister Diabetes Brother Diabetes Mother Heart disease History Items: No pertinent history Review of Systems Constitutional: Denies: Chills, Fever, Weight Change HEENT: Denies: Head Aches, Sinus Congestion, Sinus Drainage Cardiovascular: Denies: Chest Pain, Palpitations Respiratory: Denies: Cough, Shortness of breath at rest, Sputum production Gastrointestinal: Denies: Abdominal Pain, Nausea, Vomiting Genitourinary: Denies: Dysuria Musculoskeletal: Denies: Joint Pain, Joint Tenderness Skin: Denies: Rash, Wounds Neurological: Denies: Numbness, Tingling, Focal weakness Psychiatric: Denies: Anxiety, Depression, Homicidal Ideations, Suicidal Ideations Hematologic/ Lymphatic: Denies: Easy Bruising, Easy Bleeding Patient Problems: Active and Suspected Problems (Last Reviewed 11/19/18 @ 15:06 by Kendra Aviles) ESRD (end stage renal disease) (Acute) Abdominal wall cellulitis (Acute) Peritoneal dialysis catheter site infection (Acute) - Physical Exam General: Alert, Oriented x3, Cooperative HEENT: Atraumatic, PERRLA, EOMI, Normocephalic Neck: Supple, No JVD, Negative Carotid Bruits Lungs: Clear to auscultation, Normal air movement Cardiovascular: Regular rate, No murmurs Extremities: No edema, Capillary Refill Less than 3 Seconds Skin: No rashes, No breakdown Musculoskeletal: No Tenderness to Palpation of Joints or Extremities Neurological: Cranial nerves II-XII grossly intact Psych/Mental Status: Normal Affect, Appropriate Vital Signs Temp Pulse Resp BP Pulse Ox 98.5 F 67 16 170/66 H 99 11/20/18 11:00 11/20/18 11:16 11/20/18 11:00 11/20/18 11:00 11/20/18 11:00 Oxygen Delivery Method Room Air Weight: 105.3 kg Body Mass Index (BMI) 32.8 Intake and Output for Last 24 Hours 11/18/18 11/19/18 11/20/18 23:59 23:59 23:59 Intake Total 200 / 200 1192 / 1192 Balance 200 / 200 1192 / 1192 Laboratory Tests Past 24 Hrs 11/19/18 11/19/18 11/19/18 17:08 17:08 17:08 WBC 7.6 RBC 3.04 L Hgb 9.9 L Hct 30.6 L MCV 100.7 H MCH 32.6 H MCHC 32.4 RDW 14.3 RDW Differential 52.0 H Plt Count 111 L MPV 9.7 Immature Gran % (Auto) 0.000 Neut % (Auto) 72.0 H Lymph % (Auto) 17.6 L [place] % (Auto) 9.4 Eos % (Auto) 0.9 Baso % (Auto) 0.1 Absolute Neuts (auto) 5.5 Absolute Lymphs (auto) 1.34 Total Counted Not Reportable PT 20.0 H INR 1.7 Sodium 139 Potassium 3.3 L Chloride 102 Carbon Dioxide 27.0 Anion Gap 10 BUN 45 H Creatinine 4.20 H Estim Creat Clear Calc 14.73 Est GFR (MDRD) Af Amer 18 L Est GFR (MDRD) Non-Af 15 L BUN/Creatinine Ratio 10.7 Glucose 184 H Hemoglobin A1c Calcium 8.1 L Total Bilirubin 0.50 AST 22 ALT 20 Alkaline Phosphatase 63 Total Protein 7.3 Albumin 2.7 L Globulin 4.6 H Albumin/Globulin Ratio 0.6 L 11/20/18 11/20/18 11/20/18 06:15 06:15 06:15 WBC 6.4 RBC 3.00 L Hgb 9.6 L Hct 31.2 L MCV 104.0 H MCH 32.0 MCHC 30.8 L RDW 13.8 RDW Differential 50.8 H Plt Count 108 L MPV 10.0 Immature Gran % (Auto) 0.300 Neut % (Auto) 69.0 Lymph % (Auto) 19.3 [place] % (Auto) 8.3 Eos % (Auto) 2.8 Baso % (Auto) 0.3 Absolute Neuts (auto) 4.4 Absolute Lymphs (auto) 1.23 Total Counted Not Reportable PT 19.2 H INR 1.6 Sodium 142 Potassium 3.8 Chloride 103 Carbon Dioxide 26.0 Anion Gap 13 BUN 50 H Creatinine 4.49 H Estim Creat Clear Calc 13.77 Est GFR (MDRD) Af Amer 16 L Est GFR (MDRD) Non-Af 14 L BUN/Creatinine Ratio 11.1 Glucose 141 H Hemoglobin A1c Calcium 7.9 L Total Bilirubin AST ALT Alkaline Phosphatase Total Protein Albumin Globulin Albumin/Globulin Ratio 11/20/18 06:15 WBC RBC Hgb Hct MCV MCH MCHC RDW RDW Differential Plt Count MPV Immature Gran % (Auto) Neut % (Auto) Lymph % (Auto) [place] % (Auto) Eos % (Auto) Baso % (Auto) Absolute Neuts (auto) Absolute Lymphs (auto) Total Counted PT INR Sodium Potassium Chloride Carbon Dioxide Anion Gap BUN Creatinine Estim Creat Clear Calc Est GFR (MDRD) Af Amer Est GFR (MDRD) Non-Af BUN/Creatinine Ratio Glucose Hemoglobin A1c 8.5 H Calcium Total Bilirubin AST ALT Alkaline Phosphatase Total Protein Albumin Globulin Albumin/Globulin Ratio POC Glucose 11/20/18 11/19/18 11/19/18 08:42 21:51 17:50 POC Glucose 137 H 188 H 163 H Assessment/Plan All Active Problems (Last Reviewed 11/19/18 @ 15:06 by Kendra Aviles) ESRD (end stage renal disease) (Acute) Abdominal wall cellulitis (Acute) Peritoneal dialysis catheter site infection (Acute) hx of PD cath insertion (Acute) Chronic renal failure, stage 5 (Acute) Heart disease (Acute) Liver cancer (Acute) Debility (Acute) Surgically constructed arteriovenous graft (Acute ~02/2018) Blood in stool (Acute) Hemorrhoids (Acute) ESRD. HD arranged for later today with left arm AVF PD catheter exit site infection. PD catheter to be removed today. he was getting vanco with HD. received zosyn here. will have to figure out if any antibiotics are needed at the time of dc
--- NOTE | 2018-11-20 12:31 | CASEMGMT ---
RN PEDRITO NOTE: Call placed to [facility] in [place] @ [phone]. They confirmed that pt still has chair time with them MWF. They state PD teaching was just recently initiated and that he is still receiving HD with them. Karolina BSN RN CM
--- NOTE | 2018-11-20 13:53 | PCM.OPRPT ---
Problem List (1) Peritoneal dialysis catheter site infection Status: Acute Qualifiers: Encounter type: initial encounter Qualified Code(s): T85.71XA - Infection and inflammatory reaction due to peritoneal dialysis catheter, initial encounter Report of Operation Date of Procedure: 11/20/18 Pre-Operative Diagnosis: Peritoneal dialysis skin site infection Post-Operative Diagnosis: Same Surgery/Procedure Performed:: Peritoneal dialysis catheter removal Type of Anesthesia:: Local MAC Specimen's removed: Peritoneal dialysis catheter and culture of abscess fluid Drains: Quarter inch [place] drain Description of Procedure: Patient was brought back to the operating room and MAC anesthesia was induced. The abdomen was prepped and draped. Hemostat was used to dissect the distal cuff free but the proximal cuff was unable to be dissected free from the insertion site. A counterincision was injected with local anesthesia and then made medial to the insertion site. This was dissected free using hemostats and the catheter was removed. There was copious purulent material in the tunnel of the catheter. The catheter was removed and 1/4 inch [place] drain was placed through the counterincision and exited the catheter incision site. Both incisions were irrigated and dried. The counterincision was closed with 1 3-0 nylon suture which was also used to secure the drain and this left it widely patent. The drain was also sutured to the skin at the other site with a 3-0 nylon suture. An ABD was placed over this area. Patient tolerated the procedure well and was brought back in stable condition. - Admit VTE Documentation VTE Mechan Device Prophylaxis: SCD's
[2018-11-20 13:56] LABS: Bedside Glucose 113 mg/dL (70-110)
--- NOTE | 2018-11-20 14:36 | PCM.PN.HOSP ---
Patient Problems: Active and Suspected Problems (Last Reviewed 11/19/18 @ 15:06 by Kendra Aviles) ESRD (end stage renal disease) (Acute) Abdominal wall cellulitis (Acute) Peritoneal dialysis catheter site infection (Acute) Subjective: Patient was seen and examined. Denies any fever or chills. Going for I&D and removal of peritoneal dialysis catheter. Denies any nausea or vomiting or diarrhea. Vitals/I&O's: Vital Signs Temp Pulse Resp BP Pulse Ox 98.2 F 67 18 159/85 H 95 11/20/18 13:27 11/20/18 13:27 11/20/18 13:27 11/20/18 13:27 11/20/18 12:55 Oxygen Delivery Method Room Air Weight: 105.3 kg Body Mass Index (BMI) 32.8 Intake and Output for Last 24 Hours 11/18/18 11/19/18 11/20/18 23:59 23:59 23:59 Intake Total 200 / 200 1392 / 1392 Balance 200 / 200 1392 / 1392 General: Alert, Oriented x3, Cooperative, No apparent distress HEENT: Atraumatic, PERRLA, EOMI, Normocephalic Oral: Moist Mucosa Neck: Supple Lungs: Clear to auscultation, Normal air movement Cardiovascular: Regular rate, Regular Rhythm, Normal S1, Normal S2, No murmurs Abdomen: Bowel Sounds Present, Soft, No Hepato-splenomegaly, Obese, Tender - around the peritoneal dialysis catheter site with surrounding erythema, not worse beyond the marked off area Extremities: No edema Skin: - - Erythema, cellulitis of anterior abdominal wall Musculoskeletal: No Tenderness to Palpation of Joints or Extremities Lymphatic: No Cervical, Supraclavicular, or Inguinal Adenopathy Neurological: Cranial nerves II-XII grossly intact, Neuro grossly intact Psych/Mental Status: Normal Affect, Appropriate Laboratory Results 11/19/18 17:08: PT 20.0 H, INR 1.7 11/19/18 17:08: WBC 7.6, RBC 3.04 L, Hgb 9.9 L, Hct 30.6 L, MCV 100.7 H, MCH 32.6 H, MCHC 32.4, RDW 14.3, RDW Differential 52.0 H, Plt Count 111 L, MPV 9.7, Immature Gran % (Auto) 0.000, Neut % (Auto) 72.0 H, Lymph % (Auto) 17.6 L, [place] % (Auto) 9.4, Eos % (Auto) 0.9, Baso % (Auto) 0.1, Absolute Neuts (auto) 5.5, Absolute Lymphs (auto) 1.34, Total Counted Not Reportable 11/19/18 17:08: Sodium 139, Potassium 3.3 L, Chloride 102, Carbon Dioxide 27.0, Anion Gap 10, BUN 45 H, Creatinine 4.20 H, Estim Creat Clear Calc 14.73, Est GFR (MDRD) Af Amer 18 L, Est GFR (MDRD) Non-Af 15 L, BUN/Creatinine Ratio 10.7, Glucose 184 H, Calcium 8.1 L, Total Bilirubin 0.50, AST 22, ALT 20, Alkaline Phosphatase 63, Total Protein 7.3, Albumin 2.7 L, Globulin 4.6 H, Albumin/Globulin Ratio 0.6 L 11/19/18 17:50: POC Glucose 163 H 11/19/18 21:51: POC Glucose 188 H 11/20/18 06:15: WBC 6.4, RBC 3.00 L, Hgb 9.6 L, Hct 31.2 L, MCV 104.0 H, MCH 32.0, MCHC 30.8 L, RDW 13.8, RDW Differential 50.8 H, Plt Count 108 L, MPV 10.0, Immature Gran % (Auto) 0.300, Neut % (Auto) 69.0, Lymph % (Auto) 19.3, [place] % (Auto) 8.3, Eos % (Auto) 2.8, Baso % (Auto) 0.3, Absolute Neuts (auto) 4.4, Absolute Lymphs (auto) 1.23, Total Counted Not Reportable 11/20/18 06:15: PT 19.2 H, INR 1.6 11/20/18 06:15: Sodium 142, Potassium 3.8, Chloride 103, Carbon Dioxide 26.0, Anion Gap 13, BUN 50 H, Creatinine 4.49 H, Estim Creat Clear Calc 13.77, Est GFR (MDRD) Af Amer 16 L, Est GFR (MDRD) Non-Af 14 L, BUN/Creatinine Ratio 11.1, Glucose 141 H, Calcium 7.9 L 11/20/18 06:15: Hemoglobin A1c 8.5 H 11/20/18 08:42: POC Glucose 137 H 11/20/18 13:36: POC Glucose 113 H Current Medications Acetaminophen (Tylenol) 650 mg PO Q6H PRN PRN PRN Reason: PAIN Last Admin: 11/20/18 05:51 Dose: 650 mg Amlodipine Besylate (Norvasc) 5 mg PO DAILY [facility] Atorvastatin Calcium (Lipitor) 20 mg PO QHS [facility] Last Admin: 11/19/18 21:56 Dose: 20 mg Carvedilol (Coreg) 25 mg PO BID [facility] Last Admin: 11/19/18 21:56 Dose: 25 mg Clonidine (Catapres) 0.1 mg PO DAILY [facility] Docusate Sodium (Colace) 200 mg PO BID [facility] Last Admin: 11/19/18 21:57 Dose: Not Given Furosemide (Lasix) 80 mg PO DAILY [facility] Glimepiride (Amaryl) 2 mg PO BID [facility] Last Admin: 11/19/18 21:57 Dose: Not Given Hydralazine HCl (Apresoline) 50 mg PO TID [facility] Last Admin: 11/20/18 05:51 Dose: 50 mg Piperacillin Sod/Tazobactam (Sod 3.375 gm/ Sodium Chloride) 50 mls @ 12.5 mls/hr IV Q12 [facility] Last Admin: 11/20/18 11:01 Dose: 12.5 mls/hr Insulin Glargine (Lantus (Bkc)) 15 units SC QHS [facility] Last Admin: 11/19/18 21:57 Dose: Not Given Insulin Human Lispro (Humalog Kwikpen (Bkc)) 0 unit SC ACHS [facility]; Protocol Last Admin: 11/20/18 10:20 Dose: Not Given Insulin Human Lispro (Humalog Kwikpen (Bkc)) 5 unit SC TIDCM [facility] Last Admin: 11/20/18 10:21 Dose: Not Given Morphine Sulfate () 2 - 4 mg IV Q2H PRN PRN PRN Reason: PAIN Morphine Sulfate () 2 - 4 mg IV Q2H PRN PRN PRN Reason: PAIN Multivit/Ca Carb/B Cmplx/FA/Prenat (Nephrocaps, Renaphro) 1 capsule PO DAILY [facility] Ondansetron HCl (Zofran) 4 mg IV Q8H PRN PRN PRN Reason: NAUSEA Pantoprazole Sodium (Protonix) 40 mg PO DAILY [facility] Sodium Chloride () 5 - 15 ml IV UD PRN PRN Reason: SALINE FLUSH Last Admin: 11/19/18 21:56 Dose: 10 ml Medical Necessity - Tobacco Use Smoking Status: Former smoker Assessment/Plan All Active Problems (Last Reviewed 11/19/18 @ 15:06 by Kendra Aviles) ESRD (end stage renal disease) (Acute) Abdominal wall cellulitis (Acute) Peritoneal dialysis catheter site infection (Acute) hx of PD cath insertion (Acute) Chronic renal failure, stage 5 (Acute) Heart disease (Acute) Liver cancer (Acute) Debility (Acute) Surgically constructed arteriovenous graft (Acute ~02/2018) Blood in stool (Acute) Hemorrhoids (Acute) 77-year-old male with past medical history of ESRD, on hemodialysis, was on peritoneal dialysis, type II DM, paroxysmal atrial fibrillation, comes in with complaints of peritoneal dialysis catheter site infection. 1. Cellulitis on anterior abdominal wall secondary to infected peritoneal dialysis catheter, POA Patient is going for dialysis catheter removal today by general surgery. On zosyn IV Did not receive vancomycin yesterday; will resume today and renal dose with pharmacy. Would wait for wound cultures from surgery, will likely de-escalate Zosyn and vancomycin based on culture results. 2. End-stage renal disease, on HD, nephrology consulted 3. Diabetes mellitus type 2, BS are fairly controlled, continue on Amaryl, Lantus 15 units nightly, with pre-meal 5 units, as well as insulin sliding scale with accuchecks. 4. Hypertension, controlled, continue on amlodipine, carvedilol, clonidine, will continue to monitor vitals. 5. Paroxysmal atrial fibrillation, rate controlled, off coumadin for surgery, will resume when ok by surgery. 6. Hyperlipidemia, on statin 7. DVT prophylaxis with SCDs for now, Heparin SC from tomorrow. Code Visit Inpatient E&M: 10682 Subs Hosp L2
--- NOTE | 2018-11-20 14:49 | PN_ITS ---
Patient Problems: Active and Suspected Problems (Last Reviewed 11/19/18 @ 15:06 by Kendra Aviles) ESRD (end stage renal disease) (Acute) Abdominal wall cellulitis (Acute) Peritoneal dialysis catheter site infection (Acute) Subjective: Patient was seen and examined. Denies any fever or chills. Going for I&D and removal of peritoneal dialysis catheter. Denies any nausea or vomiting or diarrhea. Vitals/I&O's: Vital Signs Temp Pulse Resp BP Pulse Ox 98.2 F 67 18 159/85 H 95 11/20/18 13:27 11/20/18 13:27 11/20/18 13:27 11/20/18 13:27 11/20/18 12:55 Oxygen Delivery Method Room Air Weight: 105.3 kg Body Mass Index (BMI) 32.8 Intake and Output for Last 24 Hours 11/18/18 11/19/18 11/20/18 23:59 23:59 23:59 Intake Total 200 / 200 1392 / 1392 Balance 200 / 200 1392 / 1392 General: Alert, Oriented x3, Cooperative, No apparent distress HEENT: Atraumatic, PERRLA, EOMI, Normocephalic Oral: Moist Mucosa Neck: Supple Lungs: Clear to auscultation, Normal air movement Cardiovascular: Regular rate, Regular Rhythm, Normal S1, Normal S2, No murmurs Abdomen: Bowel Sounds Present, Soft, No Hepato-splenomegaly, Obese, Tender - around the peritoneal dialysis catheter site with surrounding erythema, not worse beyond the marked off area Extremities: No edema Skin: - - Erythema, cellulitis of anterior abdominal wall Musculoskeletal: No Tenderness to Palpation of Joints or Extremities Lymphatic: No Cervical, Supraclavicular, or Inguinal Adenopathy Neurological: Cranial nerves II-XII grossly intact, Neuro grossly intact Psych/Mental Status: Normal Affect, Appropriate Laboratory Results 11/19/18 17:08: PT 20.0 H, INR 1.7 11/19/18 17:08: WBC 7.6, RBC 3.04 L, Hgb 9.9 L, Hct 30.6 L, MCV 100.7 H, MCH 32.6 H, MCHC 32.4, RDW 14.3, RDW Differential 52.0 H, Plt Count 111 L, MPV 9.7, Immature Gran % (Auto) 0.000, Neut % (Auto) 72.0 H, Lymph % (Auto) 17.6 L, [place] % (Auto) 9.4, Eos % (Auto) 0.9, Baso % (Auto) 0.1, Absolute Neuts (auto) 5.5, Absolute Lymphs (auto) 1.34, Total Counted Not Reportable 11/19/18 17:08: Sodium 139, Potassium 3.3 L, Chloride 102, Carbon Dioxide 27.0, Anion Gap 10, BUN 45 H, Creatinine 4.20 H, Estim Creat Clear Calc 14.73, Est GFR (MDRD) Af Amer 18 L, Est GFR (MDRD) Non-Af 15 L, BUN/Creatinine Ratio 10.7, Glucose 184 H, Calcium 8.1 L, Total Bilirubin 0.50, AST 22, ALT 20, Alkaline Phosphatase 63, Total Protein 7.3, Albumin 2.7 L, Globulin 4.6 H, Albumin/Globulin Ratio 0.6 L 11/19/18 17:50: POC Glucose 163 H 11/19/18 21:51: POC Glucose 188 H 11/20/18 06:15: WBC 6.4, RBC 3.00 L, Hgb 9.6 L, Hct 31.2 L, MCV 104.0 H, MCH 32.0, MCHC 30.8 L, RDW 13.8, RDW Differential 50.8 H, Plt Count 108 L, MPV 10.0, Immature Gran % (Auto) 0.300, Neut % (Auto) 69.0, Lymph % (Auto) 19.3, [place] % (Auto) 8.3, Eos % (Auto) 2.8, Baso % (Auto) 0.3, Absolute Neuts (auto) 4.4, Absolute Lymphs (auto) 1.23, Total Counted Not Reportable 11/20/18 06:15: PT 19.2 H, INR 1.6 11/20/18 06:15: Sodium 142, Potassium 3.8, Chloride 103, Carbon Dioxide 26.0, Anion Gap 13, BUN 50 H, Creatinine 4.49 H, Estim Creat Clear Calc 13.77, Est GFR (MDRD) Af Amer 16 L, Est GFR (MDRD) Non-Af 14 L, BUN/Creatinine Ratio 11.1, Glucose 141 H, Calcium 7.9 L 11/20/18 06:15: Hemoglobin A1c 8.5 H 11/20/18 08:42: POC Glucose 137 H 11/20/18 13:36: POC Glucose 113 H Current Medications Acetaminophen (Tylenol) 650 mg PO Q6H PRN PRN PRN Reason: PAIN Last Admin: 11/20/18 05:51 Dose: 650 mg Amlodipine Besylate (Norvasc) 5 mg PO DAILY [facility] Atorvastatin Calcium (Lipitor) 20 mg PO QHS [facility] Last Admin: 11/19/18 21:56 Dose: 20 mg Carvedilol (Coreg) 25 mg PO BID [facility] Last Admin: 11/19/18 21:56 Dose: 25 mg Clonidine (Catapres) 0.1 mg PO DAILY [facility] Docusate Sodium (Colace) 200 mg PO BID [facility] Last Admin: 11/19/18 21:57 Dose: Not Given Furosemide (Lasix) 80 mg PO DAILY [facility] Glimepiride (Amaryl) 2 mg PO BID [facility] Last Admin: 11/19/18 21:57 Dose: Not Given Hydralazine HCl (Apresoline) 50 mg PO TID [facility] Last Admin: 11/20/18 05:51 Dose: 50 mg Piperacillin Sod/Tazobactam (Sod 3.375 gm/ Sodium Chloride) 50 mls @ 12.5 m ls/hr IV Q12 [facility] Last Admin: 11/20/18 11:01 Dose: 12.5 mls/hr Insulin Glargine (Lantus (Bkc)) 15 units SC QHS [facility] Last Admin: 11/19/18 21:57 Dose: Not Given Insulin Human Lispro (Humalog Kwikpen (Bkc)) 0 unit SC ACHS [facility]; Protocol Last Admin: 11/20/18 10:20 Dose: Not Given Insulin Human Lispro (Humalog Kwikpen (Bkc)) 5 unit SC TIDCM [facility] Last Admin: 11/20/18 10:21 Dose: Not Given Morphine Sulfate () 2 - 4 mg IV Q2H PRN PRN PRN Reason: PAIN Morphine Sulfate () 2 - 4 mg IV Q2H PRN PRN PRN Reason: PAIN Multivit/Ca Carb/B Cmplx/FA/Prenat (Nephrocaps, Renaphro) 1 capsule PO DAILY [facility] Ondansetron HCl (Zofran) 4 mg IV Q8H PRN PRN PRN Reason: NAUSEA Pantoprazole Sodium (Protonix) 40 mg PO DAILY [facility] Sodium Chloride () 5 - 15 ml IV UD PRN PRN Reason: SALINE FLUSH Last Admin: 11/19/18 21:56 Dose: 10 ml Medical Necessity - Tobacco Use Smoking Status: Former smoker Assessment/Plan All Active Problems (Last Reviewed 11/19/18 @ 15:06 by Kendra Aviles) ESRD (end stage renal disease) (Acute) Abdominal wall cellulitis (Acute) Peritoneal dialysis catheter site infection (Acute) hx of PD cath insertion (Acute) Chronic renal failure, stage 5 (Acute) Heart disease (Acute) Liver cancer (Acute) Debility (Acute) Surgically constructed arteriovenous graft (Acute ~02/2018) Blood in stool (Acute) Hemorrhoids (Acute) 77-year-old male with past medical history of ESRD, on hemodialysis, was on peritoneal dialysis, type II DM, paroxysmal atrial fibrillation, comes in with complaints of peritoneal dialysis catheter site infection. 1. Cellulitis on anterior abdominal wall secondary to infected peritoneal dialysis catheter, POA Patient is going for dialysis catheter removal today by general surgery. On zosyn IV Did not receive vancomycin yesterday; will resume today and renal dose with pharmacy. Would wait for wound cultures from surgery, will likely de-escalate Zosyn and vancomycin based on culture results. 2. End-stage renal disease, on HD, nephrology consulted 3. Diabetes mellitus type 2, BS are fairly controlled, continue on Amaryl, Lantus 15 units nightly, with pre-meal 5 units, as well as insulin sliding scale with accuchecks. 4. Hypertension, controlled, continue on amlodipine, carvedilol, clonidine, will continue to monitor vitals. 5. Paroxysmal atrial fibrillation, rate controlled, off coumadin for surgery, will resume when ok by surgery. 6. Hyperlipidemia, on statin 7. DVT prophylaxis with SCDs for now, Heparin SC from tomorrow. Code Visit Inpatient E&M: 07218 Subs Hosp L2
--- NOTE | 2018-11-20 15:59 | PCM.RX.CS ---
Consult Pharmacy has been consulted to manage selected antiobiotic: Vancomycin Type of Consult: New start Suspected Infection: Bacteremia Prior Doses of Antibiotics Received/Current Regimen: UNKNOWN - WAS ON VANCOMYCIN PRIOR TO ADMISSION Labs: Sodium 142 mmol/L (136-145) 11/20/18 06:15 Potassium 3.8 mmol/L (3.5-5.1) 11/20/18 06:15 Chloride 103 mmol/L (98-107) 11/20/18 06:15 Carbon Dioxide 26.0 mmol/L (21.0-32.0) 11/20/18 06:15 Anion Gap 13 (5-15) 11/20/18 06:15 BUN 50 mg/dL (7-18) H 11/20/18 06:15 Creatinine 4.49 mg/dL (0.70-1.30) H 11/20/18 06:15 Est GFR (MDRD) Af Amer 16 mL/min (>60) L 11/20/18 06:15 Est GFR (MDRD) Non-Af 14 mL/min (>60) L 11/20/18 06:15 BUN/Creatinine Ratio 11.1 RATIO (10-20) 11/20/18 06:15 Glucose 141 mg/dL (74-106) H 11/20/18 06:15 RANDOM VANCO LEVEL ORDERED PATIENT RECEIVED DOSE OUTPATIENT ON Sunday11/18/18 Weight used for dosin.3 kg Estimated Creatinine Clearance: 14 Goal Trough: 15-20 mcg/mL - WILL CHECK VANCO RANDOM LEVEL PRIOR TO DOSING. PATIENT WAS RECEIVING VANCOMYCIN AFTER DIALYSIS OUTPATIENT Pharmacy Plan for Drug Dosing: Pharmacy Service will continue to monitor and adjust dosing as required.
--- NOTE | 2018-11-20 17:13 | DIALYSIS ---
Hemodialysis today for 3.5 hours. Access via left arm AVF. UF 2500ml removed. Tolerated well.
[2018-11-20 17:19] LABS: Vancomycin, Random Level < 0.8 ug/mL (0.0-15.0)
[2018-11-20] MEDS: Furosemide 80 MG Tablet PO (17:51)
[2018-11-20] MEDS: amLODIPine 5 MG Tablet PO (17:51)
[2018-11-20] MEDS: Pantoprazole Sodium 40 MG Tablet PO (17:51)
[2018-11-20] MEDS: Insulin Lispro 100 UNIT/ML INSULN.PEN SC ×2 (18:08→23:07)
[2018-11-20 18:20] LABS: Bedside Glucose 116 mg/dL (70-110)
[2018-11-20] MEDS: Carvedilol 25 MG Tablet PO (23:06)
[2018-11-20] MEDS: Docusate Sodium 100 MG Capsule 200 MG PO (23:06)
[2018-11-20] MEDS: Atorvastatin Calcium 20 MG Tablet PO (23:07)
[2018-11-20 23:20] LABS: Bedside Glucose 161 mg/dL (70-110)
[2018-11-21] VITALS (7 sets, daily range): BP systolic 132–159; BP diastolic 54–67; PULSE 55–77; RESP 18; TEMP 36.8–37; O2SAT 97
[2018-11-21] MEDS: hydrALAZINE 25 MG Tablet 50 MG PO (05:53)
[2018-11-21] MEDS: Heparin Injection (Vial) 5,000 UNIT/ML VIAL 5000 UNIT SC (07:54)
--- NOTE | 2018-11-21 07:54 | PCM.PN.HOSP ---
Patient Problems: Active and Suspected Problems (Last Reviewed 11/19/18 @ 15:06 by Kendra Aviles) Abdominal wall cellulitis (Acute) Peritoneal dialysis catheter site infection (Acute) Subjective: Patient was seen and examined. Denies any fever or chills. Minimal pain at surgical site Objective: General: Alert, Oriented x3, Cooperative, No apparent distress HEENT: Atraumatic, PERRLA, EOMI, Normocephalic Oral: Moist Mucosa Neck: Supple Lungs: Clear to auscultation, Normal air movement Cardiovascular: Regular rate, Regular Rhythm, Normal S1, Normal S2, No murmurs Abdomen: Bowel Sounds Present, Soft, No Hepato-splenomegaly, Obese, Tenderness - left lower quadrant dressing dry and intact Extremities: No edema Skin: - - Erythema, cellulitis of anterior abdominal wall Musculoskeletal: No Tenderness to Palpation of Joints or Extremities Lymphatic: No Cervical, Supraclavicular, or Inguinal Adenopathy Neurological: Cranial nerves II-XII grossly intact, Neuro grossly intact Psych/Mental Status: Normal Affect, Appropriate Vitals/I&O's: Vital Signs Temp Pulse Resp BP Pulse Ox 98.2 F 76 18 159/67 H 97 11/21/18 05:49 11/21/18 05:53 11/21/18 05:49 11/21/18 05:49 11/21/18 05:49 Oxygen Delivery Method Room Air Weight: 102.7 kg Body Mass Index (BMI) 32.8 Intake and Output for Last 24 Hours 11/19/18 11/20/18 11/21/18 23:59 23:59 23:59 Intake Total 200 / 200 1392 / 1392 972 / 972 Output Total 2500 / 2500 Balance 200 / 200 -1108 / -1108 972 / 972 Laboratory Results 11/20/18 06:15: Hemoglobin A1c 8.5 H 11/20/18 08:42: POC Glucose 137 H 11/20/18 13:36: POC Glucose 113 H 11/20/18 16:15: Random Vancomycin < 0.8 11/20/18 17:42: POC Glucose 116 H 11/20/18 23:03: POC Glucose 161 H Current Medications Acetaminophen (Tylenol) 650 mg PO Q6H PRN PRN PRN Reason: PAIN Last Admin: 11/20/18 17:38 Dose: 650 mg Amlodipine Besylate (Norvasc) 5 mg PO DAILY [facility] Last Admin: 11/20/18 17:51 Dose: 5 mg Atorvastatin Calcium (Lipitor) 20 mg PO QHS [facility] Last Admin: 11/20/18 23:07 Dose: 20 mg Carvedilol (Coreg) 25 mg PO BID [facility] Last Admin: 11/20/18 23:06 Dose: 25 mg Clonidine (Catapres) 0.1 mg PO DAILY [facility] Last Admin: 11/20/18 23:27 Dose: Not Given Docusate Sodium (Colace) 200 mg PO BID [facility] Last Admin: 11/20/18 23:06 Dose: 200 mg Furosemide (Lasix) 80 mg PO DAILY [facility] Last Admin: 11/20/18 17:51 Dose: 80 mg Glimepiride (Amaryl) 2 mg PO BID [facility] Last Admin: 11/20/18 23:05 Dose: Not Given Heparin Sodium (Porcine) (Heparin Na) 5,000 unit SC Q8H [facility] Hydralazine HCl (Apresoline) 50 mg PO TID [facility] Last Admin: 11/21/18 05:53 Dose: 50 mg Piperacillin Sod/Tazobactam (Sod 3.375 gm/ Sodium Chloride) 50 mls @ 12.5 mls/hr IV Q12 [facility] Last Admin: 11/20/18 23:07 Dose: 12.5 mls/hr Vancomycin IV Pharmacy to Dose (1 ea/ Sodium Chloride) 500 mls @ 250 mls/hr IV X1 PRN; Protocol PRN Reason: Rx to Dose Insulin Glargine (Lantus (Bkc)) 15 units SC QHS [facility] Last Admin: 11/20/18 23:08 Dose: 15 unit Insulin Human Lispro (Humalog Kwikpen (Bkc)) 0 unit SC ACHS [facility]; Protocol Last Admin: 11/20/18 23:07 Dose: 2 units Insulin Human Lispro (Humalog Kwikpen (Bkc)) 5 unit SC TIDCM [facility] Last Admin: 11/20/18 18:08 Dose: 5 units Morphine Sulfate () 2 - 4 mg IV Q2H PRN PRN PRN Reason: PAIN Morphine Sulfate () 2 - 4 mg IV Q2H PRN PRN PRN Reason: PAIN Multivit/Ca Carb/B Cmplx/FA/Prenat (Nephrocaps, Renaphro) 1 capsule PO DAILY [facility] Last Admin: 11/20/18 18:11 Dose: Not Given Ondansetron HCl (Zofran) 4 mg IV Q8H PRN PRN PRN Reason: NAUSEA Pantoprazole Sodium (Protonix) 40 mg PO DAILY [facility] Last Admin: 11/20/18 17:51 Dose: 40 mg Sodium Chloride () 5 - 15 ml IV UD PRN PRN Reason: SALINE FLUSH Last Admin: 11/19/18 21:56 Dose: 10 ml Medical Necessity - Tobacco Use Smoking Status: Former smoker Assessment/Plan All Active Problems (Last Reviewed 11/19/18 @ 15:06 by Kendra Aviles) ESRD (end stage renal disease) (Acute) Abdominal wall cellulitis (Acute) Peritoneal dialysis catheter site infection (Acute) hx of PD cath insertion (Acute) Chronic renal failure, stage 5 (Acute) Heart disease (Acute) Liver cancer (Acute) Debility (Acute) Surgically constructed arteriovenous graft (Acute ~02/2018) Blood in stool (Acute) Hemorrhoids (Acute) 77-year-old male with past medical history of ESRD, on hemodialysis, was on peritoneal dialysis, type II DM, paroxysmal atrial fibrillation, comes in with complaints of peritoneal dialysis catheter site infection. 1. Cellulitis on anterior abdominal wall secondary to infected peritoneal dialysis catheter, POA POD #1 s/p infected dialysis catheter removal Pain is controlled. Wound cultures are pending He will be discharged today. He will receive Vancomycin after dialysis 2. End-stage renal disease, on HD, nephrology consulted 3. Diabetes mellitus type 2, BS are fairly controlled, continue on Amaryl, Lantus 15 units nightly, with pre-meal 5 units, as well as insulin sliding scale with accuchecks. 4. Hypertension, controlled, continue on amlodipine, carvedilol, clonidine, will continue to monitor vitals. 5. Paroxysmal atrial fibrillation, rate controlled, off coumadin for surgery, resume coumadin when ok by general surgery. 6. Hyperlipidemia, on statin Code Visit Inpatient E&M: 34270 Subs Hosp L2
[2018-11-21] MEDS: Insulin Lispro 100 UNIT/ML INSULN.PEN SC ×4 (07:55→11:58)
[2018-11-21 08:00] LABS: Bedside Glucose 210 mg/dL (70-110)
--- NOTE | 2018-11-21 08:35 | PCM.PN.SRG ---
Patient Problems: Active and Suspected Problems (Last Reviewed 11/19/18 @ 15:06 by Kendra Aviles) ESRD (end stage renal disease) (Acute) Abdominal wall cellulitis (Acute) Peritoneal dialysis catheter site infection (Acute) Subjective: Patient evaluated resting comfortably in bed. He notes minimal amount of discomfort at the incision sites. [place] drain intact. Cellulitis is receding. - Physical Exam General: Alert, Oriented x3, Cooperative Abdomen: Bowel Sounds Present, Soft, Non Tender, - - Cellulitis continues to reced. Minimal amount of dark bloody drainage noted on the dressing. Dressing was changed. Vital Signs Temp Pulse Resp BP Pulse Ox 98.2 F 76 18 159/67 H 97 11/21/18 05:49 11/21/18 05:53 11/21/18 05:49 11/21/18 05:49 11/21/18 05:49 Oxygen Delivery Method Room Air Weight: 226 lb 6.636 oz Body Mass Index (BMI) 32.8 Intake and Output for Last 24 Hours 11/19/18 11/20/18 11/21/18 23:59 23:59 23:59 Intake Total 200 / 200 1392 / 1392 972 / 972 Output Total 2500 / 2500 Balance 200 / 200 -1108 / -1108 972 / 972 Laboratory Tests Past 24 Hrs 11/20/18 11/20/18 06:15 16:15 Hemoglobin A1c 8.5 H Random Vancomycin < 0.8 POC Glucose 11/21/18 11/20/18 11/20/18 07:36 23:03 17:42 POC Glucose 210 H 161 H 116 H 11/20/18 11/20/18 13:36 08:42 POC Glucose 113 H 137 H Medical Necessity - Tobacco Use Smoking Status: Former smoker Assessment/Plan All Active Problems (Last Reviewed 11/19/18 @ 15:06 by Kendra Aviles) ESRD (end stage renal disease) (Acute) Abdominal wall cellulitis (Acute) Peritoneal dialysis catheter site infection (Acute) hx of PD cath insertion (Acute) Chronic renal failure, stage 5 (Acute) Heart disease (Acute) Liver cancer (Acute) Debility (Acute) Surgically constructed arteriovenous graft (Acute ~02/2018) Blood in stool (Acute) Hemorrhoids (Acute) I am following this patient in conjunction with Dr. Messina. S/p removal of infected peritoneal dialysis catheters Continue dialysis via fistula Cultures pending. Hopeful discharge home today or tomorrow on oral antibiotics. Will discuss patient with Dr. Messina Code Visit Inpatient E&M: 60575 Subs Hosp L1 - NO CHARGE/POST-OP
[2018-11-21] MEDS: Glimepiride 4 MG Tablet 2 MG PO (10:22)
[2018-11-21] MEDS: Docusate Sodium 100 MG Capsule 200 MG PO (10:22)
[2018-11-21] MEDS: Carvedilol 25 MG Tablet PO (10:23)
[2018-11-21] MEDS: Furosemide 80 MG Tablet PO (10:23)
[2018-11-21] MEDS: Folic Acid/Vitamin B Comp W-C 1 Capsule 1 CAP PO (10:23)
[2018-11-21] MEDS: Pantoprazole Sodium 40 MG Tablet PO (10:23)
[2018-11-21] MEDS: amLODIPine 5 MG Tablet PO (10:24)
[2018-11-21] MEDS: cloNIDine HCl 0.1 MG Tablet PO (10:26)
[2018-11-21] MEDS: 0.9% NaCl Peripheral Flush Adult/Peds IV (10:30)
--- NOTE | 2018-11-21 11:22 | DS.PCM_ITS ---
Discharge Date and Diagnosis - Problem List Patient Problems: Active and Suspected Problems (Last Reviewed 11/19/18 @ 15:06 by Kendra Aviles) ESRD (end stage renal disease) (Acute) Abdominal wall cellulitis (Acute) Peritoneal dialysis catheter site infection (Acute) Date of Admission: 11/19/18 Date of Discharge: 11/21/18 - Primary Discharge Diagnosis Active and Suspected Problems (Last Reviewed 11/19/18 @ 15:06 by Kendra Aviles) ESRD (end stage renal disease) (Acute) Abdominal wall cellulitis (Acute) Peritoneal dialysis catheter site infection (Acute) - Secondary Discharge Diagnosis Chronic Problems (Last Reviewed 11/19/18 @ 15:06 by Kendra Aviles) Chronic renal disease, stage IV (Chronic) Hypercholesterolemia (Chronic) History of colectomy (Chronic) Acid reflux (Chronic) Hypertension (Chronic) Afib (Chronic) Heart disease (Chronic) Colon cancer (Chronic) Diabetes (Chronic) Renal failure (Chronic) Hospital Course and Treatment Imaging Results: Clinical Impression(s) from Imaging Studies Abdomen/Pelvis CT 11/19/18 15:54 IMPRESSION: 1. Peritoneal dialysis catheter passes through the medial aspect of left rectus muscle, its distal end coiling in the inferior right peritoneal cavity. There is ill-defined stranding about the subcutaneous, tunneled portion of the catheter and mild overlying cutaneous thickening, consistent with history of cellulitis. No defined fluid pocket/abscess. 2. Prior partial right hepatectomy and cholecystectomy. 3. Prior right colectomy with colonic enteric anastomosis near the hepatic flexure. No sign of recurrent mass nor sign of obstruction. There is a rare left colonic diverticula without acute diverticulitis. 4. [place] 8.4 mm nonobstructing stone in the lower pole of the left kidney. No hydronephrosis. 5. Atherosclerotic vascular calcifications are present. No demonstrated aortic aneurysm. 6. Mildly enlarged prostate gland. 7. Minor peribronchial thickening and wispy densities of volume loss or inflammatory change in the posterior lung bases. 8. Degenerative changes of the spine and pelvis, as noted. Electronically Signed: Raffy Barry MD at 19:47 EST , Service support , Hospitalist group and nephrology Operations: - - Peritoneal dialysis catheter removal Procedures: None Summary of Care Provided: The patient is a 77 year old M who presented to the office with purulent drainage and erythema of his abdominal wall associated with his peritoneal dialysis catheter. Patient was admitted to the hospital and a CT scan was performed. The CT scan did not reveal any deep abscess cavity is only fluid around the catheter. The patient was taken the following day for a peritoneal dialysis catheter removal and a [place] drain was placed. Patient received dialysis and a dose of vancomycin after surgery. The following day the patient was doing much better and his erythema was improving. The patient will be discharged home and follow-up with me early next week for Aislinn drain removal. I spoke to Dr. Buckley and he will dose of vancomycin on Sunday and Sunday after dialysis. Patient Problems: Active and Suspected Problems (Last Reviewed 11/19/18 @ 15:06 by Kendra Aviles) ESRD (end stage renal disease) (Acute) Abdominal wall cellulitis (Acute) Peritoneal dialysis catheter site infection (Acute) - Physical Exam Vital Signs Temp Pulse Resp BP Pulse Ox 98.5 F 59 L 18 137/57 H 97 11/21/18 10:11 11/21/18 10:11 11/21/18 10:11 11/21/18 10:11 11/21/18 10:11 Oxygen Delivery Method Room Air Weight: 226 lb 6.636 oz Body Mass Index (BMI) 32.8 Intake and Output for Last 24 Hours 11/19/18 11/20/18 11/21/18 23:59 23:59 23:59 Intake Total 200 / 200 1392 / 1392 972 / 972 Output Total 2500 / 2500 Balance 200 / 200 -1108 / -1108 972 / 972 Microbiology Past 72 Hours 11/20/18 12:06 Gram Stain - Final Incision/Surgical Site Wound Culture - Preliminary Staphylococcus aureus 11/20/18 12:06 Gram Stain - Final Implant - Other Laboratory Tests Past 24 Hrs 11/20/18 16:15 Random Vancomycin < 0.8 POC Glucose 11/21/18 11/20/18 11/20/18 07:36 23:03 17:42 POC Glucose 210 H 161 H 116 H 11/20/18 13:36 POC Glucose 113 H Home Medications: Medications to take at Discharge amlodipine 5 mg tablet 5 mg PO QDAY 01/09/18 carvedilol 25 mg tablet 25 mg PO BID 01/09/18 clonidine HCl 0.1 mg tablet 0.1 mg PO QDAY tab 01/09/18 furosemide 80 mg tablet 80 mg PO QDAY 01/09/18 insulin aspart U- 100 100 unit/mL subcutaneous pen 5 unit SC TIDCM ml 01/09/18 insulin glargine (U-300) conc. 300 unit/mL (1.5 mL) subcutaneous pen 15 unit SC QHS 01/09/18 pen needle, diabetic 32 gauge x 1/6 See Dose Instructions .ROUTE .MEDSUPPLY #100 ea 01/09/18 simvastatin 40 mg tablet 40 mg PO QPM tab 01/09/18 vitamins-lipotropics tablet 2 tab PO BID 01/09/18 glimepiride 4 mg tablet 2 mg PO DAILY 09/03/18 hydralazine 25 mg tablet 50 mg PO TID tab 09/03/18 RX: Docusate Sodium [Stool Softener] 200 mg PO BID 11/19/18 Triphrocaps 1 tab PO DAILY 11/19/18 RX: Vancomycin IV Pharmacy to Dose 1 ea IV X1 PRN each 11/21/18 Primary Care Physician: Sarah Hawkins NP-C [Primary Care Provider] - Medical Necessity - Tobacco Use Smoking Status: Former smoker Meaningful Use Info Meaningful Use Diagnoses (Choose all that apply): None applicable
--- NOTE | 2018-11-21 11:24 | DCINST_ITS ---
- Discharge Diagnoses Current Active Problems: Current Active and Chronic Problems (Last Reviewed 11/19/18 @ 15:06 by Kendra Aviles) ESRD (end stage renal disease) (Acute) Abdominal wall cellulitis (Acute) Peritoneal dialysis catheter site infection (Acute) You will use the following diet at home:: Calorie/Carbohydrate Controlled (specify 1200, 1400, etc), Renal (restricted protein/sodium) Your food should be the consistency of: Regular Discharge Activity: May Shower Call your doctor if your incision/area has: Continuous Slow Oozing, Sudden Increased Bleeding, Increased Pain/ Swelling, Increased Redness, Foul Smelling Discharge, Swelling at the incision site Call your doctor if you observe: Fever of 101 or Higher Change Dressing in (Days):: 1 - change bandage as needed. Cleanse incision/area with: Soap & Water Additional Instructions: Dr. Buckley will dose with IV vancomycin after dialysis on Sunday and Sunday. Allergies/Adverse Reactions: Allergies mold Adverse Reaction (Verified 11/19/18 16:54) dizzy spells cattle Allergy (Uncoded 11/19/18 16:54) dizzy spells Medications to take at Discharge amlodipine 5 mg tablet 5 mg PO QDAY 01/09/18 carvedilol 25 mg tablet 25 mg PO BID 01/09/18 clonidine HCl 0.1 mg tablet 0.1 mg PO QDAY tab 01/09/18 furosemide 80 mg tablet 80 mg PO QDAY 01/09/18 insulin aspart U- 100 100 unit/mL subcutaneous pen 5 unit SC TIDCM ml 01/09/18 insulin glargine (U-300) conc. 300 unit/mL (1.5 mL) subcutaneous pen 15 unit SC QHS 01/09/18 pen needle, diabetic 32 gauge x 1/6 See Dose Instructions .ROUTE .MEDSUPPLY #100 ea 01/09/18 simvastatin 40 mg tablet 40 mg PO QPM tab 01/09/18 vitamins-lipotropics tablet 2 tab PO BID 01/09/18 warfarin 6 mg tablet 8 mg PO SUTUTHSA tab 01/09/18 glimepiride 4 mg tablet 2 mg PO DAILY 09/03/18 hydralazine 25 mg tablet 50 mg PO TID tab 09/03/18 Docusate Sodium [Stool Softener] 200 mg PO BID 11/19/18 Triphrocaps 1 tab PO DAILY 11/19/18 Warfarin [Coumadin] 7 mg PO MOWEFR 11/20/18 Primary Care Physician: Sarah Hawkins NP-C [Primary Care Provider] - Test Results: Test results from this visit will be discussed in further detail at your follow- up appointment, if applicable. Please Follow Up With: Yordy Messina MD When: Please call to schedule follow up appointment for Mon or . [phone]
[2018-11-21 12:10] LABS: Bedside Glucose 220 mg/dL (70-110)
--- NOTE | 2018-11-21 13:36 | NURSING ---
Spoke with patient regarding a.fib and report of taking coumadin. Patient informed this RN of his Coumadin schedule and this RN added to home med list. Patient states that Dr. Messina is holding until follow up office visit and that he does not want him on any blood thinners. Soraya RN asked same question and verified that patient is not to receive blood thinner, taken for a.fib, until f/u visit
--- NOTE | 2018-11-21 13:42 | CASEMGMT ---
Addendum entered by Ruddy Sen 11/21/18 14:41: Tierney @ [facility] Original Note: Addendum entered by Ruddy Sen 11/21/18 14:40: NERY MAJOR Note: Call received from Tierney @ [facility], updated on peritoneal cath removal and pt to have hemodialysis on dc. She will f/u with patient on discharge. Ricardo SCRUGGS Original Note: NERY MAJOR Note: Dr. Messina called regarding Vancomycin on dc after dialysis. Script could be written and sent to [facility], but Dr. Messina called to Dr. Buckley who will dose Vanc on dc. Noted in discharge summary. Ricardo SCRUGGS
--- NOTE | 2018-11-21 15:35 | PN.RENAL_ITS ---
Patient Problems: Active and Suspected Problems (Last Reviewed 11/19/18 @ 15:06 by Kendra Aviles) Abdominal wall cellulitis (Acute) Peritoneal dialysis catheter site infection (Acute) Subjective: no new complaints - Physical Exam General: Alert, Oriented x3, Cooperative HEENT: Atraumatic, PERRLA, EOMI, Normocephalic Neck: Supple, No JVD, Negative Carotid Bruits Lungs: Clear to auscultation, Normal air movement Cardiovascular: Regular rate, No murmurs Abdomen: Bowel Sounds Present, Soft, Non Tender Extremities: No edema, Capillary Refill Less than 3 Seconds Skin: No rashes, No breakdown Musculoskeletal: No Tenderness to Palpation of Joints or Extremities Neurological: Cranial nerves II-XII grossly intact Psych/Mental Status: Normal Affect, Appropriate Vital Signs Temp Pulse Resp BP Pulse Ox 98.6 F 55 L 18 132/54 H 97 11/21/18 14:16 11/21/18 14:16 11/21/18 14:16 11/21/18 14:16 11/21/18 14:16 Oxygen Delivery Method Room Air Weight: 102.7 kg Body Mass Index (BMI) 32.8 Intake and Output for Last 24 Hours 11/19/18 11/20/18 11/21/18 23:59 23:59 23:59 Intake Total 200 / 200 1392 / 1392 972 / 972 Output Total 2500 / 2500 Balance 200 / 200 -1108 / -1108 972 / 972 Microbiology Past 72 Hours 11/20/18 12:06 Gram Stain - Final Incision/Surgical Site Wound Culture - Preliminary Staphylococcus aureus 11/20/18 12:06 Gram Stain - Final Implant - Other Laboratory Tests Past 24 Hrs 11/20/18 16:15 Random Vancomycin < 0.8 POC Glucose 11/21/18 11/21/18 11/20/18 11:55 07:36 23:03 POC Glucose 220 H 210 H 161 H 11/20/18 17:42 POC Glucose 116 H Medical Necessity - Tobacco Use Smoking Status: Former smoker Assessment/Plan All Active Problems (Last Reviewed 11/19/18 @ 15:06 by Kendra Aviles) ESRD (end stage renal disease) (Acute) Abdominal wall cellulitis (Acute) Peritoneal dialysis catheter site infection (Acute) hx of PD cath insertion (Acute) Chronic renal failure, stage 5 (Acute) Heart disease (Acute) Liver cancer (Acute) Debility (Acute) Surgically constructed arteriovenous graft (Acute ~02/2018) Blood in stool (Acute) Hemorrhoids (Acute) ESRD. HD tomorrow as per schedule PD catheter exit site infection. PD catheter out. d/w Dr Messina. called in [facility] with HD through sunday.
== END 2018-11-21 14:25 | disposition home or self-care (01) | DRG 981 ==
PROVIDERS: Anesthesiology; Admitting Provider Surgery; Family Provider Nurse Practitioner; PCP Nurse Practitioner; Referring Provider Surgery; Visit Provider Internal Medicine
PROC: 0WPG33Z Removal of Infusion Device from Peritoneal Cavity, Percutaneous Approach (ICD-10-PCS; principal; 2018-11-20 11:50)
DX: T85.71XA Infection and inflammatory reaction due to peritoneal dialysis catheter, initial encounter (principal); N18.6 End stage renal disease; L03.311 Cellulitis of abdominal wall; I13.2 Hypertensive heart and chronic kidney disease with heart failure and with stage 5 chronic kidney disease, or end stage renal disease; I50.32 Chronic diastolic (congestive) heart failure; D63.1 Anemia in chronic kidney disease; E11.22 Type 2 diabetes mellitus with diabetic chronic kidney disease; I48.0 Paroxysmal atrial fibrillation; I25.10 Atherosclerotic heart disease of native coronary artery without angina pectoris; E78.00 Pure hypercholesterolemia, unspecified; K21.9 Gastro-esophageal reflux disease without esophagitis; Z99.2 Dependence on renal dialysis; Z95.1 Presence of aortocoronary bypass graft; Z98.0 Intestinal bypass and anastomosis status; Z90.49 Acquired absence of other specified parts of digestive tract; Z85.038 Personal history of other malignant neoplasm of large intestine; Z79.4 Long term (current) use of insulin; Z79.01 Long term (current) use of anticoagulants; Z79.899 Other long term (current) drug therapy; Z87.891 Personal history of nicotine dependence
CPT/HCPCS: 36415; 74176; 80048; 80053; 80202; 82962; 83036; 85025; 85610; 87070; 87075; 87077; 87186; 87205; 93005; 97802; J7030; J7040; A4216

== ENCOUNTER → 2019-05-28 12:44 | Outpatient (CLI) | payer MEDICARE, SELFPAY ==
[2018-11-19 16:07] VITALS: BMI 32.8
--- NOTE | 2019-05-28 12:53 | RAD_ITS ---
STUDY: X-RAY CHEST REASON FOR EXAM: Male, 78 years old. Shortness of breath, fatigue TECHNIQUE: PA and lateral views of the chest. COMPARISON: 08/19/2018 FINDINGS: Right lower lobe scarring which is unchanged. Interval development of a 2.5 cm nodule in the upper left lung worrisome for bronchogenic carcinoma in correlation with CT the chest with contrast is recommended. No change in right-sided pleural thickening or scarring. There is moderate cardiac enlargement. Normal mediastinum and estefany. Normal visualized pulmonary arteries. Normal visualized aortic arch and descending thoracic aorta. Normal visualized thoracic spine. Normal visualized ribs, clavicles, and shoulders. There is no demonstrated abnormality of the visualized soft tissue structures of the upper abdomen. RAD/Chest PA and Lateral IMPRESSION: Interval development of 2.5 cm left upper lobe nodule and correlation with CT the chest with contrast is recommended. Electronically Signed: Mo Patel MD at 15:10 EDT Tel , Service support ,
[2019-05-28 13:31] LABS: Hematocrit 35.8 % (40-54); Hemoglobin 11.5 g/dL (13.0-16.5); Mean Corp Hgb Conc 32.1 g/dL (32-36); Mean Corpuscular Volume 102.6 fL (80-94); Mean Platelet Vol. 11.4 fl (6.2-12.0); Platelet Count 101 K/mm3 (150-450); RBC Distribution Width SD 52.9 fl (35.1-43.9); Red Blood Count 3.49 M/mm3 (4.6-6.2); White Blood Count 6.8 K/mm3 (4.4-11.0)
[2019-05-28 13:53] LABS: ALB/GLOB Ratio 0.6 RATIO (0.9-2.4); AST(SGOT) 178 U/L (15-37); Alanine Aminotransfer ALT/SGPT 52 U/L (16-61); Albumin, Serum 2.5 g/dL (3.2-5.0); Alkaline Phosphatase 162 U/L (45-117); Anion Gap 9 (5-15); BUN 17 mg/dL (7-18); BUN/Creat Ratio 7.3 RATIO (10-20); Calcium,Total 8.4 mg/dL (8.5-10.1); Chloride 97 mmol/L (98-107); Creatinine, Serum 2.33 mg/dL (0.70-1.30); EST Glomerular Filtration Rate 29 mL/min (>60); Est Glom Filt Rate - Afr Amer 35 mL/min (>60); Globulin 4.3 g/dL (2.2-4.2); Glucose 226 mg/dL (74-106); Potassium 3.4 mmol/L (3.5-5.1); Protein, Total 6.8 g/dL (6.4-8.2); Sodium Level 138 mmol/L (136-145); Thyroid Stim Hormone (TSH) 1.14 uIU/mL (0.358-3.74)
[2019-05-29 16:07] LABS: Creatine Kinase MB 0 % (0-3); Creatine Kinase MM 100 % (97-100); Creatine Kinase,Total,Serum 62 U/L (24-204); Macro I 0 % (Not Observed); Macro II 0 % (Not Observed)
[2019-06-02 12:35] LABS: Creatine Kinase BB 0 % (0)
[2019-06-02 13:02] LABS: Myoglobin, Serum 121 ng/mL (28-72)
== END ==
PROVIDERS: Family Provider Nurse Practitioner; PCP Nurse Practitioner; Referring Provider Nurse Practitioner; Visit Provider Nurse Practitioner
DX: R06.02 Shortness of breath (principal)
CPT/HCPCS: 71046; 80053; 82550; 82552; 83874; 83880; 84443; 84484; 85027

== ENCOUNTER 2019-06-02 07:51 | Inpatient (IN) | payer MEDICARE, MEDICAID, SELFPAY ==
[2018-11-19 16:07] VITALS: BMI 32.8
[2019-06-02] VITALS (7 sets, daily range): BP systolic 121–169; BP diastolic 57–74; PULSE 66–75; RESP 16–26; TEMP 36.2–36.9; O2SAT 94–97; BMI 32.5; BMI 31.1; BMI 31.0
--- NOTE | 2019-06-02 08:06 | RAD_ITS ---
STUDY: X-RAY CHEST REASON FOR EXAM: Male, 78 years old. Increasing weakness. Diarrhea. TECHNIQUE: Single AP portable view of the chest. COMPARISON: Comparison is made with prior study dated May 28, 2019. FINDINGS: EKG electrodes are seen. There is evidence of vascular congestion and mild degree of CHF with superimposed atelectasis at the lung bases. Stable 2.3 cm x 1.8 cm nodule in the lateral aspect of the left upper lobe. Blunting of the left costophrenic angle. Normal size heart. Surgical clips are seen overlying the left hilar region. Normal visualized pulmonary arteries. Normal visualized aortic arch and descending thoracic aorta. Normal visualized thoracic spine. Normal visualized ribs, clavicles, and shoulders. There is no demonstrated abnormality of the visualized soft tissue structures of the upper abdomen. RAD/Chest 1 View (Portable) IMPRESSION: Findings suggest a more mild degree of CHF with superimposed atelectasis and/or scarring at the lung bases. Stable appearance of the nodular density in the lateral aspect of the left upper lobe. Electronically Signed: Jose Junior, at 8:53 EDT , Service support ,
--- NOTE | 2019-06-02 08:07 | EKG12_ITS ---
Test Reason : Blood Pressure : / mmHG Vent. Rate : 076 BPM Atrial Rate : 091 BPM P-R Int : 000 ms QRS Dur : 108 ms QT Int : 468 ms P-R-T Axes : 000 -21 057 degrees QTc Int : 526 ms Atrial fibrillation Inferior infarct (cited on or before 20-NOV-2018) Prolonged QT Nonspecific ST/T wave abnormality Abnormal ECG Confirmed by RACHEL OLMOS, JOSE DE JESUS ([id number]), newspaper editor PATRICK MEDRANO ([id number]) on 06/04/2019 2:15:28 PM Referred By: Sarah Hawkins Confirmed By:JOSE DE JESUS RAMOS MD
[2019-06-02] MEDS: 0.9% Normal Saline 1,000 ML 15 ML IV (08:32)
[2019-06-02 08:41] LABS: Absolute Lymphocyte Count 0.57 X10^3/uL (0.83-4.51); Absolute Neutrophil Count 3.4 X10^3/uL (2.0-7.7); Basophil# 0.01 X10^3/uL; Basophil% 0.2 % (0-1); Eosinophil# 0.07 X10^3/uL; Eosinophils% 1.5 % (0-5); Hematocrit 31.4 % (40-54); Hemoglobin 10.7 g/dL (13.0-16.5); Lymphocyte # 0.57 X10^3/ul (4.0); Lymphocyte % 12.5 % (19-41); Mean Corp Hgb Conc 34.1 g/dL (32-36); Mean Corpuscular Volume 96.9 fL (80-94); Mean Platelet Vol. 10.9 fl (6.2-12.0); Monocyte# 0.47 X10^3/uL; Monocyte% 10.3 % (0-10); NRBC Flagged by Analyzer 0 % (0-5); Neutrophil # 3.39 X10^3/uL (2.7-7.7); Neutrophil % 74.6 % (47-70); POSITIVE DIFFERENTIAL YES; Platelet Count 133 K/mm3 (150-450); RBC Distribution Width CV 13.9 % (11.6-14.6); RBC Distribution Width SD 49.7 fl (35.1-43.9); Red Blood Count 3.24 M/mm3 (4.6-6.2); White Blood Count 4.6 K/mm3 (4.4-11.0)
[2019-06-02 08:44] LABS: Differential Indicated SCAN CRITERIA MET
[2019-06-02 08:51] LABS: Prothrombin Time (Protime)PT. 52.3 SECONDS (11.7-14.9)
[2019-06-02 09:00] LABS: International Normalized Ratio 5.7
--- NOTE | 2019-06-02 09:00 | ED.RN ---
LAB CALL WITH CRITICAL VALUE INR 5.7. VERBALLY REPORTED TO DR. BELTRAN.
[2019-06-02 09:02] LABS: Lactic Acid 1.3 mmol/L (0.4-2.0)
[2019-06-02 09:06] LABS: ALB/GLOB Ratio 0.4 RATIO (0.9-2.4); AST(SGOT) 133 U/L (15-37); Alanine Aminotransfer ALT/SGPT 57 U/L (16-61); Albumin, Serum 1.9 g/dL (3.2-5.0); Alkaline Phosphatase 141 U/L (45-117); Anion Gap 15 (5-15); BUN 82 mg/dL (7-18); BUN/Creat Ratio 14.6 RATIO (10-20); Chloride 98 mmol/L (98-107); Creatinine, Serum 5.63 mg/dL (0.70-1.30); EST Glomerular Filtration Rate 10 mL/min (>60); Est Glom Filt Rate - Afr Amer 13 mL/min (>60); Estimated Creatinine Clearance 11.15 ml/min; Globulin 4.8 g/dL (2.2-4.2); Glucose 156 mg/dL (74-106); Protein, Total 6.7 g/dL (6.4-8.2); Sodium Level 138 mmol/L (136-145)
[2019-06-02 09:22] LABS: Platelet Estimate SLT DEC (ADEQ)
--- NOTE | 2019-06-02 10:13 | ED.DCSUM_ITS ---
- ER Visit Summary Date of Service: 06/02/19 Chief Complaint: [Generalized weakness and shortness of breath] History of Present Illness: The patient is a 78 M [presents to the emergency department with feeling weak for the last 2 months. Patient states he had diarrhea with 2-3 episodes per day of watery stool. He denies recent antibiotic usage. Patient also complains of severe exertional dyspnea with minimal activity. He denies any chest pain. Patient has not been to dialysis in 5 days because he has been too weak. Patient denies any fever. He denies any cough. Patient has history of CHF, hypertension, high cholesterol, A. fib, chronic renal failure, history of colon cancer and history of liver cancer.] Physical Examination: [HEENT-PERRLA, EOMI. Cranial nerves II through XII grossly intact. TMs clear. Mucous membranes moist. No adenopathy. Cardiovascular-irregularly irregular with 2 out of 6 stock ejection murmur. Lungs= good aeration bilaterally. Patient has some faint rales in the bases. No accessory muscle use or retractions. Abdomen-normoactive bowel sounds, soft, nontender, no rebound or rigidity, no peritoneal signs. Extremities-intact ?4, normal range of motion, normal pulses, atraumatic. Trace edema bilateral lower extremities that is symmetric.] Test Results: [EKG obtained arrival showed atrial fibrillation with a ventricular rate of 76 bpm with an old inferior wall infarct noted. CBC with additional count of 4.6, hemoglobin 10.7, hematocrit 31, platelets 133. Chemistries unremarkable other than a depressed potassium of 3.0. BUN was 82 and creatinine 5.63. LFTs were essentially unremarkable. INR was elevated 5.7. Troponin is less than .015.] Emergency Department Course and Treatment: [Patient was given potassium chloride 40 mg once p.o.] Treatment Plan: [Admit for dialysis and further evaluation. We will hold the Coumadin at this time given the elevated INR. Etiology of his dyspnea at this point is unclear.] Disposition: [Admit] Impression: [Weakness Dyspnea Chronic renal failure Coumadin coagulopathy Hypokalemia] This note was generated with [employer] dictation software. It may contain incorrect words, spelling, and punctuation that were not noted in review of the chart prior to signing ED Disposition - Plan for ED Patient: Referrals: Sarah Hawkins, SARAVANAN-C [Primary Care Provider] -
--- NOTE | 2019-06-02 10:37 | CON.PCM_ITS ---
Consultation - Renal PCP/ Referring MD: Requesting physician: [] Primary care physician: LONNEI Farfan - History of Present Illness History of Present Illness: The patient is a 78 year old M PMH of ESRD on MWF HD schedule. Pt goes to [facility] in [facility] for HD. Pt presented with diarrhea for the last 2 month about 3-4 BM daily with progressive weakness and SOB. I was consulted for ESRD care. Pt missed HD session Sunday. HD access is LUE AVF ROS: 1 2 systems review is negative except what mentioned in HPI[] - Allergies Allergies: Allergies mold Adverse Reaction (Verified 06/02/19 07:51) dizzy spells cattle Allergy (Uncoded 06/02/19 07:51) dizzy spells - Current Medications Current Medications: Current Medications Sodium Chloride () 1,000 mls @ 15 mls/hr IV .Q48H ELIUD Last Admin: 06/02/19 08:32 Dose: 15 mls/hr Documented by: - Past Medical History Past Medical History (Chronic Problems): Chronic Problems (Last Reviewed 12/05/18 @ 09:56 by Gardenia Martel) Chronic renal disease, stage IV (Chronic) Hypercholesterolemia (Chronic) History of colectomy (Chronic) Acid reflux (Chronic) Hypertension (Chronic) Afib (Chronic) Heart disease (Chronic) Colon cancer (Chronic) Diabetes (Chronic) Renal failure (Chronic) - Past Surgical History Surgical History: no surgical history - Social History Smoking Status: Former smoker - Family History Maternal Family History: Family History (Last Reviewed 12/05/18 @ 09:56 by Gardenia Martel) Father Colon cancer Sister Diabetes Brother Diabetes Mother Heart disease History Items: No pertinent history - Physical Exam General: Alert, Oriented x3 HEENT: Atraumatic Oral: Moist Mucosa Neck: Supple, No JVD Lungs: Clear to auscultation, Normal air movement, No rhonchi, No wheeze Cardiovascular: Regular rate, Regular Rhythm, Normal S1, Normal S2 Abdomen: Soft, Non Tender, Hyperactive Bowel Sounds Extremities: No clubbing, No cyanosis, No edema Skin: No rashes Lymphatic: No Cervical, Supraclavicular, or Inguinal Adenopathy Neurological: Neuro grossly intact Psych/Mental Status: Appropriate Vital Signs Temp Pulse Resp BP Pulse Ox 97.2 F L 72 16 122/57 H 96 09/16/19 07:52 06/02/19 07:52 06/02/19 07:52 06/02/19 07:52 06/02/19 07:52 Oxygen Delivery Method Room Air Weight: 105.687 kg Body Mass Index (BMI) 32.5 Laboratory Tests Past 24 Hrs 06/02/19 06/02/19 06/02/19 08:26 08:26 08:26 WBC 4.6 RBC 3.24 L Hgb 10.7 L Hct 31.4 L MCV 96.9 H D MCH 33.0 H MCHC 34.1 RDW Std Deviation 49.7 H RDW Coeff of Mary 13.9 Plt Count 133 L MPV 10.9 Immature Gran % (Auto) 0.900 Neut % (Auto) 74.6 H Lymph % (Auto) 12.5 L [place] % (Auto) 10.3 H Eos % (Auto) 1.5 Baso % (Auto) 0.2 Absolute Neuts (auto) 3.4 Absolute Lymphs (auto) 0.57 L Nucleated RBC % 0 Platelet Estimate SLT DEC PT 52.3 H INR 5.7 H* Sodium 138 Potassium 3.0 L Chloride 98 Carbon Dioxide 25.0 Anion Gap 15 BUN 82 H Creatinine 5.63 H Estim Creat Clear Calc 11.15 Est GFR (MDRD) Af Amer 13 L Est GFR (MDRD) Non-Af 10 L BUN/Creatinine Ratio 14.6 Glucose 156 H Lactic Acid Calcium 8.0 L Total Bilirubin 1.40 H AST 133 H ALT 57 Alkaline Phosphatase 141 H Troponin I < 0.015 Total Protein 6.7 Albumin 1.9 L Globulin 4.8 H Albumin/Globulin Ratio 0.4 L 06/02/19 08:26 WBC RBC Hgb Hct MCV MCH MCHC RDW Std Deviation RDW Coeff of Mary Plt Count MPV Immature Gran % (Auto) Neut % (Auto) Lymph % (Auto) [place] % (Auto) Eos % (Auto) Baso % (Auto) Absolute Neuts (auto) Absolute Lymphs (auto) Nucleated RBC % Platelet Estimate PT INR Sodium Potassium Chloride Carbon Dioxide Anion Gap BUN Creatinine Estim Creat Clear Calc Est GFR (MDRD) Af Amer Est GFR (MDRD) Non-Af BUN/Creatinine Ratio Glucose Lactic Acid 1.3 Calcium Total Bilirubin AST ALT Alkaline Phosphatase Troponin I Total Protein Albumin Globulin Albumin/Globulin Ratio Assessment/Plan All Active Problems (Last Reviewed 12/05/18 @ 09:56 by Gardenia Martel) ESRD (end stage renal disease) (Acute) Abdominal wall cellulitis (Acute) Peritoneal dialysis catheter site infection (Acute) hx of PD cath insertion (Acute) Chronic renal failure, stage 5 (Acute) Heart disease (Acute) Liver cancer (Acute) Debility (Acute) Surgically constructed arteriovenous graft (Acute ~02/2018) Blood in stool (Acute) Hemorrhoids (Acute) 1- ESRD on MWF HD schedule. Pt missed HD session on Sunday Will arrange for HD session as per the patient' chronic order Chest xray showed mild CHF. Will arrange for 3 L UF today HD access LUE AVF 2- Hypokalemia from diarrhea. HD session today with 4 K dialysate 3- Hypertension. BP well controlled. continue home BP meds and EDW 4- Anemia: Hgb > 10. will resume MEERA with prolonged hospital stay and hgb < 10 5- Diarrhea: work up and management as per the primary service Renal team will continue to follow Please call if any question or concern at [phone] Melissa Delgado MD
--- NOTE | 2019-06-02 11:31 | CASEMGMT ---
RN CM Assessment Introduced role of RN CM to patient and patient Marilee at bedside.? Patient is alert, oriented and able?to participate in RN CM Assessment. Information obtained from both patient and . ?Care providers, pharmacy, and demographics verified. Presentation: Weakness the past 2 months, Diarrhea. H/o CHF, Colon CA (2013) and Liver Cancer (July 2018). Re-Admit: No Barriers/Issues: None, states that he has been feeling fine since the Liver Cancer in July 2018, had surgery to remove portion of liver and denies having chemo/radiation-states did not need it. HD at [facility] in [place], M/W/F, Chair time 6:30-9:30am. PCP: Sarah Hawkins Specialists: Onc in [place], [place]- Dr Agarwal, Cardio- Dr Andino, Nephro- Dr Perez Preferred Pharmacy: [facility] [place] Insurance: [employer] [facility] PPO, PATRICE Rx Benefit:?Yes LNOK: Marilee Little LW/HPOA: Yes both, made aware not in file with [facility], HPOA- Marilee Little Living Arrangements:? Lives with in a SS home, has a ramp to enter ADL?s: Ambulates with a cane, requires assistance with bathing, otherwise independent with ADLs Transportation: Both patient and drive, will transport upon DC DME: Cane, has a walker that he does not use, Shower Chair, TSR, WC HHC: Past with [employer] would have a nurse come out every once in awhile. SNF: Past, cannot recall name. Goal: States wants to feel better as he has not been able to drive the past couple days, Has felt weak with a decreased appetite. Goal is home but TBD as to how he feels/improves this admission. Denies any issues, concerns or questions with DC planning at this time. Aware CM remains available for any emerging needs. DC PLAN: Home with possible HH PT. MAGEN Austin
--- NOTE | 2019-06-02 13:15 | HP.PCM_ITS ---
<Ailyn Snow - Last Filed: 06/02/19 13:55> Problem List (1) ESRD (end stage renal disease) Status: Chronic (2) Abdominal wall cellulitis Status: Resolved (3) Peritoneal dialysis catheter site infection Status: Resolved Qualifiers: Encounter type: initial encounter Qualified Code(s): T85.71XA - Infection and inflammatory reaction due to peritoneal dialysis catheter, initial encounter (4) hx of PD cath insertion Status: Chronic (5) Heart disease Status: Acute (6) Liver cancer Status: Inactive (7) Surgically constructed arteriovenous graft Status: Chronic Comment: 01/16/2018 (8) Hypercholesterolemia Status: Chronic (9) History of colectomy Status: Chronic (10) Hemorrhoids Status: Chronic (11) Acid reflux Status: Chronic (12) Hypertension Status: Chronic (13) Afib Status: Chronic (14) Heart disease Status: Chronic (15) Colon cancer Status: Chronic (16) Diabetes Status: Chronic History of Present Illness Date of Admission: 06/02/19 Chief Complaint: Weakness, diarrhea, dyspnea. The patient is a 78 year old M who presents the emergency room due to ongoing dyspnea and weakness, with more recent onset diarrhea. Patient reports he has had persistent diarrhea over the past 2 weeks. He has not had much oral intake. He reports abdominal cramping. Denies blood in stool. Denies nausea, vomiting. He states he has had dyspnea with minimal exertion for the past 6 months which is not worse than his baseline. He reports difficulty completing daily activities due to progressive weakness. He states he has difficulty getting out of the chair by himself. He reports a recent fall, tripping over a curb going into a doctor's appointment. He was evaluated by emergency squad at that time. He denies other falls at home. He is on dialysis for end-stage renal disease Sunday, Sunday and Sunday. He missed last Fridays dialysis. He is scheduled for dialysis today. He denies chest pain or other associated complaints. He has a past medical history of end-stage renal disease, type 2 diabetes mellitus, anemia of chronic disease, paroxysmal atrial fibrillation, hypertension, CAD status post CABG, history of partial right hepatic lobectomy, history of colon cancer, chronic diastolic CHF, hyperlipidemia. Past Medical History Past Medical History (Chronic Problems): Chronic Problems (Last Reviewed 06/02/19 @ 15:12 by Lj Walker DO) ESRD (end stage renal disease) (Chronic) hx of PD cath insertion (Chronic) Surgically constructed arteriovenous graft (Chronic ~02/2018) 01/16/2018 Hypercholesterolemia (Chronic) History of colectomy (Chronic) Hemorrhoids (Chronic) Acid reflux (Chronic) Hypertension (Chronic) Afib (Chronic) Heart disease (Chronic) Colon cancer (Chronic) Diabetes (Chronic) Medical History: Medical History (Last Reviewed 12/05/18 @ 09:56 by Gardenia Martel) Heart disease (Acute) I51.9 Liver cancer (Inactive) C22.9 Hypercholesterolemia (Chronic) E78.00 Hemorrhoids (Chronic) K64.9 Acid reflux (Chronic) K21.9 Hypertension (Chronic) I10 Afib (Chronic) I48.91 Heart disease (Chronic) I51.9 Colon cancer (Chronic) C18.9 Diabetes (Chronic) E11.9 Allergies mold Adverse Reaction (Verified 06/02/19 07:51) dizzy spells cattle Allergy (Uncoded 06/02/19 07:51) dizzy spells Home Medications: Ambulatory Orders Medication Instructions Recorded carvedilol 25 mg tablet 25 mg PO BID 01/09/18 furosemide 80 mg tablet 80 mg PO QDAY 01/09/18 insulin aspart (U-100) 100 unit/mL 10 unit SC TIDCM ml 01/09/18 (3 mL) subcutaneous pen hydralazine 25 mg tablet 50 mg PO BID tab 09/03/18 Warfarin Sodium [Coumadin] 6 mg PO SUTUWETHFR 11/21/18 Warfarin [Coumadin ([facility])] 7 mg PO MOSA 11/21/18 Glipizide [Glipizide ER] 2.5 mg PO DAILY 06/02/19 Lipoflavonoid 1 tab PO BID 06/02/19 Simvastatin 20 mg PO DAILY 06/02/19 Surgical History: Surgical History (Last Reviewed 06/02/19 @ 13:17 by LONNIE Paulson) hx of PD cath insertion (Chronic) Surgically constructed arteriovenous graft (Chronic) Onset Date: ~02/2018 Z95.828 01/16/2018 History of colectomy (Chronic) Z90.49 Surgical History: no surgical history Psychiatric History: No pertinent psych hx Lives: Spouse/ Significant Other Smoking Status: Former smoker Alcohol: None Drugs: None - *Family History Maternal Family History: Family History (Last Reviewed 06/02/19 @ 13:18 by LONNIE Paulson) Father Colon cancer Sister Diabetes Brother Diabetes Mother Heart disease Paternal Family History: Family History (Last Reviewed 06/02/19 @ 13:18 by LONNIE Paulson) Father Colon cancer Sister Diabetes Brother Diabetes Mother Heart disease Review of Systems Constitutional: Reports: Malaise, Weakness, Fatigue. Denies: Chills, Fever HEENT: Denies: Head Aches, Sinus Congestion, Sinus Drainage Cardiovascular: Reports: Edema - Bilateral lower extremities, chronic. Denies: Chest Pain, Light Headedness, Palpitations, Syncope Respiratory: Reports: Shortness of breath upon exertion. Denies: Cough, Sputum production, Wheezing Gastrointestinal: Reports: Diarrhea. Denies: Abdominal Pain, Hematochezia, Nausea, Melena, Vomiting Genitourinary: Denies: Dysuria Musculoskeletal: Denies: Joint Pain, Joint Tenderness Skin: Denies: Rash, Wounds Neurological: Denies: Numbness, Tingling, Focal weakness Psychiatric: Denies: Anxiety, Depression, Homicidal Ideations, Suicidal Ideations Hematologic/ Lymphatic: Denies: Easy Bruising, Easy Bleeding VTE Information - Inpt Only VTE Present on Admission: No VTE Mechan Device Prophylaxis: None VTE Pharm Prophylaxis ordered?: Yes Patient Problems: Active and Suspected Problems (Last Reviewed 06/02/19 @ 15:12 by Lj Walker DO) Failure to thrive (Acute) - Physical Exam General: Alert, Oriented x3, Cooperative, - - Appears fatigued HEENT: Atraumatic, PERRLA, EOMI, Normocephalic Oral: Dry Mucosa Neck: Supple, No JVD, Negative Carotid Bruits Lungs: Diminished, - - Faint crackles bilateral bases Cardiovascular: - - Atrial fibrillation, rate controlled Abdomen: Bowel Sounds Present, Soft, Non Tender, Non-Distended Extremities: No clubbing, No cyanosis, Edema - +1-2 bilateral lower extremities, - - Left forearm AV fistula Skin: No rashes, No breakdown Musculoskeletal: No Tenderness to Palpation of Joints or Extremities Neurological: Cranial nerves II-XII grossly intact, Neuro grossly intact Psych/Mental Status: Normal Affect, Appropriate Vital Signs Temp Pulse Resp BP Pulse Ox 97.6 F L 66 18 169/73 H 97 06/02/19 12:26 06/02/19 12:26 06/02/19 12:26 06/02/19 12:26 06/02/19 12:26 Oxygen Flow Rate (L/min) 2 Oxygen Delivery Method Nasal Cannula Weight: 223 lb 12.307 oz Body Mass Index (BMI) 31.1 Intake and Output for Last 24 Hours 05/31/19 06/01/19 06/02/19 23:59 23:59 23:59 Intake Total 64.25 / 64.25 Balance 64.25 / 64.25 Laboratory Tests Past 24 Hrs 06/02/19 06/02/19 06/02/19 08:26 08:26 08:26 WBC 4.6 RBC 3.24 L Hgb 10.7 L Hct 31.4 L MCV 96.9 H D MCH 33.0 H MCHC 34.1 RDW Std Deviation 49.7 H RDW Coeff of Mary 13.9 Plt Count 133 L MPV 10.9 Immature Gran % (Auto) 0.900 Neut % (Auto) 74.6 H Lymph % (Auto) 12.5 L Harris % (Auto) 10.3 H Eos % (Auto) 1.5 Baso % (Auto) 0.2 Absolute Neuts (auto) 3.4 Absolute Lymphs (auto) 0.57 L Nucleated RBC % 0 Platelet Estimate SLT DEC PT 52.3 H INR 5.7 H* Sodium 138 Potassium 3.0 L Chloride 98 Carbon Dioxide 25.0 Anion Gap 15 BUN 82 H Creatinine 5.63 H Estim Creat Clear Calc 11.15 Est GFR (MDRD) Af Amer 13 L Est GFR (MDRD) Non-Af 10 L BUN/Creatinine Ratio 14.6 Glucose 156 H Lactic Acid Calcium 8.0 L Total Bilirubin 1.40 H AST 133 H ALT 57 Alkaline Phosphatase 141 H Troponin I < 0.015 Total Protein 6.7 Albumin 1.9 L Globulin 4.8 H Albumin/Globulin Ratio 0.4 L 06/02/19 08:26 WBC RBC Hgb Hct MCV MCH MCHC RDW Std Deviation RDW Coeff of Mary Plt Count MPV Immature Gran % (Auto) Neut % (Auto) Lymph % (Auto) Harris % (Auto) Eos % (Auto) Baso % (Auto) Absolute Neuts (auto) Absolute Lymphs (auto) Nucleated RBC % Platelet Estimate PT INR Sodium Potassium Chloride Carbon Dioxide Anion Gap BUN Creatinine Estim Creat Clear Calc Est GFR (MDRD) Af Amer Est GFR (MDRD) Non-Af BUN/Creatinine Ratio Glucose Lactic Acid 1.3 Calcium Total Bilirubin AST ALT Alkaline Phosphatase Troponin I Total Protein Albumin Globulin Albumin/Globulin Ratio Assessment/Plan All Active Problems (Last Reviewed 06/02/19 @ 15:12 by Lj Walker DO) Failure to thrive (Acute) Heart disease (Acute) Abdominal wall cellulitis (Resolved) Peritoneal dialysis catheter site infection (Resolved) 1. Diarrhea, generalized weakness-stool for C. difficile and enteric pathogen panel pending. PT/OT. Fall precautions. Case management consult for discharge planning. Patient reports he has difficulty completing ADLs due to ongoing progressive weakness. 2. Dyspnea secondary to fluid overload as result of missed dialysis in the context of end-stage renal disease on hemodialysis- Follows with Dr. Perez. M,W,F schedule. Patient reports dyspnea ongoing for the past 6 months, not increased from baseline. Echocardiogram August 2018 with EF 65%, RVSP estimated to be 40 mmHg. Will repeat echocardiogram. Nephrology consulted. Plan for dialysis today. 3. Type 2 diabetes [id number] ACHS. Hold oral regimen. Sliding scale insulin. 4. Anemia of chronic disease-stable, at baseline. 5. Paroxysmal atrial fibrillation on anticoagulation with Coumadin, INR supratherapeutic-continue carvedilol. Coumadin on hold, INR 5.7. 6. Hypertension-continue home carvedilol, hydralazine, furosemide regimen. 7. CAD status post single-vessel CABG-continue statin, carvedilol. 8. History of partial right hepatic lobectomy- [facility] by Dr. Torre in 09/03. Reports no chemo/radiation was required. 9. History of colon cancer s/p colon resection 10. Chronic diastolic CHF-no acute exacerbation. Continue Lasix regimen. 11. Hyperlipidemia-continue statin. DVT prophylaxis-Coumadin CODE STATUS: Discussed CODE STATUS in length with patient including full code, DNR CCA and DNR CC. Patient wishes to remain full code and is agreeable to intubation although he reports he does not want to be on long-term life support. This patient was seen by LONNIE Paulson under the supervision of Dr. Walker. <Lj Walker - Last Filed: 06/02/19 15:20> Problem List (1) ESRD (end stage renal disease) Status: Chronic (2) hx of PD cath insertion Status: Chronic (3) Heart disease Status: Acute (4) Liver cancer Status: Inactive (5) Surgically constructed arteriovenous graft Status: Chronic Comment: 01/16/2018 (6) Hypercholesterolemia Status: Chronic (7) History of colectomy Status: Chronic (8) Hemorrhoids Status: Chronic (9) Acid reflux Status: Chronic (10) Hypertension Status: Chronic (11) Afib Status: Chronic (12) Heart disease Status: Chronic (13) Colon cancer Status: Chronic (14) Diabetes Status: Chronic (15) Failure to thrive Status: Acute Qualifiers: Failure to thrive age range: in adult Qualified Code(s): R62.7 - Adult failure to thrive History of Present Illness The patient is a 78 year old M presents with weakness. Patient states that he is weak over the past few weeks with patient's grandson, who is present, states has been going on the several months. Also the past few weeks, patient is been having diarrhea. 1-2 times where he is having watery stools. Does have some crampy abdominal pain. Patient denies any recent antibiotic exposure nor any history of C. difficile colitis. Patient presented to the emergency room and work-up was unremarkable for any acute issues. Patient was just very weak and unable to care for himself so the patient was brought into the hospital. [] Past Medical History Medical History: Medical History (Last Reviewed 06/02/19 @ 15:12 by Lj Walker DO) Heart disease (Acute) I51.9 Liver cancer (Inactive) C22.9 Hypercholesterolemia (Chronic) E78.00 Hemorrhoids (Chronic) K64.9 Acid reflux (Chronic) K21.9 Hypertension (Chronic) I10 Afib (Chronic) I48.91 Heart disease (Chronic) I51.9 Colon cancer (Chronic) C18.9 Diabetes (Chronic) E11.9 Allergies mold Adverse Reaction (Verified 06/02/19 07:51) dizzy spells cattle Allergy (Uncoded 06/02/19 07:51) dizzy spells Surgical History: Surgical History (Last Reviewed 06/02/19 @ 15:12 by Lj Walker DO) hx of PD cath insertion (Chronic) Surgically constructed arteriovenous graft (Chronic) Onset Date: ~02/2018 Z95.828 01/16/2018 History of colectomy (Chronic) Z90.49 Psychiatric History: No pertinent psych hx Lives: Spouse/ Significant Other Smoking Status: Former smoker Alcohol: None Drugs: None - *Family History Maternal Family History: Family History (Last Reviewed 06/02/19 @ 15:13 by Lj Walker DO) Father Colon cancer Sister Diabetes Brother Diabetes Mother Heart disease Paternal Family History: Family History (Last Reviewed 06/02/19 @ 15:13 by Lj Walker DO) Father Colon cancer Sister Diabetes Brother Diabetes Mother Heart disease Review of Systems Constitutional: Reports: Malaise, Weakness, Fatigue. Denies: Chills, Fever HEENT: Denies: Head Aches, Sinus Congestion, Sinus Drainage Cardiovascular: Reports: Edema. Denies: Chest Pain, Light Headedness, Palpitations, Syncope Respiratory: Reports: Shortness of breath upon exertion. Denies: Cough, Sputum production, Wheezing Gastrointestinal: Reports: Diarrhea. Denies: Abdominal Pain, Hematochezia, Nausea, Melena, Vomiting Genitourinary: Denies: Dysuria Musculoskeletal: Denies: Joint Pain, Joint Tenderness Neurological: Denies: Focal weakness, Numbness, Tingling Psychiatric: Denies: Homicidal Ideations, Suicidal Ideations Hematologic/ Lymphatic: Denies: Easy Bruising, Easy Bleeding VTE Information - Inpt Only VTE Present on Admission: No VTE Mechan Device Prophylaxis: None VTE Pharm Prophylaxis ordered?: No - Physical Exam General: Alert, Oriented x3, Cooperative, - HEENT: Atraumatic, PERRLA, EOMI, Normocephalic Oral: Dry Mucosa Neck: No JVD, Trachea Midline Lungs: Clear to auscultation, Diminished Cardiovascular: Regular rate, Regular Rhythm, Normal S1, Normal S2, - Abdomen: Bowel Sounds Present, Soft, Non Tender, Non-Distended Skin: No rashes, No breakdown Psych/Mental Status: Normal Affect, Appropriate Vital Signs Temp Pulse Resp BP Pulse Ox 36.4 C L 66 18 169/73 H 97 06/02/19 12:26 06/02/19 12:26 06/02/19 12:26 06/02/19 12:26 06/02/19 12:26 Oxygen Flow Rate (L/min) 2 Oxygen Delivery Method Nasal Cannula Weight: 101.5 kg Body Mass Index (BMI) 31.1 Intake and Output for Last 24 Hours 05/31/19 06/01/19 06/02/19 23:59 23:59 23:59 Intake Total 64.25 / 64.25 Balance 64.25 / 64.25 Laboratory Tests Past 24 Hrs 06/02/19 06/02/19 06/02/19 08:26 08:26 08:26 WBC 4.6 RBC 3.24 L Hgb 10.7 L Hct 31.4 L MCV 96.9 H D MCH 33.0 H MCHC 34.1 RDW Std Deviation 49.7 H RDW Coeff of Mary 13.9 Plt Count 133 L MPV 10.9 Immature Gran % (Auto) 0.900 Neut % (Auto) 74.6 H Lymph % (Auto) 12.5 L Harris % (Auto) 10.3 H Eos % (Auto) 1.5 Baso % (Auto) 0.2 Absolute Neuts (auto) 3.4 Absolute Lymphs (auto) 0.57 L Nucleated RBC % 0 Platelet Estimate SLT DEC PT 52.3 H INR 5.7 H* Sodium 138 Potassium 3.0 L Chloride 98 Carbon Dioxide 25.0 Anion Gap 15 BUN 82 H Creatinine 5.63 H Estim Creat Clear Calc 11.15 Est GFR (MDRD) Af Amer 13 L Est GFR (MDRD) Non-Af 10 L BUN/Creatinine Ratio 14.6 Glucose 156 H Lactic Acid Calcium 8.0 L Total Bilirubin 1.40 H AST 133 H ALT 57 Alkaline Phosphatase 141 H Troponin I < 0.015 Total Protein 6.7 Albumin 1.9 L Globulin 4.8 H Albumin/Globulin Ratio 0.4 L 06/02/19 08:26 WBC RBC Hgb Hct MCV MCH MCHC RDW Std Deviation RDW Coeff of Mary Plt Count MPV Immature Gran % (Auto) Neut % (Auto) Lymph % (Auto) Harris % (Auto) Eos % (Auto) Baso % (Auto) Absolute Neuts (auto) Absolute Lymphs (auto) Nucleated RBC % Platelet Estimate PT INR Sodium Potassium Chloride Carbon Dioxide Anion Gap BUN Creatinine Estim Creat Clear Calc Est GFR (MDRD) Af Amer Est GFR (MDRD) Non-Af BUN/Creatinine Ratio Glucose Lactic Acid 1.3 Calcium Total Bilirubin AST ALT Alkaline Phosphatase Troponin I Total Protein Albumin Globulin Albumin/Globulin Ratio Assessment/Plan Patient seen and examined independently. Data reviewed. I agree with the above note by the nurse practitioner. 1. Diarrhea * No overt risk factors for C. difficile. C. difficile has been ordered. If negative for C. difficile, then patient can be initiated on loperamide, which she has taken as outpatient only once daily. Patient advised that he can take up to 4 times daily but only if the C. difficile is negative. 2. Failure to thrive * Likely multifactorial given his advanced age, multiple medical comorbidities * PT OT evaluate and treat 3. End-stage renal disease * On dialysis * Missed dialysis on Sunday given his generalized weakness * Discussed with Dr. Delgado, who will initiate dialysis today 4. Proximal atrial fibrillation * Continue with warfarin when INR is less than or equal to 3. Continue with carvedilol. 5. Diabetes mellitus type 2 * Continue with his insulin and sliding scale. * Continue with glipizide 6. VTE prophylaxis: Low risk as patient is already anticoagulated 7. Advanced care planning: Spent greater than 15 minutes discussing with the patient and his grandson about advanced directives. Patient wishes to be full CODE STATUS at this time. Code Visit Inpatient E&M: 77147 Init Hosp L3 OBSV E&M: 76225 Initial observation care L3 Procedures: 16871 Advncd Care Plan 30 Min
--- NOTE | 2019-06-02 15:00 | ECHOD_ITS ---
Reason For Study: DYSPNEA/SOB Procedure This was a 2D Doppler, Color Flow transthoracic echocardiogram. The study was technically difficult. Exam performed portable in patient room. Left Ventricle Normal LV size. Moderate concentric left ventricular hypertrophy. Left ventricular systolic function is normal. The estimated ejection fraction is 65 %. Unable to assess diastolic dysfunction. No regional wall motion abnormalities noted. Right Ventricle Normal RV size. Normal systolic function. Atria The left atrium is moderately enlarged. Normal right atrium. No doppler evidence for ASD. Mitral Valve There is moderate mitral annular calcification. Extension of the mitral annular calcification onto the posterior mitral valve leaflet. Trivial mitral valve insufficiency. Tricuspid Valve Normal tricuspid valve. Trivial tricuspid valve insufficiency. Right ventricular systolic pressure estimated to be 34 mmHg. Aortic Valve Trisinus/trileaflet aortic valve. Moderate focal aortic valve thickening. Pulmonic Valve The pulmonic valve is not well visualized. Trivial pulmonic valve insufficiency. Great Vessels Normal sized aortic root. Pericardium/Pleural No pericardial effusion. MMode/2D Measurements & Calculations LVIDd: 4.7 cm IVSd: 1.4 cm Ao root diam: 3.6 cm LVIDs: 3.0 cm LVPWd: 1.3 cm RVDd: 3.3 cm FS: 36.3 % LAV(MOD-bp): 78.4 ml LA A4 area: 25.2 cm2 LA dimension(2D): 4.9 cm LAV(MOD-bp) Indexed: 35.5 ml/m2 LAV(MOD-sp2): 74.4 ml LAV(MOD-sp4): 74.3 ml RA A4 area: 20.7 cm2 Doppler Measurements & Calculations MV E max karla: 169.9 cm/sec MV V2 max: 167.1 cm/sec Ao V2 max: 169.8 cm/sec MV max P.2 mmHg Ao max P.5 mmHg MV V2 mean: 86.3 cm/sec MV mean P.8 mmHg MV V2 VTI: 48.9 cm LV V1 max: 100.5 cm/sec PA V2 max: 131.8 cm/sec TR max karla: 278.6 cm/sec LV V1 max P.0 mmHg TR max P.0 mmHg Interpretation Summary Left ventricular systolic function is normal. The estimated ejection fraction is 65 %. Moderate concentric left ventricular hypertrophy. The left atrium is moderately enlarged. There is moderate mitral annular calcification. Extension of the mitral annular calcification onto the posterior mitral valve leaflet. Trivial mitral valve insufficiency. Trivial tricuspid valve insufficiency. Moderate focal aortic valve thickening. Trivial pulmonic valve insufficiency. Right ventricular systolic pressure estimated to be 34 mmHg. Unable to assess diastolic dysfunction. Ordering Physician: Ailyn Snow Referring Physician: Sarah Hawkins Performed By: Johanne Evans, SONJA, RVT
[2019-06-02 17:00] LABS: Bedside Glucose 149 mg/dL (70-110)
--- NOTE | 2019-06-02 19:37 | DIALYSIS ---
Hemodialysis completed. Fluid removed was 3liters. Patient tolerated well.
--- NOTE | 2019-06-02 20:44 | DIALYSIS ---
Hemodialysis completed using a 4 K bath. Fluid removed was 3 liters. Patient tolerated well. See scanned dialysis flow sheet for details. Amna Vasquez RN
[2019-06-02] MEDS: Carvedilol 25 MG Tablet PO (21:13)
[2019-06-02] MEDS: Atorvastatin Calcium 10 MG Tablet PO (21:13)
[2019-06-02] MEDS: hydrALAZINE 50 MG Tablet PO (21:13)
[2019-06-02 22:00] LABS: Bedside Glucose 142 mg/dL (70-110)
[2019-06-03 03:40] VITALS: BP 128/49; PULSE 76; RESP 18; TEMP 37.2; O2SAT 97
[2019-06-03 06:25] LABS: Anion Gap 10 (5-15); BUN 50 mg/dL (7-18); BUN/Creat Ratio 12.4 RATIO (10-20); Calcium,Total 8.3 mg/dL (8.5-10.1); Chloride 99 mmol/L (98-107); Creatinine, Serum 4.03 mg/dL (0.70-1.30); EST Glomerular Filtration Rate 15 mL/min (>60); Est Glom Filt Rate - Afr Amer 19 mL/min (>60); Estimated Creatinine Clearance 15.57 ml/min; Glucose 197 mg/dL (74-106); Potassium 3.8 mmol/L (3.5-5.1); Sodium Level 136 mmol/L (136-145)
[2019-06-03] MEDS: Insulin Lispro 100 UNIT/ML INSULN.PEN 10 UNIT SC ×3 (07:59→17:15)
[2019-06-03] MEDS: Insulin Lispro 100 UNIT/ML INSULN.PEN SC (08:00)
[2019-06-03 08:04] VITALS: BP 136/65; PULSE 66; RESP 18; TEMP 36.7; O2SAT 97
[2019-06-03 09:23] LABS: Prothrombin Time (Protime)PT. 52.9 SECONDS (11.7-14.9)
[2019-06-03 09:28] LABS: International Normalized Ratio 5.8
--- NOTE | 2019-06-03 10:37 | PN.RENAL_ITS ---
Patient Problems: Active and Suspected Problems (Last Reviewed 06/02/19 @ 15:12 by Lj Walker DO) Failure to thrive (Acute) Subjective: Pt is still having diarrhea. No abdominal pain. No nausea No vomiting Tolerated HD session well yesterday - Physical Exam General: Alert, Oriented x3 HEENT: Atraumatic Oral: Moist Mucosa Neck: Supple, No JVD Lungs: Clear to auscultation, Normal air movement, No rhonchi, No wheeze Cardiovascular: Regular rate, Regular Rhythm, Normal S1, Normal S2 Abdomen: Bowel Sounds Present, Soft, Non Tender, Non-Distended Extremities: No clubbing, No cyanosis, No edema Skin: No rashes Musculoskeletal: No Tenderness to Palpation of Joints or Extremities Lymphatic: No Cervical, Supraclavicular, or Inguinal Adenopathy Neurological: Cranial nerves II-XII grossly intact, Neuro grossly intact Psych/Mental Status: Normal Affect Vital Signs Temp Pulse Resp BP Pulse Ox 98.1 F 66 18 136/65 H 97 06/03/19 08:04 06/03/19 08:04 06/03/19 08:04 06/03/19 08:04 06/03/19 08:04 Oxygen Flow Rate (L/min) 2 Oxygen Delivery Method Room Air Weight: 96.7 kg Body Mass Index (BMI) 31.1 Intake and Output for Last 24 Hours 06/01/19 06/02/19 06/03/19 23:59 23:59 23:59 Intake Total 264.25 / 414.25 350 / 350 Output Total 3000 / 3000 Balance -2735.75 / -2585.75 350 / 350 Microbiology Past 72 Hours 06/03/19 01:53 Enteric Bacteriology - Final Stool 06/03/19 01:53 C. difficile DNA Amplification - Final Stool Toxigenic C. difficile DNA Laboratory Tests Past 24 Hrs 06/03/19 06/03/19 05:28 08:50 PT 52.9 H INR 5.8 H* Sodium 136 Potassium 3.8 Chloride 99 Carbon Dioxide 27.0 Anion Gap 10 BUN 50 H Creatinine 4.03 H Estim Creat Clear Calc 15.57 Est GFR (MDRD) Af Amer 19 L Est GFR (MDRD) Non-Af 15 L BUN/Creatinine Ratio 12.4 Glucose 197 H Calcium 8.3 L POC Glucose 06/02/19 06/02/19 21:10 16:17 POC Glucose 142 H 149 H Medical Necessity - Tobacco Use Smoking Status: Former smoker Assessment/Plan All Active Problems (Last Reviewed 06/02/19 @ 15:12 by Lj Walker DO) Failure to thrive (Acute) Heart disease (Acute) Abdominal wall cellulitis (Resolved) Peritoneal dialysis catheter site infection (Resolved) 1- ESRD on MWF HD schedule. [facility] Last HD session 06/02. No need for HD session today. Will arrange for HD session tomorrow HD access LUE AVF 2- Hypokalemia from diarrhea. resolved with replacement 3- Hypertension. BP well controlled. continue home BP meds and EDW 4- Anemia: Hgb > 10. will resume MEERA with prolonged hospital stay and hgb < 10 5- C diff colitis. On oral ABX as per the primary service Renal team will continue to follow Please call if any question or concern at [phone] Melissa Delgado MD
[2019-06-03 10:58] VITALS: BP 136/65; PULSE 66
[2019-06-03] MEDS: Carvedilol 25 MG Tablet PO ×2 (10:58→23:13)
[2019-06-03] MEDS: hydrALAZINE 50 MG Tablet PO ×2 (10:58→23:13)
[2019-06-03] MEDS: Furosemide 80 MG Tablet PO (10:58)
--- NOTE | 2019-06-03 11:36 | PCM.PROGNOTE ---
<Ailyn Snow - Last Filed: 06/03/19 11:59> Patient Problems: Active and Suspected Problems (Last Reviewed 06/02/19 @ 15:12 by Lj Walker DO) Failure to thrive (Acute) C. difficile colitis (Acute) Subjective: Patient seen and examined. Appears somewhat improved today. Reports at least 6 bowel movements overnight. Agreeable to SNF for rehab. - Physical Exam General: Alert, Oriented x3, Cooperative HEENT: Atraumatic, PERRLA, EOMI, Normocephalic Neck: Supple, No JVD, Negative Carotid Bruits Lungs: Clear to auscultation, Diminished Cardiovascular: - - Irregular rhythm, rate controlled. Abdomen: Bowel Sounds Present, Soft, Non Tender, Non-Distended Extremities: No clubbing, No cyanosis, Edema - Nonpitting bilateral lower extremities Skin: No rashes, No breakdown Musculoskeletal: No Tenderness to Palpation of Joints or Extremities Neurological: Cranial nerves II-XII grossly intact, Neuro grossly intact Psych/Mental Status: Normal Affect, Appropriate Vital Signs Temp Pulse Resp BP Pulse Ox 98.1 F 66 18 136/65 H 97 06/03/19 08:04 06/03/19 10:58 06/03/19 08:04 06/03/19 10:58 06/03/19 08:04 Oxygen Flow Rate (L/min) 2 Oxygen Delivery Method Room Air Weight: 213 lb 2.992 oz Body Mass Index (BMI) 31.1 Intake and Output for Last 24 Hours 06/01/19 06/02/19 06/03/19 23:59 23:59 23:59 Intake Total 264.25 / 414.25 350 / 350 Output Total 3000 / 3000 Balance -2735.75 / -2585.75 350 / 350 Microbiology Past 72 Hours 06/03/19 01:53 Enteric Bacteriology - Final Stool 06/03/19 01:53 C. difficile DNA Amplification - Final Stool Toxigenic C. difficile DNA Laboratory Tests Past 24 Hrs 06/03/19 06/03/19 05:28 08:50 PT 52.9 H INR 5.8 H* Sodium 136 Potassium 3.8 Chloride 99 Carbon Dioxide 27.0 Anion Gap 10 BUN 50 H Creatinine 4.03 H Estim Creat Clear Calc 15.57 Est GFR (MDRD) Af Amer 19 L Est GFR (MDRD) Non-Af 15 L BUN/Creatinine Ratio 12.4 Glucose 197 H Calcium 8.3 L POC Glucose 06/02/19 06/02/19 21:10 16:17 POC Glucose 142 H 149 H Medical Necessity - Tobacco Use Smoking Status: Former smoker Assessment/Plan All Active Problems (Last Reviewed 06/02/19 @ 15:12 by Lj Walker DO) Failure to thrive (Acute) C. difficile colitis (Acute) Heart disease (Acute) Abdominal wall cellulitis (Resolved) Peritoneal dialysis catheter site infection (Resolved) 1. Intractable diarrhea secondary to C. difficile-initiated on oral vancomycin 125 mg every 6 hours. Contact precautions. 2. Dyspnea secondary to fluid overload as result of missed dialysis in the context of end-stage renal disease on hemodialysis- Follows with Dr. Perez. M,W,F schedule. Patient reports dyspnea ongoing for the past 6 months, not increased from baseline. Echocardiogram August 2018 with EF 65%, RVSP estimated to be 40 mmHg. Nephrology consulted. Continue dialysis regimen as scheduled. Repeat echocardiogram pending. Dyspnea improved following dialysis. 3. Type 2 diabetes cjazgnsh-Aixq-Rbdjn ACHS. Hold oral regimen. Sliding scale insulin. 4. Anemia of chronic disease-stable, at baseline. 5. Paroxysmal atrial fibrillation on anticoagulation with Coumadin, INR supratherapeutic-continue carvedilol. Coumadin on hold, INR 5.8. 6. Hypertension-continue home carvedilol, hydralazine, furosemide regimen. 7. CAD status post single-vessel CABG-continue statin, carvedilol. 8. History of partial right hepatic lobectomy- [facility] by Dr. Torre in 09/03. Reports no chemo/radiation was required. 9. History of colon cancer s/p colon resection 10. Chronic diastolic CHF-no acute exacerbation. Continue Lasix regimen. 11. Hyperlipidemia-continue statin. DVT prophylaxis-Coumadin CODE STATUS: Discussed CODE STATUS in length with patient including full code, DNR CCA and DNR CC. Patient wishes to remain full code and is agreeable to intubation although he reports he does not want to be on long-term life support. Discharge planning: Patient agreeable to SNF at discharge, social work following. PT eval pending. This patient was seen by LONNIE Paulson under the supervision of Dr. Walker. <Lj Walker - Last Filed: 06/03/19 15:09> - Physical Exam General: Alert, Cooperative HEENT: Atraumatic, Normocephalic Lungs: Clear to auscultation, Normal air movement, No rhonchi, No wheeze, No rales, Diminished Cardiovascular: - Abdomen: Bowel Sounds Present, Soft, Non Tender, Non-Distended Extremities: No clubbing, No cyanosis, Edema Skin: No rashes, No breakdown Psych/Mental Status: Normal Affect, Appropriate Vital Signs Temp Pulse Resp BP Pulse Ox 36.7 C 66 18 136/65 H 97 06/03/19 08:04 06/03/19 10:58 06/03/19 08:04 06/03/19 10:58 06/03/19 08:04 Oxygen Flow Rate (L/min) 2 Oxygen Delivery Method Room Air Weight: 96.7 kg Body Mass Index (BMI) 31.1 Intake and Output for Last 24 Hours 06/01/19 06/02/19 06/03/19 23:59 23:59 23:59 Intake Total 264.25 / 414.25 700 / 700 Output Total 3000 / 3000 Balance -2735.75 / -2585.75 700 / 700 Microbiology Past 72 Hours 06/03/19 01:53 Enteric Bacteriology - Final Stool 06/03/19 01:53 C. difficile DNA Amplification - Final Stool Toxigenic C. difficile DNA Laboratory Tests Past 24 Hrs 06/03/19 06/03/19 05:28 08:50 PT 52.9 H INR 5.8 H* Sodium 136 Potassium 3.8 Chloride 99 Carbon Dioxide 27.0 Anion Gap 10 BUN 50 H Creatinine 4.03 H Estim Creat Clear Calc 15.57 Est GFR (MDRD) Af Amer 19 L Est GFR (MDRD) Non-Af 15 L BUN/Creatinine Ratio 12.4 Glucose 197 H Calcium 8.3 L POC Glucose 06/03/19 06/03/19 06/02/19 11:47 07:47 21:10 POC Glucose 132 H 181 H 142 H 06/02/19 16:17 POC Glucose 149 H Assessment/Plan Patient seen and examined independently. Data reviewed. I agree with the above note by the nurse practitioner. 1. C. diff continue vancomycin for 10 days 2. Failure to thrive Likely multifactorial given his advanced age, multiple medical comorbidities PT OT evaluate and treat 3. End-stage renal disease On dialysis Missed dialysis on Sunday given his generalized weakness received HD on 06/02 4. Proximal atrial fibrillation Continue with warfarin when INR is less than or equal to 3. Continue with carvedilol. 5. Diabetes mellitus type 2 Continue with his insulin and sliding scale. Continue with glipizide 6. VTE prophylaxis: Low risk as patient is already anticoagulated Disposition: Plan to monitor the patient for another day and if improving, patient could be potentially discharged home with on the . Code Visit OBSV E&M: 89557 Subsequent observation care L2
[2019-06-03 12:05] LABS: Bedside Glucose 132 mg/dL (70-110)
[2019-06-03 13:26] LABS: Bedside Glucose 181 mg/dL (70-110)
--- NOTE | 2019-06-03 14:36 | CASEMGMT ---
Intro role of CM to patient and DONOVAN form explained re: Observation status. Explained hospitalization will be paid per? insurance policy for Outpatient billing?and condition will continue to be evaluated for Inpt necessity. Also let pt know that [facility] sends paper in the billing packet with their phone number if questions arise. Discussed Pharmacy section of DONOVAN form and self administered medication guideline.? Pt verbalizes understanding and does not have further questions. Form signed and placed in chart, copy to pt. RONNIE MAINTENANCE MECHANIC TECHNICIAN CM
--- NOTE | 2019-06-03 15:48 | CASEMGMT ---
Addendum entered by Alexus Mata 06/03/19 16:09: SW did provide pt with list of SNF that accept pt's insurance. Original Note: Social Work Note Physician updated this worker that pt is agreeable to SNF and would like [facility]. SW reviewed pt's insurance and per [employer] website, [facility] is not in network. SW placed a call to Poly at [facility] who states they are in network with pt's insurance. SW met with pt and pt's Marilee present in room. Pt gave this worker permission to speak to him in front of his guest. Pt confirms that he is agreeable to SNF and would like [facility]. SW explained referral process and that pt will need pre-cert. Pt and Marilee state understanding. SW faxed referral to [facility]. SW placed a call to Poly at [facility] and she is able to accept pt and will submit for pre-cert. Per Poly they are not in network with pt's insurance but pt does have Medicaid so pt should not have a copay. Plan: [facility] pending pre-cert Alexus Mata SADDLE AND HARNESS MAKER, TEAM ASSISTANT
[2019-06-03 16:04] VITALS: BP 131/57; PULSE 64; RESP 18; TEMP 37; O2SAT 98
[2019-06-03 16:40] LABS: Bedside Glucose 129 mg/dL (70-110)
[2019-06-03 23:00] VITALS: BP 109/58; PULSE 74; RESP 18; TEMP 36.3; O2SAT 97
[2019-06-03 23:13] VITALS: BP 109/58; PULSE 74
[2019-06-03] MEDS: Atorvastatin Calcium 10 MG Tablet PO (23:13)
[2019-06-04 00:11] LABS: Bedside Glucose 98 mg/dL (70-110)
[2019-06-04 03:41] VITALS: BP 118/54; PULSE 70; RESP 20; TEMP 36.3; O2SAT 97
[2019-06-04 05:52] LABS: Hematocrit 33.5 % (40-54); Hemoglobin 10.8 g/dL (13.0-16.5); Mean Corp Hgb Conc 32.2 g/dL (32-36); Mean Corpuscular Volume 99.1 fL (80-94); Mean Platelet Vol. 10.8 fl (6.2-12.0); Platelet Count 150 K/mm3 (150-450); RBC Distribution Width CV 14.4 % (11.6-14.6); RBC Distribution Width SD 52.4 fl (35.1-43.9); Red Blood Count 3.38 M/mm3 (4.6-6.2); White Blood Count 4.2 K/mm3 (4.4-11.0)
[2019-06-04 05:59] LABS: Prothrombin Time (Protime)PT. 49.5 SECONDS (11.7-14.9)
[2019-06-04 06:02] LABS: International Normalized Ratio 5.3
[2019-06-04 06:30] LABS: Anion Gap 13 (5-15); BUN 71 mg/dL (7-18); BUN/Creat Ratio 13.1 RATIO (10-20); Calcium,Total 8.4 mg/dL (8.5-10.1); Chloride 100 mmol/L (98-107); Creatinine, Serum 5.44 mg/dL (0.70-1.30); EST Glomerular Filtration Rate 11 mL/min (>60); Est Glom Filt Rate - Afr Amer 13 mL/min (>60); Estimated Creatinine Clearance 11.53 ml/min; Glucose 141 mg/dL (74-106); Potassium 3.3 mmol/L (3.5-5.1); Sodium Level 138 mmol/L (136-145)
[2019-06-04 06:40] LABS: Bedside Glucose 161 mg/dL (70-110)
[2019-06-04] MEDS: Insulin Lispro 100 UNIT/ML INSULN.PEN SC (08:29)
[2019-06-04] MEDS: Insulin Lispro 100 UNIT/ML INSULN.PEN 10 UNIT SC ×2 (08:30→13:54)
[2019-06-04 08:33] VITALS: BP 130/71; PULSE 70; RESP 18; TEMP 36.4; O2SAT 96
[2019-06-04 10:00] VITALS: BP 118/61; PULSE 70; RESP 16; TEMP 36.7; O2SAT 98
--- NOTE | 2019-06-04 10:28 | PCM.PN.REN ---
Patient Problems: Active and Suspected Problems (Last Reviewed 06/02/19 @ 15:12 by Lj Walker DO) C. difficile colitis (Acute) Failure to thrive (Acute) Subjective: Pt was seen during HD session today Pt said his diarrhea is better with less frequency and more formed stool No abdominal pain No N/V No SOB - Physical Exam General: Alert, Oriented x3 HEENT: Atraumatic Oral: Moist Mucosa Neck: Supple, No JVD Lungs: Clear to auscultation, Normal air movement, No rhonchi, No wheeze Cardiovascular: Regular rate, Regular Rhythm, Normal S1, Normal S2 Abdomen: Bowel Sounds Present, Soft, Non Tender, Non-Distended Extremities: No clubbing, No cyanosis, No edema Skin: No rashes Musculoskeletal: No Tenderness to Palpation of Joints or Extremities Lymphatic: No Cervical, Supraclavicular, or Inguinal Adenopathy Neurological: Cranial nerves II-XII grossly intact, Neuro grossly intact Psych/Mental Status: Normal Affect Vital Signs Temp Pulse Resp BP Pulse Ox 97.6 F L 70 18 130/71 H 96 06/04/19 08:33 06/04/19 08:33 06/04/19 08:33 06/04/19 08:33 06/04/19 08:33 Oxygen Flow Rate (L/min) 2 Oxygen Delivery Method Room Air Weight: 97 kg Body Mass Index (BMI) 31.1 Intake and Output for Last 24 Hours 06/02/19 06/03/19 06/04/19 23:59 23:59 23:59 Intake Total 264.25 / 414.25 700 / 820 240 / 240 Output Total 3000 / 3000 Balance -2735.75 / -2585.75 700 / 820 240 / 240 Microbiology Past 72 Hours 06/03/19 01:53 Enteric Bacteriology - Final Stool 06/03/19 01:53 C. difficile DNA Amplification - Final Stool Toxigenic C. difficile DNA Laboratory Tests Past 24 Hrs 06/04/19 06/04/19 06/04/19 05:30 05:30 05:30 WBC 4.2 L RBC 3.38 L Hgb 10.8 L Hct 33.5 L MCV 99.1 H MCH 32.0 MCHC 32.2 RDW Std Deviation 52.4 H RDW Coeff of Mary 14.4 Plt Count 150 MPV 10.8 PT 49.5 H INR 5.3 H* Sodium 138 Potassium 3.3 L Chloride 100 Carbon Dioxide 25.0 Anion Gap 13 BUN 71 H Creatinine 5.44 H Estim Creat Clear Calc 11.53 Est GFR (MDRD) Af Amer 13 L Est GFR (MDRD) Non-Af 11 L BUN/Creatinine Ratio 13.1 Glucose 141 H Calcium 8.4 L POC Glucose 06/04/19 06/03/19 06/03/19 06:26 23:16 16:26 POC Glucose 161 H 98 129 H 06/03/19 06/03/19 11:47 07:47 POC Glucose 132 H 181 H Medical Necessity - Tobacco Use Smoking Status: Former smoker Assessment/Plan All Active Problems (Last Reviewed 06/02/19 @ 15:12 by Lj Walker DO) C. difficile colitis (Acute) Failure to thrive (Acute) Heart disease (Acute) Abdominal wall cellulitis (Resolved) Peritoneal dialysis catheter site infection (Resolved) 1- ESRD on MWF HD schedule. Pt goes to [facility] [place] for HD HD session today : BQ 400 DQ 600 UF 2L HD access LUE AVF 2- Hypokalemia from diarrhea. K is 3.3 this am. HD session today with 4 K dialysate 3- Hypertension. BP well controlled. continue home BP meds and EDW 4- Anemia: Hgb > 10. will resume MEERA with prolonged hospital stay and hgb < 10 5- C diff colitis. On oral ABX as per the primary service Renal team will continue to follow Please call if any question or concern at [phone] Melissa Delgado MD
--- NOTE | 2019-06-04 10:32 | CASEMGMT ---
SW let pt know that LW/POA not on file here. SW asked pt to bring in the documents as able or have his bring them in, and we can put a copy on the chart. Pt states understanding. HANNAH Slaughter
--- NOTE | 2019-06-04 10:34 | CASEMGMT ---
SW let pt know that [facility] can take pt and they have started precert w/his insurance. Pt agreeable and states understanding. HANNAH Slaughter
[2019-06-04 11:11] LABS: Bedside Glucose 168 mg/dL (70-110)
--- NOTE | 2019-06-04 12:07 | PN_ITS ---
<Ailyn Snow - Last Filed: 06/04/19 12:13> Patient Problems: Active and Suspected Problems (Last Reviewed 06/02/19 @ 15:12 by Lj Walker DO) C. difficile colitis (Acute) Failure to thrive (Acute) Subjective: Patient seen and examined. Diarrhea significantly improved. Patient undergoing dialysis. Denies current complaints. - Physical Exam General: Alert, Oriented x3, Cooperative HEENT: Atraumatic, PERRLA, EOMI, Normocephalic Neck: Supple, No JVD, Negative Carotid Bruits Lungs: Clear to auscultation, Diminished Cardiovascular: - - Irregular rhythm, rate controlled. Abdomen: Bowel Sounds Present, Soft, Non Tender, Non-Distended Extremities: No clubbing, No cyanosis, Edema - Nonpitting bilateral lower extremities Skin: No rashes, No breakdown Musculoskeletal: No Tenderness to Palpation of Joints or Extremities Neurological: Cranial nerves II-XII grossly intact, Neuro grossly intact Psych/Mental Status: Normal Affect, Appropriate Vital Signs Temp Pulse Resp BP Pulse Ox 97.6 F L 70 18 130/71 H 96 06/04/19 08:33 06/04/19 08:33 06/04/19 08:33 06/04/19 08:33 06/04/19 08:33 Oxygen Flow Rate (L/min) 2 Oxygen Delivery Method Room Air Weight: 213 lb 13.574 oz Body Mass Index (BMI) 31.1 Intake and Output for Last 24 Hours 06/02/19 06/03/19 06/04/19 23:59 23:59 23:59 Intake Total 264.25 / 414.25 700 / 820 240 / 240 Output Total 3000 / 3000 Balance -2735.75 / -2585.75 700 / 820 240 / 240 Microbiology Past 72 Hours 06/03/19 01:53 Enteric Bacteriology - Final Stool 06/03/19 01:53 C. difficile DNA Amplification - Final Stool Toxigenic C. difficile DNA Laboratory Tests Past 24 Hrs 06/04/19 06/04/19 06/04/19 05:30 05:30 05:30 WBC 4.2 L RBC 3.38 L Hgb 10.8 L Hct 33.5 L MCV 99.1 H MCH 32.0 MCHC 32.2 RDW Std Deviation 52.4 H RDW Coeff of Mary 14.4 Plt Count 150 MPV 10.8 PT 49.5 H INR 5.3 H* Sodium 138 Potassium 3.3 L Chloride 100 Carbon Dioxide 25.0 Anion Gap 13 BUN 71 H Creatinine 5.44 H Estim Creat Clear Calc 11.53 Est GFR (MDRD) Af Amer 13 L Est GFR (MDRD) Non-Af 11 L BUN/Creatinine Ratio 13.1 Glucose 141 H Calcium 8.4 L POC Glucose 06/04/19 06/04/19 06/03/19 08:21 06:26 23:16 POC Glucose 168 H 161 H 98 06/03/19 06/03/19 16:26 07:47 POC Glucose 129 H 181 H Medical Necessity - Tobacco Use Smoking Status: Former smoker Assessment/Plan All Active Problems (Last Reviewed 06/02/19 @ 15:12 by Lj Walker DO) C. difficile colitis (Acute) Failure to thrive (Acute) Heart disease (Acute) Abdominal wall cellulitis (Resolved) Peritoneal dialysis catheter site infection (Resolved) 1. Intractable diarrhea secondary to C. difficile-initiated on oral vancomycin 125 mg every 6 hours X10 days. Contact precautions. 2. Dyspnea secondary to fluid overload as result of missed dialysis in the context of end-stage renal disease on hemodialysis- Follows with Dr. Perez. M,W,F schedule. Patient reports dyspnea ongoing for the past 6 months, not increased from baseline. Echocardiogram August 2018 with EF 65%, RVSP estimated to be 40 mmHg. Nephrology consulted. Continue dialysis regimen as scheduled. Repeat echocardiogram demonstrates an EF of 65%, RVSP 34 mmHg. Dyspnea improved following dialysis. 3. Type 2 diabetes [id number] ACHS. Hold oral regimen. Sliding scale insulin. 4. Anemia of chronic disease-stable, at baseline. 5. Paroxysmal atrial fibrillation on anticoagulation with Coumadin, INR supratherapeutic-continue carvedilol. Coumadin on hold, INR 5.3. trending down. 6. Hypertension-continue home carvedilol, hydralazine, furosemide regimen. 7. CAD status post single-vessel CABG-continue statin, carvedilol. 8. History of partial right hepatic lobectomy- [facility] by Dr. Torre in 09/03. Reports no chemo/radiation was required. 9. History of colon cancer s/p colon resection 10. Chronic diastolic CHF-no acute exacerbation. Continue Lasix regimen. 11. Hyperlipidemia-continue statin. DVT prophylaxis-Coumadin on hold, INR supratherapeutic as noted above. CODE STATUS: Discussed CODE STATUS in length with patient including full code, DNR CCA and DNR CC. Patient wishes to remain full code and is agreeable to intubation although he reports he does not want to be on long-term life support. Discharge planning: SNF pending pre-cert. This patient was seen by LONNIE Paulson under the supervision of Dr. Walker. <Lj Walker - Last Filed: 06/04/19 12:43> Subjective: Diarrhea resolved. Feeling much better. - Physical Exam General: Alert, Cooperative HEENT: Atraumatic, Normocephalic Oral: Moist Mucosa, No Gingival or Mucosal Lesions/ Ulcerations Lungs: Clear to auscultation, Normal air movement, No rhonchi, No wheeze, No rales Cardiovascular: - Abdomen: Bowel Sounds Present, Non-Distended Extremities: No Calf Tenderness, Edema Skin: No rashes, No breakdown Psych/Mental Status: Normal Affect, Appropriate Vital Signs Temp Pulse Resp BP Pulse Ox 36.7 C 74 16 124/59 H 98 06/04/19 10:00 06/04/19 12:26 06/04/19 12:26 06/04/19 12:26 06/04/19 10:00 Oxygen Flow Rate (L/min) 2 Oxygen Delivery Method Room Air Weight: 97 kg Body Mass Index (BMI) 31.1 Intake and Output for Last 24 Hours 06/02/19 06/03/19 06/04/19 23:59 23:59 23:59 Intake Total 264.25 / 414.25 700 / 820 240 / 240 Output Total 3000 / 3000 Balance -2735.75 / -2585.75 700 / 820 240 / 240 Microbiology Past 72 Hours 06/03/19 01:53 Enteric Bacteriology - Final Stool 06/03/19 01:53 C. difficile DNA Amplification - Final Stool Toxigenic C. difficile DNA Laboratory Tests Past 24 Hrs 06/04/19 06/04/19 06/04/19 05:30 05:30 05:30 WBC 4.2 L RBC 3.38 L Hgb 10.8 L Hct 33.5 L MCV 99.1 H MCH 32.0 MCHC 32.2 RDW Std Deviation 52.4 H RDW Coeff of Mary 14.4 Plt Count 150 MPV 10.8 PT 49.5 H INR 5.3 H* Sodium 138 Potassium 3.3 L Chloride 100 Carbon Dioxide 25.0 Anion Gap 13 BUN 71 H Creatinine 5.44 H Estim Creat Clear Calc 11.53 Est GFR (MDRD) Af Amer 13 L Est GFR (MDRD) Non-Af 11 L BUN/Creatinine Ratio 13.1 Glucose 141 H Calcium 8.4 L POC Glucose 06/04/19 06/04/19 06/03/19 08:21 06:26 23:16 POC Glucose 168 H 161 H 98 06/03/19 06/03/19 16:26 07:47 POC Glucose 129 H 181 H Assessment/Plan Patient seen and examined independently. Data reviewed. I agree with the above note by the nurse practitioner. 1. C. diff * improved * continue vancomycin for 10 days 2. Failure to thrive * ongoing * Likely multifactorial given his advanced age, multiple medical comorbidities * to SNF pending precertification 3. End-stage renal disease * On dialysis * Missed dialysis on Sunday given his generalized weakness 4. Proximal atrial fibrillation * Continue with warfarin when INR is less than or equal to 3. Continue with carvedilol. 5. Diabetes mellitus type 2 * Continue with his insulin and sliding scale. * Continue with glipizide 6. VTE prophylaxis: Low risk as patient is already anticoagulated Code Visit Inpatient E&M: 64323 Subs Hosp L2
[2019-06-04 12:26] VITALS: BP 124/59; PULSE 74; RESP 16
--- NOTE | 2019-06-04 13:50 | DIALYSIS ---
Hemodialysis completed using 4 K bath. Fluid removed was 2000 ml. Patient tolerated well. Post weight was 97.3 kg, 100 kg is his dry weight. Ending VS 124/78, 72, 18, 96.6 ,97% on room air. Next dialysis will be Sunday most likely as an outpatient.
[2019-06-04 13:59] VITALS: BP 105/60; PULSE 74; RESP 18; TEMP 37; O2SAT 98
--- NOTE | 2019-06-04 14:03 | CASEMGMT ---
Addendum entered by Alexsu Mata 06/04/19 15:55: RELL updated Poly at [facility] that pt is being discharged and pt's will be transporting pt. Addendum entered by Alexus Mata 06/04/19 15:35: RELL faxed completed discharge paperwork to [facility] including transfer to extended care facility, signed medication list and any scripts. Original in SNF folder and copy on pt's chart. HENS in SNF folder and copy on pt's chart. Addendum entered by Alexus Mata 06/04/19 15:12: SW received message from Poly at [facility] stating pre-cert has been obtained and pt is able to discharge today. Physician updated. SW in to speak with pt and pt's present in room. SW updated pt and pt's on approval to go to [facility] and that physician is discharging pt today. Pt and pt's are agreeable for his to transport pt to SNF. RELL updated RN on approval to go to SNF and that pt's will be transporting pt. SW completed convalescent 7000 in HENS. SW to fax discharge paperwork once completed. Plan: [facility] Skilled today with pt's transporting via private vehicle Original Note: Social Work Note RELL faxed updated clinicals to Poly at [facility]. RELL received message from Poly stating pre-cert is still pending. Plan: [facility] pending pre-cert Alexus Mata SOLUTIONS MARKET CONSULTANT, [employer]DRIN[employer] WIRE WEAVER
[2019-06-04 14:52] VITALS: BP 105/60; PULSE 74
--- NOTE | 2019-06-04 14:58 | PCM.EXTCARCO ---
- Diet 06/03/19 08:57 Diet: Renal: 60 gm protein Is pt able to select menu?: Yes - Routine Orders/Code Status Enema Type: Fleetz Enema Frequency: Daily PRN Suppository Type: Dulcolax 10mg Suppository Frequency: Daily PRN O2 Liters per Minute: 2 O2 Frequency: PRN Keep PO Greater than or Equal to (%): 90 Routine Lab Work: - - INR daily X3 days then Q week if within normal range, BMP, CBC 06/05/19 then Q Week. Code Status: Full Code - Suggestions for Active Care Change Position every (hours): 2 Times a day to sit in chair: 3 - Therapies Physical Therapy: Eval and Treat Occupational Therapy: Eval and Treat - Problem/Diagnosis (1) ESRD (end stage renal disease) Status: Chronic Current Visit: No (2) Abdominal wall cellulitis Status: Resolved Current Visit: No (3) Peritoneal dialysis catheter site infection Status: Resolved Current Visit: No (4) hx of PD cath insertion Status: Chronic Current Visit: No (5) Heart disease Status: Chronic Current Visit: No (6) Liver cancer Status: Inactive Current Visit: No (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 difficile colitis Status: Acute Current Visit: Yes - Allergies/Procedures Done in Hospital Allergies/Adverse Reactions: Allergies mold Adverse Reaction (Verified 06/02/19 07:51) dizzy spells cattle Allergy (Uncoded 06/02/19 07:51) dizzy spells Procedures: 2-D Echocardiogram, Dialysis - Type of Care/Length of Stay Estimated LOS: Convalescent Care Less Than 30 days Type of Care Needed: Skilled Rehab Potential: Fair Prognosis: Fair - Additional Orders/Day of Discharge Additional Orders: Continue vancomycin through 06/12/2019, then stop. HOLD Coumadin until repeat INR. INR at discharge 5.3. H&P will serve as current which was dated: 06/02/19 Day of Discharge: 06/04/19 - Dietary and Speech Recommendations Dietitian Recommendations/Changes: Rec diet change to CHO Control / low sodium diet w/ fluid restriction as indicated. Will provide Nepro w/ meals for increased nutrition needs r/t dialysis tx and hx wt loss - Follow Up Care Primary Care Physician: Sarah Hawkins, LAST MODEL DEPARTMENT SUPERVISOR-C [Primary Care Provider] - Please follow up with your Primary Care Physician in: 1 Week Please Follow Up With: Nephrology/Dialysis When: As scheduled
--- NOTE | 2019-06-04 15:03 | DS.PCM_ITS ---
<Ailyn Snow - Last Filed: 06/04/19 15:11> Discharge Date and Diagnosis Date of Admission: 06/02/19 Date of Discharge: 06/04/19 - Primary Discharge Diagnosis Active and Suspected Problems (Last Reviewed 06/02/19 @ 15:12 by Lj Walker DO) 1. Acute C. difficile colitis 2. Dyspnea secondary to fluid overload as result of missed dialysis in the context of end-stage renal disease on hemodialysis 3. Type 2 diabetes mellitus 4. Anemia of chronic disease 5. Paroxysmal atrial fibrillation on anticoagulation with Coumadin, INR supratherapeutic 6. Hypertension 7. CAD status post single-vessel CABG 8. History of partial right hepatic lobectomy 9. History of colon cancer s/p colon resection 10. Chronic diastolic CHF 11. Hyperlipidemia 12. Functional decline - Secondary Discharge Diagnosis Chronic Problems (Last Reviewed 06/02/19 @ 15:12 by Lj Walker DO) ESRD (end stage renal disease) (Chronic) hx of PD cath insertion (Chronic) Heart disease (Chronic) Surgically constructed arteriovenous graft (Chronic ~02/2018) 01/16/2018 Hypercholesterolemia (Chronic) History of colectomy (Chronic) Hemorrhoids (Chronic) Acid reflux (Chronic) Hypertension (Chronic) Afib (Chronic) Heart disease (Chronic) Colon cancer (Chronic) Diabetes (Chronic) Hospital Course and Treatment Imaging Results: Diagnostic Data Chest X-Ray 06/02/19 08:06 IMPRESSION: Findings suggest a more mild degree of CHF with superimposed atelectasis and/or scarring at the lung bases. Stable appearance of the nodular density in the lateral aspect of the left upper lobe. Electronically Signed: Jose Junior, at 8:53 EDT , Service support , Dr. Delgado- Nephrology Operations: None Procedures: 2-D Echocardiogram, Dialysis Summary of Care Provided: The patient is a 78 year old M admitted 06/02/2019 due to weakness, diarrhea and dyspnea. 1. Intractable diarrhea secondary to C. difficile-initiated on oral vancomycin 125 mg every 6 hours X10 days with stop date 06/12/2019. Contact precautions. SNF at discharge due to weakness, functional decline. 2. Dyspnea secondary to fluid overload as result of missed dialysis in the context of end-stage renal disease on hemodialysis- Follows with Dr. Perez. M,W,F schedule. Patient reports dyspnea ongoing for the past 6 months, not increased from baseline. Echocardiogram August 2018 with EF 65%, RVSP estimated to be 40 mmHg. Nephrology consulted. Continue dialysis regimen as scheduled. Repeat echocardiogram demonstrates an EF of 65%, RVSP 34 mmHg. Dyspnea improved following dialysis. 3. Type 2 diabetes mellitus-continue home oral and insulin regimen. 4. Anemia of chronic disease-stable, at baseline. 5. Paroxysmal atrial fibrillation on anticoagulation with Coumadin, INR supratherapeutic-continue carvedilol. Coumadin on hold, INR 5.3. trending down. Trend INR at SNF. 6. Hypertension-continue home carvedilol, hydralazine, furosemide regimen. 7. CAD status post single-vessel CABG-continue statin, carvedilol. 8. History of partial right hepatic lobectomy- [facility] by Dr. Torre in 09/03. Reports no chemo/radiation was required. 9. History of colon cancer s/p colon resection 10. Chronic diastolic CHF-no acute exacerbation. Continue Lasix regimen. 11. Hyperlipidemia-continue statin. General: Alert, Oriented x3, Cooperative HEENT: Atraumatic, PERRLA, EOMI, Normocephalic Neck: Supple, No JVD, Negative Carotid Bruits Lungs: Clear to auscultation, Diminished Cardiovascular: Irregular rhythm, rate controlled. Abdomen: Bowel Sounds Present, Soft, Non Tender, Non-Distended Extremities: No clubbing, No cyanosis, Edema - Nonpitting bilateral lower extre mities Skin: No rashes, No breakdown Musculoskeletal: No Tenderness to Palpation of Joints or Extremities Neurological: Cranial nerves II-XII grossly intact, Neuro grossly intact Psych/Mental Status: Normal Affect, Appropriate Patient seen and examined prior to discharge. Physical assessment as noted above. Patient is stable for discharge with follow up recommendations as noted above. This patient was seen by LONNIE Paulson under the supervision of Dr. Walker. - Physical Exam Vital Signs Temp Pulse Resp BP Pulse Ox 98.6 F 74 18 105/60 98 06/04/19 13:59 06/04/19 14:52 06/04/19 13:59 06/04/19 14:52 09/18/19 13:59 Oxygen Flow Rate (L/min) 2 Oxygen Delivery Method Room Air Weight: 213 lb 13.574 oz Body Mass Index (BMI) 31.1 Intake and Output for Last 24 Hours 06/02/19 06/03/19 06/04/19 23:59 23:59 23:59 Intake Total 264.25 / 414.25 700 / 820 240 / 240 Output Total 3000 / 3000 2100 / 2100 Balance -2735.75 / -2585.75 700 / 820 -1860 / -1860 Microbiology Past 72 Hours 06/03/19 01:53 Enteric Bacteriology - Final Stool 06/03/19 01:53 C. difficile DNA Amplification - Final Stool Toxigenic C. difficile DNA Laboratory Tests Past 24 Hrs 06/04/19 06/04/19 06/04/19 05:30 05:30 05:30 WBC 4.2 L RBC 3.38 L Hgb 10.8 L Hct 33.5 L MCV 99.1 H MCH 32.0 MCHC 32.2 RDW Std Deviation 52.4 H RDW Coeff of Mary 14.4 Plt Count 150 MPV 10.8 PT 49.5 H INR 5.3 H* Sodium 138 Potassium 3.3 L Chloride 100 Carbon Dioxide 25.0 Anion Gap 13 BUN 71 H Creatinine 5.44 H Estim Creat Clear Calc 11.53 Est GFR (MDRD) Af Amer 13 L Est GFR (MDRD) Non-Af 11 L BUN/Creatinine Ratio 13.1 Glucose 141 H Calcium 8.4 L POC Glucose 06/04/19 06/04/19 06/03/19 08:21 06:26 23:16 POC Glucose 168 H 161 H 98 06/03/19 16:26 POC Glucose 129 H Home Medications: Medications to take at Discharge carvedilol 25 mg tablet 25 mg PO BID 01/09/18 furosemide 80 mg tablet 80 mg PO QDAY 01/09/18 insulin aspart (U-100) 100 unit/mL (3 mL) subcutaneous pen 10 unit SC TIDCM ml 01/09/18 hydralazine 25 mg tablet 50 mg PO BID tab 09/03/18 Warfarin Sodium [Coumadin] 6 mg PO SUTUWETHFR 11/21/18 Warfarin [Coumadin] 7 mg PO MOSA 11/21/18 Glipizide [Glipizide ER] 2.5 mg PO DAILY 06/02/19 Lipoflavonoid 1 tab PO BID 06/02/19 Simvastatin 20 mg PO DAILY 06/02/19 Vancomcyin 125mg/5mL PO Liquid 125 mg PO Q6 po.syringe 06/04/19 Primary Care Physician: Sarah Hawkins, SARAVANAN-C [Primary Care Provider] - Please follow up with your Primary Care Physician in: 1 Week Please Follow Up With: Nephrology/Dialysis When: As scheduled Disposition[facility] Minutes spent on discharge:: 35 Patient Condition:: Stable Medical Necessity - Tobacco Use Smoking Status: Former smoker Meaningful Use Info Meaningful Use Diagnoses (Choose all that apply): None applicable <Lj Walker - Last Filed: 06/04/19 16:39> Discharge Date and Diagnosis - Secondary Discharge Diagnosis Chronic Problems (Last Reviewed 06/02/19 @ 15:12 by Lj Walker DO) ESRD (end stage renal disease) (Chronic) hx of PD cath insertion (Chronic) Heart disease (Chronic) Surgically constructed arteriovenous graft (Chronic ~02/2018) 01/16/2018 Hypercholesterolemia (Chronic) History of colectomy (Chronic) Hemorrhoids (Chronic) Acid reflux (Chronic) Hypertension (Chronic) Afib (Chronic) Heart disease (Chronic) Colon cancer (Chronic) Diabetes (Chronic) Hospital Course and Treatment Operations: None Procedures: 2-D Echocardiogram, Dialysis Summary of Care Provided: Patient seen and examined independently. Data reviewed. I agree with the above note by the nurse practitioner. The patient is a 78 year old M presents with several week history of diarrhea and weakness. 1. C. diff * improved * continue vancomycin for 10 days 2. Failure to thrive * ongoing * Likely multifactorial given his advanced age, multiple medical comorbidities * to SNF pending precertification 3. End-stage renal disease * On dialysis * Missed dialysis on Sunday given his generalized weakness 4. Proximal atrial fibrillation * Continue with warfarin when INR is less than or equal to 3. Continue with carvedilol. 5. Diabetes mellitus type 2 * Continue with his insulin and sliding scale. * Continue with glipizide[] - Physical Exam Vital Signs Temp Pulse Resp BP Pulse Ox 37.0 C 74 18 105/60 98 06/04/19 13:59 06/04/19 14:52 06/04/19 13:59 06/04/19 14:52 06/04/19 13:59 Oxygen Flow Rate (L/min) 2 Oxygen Delivery Method Room Air Weight: 97 kg Body Mass Index (BMI) 31.1 Intake and Output for Last 24 Hours 06/02/19 06/03/19 06/04/19 23:59 23:59 23:59 Intake Total 264.25 / 414.25 700 / 820 240 / 240 Output Total 3000 / 3000 2100 / 2100 Balance -2735.75 / -2585.75 700 / 820 -1860 / -1860 Microbiology Past 72 Hours 06/03/19 01:53 Enteric Bacteriology - Final Stool 06/03/19 01:53 C. difficile DNA Amplification - Final Stool Toxigenic C. difficile DNA Laboratory Tests Past 24 Hrs 06/04/19 06/04/19 06/04/19 05:30 05:30 05:30 WBC 4.2 L RBC 3.38 L Hgb 10.8 L Hct 33.5 L MCV 99.1 H MCH 32.0 MCHC 32.2 RDW Std Deviation 52.4 H RDW Coeff of Mary 14.4 Plt Count 150 MPV 10.8 PT 49.5 H INR 5.3 H* Sodium 138 Potassium 3.3 L Chloride 100 Carbon Dioxide 25.0 Anion Gap 13 BUN 71 H Creatinine 5.44 H Estim Creat Clear Calc 11.53 Est GFR (MDRD) Af Amer 13 L Est GFR (MDRD) Non-Af 11 L BUN/Creatinine Ratio 13.1 Glucose 141 H Calcium 8.4 L POC Glucose 06/04/19 06/04/19 06/03/19 08:21 06:26 23:16 POC Glucose 168 H 161 H 98 06/03/19 16:26 POC Glucose 129 H Discharge Diet: 1800 Calorie Control Diet, Renal Diet Disposition: Penitentiary facility Minutes spent on discharge:: 35 Patient Condition:: Stable Medical Necessity - Tobacco Use Smoking Status: Former smoker Meaningful Use Info Meaningful Use Diagnoses (Choose all that apply): None applicable Code Visit Inpatient E&M: 80364 Disch Hosp
[2019-06-04 17:01] LABS: Bedside Glucose 184 mg/dL (70-110)
--- NOTE | 2019-06-04 17:07 | NURSING ---
Addendum entered by France Cates 06/04/19 17:27: dinner offered to pt here- refused. states she is transporting- pt assisted down in wheelchair by staff and into 's awaiting car. Original Note: Report called to Ester Crowell
[2019-06-04 19:36] LABS: Bedside Glucose 131 mg/dL (70-110)
== END 2019-06-04 16:59 | disposition skilled nursing facility (03) | DRG 371 ==
LOC: ED 08:38 → MS3 13:58
PROVIDERS: Nurse Practitioner Family; Emergency Provider Emergency Medicine; Family Provider Nurse Practitioner; PCP Nurse Practitioner
DX: A04.72 Enterocolitis due to Clostridium difficile, not specified as recurrent (principal); N18.6 End stage renal disease; I50.32 Chronic diastolic (congestive) heart failure; I13.2 Hypertensive heart and chronic kidney disease with heart failure and with stage 5 chronic kidney disease, or end stage renal disease; D63.8 Anemia in other chronic diseases classified elsewhere; E11.22 Type 2 diabetes mellitus with diabetic chronic kidney disease; I48.0 Paroxysmal atrial fibrillation; I25.10 Atherosclerotic heart disease of native coronary artery without angina pectoris; E78.5 Hyperlipidemia, unspecified; R53.81 Other malaise; E87.6 Hypokalemia; Z99.2 Dependence on renal dialysis; Z79.01 Long term (current) use of anticoagulants; Z90.49 Acquired absence of other specified parts of digestive tract; Z95.1 Presence of aortocoronary bypass graft; Z85.038 Personal history of other malignant neoplasm of large intestine; Z87.891 Personal history of nicotine dependence; Z79.4 Long term (current) use of insulin
CPT/HCPCS: 36415; 71045; 80048; 80053; 82962; 83605; 84484; 85025; 85027; 85610; 87493; 87506; 90937; 93005; 93306; 97162; 97166; 99285; J1756; J7030; Q9957; A4216; G0257

== ENCOUNTER 2019-06-19 10:50 | Inpatient (IN) | payer MEDICARE, MEDICAID, SELFPAY ==
[2019-06-02 12:24] VITALS: BMI 31.1
[2019-06-19 10:51] VITALS: BP 124/54; PULSE 88; RESP 20; TEMP 35.9; O2SAT 97; BMI 29.5
--- NOTE | 2019-06-19 11:13 | ED.RN ---
PT PLACED IN CONTACT PRECAUTIONS FOR RECENT CDIFF DX.
--- NOTE | 2019-06-19 12:16 | RAD_ITS ---
STUDY: X-RAY CHEST REASON FOR EXAM: Male, 78 years old. One-month history of weakness. TECHNIQUE: Single AP portable view of the chest. COMPARISON: Comparison is made with prior study dated June 02, 2019. FINDINGS: Stable appearance of the nodular densities in the left upper lobe. The larger measures 1.8 cm x 2.3 cm. Surgical clips are seen overlying the left hilar region. Stable mild increased markings at the left lung base suggestive of a atelectasis and/or scarring. Stable blunting of the left costophrenic angle. There is mild cardiac enlargement. Normal mediastinum and estefany. Normal visualized pulmonary arteries. There is atherosclerotic tortuosity of the aortic arch and descending thoracic aorta. There are degenerative changes of the visualized thoracic spine. Normal visualized ribs, clavicles, and shoulders. There is no demonstrated abnormality of the visualized soft tissue structures of the upper abdomen. RAD/Chest 1 View (Portable) IMPRESSION: Stable appearance of the left upper lobe nodules. Cardiomegaly. Electronically Signed: Jose Junior, at 13:04 EDT , Service support ,
--- NOTE | 2019-06-19 12:17 | EKG12_ITS ---
Test Reason : GEN ILLNESS Blood Pressure : / mmHG Vent. Rate : 066 BPM Atrial Rate : 075 BPM P-R Int : 000 ms QRS Dur : 090 ms QT Int : 450 ms P-R-T Axes : 000 -21 042 degrees QTc Int : 471 ms Atrial fibrillation Inferior infarct (cited on or before 20-NOV-2018) Abnormal ECG Confirmed by JOHN ABEBE ([id number]), newspaper editor PATRICK MEDRANO ([id number]) on 06/23/2019 12:26:23 PM Referred By: Travis Callejas Confirmed By:JOHN ABEBE
[2019-06-19 12:54] LABS: Absolute Lymphocyte Count 0.73 X10^3/uL (0.83-4.51); Absolute Neutrophil Count 3.8 X10^3/uL (2.0-7.7); Basophil# 0.02 X10^3/uL; Basophil% 0.4 % (0-1); Eosinophil# 0.08 X10^3/uL; Eosinophils% 1.6 % (0-5); Hematocrit 36.3 % (40-54); Hemoglobin 11.6 g/dL (13.0-16.5); Lymphocyte # 0.73 X10^3/ul (4.0); Lymphocyte % 14.5 % (19-41); Mean Corpuscular Hgb 32.4 pg (27.0-32.0); Mean Corpuscular Volume 101.4 fL (80-94); Mean Platelet Vol. 10.7 fl (6.2-12.0); Monocyte# 0.41 X10^3/uL; Monocyte% 8.1 % (0-10); NRBC Flagged by Analyzer 0 % (0-5); Neutrophil # 3.79 X10^3/uL (2.7-7.7); Platelet Count 81 K/mm3 (150-450); RBC Distribution Width CV 15.1 % (11.6-14.6); RBC Distribution Width SD 56.3 fl (35.1-43.9); Red Blood Count 3.58 M/mm3 (4.6-6.2); White Blood Count 5.1 K/mm3 (4.4-11.0)
[2019-06-19 13:13] LABS: Anion Gap 8 (5-15); BUN 53 mg/dL (7-18); BUN/Creat Ratio 6.1 RATIO (10-20); Calcium,Total 8.6 mg/dL (8.5-10.1); Chloride 107 mmol/L (98-107); Creatinine, Serum 8.64 mg/dL (0.70-1.30); EST Glomerular Filtration Rate 6 mL/min (>60); Est Glom Filt Rate - Afr Amer 8 mL/min (>60); Estimated Creatinine Clearance 7.26 ml/min; Glucose 207 mg/dL (74-106); Sodium Level 141 mmol/L (136-145)
[2019-06-19 13:51] LABS: Bacteria 0 SEEN /hpf (None Seen); Mucous, Urine 0 SEEN /hpf (<or=2+); Squamous Epithelial Cells - UA 0 SEEN /hpf (0-5)
[2019-06-19 13:52] LABS: Color, Urine Yellow (Yellow); Glucose, Dipstick Normal (Normal); Ketone-Dipstick Negative (Negative); Leukocyte Esterase-Dipstick Negative /ul (Negative); Nitrite-Dipstick Negative (Negative); Occult Blood-Urine 150 /ul (Negative); Protein-Dipstick 30 mg/dl (Negative); Specific Gravity, Urine 1.005 (1.002-1.030); Urine Bilirubin Dipstick Negative (Negative); Urine Clarity Clear (Clear); Urine Urobilinogen Normal (Normal)
[2019-06-19 14:08] LABS: Red Blood Cells-Urine 5-10 SEEN /hpf (0-5); White Blood Cells 0-5 SEEN /hpf (0-5)
[2019-06-19 15:07] VITALS: BP 130/65; PULSE 65; RESP 19; TEMP 36.4; O2SAT 95
--- NOTE | 2019-06-19 15:56 | ED.DCSUM_ITS ---
- ER Visit Summary Date of Service: 06/19/19 Chief Complaint: Generalized weakness History of Present Illness: The patient is a 78 M history of CAD, [place], diabetes, hypertension, end-stage renal disease on dialysis and recent C. difficile for which she was treated for. She is patient states she just feels weak and tired. He says had decreasing strength. He has had chills but no fever. Says he still feels the urge to have diarrhea but he only has a small amount of stool. It is loose. He denies any abdominal pain. No nausea or vomiting. States he missed his dialysis yesterday discussed he felt too weak and tired to go. Physical Examination: Older male no acute distress vital signs stable afebrile. He does not look septic or toxic. He does not look severely dehydrated. HEENT exam unremarkable. Moist his membranes. Neck nontender no lymphadenopathy. Lungs clear to auscultation bilaterally. Heart irregular consistent with A. fib with a 4 6 talk ejection murmur. Abdomen is soft and nontender normal bowel sounds no peritoneal signs. Patient moving all 4 extremities. They are neurovascularly intact. Neurologically is awake alert with no focal motor deficits. Test Results: CBC shows white count of 5 H&H 11 and 36. No bands. Electrolytes show a anion gap of 8 BUN 53 creatinine 0.8. UA normal except for 5-10 red cells no nitrates. EKG A. fib rate of 66. Chest x-ray shows chronic changes and cardiomegaly stable left upper lobe nodules but no acute process. C. difficile positive. Emergency Department Course and Treatment: Repeat objective exam patient is resting comfortably at 1550 p.m. He and I and his discussed his test results. Discussed with the patient is . And also comfortable being discharged home. They feel it is just too weak and that he would miss his dialysis again tomorrow. Treatment Plan: Hospitalist on page for admission. Disposition: Admission Impression: Failure to thrive Generalized weakness History of C. difficile History of diabetes, end-stage renal disease dialysis and colon cancer with liver mets This note was generated with [employer] for Parentsation software. It may contain incorrect words, spelling, and punctuation that were not noted in review of the chart prior to signing ED Disposition - Plan for ED Patient: Referrals: Sarah Hawkins, SARAVANAN-C [Primary Care Provider] -
--- NOTE | 2019-06-19 16:21 | PCM.HP.STD ---
Problem List (1) Recurrent Clostridioides difficile diarrhea Status: Acute (2) Liver cancer Status: Resolved (3) Hypercholesterolemia Status: Chronic (4) History of colectomy Status: Chronic (5) Acid reflux Status: Chronic (6) Hypertension Status: Chronic (7) Afib Status: Chronic (8) Heart disease Status: Chronic (9) Colon cancer Status: Chronic (10) Diabetes Status: Chronic History of Present Illness Date of Admission: 06/19/19 Chief Complaint: diarrhea The patient is a 78 year old M with pmhx as above most significant for recent admission on 06/02/19 where he was treated for C diff colitis. He was discharged to [facility] on 06/04/2019 where he completed a course of oral vancomycin, and was subsequently discharged home. He never had full resolution of his diarrhea. Since discontinuing the vancomycin he has had progressive worsening of the diarrhea with associated cramping abdominal pain. He was unable to sit without having to make urgent trips to the toilet so he missed his last dialysis session. He presents to the ER with ongoing diarrhea and cramping. He was found to have C diff in the ER today. He will be admitted for recurrent C diff colitis. No fevers/chills. No Nausea/vomiting. [] Past Medical History Past Medical History (Chronic Problems): Chronic Problems (Last Reviewed 06/02/19 @ 15:12 by Lj Walker DO) ESRD (end stage renal disease) (Chronic) hx of PD cath insertion (Chronic) Heart disease (Chronic) Surgically constructed arteriovenous graft (Chronic ~02/2018) 01/16/2018 Hypercholesterolemia (Chronic) History of colectomy (Chronic) Hemorrhoids (Chronic) Acid reflux (Chronic) Hypertension (Chronic) Afib (Chronic) Heart disease (Chronic) Colon cancer (Chronic) Diabetes (Chronic) Medical History: Medical History (Last Reviewed 06/02/19 @ 15:12 by Lj Walker DO) Heart disease (Chronic) I51.9 Liver cancer (Inactive) C22.9 Hypercholesterolemia (Chronic) E78.00 Hemorrhoids (Chronic) K64.9 Acid reflux (Chronic) K21.9 Hypertension (Chronic) I10 Afib (Chronic) I48.91 Heart disease (Chronic) I51.9 Colon cancer (Chronic) C18.9 Diabetes (Chronic) E11.9 Allergies mold Adverse Reaction (Verified 06/19/19 10:51) dizzy spells cattle Allergy (Uncoded 06/19/19 10:51) dizzy spells Home Medications: Ambulatory Orders Medication Instructions Recorded carvedilol 25 mg tablet 25 mg PO BID 01/09/18 furosemide 80 mg tablet 80 mg PO DAILY 01/09/18 insulin aspart (U-100) 100 unit/mL 10 unit SC TIDCM ml 01/09/18 (3 mL) subcutaneous pen Glipizide [Glipizide ER] 2.5 mg PO DAILY 06/02/19 Simvastatin 20 mg PO DAILY 06/02/19 Ferrous Sulfate 325 mg PO DAILY 06/19/19 Garlic 100 mg PO DAILY 06/19/19 Warfarin Sodium 6 mg PO TUTHSA 06/19/19 Warfarin Sodium 7 mg PO SUMOWEFR 06/19/19 hydrALAZINE [Apresoline] 50 mg PO TID 06/19/19 Surgical History: Surgical History (Last Reviewed 06/02/19 @ 15:12 by Lj Walker DO) hx of PD cath insertion (Chronic) Surgically constructed arteriovenous graft (Chronic) Onset Date: ~02/2018 Z95.828 01/16/2018 History of colectomy (Chronic) Z90.49 Surgical History: cholecystectomy, - - AV graft, colectomy, liver tumor removal Psychiatric History: No pertinent psych hx Lives: Alone Smoking Status: Former smoker Tobacco Use: Non-smoker Alcohol: None Drugs: None - *Family History Maternal Family History: Family History (Last Reviewed 06/02/19 @ 15:13 by Lj Walker DO) Father Colon cancer Sister Diabetes Brother Diabetes Mother Heart disease Review of Systems Constitutional: Denies: Chills, Fever, Weight Change HEENT: Denies: Head Aches, Sinus Congestion, Sinus Drainage Cardiovascular: Denies: Chest Pain, Palpitations Respiratory: Denies: Cough, Shortness of breath at rest, Sputum production Gastrointestinal: Reports: Abdominal Pain, Diarrhea. Denies: Nausea, Vomiting Genitourinary: Denies: Dysuria Musculoskeletal: Denies: Joint Pain, Joint Tenderness Skin: Denies: Rash, Wounds Neurological: Denies: Numbness, Tingling, Focal weakness Psychiatric: Denies: Anxiety, Depression, Homicidal Ideations, Suicidal Ideations Hematologic/ Lymphatic: Denies: Easy Bruising, Easy Bleeding VTE Information - Inpt Only VTE Present on Admission: No VTE Mechan Device Prophylaxis: None VTE Pharm Prophylaxis ordered?: Yes Patient Problems: Active and Suspected Problems (Last Reviewed 06/02/19 @ 15:12 by Lj Walker DO) Recurrent Clostridioides difficile diarrhea (Acute) - Physical Exam General: Alert, Oriented x3, Cooperative HEENT: Atraumatic, PERRLA, EOMI, Normocephalic Neck: Supple, No JVD, Negative Carotid Bruits Lungs: Clear to auscultation, Normal air movement Cardiovascular: Regular rate, No murmurs Abdomen: Bowel Sounds Present, Soft, Non Tender Extremities: No edema, Capillary Refill Less than 3 Seconds Skin: No rashes, No breakdown Musculoskeletal: No Tenderness to Palpation of Joints or Extremities Neurological: Cranial nerves II-XII grossly intact Psych/Mental Status: Normal Affect, Appropriate Vital Signs Temp Pulse Resp BP Pulse Ox 97.6 F L 65 19 H 130/65 H 95 06/19/19 15:07 06/19/19 15:07 06/19/19 15:07 06/19/19 15:07 06/19/19 15:07 Oxygen Delivery Method Nasal Cannula Weight: 212 lb 1.355 oz Body Mass Index (BMI) 29.5 Microbiology Past 72 Hours 06/19/19 13:40 C. difficile DNA Amplification - Final Stool Toxigenic C. difficile DNA Laboratory Tests Past 24 Hrs 06/19/19 06/19/19 06/19/19 12:40 12:40 13:40 WBC 5.1 RBC 3.58 L Hgb 11.6 L Hct 36.3 L MCV 101.4 H MCH 32.4 H MCHC 32.0 RDW Std Deviation 56.3 H RDW Coeff of Mary 15.1 H Plt Count 81 L MPV 10.7 Immature Gran % (Auto) 0.400 Neut % (Auto) 75.0 H Lymph % (Auto) 14.5 L [place] % (Auto) 8.1 Eos % (Auto) 1.6 Baso % (Auto) 0.4 Absolute Neuts (auto) 3.8 Absolute Lymphs (auto) 0.73 L Nucleated RBC % 0 Sodium 141 Potassium 4.0 Chloride 107 Carbon Dioxide 26.0 Anion Gap 8 BUN 53 H Creatinine 8.64 H* Estim Creat Clear Calc 7.26 Est GFR (MDRD) Af Amer 8 L Est GFR (MDRD) Non-Af 6 L BUN/Creatinine Ratio 6.1 L Glucose 207 H Calcium 8.6 Urine Color Yellow Urine Clarity Clear Urine pH 7.0 Ur Specific [place] 1.005 Urine Protein 30 H Urine Glucose (UA) Normal Urine Ketones Negative Urine Occult Blood 150 H Urine Nitrite Negative Urine Bilirubin Negative Urine Urobilinogen Normal Ur Leukocyte Esterase Negative Urine RBC 5-10 SEEN Urine WBC 0-5 SEEN Ur Squamous Epith Cells 0 SEEN Urine Bacteria 0 SEEN Urine Mucus 0 SEEN Assessment/Plan All Active Problems (Last Reviewed 06/02/19 @ 15:12 by Lj Walker DO) Recurrent Clostridioides difficile diarrhea (Acute) C. difficile colitis (Acute) Failure to thrive (Acute) Liver cancer (Resolved) Abdominal wall cellulitis (Resolved) Peritoneal dialysis catheter site infection (Resolved) 1. 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 Start PO vancomycin. gentle IV fluids, he appears dry. 2. ESRD - missed dialysis 2/2 above - consult nephrology. hold lasix, he appears dry. 3. Recent hypoxia, recently CXR with mass found - recently told his o2 went to 60% at night, and that he needed o2 all the time. Obtain CT chest with contrast tonight. Overnight trending pulse ox. Currently no SOB and without O2 requirement. 4. Chronic afib - warfarin, coreg 5. Liver/colon cancer - in remission s/p colectomy, tumor removal. 6. T2DM -SSI, hold glipizide 7. HTN - stable DVT ppx: heparin DC Planning: recently in SNF and DCd home, plan to return home. This patient was seen by Raymond Wesley PA-C under the supervision of Doctor Callejas.
[2019-06-19 16:26] VITALS: BMI 29.6
[2019-06-19 16:38] VITALS: BP 150/61; PULSE 68; RESP 18; O2SAT 97
[2019-06-19 17:27] VITALS: BMI 29.2
[2019-06-19 17:30] VITALS: BP 131/73; PULSE 65; RESP 18; TEMP 36.5; O2SAT 97
--- NOTE | 2019-06-19 17:30 | CT_ITS ---
We are attempting to reach an attending provider to discuss findings. An addendum with communication details will be sent when the communication is complete. STUDY: CT CHEST WITH CONTRAST REASON FOR EXAM: Male, 78 years old. Chest mass RADIATION DOSAGE (If Supplied By Facility): CTDIvol = ( 24.91 ) mGy, DLP = ( 745.75 ) mGycm TECHNIQUE: Transaxial imaging was performed following intravenous administration of IV 100mL [id number]-300 100ML. Individualized dose optimization techniques were used for this CT. COMPARISON: None. FINDINGS: The lungs are expanded. There is a 1.9 x 2.4 cm pleural-based left upper lobe nodular mass. Granulomatous calcification in the right lung. Normal heart and pericardium. Normal mediastinum. Normal hilar regions. Normal enhanced pulmonary arteries. Mildly calcified aorta arch and descending thoracic aorta. Degenerative vertebral changes. There are filling defects within the portal venous system requiring further evaluation. Moderate heterogeneity throughout the liver with an underlying hepatic lesions. CT/Chest WITH Contrast IMPRESSION: Left upper lobe nodular mass requiring further evaluation. Filling defects within the portal venous system requiring further evaluation. Thrombosis or tumors cannot be excluded. Electronically Signed: Cortez Mccall DO at 19:07 EDT Tel [phone], Service support ,
[2019-06-19] MEDS: 0.9% Normal Saline 1,000 ML 100 ML IV (18:18)
--- NOTE | 2019-06-19 19:27 | CT_ITS ---
We are attempting to reach an attending provider to discuss findings. An addendum with communication details will be sent when the communication is complete. STUDY: CT ABDOMEN AND PELVIS WITH CONTRAST REASON FOR EXAM: Male, 78 years old. Portal venous thrombosis RADIATION DOSAGE (If Supplied By Facility): CTDIvol = ( 21.60 ) mGy, DLP = ( 1200.80 ) mGycm TECHNIQUE: Transaxial images were obtained from the dome of the diaphragm to the symphysis pubis without oral contrast. IV 100mL [id number]-300 100ML was administered. Sagittal and coronal images were reconstructed. Individualized dose optimization techniques were used for this CT. COMPARISON: November 19, 2018 FINDINGS: The visualized lung bases are unremarkable. The visualized portions of the heart are within normal limits. Heterogeneity of the liver with right hepatic lesions suspected up to 2.7 cm. Prior right hepatic surgery with surgical clips noted. 7 mm hepatic cyst. There is filling defect within portal venous system likely due to thrombosis. Portal venous mass lesions cannot be excluded. Normal gallbladder and extrahepatic biliary system. Normal spleen. Normal pancreas. Normal bilateral adrenal glands. Normal right kidney. 7 mm cyst and 15 mm lower pole stone in the left kidney. Normal visualized stomach. Normal small intestine. Mild diverticulosis of the colon. Prior colonic surgery. The appendix is not visualized. Calcified abdominal aorta. Normal inferior vena cava. Normal retroperitoneum. There is mild mesenteric thickening. Decompressed urinary bladder. Normal abdominal wall. Degenerative vertebral changes. CT/Abdomen/Pelvis WITH Contrast IMPRESSION: Diffuseheterogeneity of the liver with underlying hepatic lesions. Filling defects with dilatation of the portal venous system suggesting thrombosis and possible tumors. Colonic diverticulosis. Prior colonic surgery. Left renal cyst. Left renal calculus. Mild mesenteric thickening. Electronically Signed: Cortez Mccall DO at 20:57 EDT Tel [phone], Service support ,
--- NOTE | 2019-06-19 20:18 | PCM.HOSP.N ---
Hospitalist Note Additional note: I was notified tonight by radiology services that the patient possibly has a portal vein thrombosis that was noted on his chest CT, I have directed CT to order a CT of the abdomen and pelvis with IV contrast tonight. I have ordered an INR in the patient since he is on Coumadin, I have discussed this with the night hospitalist.
--- NOTE | 2019-06-19 21:26 | PCM.PN.BLA ---
Progress Note Abd and Pelvic CT with hepatic portal vein thrombosis and possible tumors. Patient on coumadin. INR is pending.
[2019-06-19 21:29] LABS: International Normalized Ratio 2.7; Prothrombin Time (Protime)PT. 28.4 SECONDS (11.7-14.9)
--- NOTE | 2019-06-19 21:43 | PN_ITS ---
Progress Note While on Coumadin with INR therapeutic CT scan of abdomen and pelvis showed portal venous thrombosis and possible tumor. Patient has a history of: Stroke Liver cancer status post colectomy reportedly in remission. Her oncology is out of town. Will stop Coumadin for presumed Coumadin failure versus tumor showing as clots. 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 Patient has kidney disease so Lovenox was not started. She may not be a candidate for Xarelto because of kidney disease. Consider long-term Eliquis.
[2019-06-19 23:00] VITALS: BP 132/62; PULSE 64; RESP 18; TEMP 36.5; O2SAT 96
[2019-06-19 23:02] VITALS: PULSE 64
[2019-06-19] MEDS: Carvedilol 25 MG Tablet PO (23:02)
[2019-06-19] MEDS: Atorvastatin Calcium 10 MG Tablet PO (23:02)
[2019-06-19] MEDS: hydrALAZINE 50 MG Tablet PO (23:02)
[2019-06-19 23:10] LABS: Partial Thromboplast Time 40.5 Seconds (24.1-36.2)
[2019-06-19] MEDS: Heparin Injection (Vial) 5,000 UNIT/ML VIAL 7500 UNIT IV (23:21)
--- NOTE | 2019-06-19 23:35 | PCM.PN.BLA ---
Progress Note Nurse reported that patient platelet count was 81. Heparin bolus already given. Discussed with nurse to start heparin drip in 3 hours time.
[2019-06-19] MEDS: 0.9% NaCl Peripheral Flush Adult/Peds IV ×2 (23:38→23:42)
[2019-06-20 00:06] LABS: Bedside Glucose 100 mg/dL (70-110)
--- NOTE | 2019-06-20 02:10 | PCM.PN.BLA ---
Progress Note Radiographic findings of portal venous thrombosis and probable liver cancer and pulmonary mass with Dr. Fernandez, oncologist.: Dr. Fernandez will see patient in a.m. Meanwhile will discontinue heparin drip. So far patient has received heparin IV bolus without drip. Repeat CBC in a.m. Discussed with patient radiographic findings. The patient sees an oncologist at [facility]. Will obtain records from [facility].
[2019-06-20 05:44] VITALS: BP 120/60; PULSE 69; RESP 18; TEMP 36.5; O2SAT 95
[2019-06-20 05:55] LABS: Hematocrit 32.5 % (40-54); Hemoglobin 10.2 g/dL (13.0-16.5); Mean Corp Hgb Conc 31.4 g/dL (32-36); Mean Corpuscular Hgb 31.9 pg (27.0-32.0); Mean Corpuscular Volume 101.6 fL (80-94); Mean Platelet Vol. 10.8 fl (6.2-12.0); Platelet Count 68 K/mm3 (150-450); RBC Distribution Width CV 15.3 % (11.6-14.6); RBC Distribution Width SD 56.6 fl (35.1-43.9); White Blood Count 3.7 K/mm3 (4.4-11.0)
[2019-06-20 06:00] VITALS: PULSE 69
[2019-06-20] MEDS: hydrALAZINE 50 MG Tablet PO ×2 (06:00→22:02)
[2019-06-20 06:40] LABS: Anion Gap 13 (5-15); BUN 58 mg/dL (7-18); BUN/Creat Ratio 6.6 RATIO (10-20); Calcium,Total 7.9 mg/dL (8.5-10.1); Chloride 108 mmol/L (98-107); Creatinine, Serum 8.75 mg/dL (0.70-1.30); EST Glomerular Filtration Rate 6 mL/min (>60); Est Glom Filt Rate - Afr Amer 8 mL/min (>60); Estimated Creatinine Clearance 7.17 ml/min; Glucose 99 mg/dL (74-106); Sodium Level 144 mmol/L (136-145)
--- NOTE | 2019-06-20 06:44 | NURSING ---
took phone call from conveyor weigher operator asking about beginning dialysis first thing this am or if she should start with a different pt. this RN informed conveyor weigher operator of critical CT finding last night and that a consult was placed for hematology to see pt today. conveyor weigher operator states they will call back at a later time for an update.
[2019-06-20 07:10] LABS: Bedside Glucose 131 mg/dL (70-110)
--- NOTE | 2019-06-20 08:47 | CON.PCM_ITS ---
- Problem List (1) Hepatocellular carcinoma Status: Chronic (2) Portal vein thrombosis Status: Acute (3) Thrombocytopenia Status: Acute Subjective Chief Complaint: nausea/vomiting/diarrhea History of Present Illness: HPI:?The patient is a 78 yo male who has a h/o colon polyps, colon cancer, DM, ESRD, PVT, HCC, HTN, hyperlipidemia . Had surveillance colonoscopy summer 2010. Was not observed to have any polyps. ? Was seen in the ED in 11/[address] apparently unremarkable. Was treated for constipation and felt better for a time, but then had continued and worsening bouts of pain as well as a change in bowel habits. ? Went back to ED 03/20/[address] then revealed bowel obstruction with area of obstruction in large bowel at hepatic flexure. No sign of metastatic disease. Taken for surgery next am. Required open laparotomy for resection of obstructed area. ? Final pathology revealed a 4.7 moderately differentiated adenocarcinoma with extension through muscular wall, but not to free serosal surface. All margins negative and 15 of 15 LNs negative. No AL or perineural invasion. ? Had CEA from 03/22=9.0 ng/mL. Declined adjuvant chemotherapy but was offered secondary to high risk feature of colonic obstruction in the setting of stage II disease. Started on HD. Patient was observed to have a mild increase in CEA fall 2017. CT abdomen and pelvis was ordered and it disclosed vague abnormality in the right lobe of the liver. Subsequent MRI confirmed an area of abnormal signal in the inferior portion of the right lobe. It measured approximately 4.3 x 4.6 cm with a height of about 3 cm. It was concerning for malignancy. ? Patient underwent CT-guided biopsy. Pathology revealed moderately differentiated hepatocellular carcinoma. ? S/p?Laparoscopic Liver Resection?on 08/15/[address] Sarahi Torre at [facility]. Discharged on 08/18/18. ? Surg path.? FINAL DIAGNOSIS: A) LIVER, RIGHT LOBE, PARTIAL HEPATIC LOBECTOMY - MODERATELY TO POORLY DIFFERENTIATED HEPATOCELLULAR CARCINOMA WITH CLEAR CELL FEATURES (SEE NOTE). TUMOR SIZE: ?9 CM IN GREATEST DIMENSION. MARGINS NEGATIVE FOR TUMOR. POSITIVE FOR SMALL VESSEL VENOUS INVASION. NON-NEOPLASTIC HEPATIC PARENCHYMA WITH MINIMAL (<?5%) STEATOSIS. B) GALLBLADDER, CHOLECYSTECTOMY - MINIMAL CHRONIC CHOLECYSTITIS. Hepatocellular Carcinoma Cancer Case Summary Procedure: ? ? ?Partial hepatectomy. Tumor focality: ? ? Solitary. Tumor site: ? ? ?Right lobe. Tumor size: ? ? ?9 x 6 x 4.5 cm. Treatment effect: ? ? No known pre-surgical therapy. Histologic type: ? ? Hepatocellular carcinoma. Histologic grade: ? ? G2-3: moderately to poorly differentiated. Tumor extension: ? ? Tumor confined to liver. Margins: ?Parenchymal: ? ?Uninvolved by invasive carcinoma. ?Distance from margin: ? 2.5 mm. Vascular invasion: ? ?Present, small vessel venous invasion. Regional lymph nodes: ? Not sampled. Pathologic stage: ? ? pT2. Surveillance CT scan of the abdomen and pelvis on 01/14/2019: RESULT: Liver: Subcentimeter low-density lesion in the left lobe of the liver corresponds to a T2 hyperintense structure on MRI and most likely represents a cyst. There are a few subcentimeter low-density lesions in the superior right lobe of the liver which were not visible on the prior MRI due to motion artifact. There are postoperative changes from resection of a mass in the lateral right lobe of the liver. Biliary: No bile duct dilation. Spleen: No mass. No splenomegaly. Pancreas: No mass or duct dilation. Adrenals: No mass. Kidneys: The kidneys enhance symmetrically. There is no hydronephrosis. There is a 5 mm calculus in the lower pole of the left kidney. GI tract: No dilation or wall thickening. Lymph nodes: Enlarged portacaval lymph node measures 2.3 cm short axis dimension on image 46, series 3. ?No enlarged lymph nodes are described on the prior CT scan. Mesentery/Peritoneum: No ascites or mass. Retroperitoneum: No mass. Vasculature: ?The celiac axis and SMA are patent. The portal vein and branches, splenic vein, SMV, and hepatic veins are patent. ?Arterial atherosclerotic disease without aneurysm. Pelvis: No mass, ascites or fluid collection. The bladder has a normal appearance. Bones/Soft Tissues: Generalized demineralization of bone. Degenerative disease of the lumbar spine. Lower thorax: Trace right pleural effusion. Scattered areas of subsegmental atelectasis. IMPRESSION: 1. Postoperative changes from resection of a mass in the lateral right lobe of the liver 2. Subcentimeter low-density lesion in the left lobe of the liver corresponds to a cystic structure on MRI. There are a few subcentimeter low-density lesions in the superior right lobe of the liver which are too small to characterize. These are not visible on the prior MRI, possibly due to motion artifact. 3. Enlarged portacaval lymph node. This is not described on the recent CT abdomen report. Was admitted to the hospital 06/02 through 06/04 for C. difficile colitis. Was treated with oral vancomycin. At the time of discharge completeda 10 day course of oral vancomycin. However diarrhea did not improve and he presented to the hospital yesterday with complaint of continued diarrhea and weakness. CT chest done yesterday FINDINGS: The lungs are expanded. There is a 1.9 x 2.4 cm pleural-based left upper lobe nodular mass. Granulomatous calcification in the right lung. Normal heart and pericardium. Normal mediastinum. Normal hilar regions. Normal enhanced pulmonary arteries. Mildly calcified aorta arch and descending thoracic aorta. Degenerative vertebral changes. There are filling defects within the portal venous system requiring further evaluation. Moderate heterogeneity throughout the liver with an underlying hepatic lesions. Subsequent CT abdomen and pelvis: FINDINGS: The visualized lung bases are unremarkable. The visualized portions of the heart are within normal limits. Heterogeneity of the liver with right hepatic lesions suspected up to 2.7 cm. Prior right hepatic surgery with surgical clips noted. 7 mm hepatic cyst. There is filling defect within portal venous system likely due to thrombosis. Portal venous mass lesions cannot be excluded. Normal gallbladder and extrahepatic biliary system. Normal spleen. Normal pancreas. Normal bilateral adrenal glands. Normal right kidney. 7 mm cyst and 15 mm lower pole stone in the left kidney. Normal visualized stomach. Normal small intestine. Mild diverticulosis of the colon. Prior colonic surgery. The appendix is not visualized. Calcified abdominal aorta. Normal inferior vena cava. Normal retroperitoneum. There is mild mesenteric thickening. Decompressed urinary bladder. Normal abdominal wall. Degenerative vertebral changes. ADDENDUM by Cortez Mccall DO on 06/19/19 at 2057 IMPRESSION: Diffuseheterogeneity of the liver with underlying hepatic lesions. Filling defects with dilatation of the portal venous system suggesting thrombosis and possible tumors. Colonic diverticulosis. Prior colonic surgery. Left renal cyst. Left renal calculus. Mild mesenteric thickening. Diarrhea is watery and often explosive. Sometimes he has dark stool but not rocky ck stools. No bloody stools. He denies abdominal pain. He's not had reflux or nausea. He feels his appetite is doing well but he often is afraid to eat for fear of exacerbating the diarrhea. He's had no episodes of jaundice. He's had no unusual bleeding or unexplained bruising. He has been on warfarin for history of atrial fibrillation. Past Medical History: Chronic Problems (Last Reviewed 06/02/19 @ 15:12 by Lj Walker DO) Hepatocellular carcinoma (Chronic) ESRD (end stage renal disease) (Chronic) hx of PD cath insertion (Chronic) Heart disease (Chronic) Surgically constructed arteriovenous graft (Chronic ~02/2018) 01/16/2018 Hypercholesterolemia (Chronic) History of colectomy (Chronic) Hemorrhoids (Chronic) Acid reflux (Chronic) Hypertension (Chronic) Afib (Chronic) Heart disease (Chronic) Colon cancer (Chronic) Diabetes (Chronic) Past Medical/Surgical History: Past Medical History - Most Recent Inpatient Visit Past Medical History Start: 06/19/19 16:25 Text: Status: Complete Freq: Protocol: Document 06/19/19 16:26 JONATHAN (Rec: 06/19/19 16:30 [facility] [id number]) BMI Required to complete PMH What is Patient's BMI 29.6 Past Medical History Unable History Recalled No Query Text:Pt Unable/Family Not Present Neurologic Medical History Hx Stroke/TIA No Hx Dementia/Alzheimer's No Hx Parkinson's Disease No Hx Seizures No Hx Multiple Sclerosis No Hx Migraines No Cardiac Medical History VTE Present on Admission No Hx of Deep Vein Thrombosis/VTE/PE No Hx Hypertension Yes Hx Chest Pain/Angina No Hx Heart Attack Yes: 1995 Hx Cardiac Surgery/Stents/Etc. Yes: CABG 1995 Hx Heart Failure Yes Hx Pacemaker/AICD No Hx Irregular Heartbeat and/or Afib Yes Hx Anticoagulant Therapy Yes: Coumadin Query Text:(Coumadin, Aspirin, Plavix, Xarelto, etc.) Hx Pain in Legs when Walking/Leg Cramps Yes: OCCAS CRAMPS Respiratory Medical History Hx COPD No Hx Emphysema No Hx Smoking Yes: QUIT IN 1978 Smoking Status Former smoker Tobacco Use Cigarettes Years Smoking 35 Packs Smoked per Day 1.5 Hx Smoking Cessation Date 1978 Hx Tobacco Use in last 12 months No Hx of Pipe Smoking No Hx of Cigar Smoking No Hx Sleep Apnea Yes CPAP No BIPAP No STOP Results Positive GI Medical History Hx Ulcer No Hx Hepatitis No Hx Cirrhosis No Hx GI Bleed No Hx Unplanned Weight Loss No Genitourinary Medical History Indwelling Catheter in Place on Arrival/ No Admission Hx Renal Disease Yes: CKD Hx Dialysis Yes: [facility] Comments fistula left arm Musculoskeletal History Hx Arthritis No Hx Rheumatoid Arthritis No Endocrine Medical History Hx Diabetes Yes Hx Thyroid Disease No Hematologic Medical History Hx of Blood Transfusion Yes Hx of Transfusion in last 3 Months No Ever experience any problems with No transfusion(s)? Hx of Preganancy in last 3 Months N/A Nurse Filling Out Transfusion & JLAMP Questions: Date: 06/19/19 Time: 16:29 Psycho/Social Medical History Hx Depression No Hx Anxiety No Hx Behavior Disorder No Hx Alcohol Use No Hx Substance Use No Other Medical History Hx Blood Disorders No Hx Anemia Yes Hx Cancer Yes: colon/liver cancer Hx Drug Resistant Organism No Wound/Pressure Injury Present on Arrival No /Admission Query Text:If yes, chart assessment in Shift/Clinical Findings Central Line/PICC/VAD Present on Arrival No /Admission Antibiotics within last 7 days? No Risk for Readmission Number of Risk Factors 7 At Risk for Readmission Patient is At Risk For Readmission Patient is eligible for Call Back Y Past Medical History (Last Reviewed 06/02/19 @ 15:12 by Lj Walker DO) Heart disease (Chronic) Liver cancer (Resolved) Hypercholesterolemia (Chronic) Hemorrhoids (Chronic) Acid reflux (Chronic) Hypertension (Chronic) Afib (Chronic) Heart disease (Chronic) Colon cancer (Chronic) Diabetes (Chronic) Past Surgical History (Last Reviewed 06/02/19 @ 15:12 by Lj Walker DO) hx of PD cath insertion (Chronic) Surgically constructed arteriovenous graft (Chronic ~02/2018) History of colectomy (Chronic) Maternal Family History: Family History (Last Reviewed 06/02/19 @ 15:13 by Lj Walker DO) Father Colon cancer Sister Diabetes Brother Diabetes Mother Heart disease - Social History Lives: Alone Smoking Status: Former smoker Tobacco Use: Non-smoker Alcohol: None Drugs: None Allergies/Adverse Reactions: Allergy/AdvReac Type Severity Reaction Status Date / Time mold AdvReac dizzy Verified 06/19/19 10:51 spells cattle Allergy dizzy Uncoded 06/19/19 10:51 spells Vital Signs Height 1.8 m Weight: 95.3 kg Weight in Pounds 210.1 lbs Pulse Ox 95 Temperature 97.7 F Pulse Rate 69 Respiratory Rate 18 Blood Pressure 120/60 Blood Pressure Position Semi-Fowlers - Physical Exam General: Alert, Oriented x3 Lungs: Normal air movement Abdomen:: Soft, - - Mild diffuse tenderness without rebound Laboratory Data: Microbiology 06/19/19 13:40 C. difficile DNA Amplification - Final Stool Toxigenic C. difficile DNA Laboratory Tests 06/20/19 06/20/19 06/20/19 Range/Units 07:07 05:35 05:35 WBC 3.7 L (4.4-11.0) K/mm3 RBC 3.20 L (4.6-6.2) M/mm3 Hgb 10.2 L (13.0-16.5) g/dL Hct 32.5 L (40-54) % MCV 101.6 H (80-94) fL MCH 31.9 (27.0-32.0) pg MCHC 31.4 L (32-36) g/dL RDW Std Deviation 56.6 H (35.1-43.9) fl RDW Coeff of Mary 15.3 H (11.6-14.6) % Plt Count 68 L (150-450) K/mm3 MPV 10.8 (6.2-12.0) fl Immature Gran % (Auto) (0.0-0.9) % Neut % (Auto) (47-70) % Lymph % (Auto) (19-41) % [place] % (Auto) (0-10) % Eos % (Auto) (0-5) % Baso % (Auto) (0-1) % Absolute Neuts (auto) (2.0-7.7) X10^3/uL Absolute Lymphs (auto) (0.83-4.51) X10^3/uL Nucleated RBC % (0-5) % PT (11.7-14.9) SECONDS INR APTT (24.1-36.2) Seconds Sodium 144 (136-145) mmol/L Potassium 4.0 (3.5-5.1) mmol/L Chloride 108 H (98-107) mmol/L Carbon Dioxide 23.0 (21.0-32.0) mmol/L Anion Gap 13 (5-15) BUN 58 H (7-18) mg/dL Creatinine 8.75 H* (0.70-1.30) mg/dL Estim Creat Clear Calc 7.17 ml/min Est GFR (MDRD) Af Amer 8 L (>60) mL/min Est GFR (MDRD) Non-Af 6 L (>60) mL/min BUN/Creatinine Ratio 6.6 L (10-20) RATIO Glucose 99 (74-106) mg/dL Calcium 7.9 L (8.5-10.1) mg/dL Urine Color (Yellow) Urine Clarity (Clear) Urine pH (5.0 - 8.0) Ur Specific [place] (1.002-1.030) Urine Protein (Negative) mg/dl Urine Glucose (UA) (Normal) mg/dl Urine Ketones (Negative) mg/dl Urine Occult Blood (Negative) /ul Urine Nitrite (Negative) Urine Bilirubin (Negative) mg/dL Urine Urobilinogen (Normal) mg/dl Ur Leukocyte Esterase (Negative) /ul Urine RBC (0-5) /hpf Urine WBC (0-5) /hpf Ur Squamous Epith Cells (0-5) /hpf Urine Bacteria (None Seen) /hpf Urine Mucus (<or=2+) /hpf POC Glucose 131 H (70-110) mg/dL 06/19/19 06/19/19 06/19/19 Range/Units 23:06 20:50 20:50 WBC (4.4-11.0) K/mm3 RBC (4.6-6.2) M/mm3 Hgb (13.0-16.5) g/dL Hct (40-54) % MCV (80-94) fL MCH (27.0-32.0) pg MCHC (32-36) g/dL RDW Std Deviation (35.1-43.9) fl RDW Coeff of Mary (11.6-14.6) % Plt Count (150-450) K/mm3 MPV (6.2-12.0) fl Immature Gran % (Auto) (0.0-0.9) % Neut % (Auto) (47-70) % Lymph % (Auto) (19-41) % [place] % (Auto) (0-10) % Eos % (Auto) (0-5) % Baso % (Auto) (0-1) % Absolute Neuts (auto) (2.0-7.7) X10^3/uL Absolute Lymphs (auto) (0.83-4.51) X10^3/uL Nucleated RBC % (0-5) % PT 28.4 H (11.7-14.9) SECONDS INR 2.7 APTT 40.5 H (24.1-36.2) Seconds Sodium (136-145) mmol/L Potassium (3.5-5.1) mmol/L Chloride (98-107) mmol/L Carbon Dioxide (21.0-32.0) mmol/L Anion Gap (5-15) BUN (7-18) mg/dL Creatinine (0.70-1.30) mg/dL Estim Creat Clear Calc ml/min Est GFR (MDRD) Af Amer (>60) mL/min Est GFR (MDRD) Non-Af (>60) mL/min BUN/Creatinine Ratio (10-20) RATIO Glucose (74-106) mg/dL Calcium (8.5-10.1) mg/dL Urine Color (Yellow) Urine Clarity (Clear) Urine pH (5.0 - 8.0) Ur Specific [place] (1.002-1.030) Urine Protein (Negative) mg/dl Urine Glucose (UA) (Normal) mg/dl Urine Ketones (Negative) mg/dl Urine Occult Blood (Negative) /ul Urine Nitrite (Negative) Urine Bilirubin (Negative) mg/dL Urine Urobilinogen (Normal) mg/dl Ur Leukocyte Esterase (Negative) /ul Urine RBC (0-5) /hpf Urine WBC (0-5) /hpf Ur Squamous Epith Cells (0-5) /hpf Urine Bacteria (None Seen) /hpf Urine Mucus (<or=2+) /hpf POC Glucose 100 (70-110) mg/dL 06/19/19 06/19/19 06/19/19 Range/Units 13:40 12:40 12:40 WBC 5.1 (4.4-11.0) K/mm3 RBC 3.58 L (4.6-6.2) M/mm3 Hgb 11.6 L (13.0-16.5) g/dL Hct 36.3 L (40-54) % MCV 101.4 H (80-94) fL MCH 32.4 H (27.0-32.0) pg MCHC 32.0 (32-36) g/dL RDW Std Deviation 56.3 H (35.1-43.9) fl RDW Coeff of Mary 15.1 H (11.6-14.6) % Plt Count 81 L (150-450) K/mm3 MPV 10.7 (6.2-12.0) fl Immature Gran % (Auto) 0.400 (0.0-0.9) % Neut % (Auto) 75.0 H (47-70) % Lymph % (Auto) 14.5 L (19-41) % [place] % (Auto) 8.1 (0-10) % Eos % (Auto) 1.6 (0-5) % Baso % (Auto) 0.4 (0-1) % Absolute Neuts (auto) 3.8 (2.0-7.7) X10^3/uL Absolute Lymphs (auto) 0.73 L (0.83-4.51) X10^3/uL Nucleated RBC % 0 (0-5) % PT (11.7-14.9) SECONDS INR APTT (24.1-36.2) Seconds Sodium 141 (136-145) mmol/L Potassium 4.0 (3.5-5.1) mmol/L Chloride 107 (98-107) mmol/L Carbon Dioxide 26.0 (21.0-32.0) mmol/L Anion Gap 8 (5-15) BUN 53 H (7-18) mg/dL Creatinine 8.64 H* (0.70-1.30) mg/dL Estim Creat Clear Calc 7.26 ml/min Est GFR (MDRD) Af Amer 8 L (>60) mL/min Est GFR (MDRD) Non-Af 6 L (>60) mL/min BUN/Creatinine Ratio 6.1 L (10-20) RATIO Glucose 207 H (74-106) mg/dL Calcium 8.6 (8.5-10.1) mg/dL Urine Color Yellow (Yellow) Urine Clarity Clear (Clear) Urine pH 7.0 (5.0 - 8.0) Ur Specific [place] 1.005 (1.002-1.030) Urine Protein 30 H (Negative) mg/dl Urine Glucose (UA) Normal (Normal) mg/dl Urine Ketones Negative (Negative) mg/dl Urine Occult Blood 150 H (Negative) /ul Urine Nitrite Negative (Negative) Urine Bilirubin Negative (Negative) mg/dL Urine Urobilinogen Normal (Normal) mg/dl Ur Leukocyte Esterase Negative (Negative) /ul Urine RBC 5-10 SEEN (0-5) /hpf Urine WBC 0-5 SEEN (0-5) /hpf Ur Squamous Epith Cells 0 SEEN (0-5) /hpf Urine Bacteria 0 SEEN (None Seen) /hpf Urine Mucus 0 SEEN (<or=2+) /hpf POC Glucose (70-110) mg/dL Diagnostic Data: Diagnostic Data Chest X-Ray 06/19/19 12:16 IMPRESSION: Stable appearance of the left upper lobe nodules. Cardiomegaly. Electronically Signed: Jose Junior, at 13:04 EDT , Service support , Chest CT 06/19/19 17:30 IMPRESSION: Left upper lobe nodular mass requiring further evaluation. Filling defects within the portal venous system requiring further evaluation. Thrombosis or tumors cannot be excluded. Electronically Signed: Cortez Mccall DO at 19:07 EDT Tel [phone], Service support , ADDENDUM: 06/19/19 1924 IMPRESSION: Left upper lobe nodular mass requiring further evaluation. Filling defects within the portal venous system requiring further evaluation. Thrombosis or tumors cannot be excluded. N.B. : The above information has been verbally conveyed by Cortez Mccall DO to Dr. Travis Callejas MD, on 06/19/2019 19:17:03 (ET). Electronically Signed: Cortez Mccall DO at 19:07 EDT Tel [phone], Service support , Abdomen/Pelvis CT 06/19/19 19:27 IMPRESSION: Diffuseheterogeneity of the liver with underlying hepatic lesions. Filling defects with dilatation of the portal venous system suggesting thrombosis and possible tumors. Colonic diverticulosis. Prior colonic surgery. Left renal cyst. Left renal calculus. Mild mesenteric thickening. Electronically Signed: Cortez Mccall DO at 20:57 EDT Tel [phone], Service support , ADDENDUM: 06/19/192138 IMPRESSION: Diffuseheterogeneity of the liver with underlying hepatic lesions. Filling defects with dilatation of the portal venous system suggesting thrombosis and possible tumors. Colonic diverticulosis. Prior colonic surgery. Left renal cyst. Left renal calculus. Mild mesenteric thickening. N.B. : The above information has been verbally conveyed by Cortez Mccall DO to Dr. Casimiro MD, on 06/19/2019 21:32:31 (ET). Electronically Signed: Cortez Mccall DO at 20:57 EDT Tel [phone], Service support , Assessment and Plan Impression: -Acute diarrheal illness secondary to C. diff infection. -H/O resected stage II colon cancer 2012. -Partial right hepatectomy 07/2018 for HCC. -On Coumadin with therapeutic INR for atrial fibrillation. -Now evidence of PVT but personally reviewed current CT to 12/2018 study-PVT then. 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 -New lung mass. -ESRD on HD. -If new radiographic findings suggestive of recurrent cancer, then will need biopsy to determine diagnosis, but would wait until diarrhea/infection resolved as he is asymptomatic from liver/lung radiographic abnormalities and goal of care would be life prolonging rather than curative given extent of disease, age and comorbid conditions. Recommendations: -Continue oral vancomycin. -Would consider colonoscopy if no clinical improvement in diarrhea over next several days. -Resume Coumadin with goal INR 2-3. -Potential MRI abdomen--will discuss with radiology. Medications: Prescriptions This Visit Medication Instructions Recorded Ferrous Sulfate 325 mg PO DAILY 06/19/19 Garlic 100 mg PO DAILY 06/19/19 Warfarin Sodium 6 mg PO TUTHSA 06/19/19 Warfarin Sodium 7 mg PO SUMOWEFR 06/19/19 hydrALAZINE [Apresoline] 50 mg PO TID 06/19/19 Medications Added to Medication List This Visit Category Date Time Status Ferrous Sulfate Med 06/20/19 08:00 Active 325 mg PO DAILY@0800 Glipizide [Glipizide ER] Med 06/20/19 08:00 Active 2.5 mg PO DAILYCM Insulin Lispro [Humalog kwikpen ([facility])] Med 06/20/19 18:00 Active 10 unit SC 0800,1200,1700 Warfarin [Coumadin ([facility])] Med 06/21/19 17:00 Active 6 mg PO TuThSa@1700 Primary Care Provider: Sarah Hawkins NP-C Referring Provider: Travis Callejas DO
[2019-06-20] MEDS: 0.9% Normal Saline 1,000 ML 100 ML IV (08:55)
[2019-06-20 10:00] VITALS: BP 149/59; PULSE 75; RESP 18; TEMP 36.7; O2SAT 96
--- NOTE | 2019-06-20 11:59 | CASEMGMT ---
LW/POA not on file, pt informed admitting RN he is not able to bring in the forms. Pt had said is medical POA. HANNAH Slaughter
--- NOTE | 2019-06-20 12:26 | CASEMGMT ---
RN CM Assessment Introduced role of RN CM to patient and patient Marilee at bedside.? Patient is alert, oriented and able?to participate in RN CM Assessment. Information obtained from both patient and . ?Care providers, pharmacy, and demographics verified. Presentation: Recent Admission Obs on 06/03-06/04 for Failure to thrive/Acute CDiff Colitis-Weakness the past 2 months, Diarrhea. Was Dc'd to [facility] [id number]. Presents this admission for C/o feeling weak and tired. H/o CHF, Colon CA (2013) and Liver Cancer (July 2018). Re-Admit: No Barriers/Issues: None, states that he has been feeling fine since the Liver Cancer in July 2018, had surgery to remove portion of liver and denies having chemo/radiation-states did not need it. HD at [facility] in [place], M/W/F, Chair time 6:30-9:30am. PCP: Sarah Hawkins Specialists: Onc in [place]- Dr Agarwal, Cardio- Dr Andino, Nephro- Dr Perez Preferred Pharmacy: [facility] [place] [facility] [employer] Rx Benefit:?Yes LNOK: Marilee Little LW/HPOA: Yes both, made aware not in file with [facility], [facility]- Marilee Little Living Arrangements:? Lives with in a SS home, has a ramp to enter ADL?s: Ambulates with a cane, requires assistance with bathing, otherwise independent with ADLs Transportation: Both patient and drive, will transport upon DC DME: Cane, has a walker that he does not use, Shower Chair, TSR, HHC: Past with [facility] would have a nurse come out every once in awhile. SNF: Past, Recently was at [facility] Goal: States goal is home but is as of now willing to return to [facility]. transports to . States if during treatment here and improves then goal would then be to go home with [facility]. Denies any issues, concerns or questions with DC planning at this time. Aware CM remains available for any emerging needs. DC PLAN: SNF [facility] as of right now vs Home with [facility] if improves before DC time. Chanel Bragg RNCM
--- NOTE | 2019-06-20 12:33 | CASEMGMT ---
Social Work Per CM assessment, pt is agreeable to [facility] for further nursing and rheba. Referral sent o [facility]. Pt is [employer] primary and will need precert prior to discharge. SW will continue to follow. Andressa Esteban, MRI TECH AIRPORT MAINTENANCE LABORER
--- NOTE | 2019-06-20 13:50 | PN_ITS ---
<Raymond Wesley - Last Filed: 06/20/19 13:50> Patient Problems: Active and Suspected Problems (Last Reviewed 06/02/19 @ 15:12 by Lj Walker DO) Recurrent Clostridioides difficile diarrhea (Acute) Portal vein thrombosis (Acute) Thrombocytopenia (Acute) Subjective: Ongoing watery diarrhea. No nausea/vomiting. Tolerating PO. No abdominal pain. No fever/chills. Complaints that he feels very weak. No dizziness/LH, no SOB/cough. - Physical Exam General: Alert, Oriented x3, Cooperative HEENT: Atraumatic, PERRLA, EOMI, Normocephalic Neck: Supple, No JVD, Negative Carotid Bruits Lungs: Clear to auscultation, Normal air movement Cardiovascular: Regular rate, No murmurs Abdomen: Bowel Sounds Present, Soft, Non Tender Extremities: No edema, Capillary Refill Less than 3 Seconds Skin: No rashes, No breakdown Musculoskeletal: No Tenderness to Palpation of Joints or Extremities Neurological: Cranial nerves II-XII grossly intact Psych/Mental Status: Normal Affect, Appropriate, Alert and oriented to time, place, person, mood and affect Vital Signs Temp Pulse Resp BP Pulse Ox 98.1 F 75 18 149/59 H 96 06/20/19 10:00 06/20/19 10:00 06/20/19 10:00 06/20/19 10:00 06/20/19 10:00 Oxygen Delivery Method Room Air Weight: 210 lb 1.608 oz Body Mass Index (BMI) 29.2 Intake and Output for Last 24 Hours 06/18/19 06/19/19 06/20/19 23:59 23:59 23:59 Intake Total 120 / 120 2029 Balance 120 / 120 2029 Microbiology Past 72 Hours 06/19/19 13:40 C. difficile DNA Amplification - Final Stool Toxigenic C. difficile DNA Laboratory Tests Past 24 Hrs 06/19/19 06/19/19 06/19/19 13:40 20:50 20:50 WBC RBC Hgb Hct MCV MCH MCHC RDW Std Deviation RDW Coeff of Mary Plt Count MPV PT 28.4 H INR 2.7 APTT 40.5 H Sodium Potassium Chloride Carbon Dioxide Anion Gap BUN Creatinine Estim Creat Clear Calc Est GFR (MDRD) Af Amer Est GFR (MDRD) Non-Af BUN/Creatinine Ratio Glucose Calcium Carcinoembryonic Ag Urine Color Yellow Urine Clarity Clear Urine pH 7.0 Ur Specific [place] 1.005 Urine Protein 30 H Urine Glucose (UA) Normal Urine Ketones Negative Urine Occult Blood 150 H Urine Nitrite Negative Urine Bilirubin Negative Urine Urobilinogen Normal Ur Leukocyte Esterase Negative Urine RBC 5-10 SEEN Urine WBC 0-5 SEEN Ur Squamous Epith Cells 0 SEEN Urine Bacteria 0 SEEN Urine Mucus 0 SEEN 06/20/19 06/20/19 06/20/19 05:35 05:35 08:35 WBC 3.7 L RBC 3.20 L Hgb 10.2 L Hct 32.5 L MCV 101.6 H MCH 31.9 MCHC 31.4 L RDW Std Deviation 56.6 H RDW Coeff of Mary 15.3 H Plt Count 68 L MPV 10.8 PT INR APTT Sodium 144 Potassium 4.0 Chloride 108 H Carbon Dioxide 23.0 Anion Gap 13 BUN 58 H Creatinine 8.75 H* Estim Creat Clear Calc 7.17 Est GFR (MDRD) Af Amer 8 L Est GFR (MDRD) Non-Af 6 L BUN/Creatinine Ratio 6.6 L Glucose 99 Calcium 7.9 L Carcinoembryonic Ag Pending Urine Color Urine Clarity Urine pH Ur Specific Oxford Urine Protein Urine Glucose (UA) Urine Ketones Urine Occult Blood Urine Nitrite Urine Bilirubin Urine Urobilinogen Ur Leukocyte Esterase Urine RBC Urine WBC Ur Squamous Epith Cells Urine Bacteria Urine Mucus POC Glucose 06/20/19 06/19/19 07:07 23:06 POC Glucose 131 H 100 Medical Necessity - Tobacco Use Smoking Status: Former smoker Tobacco Use: Non-smoker Assessment/Plan All Active Problems (Last Reviewed 06/02/19 @ 15:12 by Lj Walker DO) Recurrent Clostridioides difficile diarrhea (Acute) Portal vein thrombosis (Acute) Thrombocytopenia (Acute) C. difficile colitis (Acute) Failure to thrive (Acute) Liver cancer (Resolved) Abdominal wall cellulitis (Resolved) Peritoneal dialysis catheter site infection (Resolved) 1. 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 Continue PO vancomycin x 14 days. 2. ESRD - Dialysis per nephrology. 3. Recent reported hypoxia, CT chest with BRIANDA nodular mass - Oncology consulted regarding lung mass. No SOB or increased O2 demand. 4. Chronic afib - warfarin, coreg. INR therapeutic. 5. Liver/colon cancer - in remission s/p colectomy, tumor removal. hepatic lesions. F/u with own oncologist. May need colonoscopy, biopsy, or MRI. Further workup as directed by Dr. Fernandez. 6. T2DM -SSI 7. HTN - stable 8. Known PVT - continue warfarin. 9. Thrombocytopenia - chronic. trend. DVT ppx: warfarin DC Planning: PTOT, very weak, may require placement. This patient was seen by Raymond Wesley PA-C under the supervision of Doctor Teri <Germán Williamson F - Last Filed: 06/20/19 17:54> - Physical Exam Vital Signs Temp Pulse Resp BP Pulse Ox 98.1 F 75 18 149/59 H 96 06/20/19 10:00 06/20/19 10:00 06/20/19 10:00 06/20/19 10:00 06/20/19 10:00 Oxygen Delivery Method Room Air Weight: 210 lb 1.608 oz Body Mass Index (BMI) 29.2 Intake and Output for Last 24 Hours 06/18/19 06/19/19 06/20/19 23:59 23:59 23:59 Intake Total 120 / 120 2029 Balance 120 / 120 2029 Microbiology Past 72 Hours 06/19/19 13:40 C. difficile DNA Amplification - Final Stool Toxigenic C. difficile DNA Laboratory Tests Past 24 Hrs 06/19/19 06/19/19 06/20/19 20:50 20:50 05:35 WBC RBC Hgb Hct MCV MCH MCHC RDW Std Deviation RDW Coeff of Mary Plt Count MPV PT 28.4 H INR 2.7 APTT 40.5 H Sodium 144 Potassium 4.0 Chloride 108 H Carbon Dioxide 23.0 Anion Gap 13 BUN 58 H Creatinine 8.75 H* Estim Creat Clear Calc 7.17 Est GFR (MDRD) Af Amer 8 L Est GFR (MDRD) Non-Af 6 L BUN/Creatinine Ratio 6.6 L Glucose 99 Calcium 7.9 L Carcinoembryonic Ag 06/20/19 06/20/19 05:35 08:35 WBC 3.7 L RBC 3.20 L Hgb 10.2 L Hct 32.5 L MCV 101.6 H MCH 31.9 MCHC 31.4 L RDW Std Deviation 56.6 H RDW Coeff of Mary 15.3 H Plt Count 68 L MPV 10.8 PT INR APTT Sodium Potassium Chloride Carbon Dioxide Anion Gap BUN Creatinine Estim Creat Clear Calc Est GFR (MDRD) Af Amer Est GFR (MDRD) Non-Af BUN/Creatinine Ratio Glucose Calcium Carcinoembryonic Ag Pending POC Glucose 06/20/19 06/19/19 07:07 23:06 POC Glucose 131 H 100 Code Visit Addendum: Dr. Williamson I personally examined the patient and reviewed the chart. I agree with the above. 78-year-old male with end-stage renal disease and a history of colon cancer in 2012 and a recent treatment of hepatocellular carcinoma presents to [facility] with diarrhea. He was recently treated for C. difficile on a 10-day course of vancomycin, and yesterday on admission he also was positive for C. difficile and was once again started on p.o. vancomycin. Of note he had a CT scan of his chest because chest x-ray showed lung nodules, and it appears that he might have a new lung mass in the left upper lobe. At that time the CT scan of the chest actually was able to get the upper part of the abdomen and demonstrated a portal venous thrombosis. A CT scan of the abdomen showed nodules and heterogeneity of uptake in contrast in the liver as well as a portal venous thrombosis. This is known and he is on Coumadin for this and A. fib. We will monitor his INR and continue with his Coumadin as previously scheduled. He also has chronic thrombus cytopenia which is secondary to his portal venous thrombosis and his splenomegaly. OBSV E&M: [id number] Subsequent observation care L2
--- NOTE | 2019-06-20 14:47 | CASEMGMT ---
Addendum entered by Alexus Mata 06/20/19 16:01: Pt is currently on dialysis and PT/OT not able to work with pt today and will work with pt tomorrow. RELL placed a call to Melissa at [facility] and updated her on this. Original Note: Social Work Note SW received call from Poly at [facility] stating she is able to accept pt and will submit for pre-cert once PT/OT evaluations are completed. RELL reviewed chart, PT/OT hasn't even been ordered yet for pt. RELL ordered PT/OT. Plan: Ester Crowell pending pre-cert Alexus Mata GROUNDSKEEPING MAINTENANCE WORKER, ICT BUSINESS ANALYST
--- NOTE | 2019-06-20 15:23 | CHAPLAIN ---
Type of Pastoral Visit _x__ Initial Visit ___ Follow-up Visit ___ On-call Visit ___ General Patient Visit ___ Spiritual Assessment ___ Family Conference ___ Bereavement ___ Rapid Response ___ Code Blue ___ Other (describe below) Pastoral Care Referral From _x__ Patient ___ Family ___ Nurse ___ Physician ___ Field Training Manager ___ Curing Press Operator ___ Other (describe below) Sacrament/Intervention _x__ Active listening ___ Anointing ___ Anabaptism ___ Bereavement ___ Communion ___ Annalise exploration ___ ___ Life review _x__ Prayer ___ Reconciliation ___ Sacrament of Sick _x__ Supportive presence ___ Wedding ___ Other (describe below) Pastoral Comments patient receiving dialysis at this time; pt identifies himself as Episcopalian and asks for prayer; pt is talkative and tearful at moments
--- NOTE | 2019-06-20 17:40 | DIALYSIS ---
Hemodialysis tx completed x 3.5 hours without complications. Pt tolerated tx fair, fluid removed 1,000ml. Vitals stable throughout tx. Verbal report given to Helen Senior post tx. Next scheduled dialysis tx 06/23/19.
--- NOTE | 2019-06-20 17:43 | CON.PCM_ITS ---
Problem List (1) ESRD (end stage renal disease) Status: Chronic Consultation - Renal 06/20/19 PCP/ Referring MD: Requesting physician: Dr Callejas Primary care physician: LONNIE Farfan Reason for Consultation:: ESRD - History of Present Illness History of Present Illness: The patient is a 78 year old M with history of ESRD on HD MWF schedule. last HD was sunday admitted with severe C Diff colitis. - Allergies Allergies: Allergies mold Adverse Reaction (Verified 06/19/19 10:51) dizzy spells cattle Allergy (Uncoded 06/19/19 10:51) dizzy spells - Current Medications Current Medications: Current Medications Atorvastatin Calcium (Lipitor) 10 mg PO QHS [facility] Last Admin: 06/19/19 23:02 Dose: 10 mg Documented by: Carvedilol (Coreg) 25 mg PO BID [facility] Last Admin: 06/19/19 23:02 Dose: 25 mg Documented by: Dextrose (D50w Syringe) 0 gm IV X1 PRN; Protocol PRN Reason: Hypoglycemia Ferrous Sulfate (Ferrous Sulfate) 325 mg PO DAILY@0800 [facility] Glipizide (Glipizide Er) 2.5 mg PO DAILYCM [facility] Glucagon () 1 mg IM .X1 PRN PRN Reason: Hypoglycemia Heparin Sodium (Porcine) (Heparin Na) 0 unit IV UD PRN; Protocol Hydralazine HCl (Apresoline) 50 mg PO TID [facility] Last Admin: 06/20/19 06:00 Dose: 50 mg Documented by: Sodium Chloride () 1,000 mls @ 100 mls/hr IV .Q10H [facility] Last Infusion: 06/20/19 12:55 Dose: 0 mls/hr Documented by: Sodium Chloride () 250 mls @ 15 mls/hr IV .[id number] PRN PRN Reason: SALINE FLUSH Insulin Human Lispro (Humalog Kwikpen (Bkc)) 10 unit SC 0800,1200,1700 [facility] Insulin Human Lispro (Humalog Kwikpen (Bkc)) 0 unit SC ACHS ELIUD; Protocol Last Admin: 06/20/19 13:14 Dose: Not Given Documented by: Sodium Chloride () 5 - 15 ml IV UD PRN PRN Reason: SALINE FLUSH Last Admin: 06/19/19 23:42 Dose: 10 ml Documented by: Vancomycin HCl () 125 mg PO Q6 [facility] Last Admin: 06/20/19 05:59 Dose: 125 mg Documented by: Warfarin Sodium (Coumadin (Pbkc)) 6 mg PO TuThSa@1700 [facility] - Past Medical History Past Medical History (Chronic Problems): Chronic Problems (Last Reviewed 06/02/19 @ 15:12 by Lj Walker DO) Hepatocellular carcinoma (Chronic) ESRD (end stage renal disease) (Chronic) hx of PD cath insertion (Chronic) Heart disease (Chronic) Surgically constructed arteriovenous graft (Chronic ~02/2018) 01/16/2018 Hypercholesterolemia (Chronic) History of colectomy (Chronic) Hemorrhoids (Chronic) Acid reflux (Chronic) Hypertension (Chronic) Afib (Chronic) Heart disease (Chronic) Colon cancer (Chronic) Diabetes (Chronic) - Past Surgical History Surgical History: cholecystectomy, - - AV graft, colectomy, liver tumor removal - Social History Smoking Status: Former smoker Alcohol: None Drugs: None - Family History Maternal Family History: Family History (Last Reviewed 06/02/19 @ 15:13 by Lj Walker DO) Father Colon cancer Sister Diabetes Brother Diabetes Mother Heart disease History Items: No pertinent history Review of Systems Constitutional: Denies: Chills, Fever, Weight Change HEENT: Denies: Head Aches, Sinus Congestion, Sinus Drainage Cardiovascular: Denies: Chest Pain, Palpitations Respiratory: Denies: Cough, Shortness of breath at rest, Sputum production Gastrointestinal: Reports: Diarrhea. Denies: Abdominal Pain, Nausea, Vomiting Genitourinary: Denies: Dysuria Musculoskeletal: Denies: Joint Pain, Joint Tenderness Skin: Denies: Rash, Wounds Neurological: Denies: Numbness, Tingling, Focal weakness Psychiatric: Denies: Anxiety, Depression, Homicidal Ideations, Suicidal Ideations Hematologic/ Lymphatic: Denies: Easy Bruising, Easy Bleeding Patient Problems: Active and Suspected Problems (Last Reviewed 06/02/19 @ 15:12 by Lj Walker DO) Recurrent Clostridioides difficile diarrhea (Acute) Portal vein thrombosis (Acute) Thrombocytopenia (Acute) - Physical Exam General: Alert, Oriented x3, Cooperative HEENT: Atraumatic, PERRLA, EOMI, Normocephalic Neck: Supple, No JVD, Negative Carotid Bruits Lungs: Clear to auscultation, Normal air movement Cardiovascular: Regular rate, No murmurs Abdomen: Bowel Sounds Present, Soft, Non Tender Extremities: No edema, Capillary Refill Less than 3 Seconds Skin: No rashes, No breakdown Musculoskeletal: No Tenderness to Palpation of Joints or Extremities Neurological: Cranial nerves II-XII grossly intact Psych/Mental Status: Normal Affect, Appropriate Vital Signs Temp Pulse Resp BP Pulse Ox 98.1 F 75 18 149/59 H 96 06/20/19 10:00 06/20/19 10:00 06/20/19 10:00 06/20/19 10:00 06/20/19 10:00 Oxygen Delivery Method Room Air Weight: 95.3 kg Body Mass Index (BMI) 29.2 Intake and Output for Last 24 Hours 06/18/19 06/19/19 06/20/19 23:59 23:59 23:59 Intake Total 120 / 120 2029 Balance 120 / 120 2029 Microbiology Past 72 Hours 06/19/19 13:40 C. difficile DNA Amplification - Final Stool Toxigenic C. difficile DNA Laboratory Tests Past 24 Hrs 06/19/19 06/19/19 06/20/19 20:50 20:50 05:35 WBC RBC Hgb Hct MCV MCH MCHC RDW Std Deviation RDW Coeff of Mary Plt Count MPV PT 28.4 H INR 2.7 APTT 40.5 H Sodium 144 Potassium 4.0 Chloride 108 H Carbon Dioxide 23.0 Anion Gap 13 BUN 58 H Creatinine 8.75 H* Estim Creat Clear Calc 7.17 Est GFR (MDRD) Af Amer 8 L Est GFR (MDRD) Non-Af 6 L BUN/Creatinine Ratio 6.6 L Glucose 99 Calcium 7.9 L Carcinoembryonic Ag 06/20/19 06/20/19 05:35 08:35 WBC 3.7 L RBC 3.20 L Hgb 10.2 L Hct 32.5 L MCV 101.6 H MCH 31.9 MCHC 31.4 L RDW Std Deviation 56.6 H RDW Coeff of Mary 15.3 H Plt Count 68 L MPV 10.8 PT INR APTT Sodium Potassium Chloride Carbon Dioxide Anion Gap BUN Creatinine Estim Creat Clear Calc Est GFR (MDRD) Af Amer Est GFR (MDRD) Non-Af BUN/Creatinine Ratio Glucose Calcium Carcinoembryonic Ag Pending POC Glucose 06/20/19 06/19/19 07:07 23:06 POC Glucose 131 H 100 Assessment/Plan All Active Problems (Last Reviewed 06/02/19 @ 15:12 by Lj Walker DO) Recurrent Clostridioides difficile diarrhea (Acute) Portal vein thrombosis (Acute) Thrombocytopenia (Acute) C. difficile colitis (Acute) Failure to thrive (Acute) Liver cancer (Resolved) Abdominal wall cellulitis (Resolved) Peritoneal dialysis catheter site infection (Resolved) ESRD. HD today. seen on HD. see orders/ flowsheets Anemia. Hold MEERA for now Lung mass. as seen on recent CXR. reviewed CT chest and abdomen. possible PVT which may not be new. multiple lesions. Dr kline on consult
[2019-06-20] MEDS: Ferrous Sulfate 325 MG Tablet PO (18:04)
[2019-06-20 18:11] LABS: Bedside Glucose 67 mg/dL (70-110)
--- NOTE | 2019-06-20 18:12 | NURSING ---
Dailysis finished 1Liter removed. vital signs stable no complaints voiced. pt resting in bed eating dinner. Daily medications given. call light in reach, will continue to monitor.
[2019-06-20 21:57] VITALS: BP 133/71; PULSE 83; RESP 18; TEMP 36.8; O2SAT 96
[2019-06-20 22:02] VITALS: BP 133/71; PULSE 83
[2019-06-20] MEDS: Atorvastatin Calcium 10 MG Tablet PO (22:02)
[2019-06-20] MEDS: Carvedilol 25 MG Tablet PO (22:02)
[2019-06-20 22:16] LABS: Bedside Glucose 142 mg/dL (70-110)
[2019-06-21 04:08] VITALS: BP 115/52; PULSE 67; RESP 18; TEMP 36.9; O2SAT 97
[2019-06-21 06:21] VITALS: PULSE 67
[2019-06-21] MEDS: hydrALAZINE 50 MG Tablet PO ×3 (06:21→22:00)
[2019-06-21 06:31] LABS: Bedside Glucose 120 mg/dL (70-110)
[2019-06-21] MEDS: Carvedilol 25 MG Tablet PO ×2 (09:34→22:00)
[2019-06-21] MEDS: Insulin Lispro 100 UNIT/ML INSULN.PEN 10 UNIT SC ×3 (09:35→17:32)
[2019-06-21] MEDS: Ferrous Sulfate 325 MG Tablet PO (09:35)
[2019-06-21 09:40] LABS: Hematocrit 34.4 % (40-54); Hemoglobin 11.2 g/dL (13.0-16.5); Mean Corp Hgb Conc 32.6 g/dL (32-36); Mean Corpuscular Hgb 32.6 pg (27.0-32.0); Platelet Count 65 K/mm3 (150-450); RBC Distribution Width SD 54.8 fl (35.1-43.9); Red Blood Count 3.44 M/mm3 (4.6-6.2); White Blood Count 4.1 K/mm3 (4.4-11.0)
[2019-06-21 09:50] LABS: Bedside Glucose 130 mg/dL (70-110)
--- NOTE | 2019-06-21 10:08 | CM.UR ---
Was alerted by BOBBY Foy that patient did not want to return to SNF. He wants to go home with HHC instead. spoke with patient and gave list of in-network HHC agencies for his [employer] M[employer] plan. He chose [facility]. Faxed Order at this time. Jeannie Bingham RN, [facility].
--- NOTE | 2019-06-21 11:16 | DCINST_ITS ---
- Discharge Diagnoses Current Active Problems: Current Active and Chronic Problems (Last Reviewed 06/02/19 @ 15:12 by Lj Walker DO) Recurrent Clostridioides difficile diarrhea (Acute) Hepatocellular carcinoma (Chronic) Portal vein thrombosis (Acute) Thrombocytopenia (Acute) You will use the following diet at home:: Renal (restricted protein/sodium) Your food should be the consistency of: Regular Your liquids should be the consistency of: Regular/Thin Discharge Activity: Return to Normal Activity Allergies/Adverse Reactions: Allergies mold Adverse Reaction (Verified 06/19/19 10:51) dizzy spells cattle Allergy (Uncoded 06/19/19 10:51) dizzy spells Medications to take at Discharge carvedilol 25 mg tablet 25 mg PO BID 01/09/18 insulin aspart (U-100) 100 unit/mL (3 mL) subcutaneous pen 10 unit SC TIDCM ml 01/09/18 Glipizide [Glipizide ER] 2.5 mg PO DAILY 06/02/19 Simvastatin 20 mg PO DAILY 06/02/19 Ferrous Sulfate 325 mg PO DAILY 06/19/19 Warfarin Sodium 6 mg PO TUTHSA 06/19/19 Warfarin Sodium 7 mg PO SUMOWEFR 06/19/19 hydrALAZINE [Apresoline] 50 mg PO TID 06/19/19 Vancomycin [Vancocin] 125 mg PO Q6H #50 cap 06/21/19 The following prescriptions were given: Vancomycin [Vancocin] 125 mg PO Q6H #50 cap Prescription Printed Primary Care Physician: Sarah Hawkins NP-C [Primary Care Provider] - Please follow up with your Primary Care Physician in: 1 week Test Results: Test results from this visit will be discussed in further detail at your follow- up appointment, if applicable. Please Follow Up With: Your own oncologist When: 1 week Please Follow Up With: Daniel Perez MD When: as directed
--- NOTE | 2019-06-21 12:21 | PCM.PROGNOTE ---
<Raymond Wesley - Last Filed: 06/21/19 12:21> Patient Problems: Active and Suspected Problems (Last Reviewed 06/02/19 @ 15:12 by Lj Walker DO) Recurrent Clostridioides difficile diarrhea (Acute) Portal vein thrombosis (Acute) Thrombocytopenia (Acute) Subjective: Pt reported no abdominal cramping at all, only one loose stool this AM. He is still feeling weak. When I initially talked to him about his options for physical therapy he wanted to go home with home physical therapy. Later after his family came, he wants to try [facility] again, he was recently in SNF. He has no fevers or chills. He is eating without issue, no nausea or vomiting. - Physical Exam General: Alert, Oriented x3, Cooperative HEENT: Atraumatic, PERRLA, EOMI, Normocephalic Neck: Supple, No JVD, Negative Carotid Bruits Lungs: Clear to auscultation, Normal air movement Cardiovascular: Regular rate, No murmurs Abdomen: Bowel Sounds Present, Soft, Non Tender Extremities: No edema, Capillary Refill Less than 3 Seconds Skin: No rashes, No breakdown Musculoskeletal: No Tenderness to Palpation of Joints or Extremities Neurological: Cranial nerves II-XII grossly intact Psych/Mental Status: Normal Affect, Appropriate, Alert and oriented to time, place, person, mood and affect Vital Signs Temp Pulse Resp BP Pulse Ox 98.4 F 67 18 115/52 L 97 06/21/19 04:08 06/21/19 06:21 06/21/19 04:08 06/21/19 04:08 06/21/19 04:08 Oxygen Delivery Method Room Air Weight: 210 lb 1.608 oz Body Mass Index (BMI) 29.2 Intake and Output for Last 24 Hours 06/19/19 06/20/19 06/21/19 23:59 23:59 23:59 Intake Total 120 / 120 2980 / 2980 900 / 900 Output Total 1000 / 1000 Balance 120 / 120 1979 / 1979 900 / 900 Microbiology Past 72 Hours 06/19/19 13:40 C. difficile DNA Amplification - Final Stool Toxigenic C. difficile DNA Laboratory Tests Past 24 Hrs 06/21/19 09:08 WBC 4.1 L RBC 3.44 L Hgb 11.2 L Hct 34.4 L MCV 100.0 H MCH 32.6 H MCHC 32.6 RDW Std Deviation 54.8 H RDW Coeff of Mary 15.0 H Plt Count 65 L MPV 11.0 POC Glucose 06/21/19 06/21/19 06/20/19 09:32 06:17 22:01 POC Glucose 130 H 120 H 142 H 06/20/19 18:02 POC Glucose 67 L Medical Necessity - Tobacco Use Smoking Status: Former smoker Tobacco Use: Non-smoker Assessment/Plan All Active Problems (Last Reviewed 06/02/19 @ 15:12 by Lj Walker DO) Recurrent Clostridioides difficile diarrhea (Acute) Portal vein thrombosis (Acute) Thrombocytopenia (Acute) C. difficile colitis (Acute) Failure to thrive (Acute) Liver cancer (Resolved) Abdominal wall cellulitis (Resolved) Peritoneal dialysis catheter site infection (Resolved) 1. 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 Continue PO vancomycin x 14 days. Improving. One loose BM this AM. needs to be able to sit long enough for dialysis. 2. ESRD - Dialysis per nephrology. 3. Recent reported hypoxia, CT chest with BRIANDA nodular mass - Oncology consulted regarding lung mass. No SOB or increased O2 demand. 4. Chronic afib - warfarin, coreg. INR therapeutic. 5. Liver/colon cancer - in remission s/p colectomy, tumor removal. hepatic lesions. F/u with own oncologist. May need colonoscopy, biopsy, or MRI. Further workup as directed by Dr. Fernandez. 6. T2DM -SSI 7. HTN - stable 8. Known PVT - continue warfarin. 9. Pancytopenia - chronic. trend. 10. Generalized debility/fatigue/deconditionin - SNF placement. Still very weak. DVT ppx: warfarin DC Planning: SNF placement. This patient was seen by Raymond Wesley PA-C under the supervision of Doctor Teri <Germán Williamson F - Last Filed: 06/21/19 13:24> - Physical Exam Vital Signs Temp Pulse Resp BP Pulse Ox 98.4 F 67 18 115/52 L 97 06/21/19 04:08 06/21/19 06:21 06/21/19 04:08 06/21/19 04:08 06/21/19 04:08 Oxygen Delivery Method Room Air Weight: 210 lb 1.608 oz Body Mass Index (BMI) 29.2 Intake and Output for Last 24 Hours 06/19/19 06/20/19 06/21/19 23:59 23:59 23:59 Intake Total 120 / 120 2980 / 2980 900 / 900 Output Total 1000 / 1000 Balance 120 / 120 1979 / 1979 900 / 900 Microbiology Past 72 Hours 06/19/19 13:40 C. difficile DNA Amplification - Final Stool Toxigenic C. difficile DNA Laboratory Tests Past 24 Hrs 06/21/19 09:08 WBC 4.1 L RBC 3.44 L Hgb 11.2 L Hct 34.4 L MCV 100.0 H MCH 32.6 H MCHC 32.6 RDW Std Deviation 54.8 H RDW Coeff of Mary 15.0 H Plt Count 65 L MPV 11.0 POC Glucose 06/21/19 06/21/19 06/21/19 12:07 09:32 06:17 POC Glucose 123 H 130 H 120 H 06/20/19 06/20/19 22:01 18:02 POC Glucose 142 H 67 L Code Visit Addendum: Dr. Williamson I personally examined the patient and reviewed the chart. I agree with the above. 78-year-old male with end-stage renal disease and a history of colon cancer in 2012 and a recent treatment of hepatocellular carcinoma presents to the hospital with diarrhea. He was recently treated for C. difficile on a 10-day course of vancomycin, and yesterday on admission he also was positive for C. difficile and was once again started on p.o. vancomycin. Of note he had a CT scan of his chest because chest x-ray showed lung nodules, and it appears that he might have a new lung mass in the left upper lobe. At that time the CT scan of the chest actually was able to get the upper part of the abdomen and demonstrated a portal venous thrombosis. A CT scan of the abdomen showed nodules and heterogeneity of uptake in contrast in the liver as well as a portal venous thrombosis. This is known and he is on Coumadin for this and A. fib. We will monitor his INR and continue with his Coumadin as previously scheduled. He also has chronic thrombus cytopenia which is secondary to his portal venous thrombosis and his splenomegaly. He is feeling better from his diarrhea, and states that he is only had one episode though it is still liquid. He does not feel strong enough to go home and physical therapy work with him today and said that he was 20 feet with contact-guard and a wheeled walker. He would like to stay and be transferred to [facility] for rehab next week. OBSV E&M: [id number] Subsequent observation care L2
[2019-06-21 12:31] LABS: Bedside Glucose 123 mg/dL (70-110)
[2019-06-21 15:00] VITALS: BP 134/66; PULSE 85; RESP 16; TEMP 36.5; O2SAT 96
[2019-06-21 15:28] VITALS: PULSE 85
--- NOTE | 2019-06-21 15:47 | CASEMGMT ---
Social Work Per medical team and apparel trimmings sales representative patient is now agreeable to SNF placement again. This social work faculty member spoke with patient in room. Patient confirming to plan to discharge to a SNF. Patient stating that first choice continues to be [facility]. Patient stating that after speaking with patient family patient is able to see that patient is too weak to return to home at this time. Support and active listening provided. Faxed PT/OT Evaluations to [facility]. Social Work to continue to follow. Noemy MANRIQUEZ, HUNG
[2019-06-21 21:30] VITALS: BP 126/65; PULSE 90; RESP 18; TEMP 36.8; O2SAT 96
[2019-06-21 21:46] LABS: Bedside Glucose 54 mg/dL (70-110)
[2019-06-21 22:00] VITALS: BP 126/65; PULSE 90
[2019-06-21] MEDS: Atorvastatin Calcium 10 MG Tablet PO (22:00)
[2019-06-21 22:16] LABS: Bedside Glucose 117 mg/dL (70-110)
[2019-06-21 23:20] LABS: Bedside Glucose 73 mg/dL (70-110)
[2019-06-21 23:20] LABS: Bedside Glucose 131 mg/dL (70-110)
[2019-06-22] VITALS (7 sets, daily range): BP systolic 114–133; BP diastolic 46–70; PULSE 77–84; RESP 16–18; TEMP 36.6–36.9; O2SAT 95–98
[2019-06-22] MEDS: hydrALAZINE 50 MG Tablet PO ×3 (06:27→21:36)
[2019-06-22 08:15] LABS: International Normalized Ratio 1.9; Prothrombin Time (Protime)PT. 22.1 SECONDS (11.7-14.9)
[2019-06-22] MEDS: Carvedilol 25 MG Tablet PO ×2 (08:28→21:36)
[2019-06-22] MEDS: Insulin Lispro 100 UNIT/ML INSULN.PEN 10 UNIT SC ×2 (08:28→11:35)
[2019-06-22] MEDS: Ferrous Sulfate 325 MG Tablet PO (08:28)
[2019-06-22 11:27] LABS: Bedside Glucose 105 mg/dL (70-110)
[2019-06-22] MEDS: Insulin Lispro 100 UNIT/ML INSULN.PEN SC (11:35)
[2019-06-22 11:46] LABS: Bedside Glucose 153 mg/dL (70-110)
--- NOTE | 2019-06-22 11:55 | PCM.PROGNOTE ---
<Raymond Wesley - Last Filed: 06/22/19 11:55> Patient Problems: Active and Suspected Problems (Last Reviewed 06/02/19 @ 15:12 by Lj Walker DO) Recurrent Clostridioides difficile diarrhea (Acute) Portal vein thrombosis (Acute) Thrombocytopenia (Acute) Subjective: Pt notes that his BMs slowed down yesterday and became more soft. Today so far he has not had any BM. He has no N/V/abd pain. He reports a good appetite. He has done some ambulation in the halls today. - Physical Exam General: Alert, Oriented x3, Cooperative HEENT: Atraumatic, PERRLA, EOMI, Normocephalic Neck: Supple, No JVD, Negative Carotid Bruits Lungs: Clear to auscultation, Normal air movement Cardiovascular: Regular rate, No murmurs Abdomen: Bowel Sounds Present, Soft, Non Tender Extremities: No edema, Capillary Refill Less than 3 Seconds Skin: No rashes, No breakdown Musculoskeletal: No Tenderness to Palpation of Joints or Extremities Neurological: Cranial nerves II-XII grossly intact Psych/Mental Status: Normal Affect, Appropriate Vital Signs Temp Pulse Resp BP Pulse Ox 97.9 F 80 16 114/53 L 95 06/22/19 10:00 06/22/19 10:00 06/22/19 10:00 06/22/19 10:00 06/22/19 10:00 Oxygen Delivery Method Room Air Weight: 210 lb 1.608 oz Body Mass Index (BMI) 29.2 Intake and Output for Last 24 Hours 06/20/19 06/21/19 06/22/19 23:59 23:59 23:59 Intake Total 2980 / 2980 1300 / 1750 900 / 900 Output Total 1000 / 1000 Balance 1979 / 1979 1300 / 1750 900 / 900 Microbiology Past 72 Hours 06/19/19 13:40 C. difficile DNA Amplification - Final Stool Toxigenic C. difficile DNA Laboratory Tests Past 24 Hrs 06/22/19 07:00 PT 22.1 H INR 1.9 POC Glucose 06/22/19 06/22/19 06/21/19 11:32 06:25 23:04 POC Glucose 153 H 105 131 H 06/21/19 06/21/19 06/21/19 21:59 21:40 17:30 POC Glucose 73 54 L 117 H 06/21/19 12:07 POC Glucose 123 H Medical Necessity - Tobacco Use Smoking Status: Former smoker Tobacco Use: Non-smoker Assessment/Plan All Active Problems (Last Reviewed 06/02/19 @ 15:12 by Lj Walker DO) Recurrent Clostridioides difficile diarrhea (Acute) Portal vein thrombosis (Acute) Thrombocytopenia (Acute) C. difficile colitis (Acute) Failure to thrive (Acute) Liver cancer (Resolved) Abdominal wall cellulitis (Resolved) Peritoneal dialysis catheter site infection (Resolved) 1. 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 Continue PO vancomycin x 14 days. BMs are slower and more well formed. 2. ESRD - Dialysis per nephrology. 3. Recent reported hypoxia, CT chest with BRIANDA nodular mass - Oncology consulted regarding lung mass. No SOB or increased O2 demand. 4. Chronic afib - warfarin, coreg. INR therapeutic. 5. Liver/colon cancer - in remission s/p colectomy, tumor removal. hepatic lesions. F/u with own oncologist. May need colonoscopy, biopsy, or MRI. Further workup as directed by Dr. Fernandez. 6. T2DM -SSI 7. HTN - stable 8. Known PVT - continue warfarin. 9. Pancytopenia - chronic. trend. 10. Generalized debility/fatigue/deconditionin - SNF placement. Still very weak. DVT ppx: warfarin DC Planning: SNF placement. This patient was seen by Raymond Wesley PA-C under the supervision of Doctor Teri <Germán Williamson - Last Filed: 06/22/19 13:51> - Physical Exam Vital Signs Temp Pulse Resp BP Pulse Ox 97.9 F 80 16 114/53 L 95 06/22/19 10:00 06/22/19 10:00 06/22/19 10:00 06/22/19 10:00 06/22/19 10:00 Oxygen Delivery Method Room Air Weight: 210 lb 1.608 oz Body Mass Index (BMI) 29.2 Intake and Output for Last 24 Hours 06/20/19 06/21/19 06/22/19 23:59 23:59 23:59 Intake Total 2980 / 2980 1300 / 1750 900 / 900 Output Total 1000 / 1000 Balance 1979 / 1979 1300 / 1750 900 / 900 Microbiology Past 72 Hours 06/19/19 13:40 C. difficile DNA Amplification - Final Stool Toxigenic C. difficile DNA Laboratory Tests Past 24 Hrs 06/22/19 07:00 PT 22.1 H INR 1.9 POC Glucose 06/22/19 06/22/19 06/21/19 11:32 06:25 23:04 POC Glucose 153 H 105 131 H 06/21/19 06/21/19 06/21/19 21:59 21:40 17:30 POC Glucose 73 54 L 117 H Code Visit Addendum: Dr. Williamson I personally examined the patient and reviewed the chart. I agree with the above. 78-year-old male with end-stage renal disease and a history of colon cancer in 2012 and a recent treatment of hepatocellular carcinoma presents to the hospital with diarrhea. He was recently treated for C. difficile on a 10-day course of vancomycin, and yesterday on admission he also was positive for C. difficile and was once again started on p.o. vancomycin. Of note he had a CT scan of his chest because chest x-ray showed lung nodules, and it appears that he might have a new lung mass in the left upper lobe. At that time the CT scan of the chest actually was able to get the upper part of the abdomen and demonstrated a portal venous thrombosis. A CT scan of the abdomen showed nodules and heterogeneity of uptake in contrast in the liver as well as a portal venous thrombosis. This is known and he is on Coumadin for this and A. fib. We will monitor his INR and continue with his Coumadin as previously scheduled. He also has chronic thrombocytopenia which is secondary to his portal venous thrombosis and his splenomegaly. He is feeling better from his diarrhea, and states that his stool today was much more solid. He does not feel strong enough to go home and physical therapy work with him yesterday and said that he was 20 feet with contact-guard and a wheeled walker. He would like to stay and be transferred to [facility] for rehab next week. OBSV E&M: [id number] Initial observation care L2
[2019-06-22 17:01] LABS: Bedside Glucose 72 mg/dL (70-110)
[2019-06-22] MEDS: Atorvastatin Calcium 10 MG Tablet PO (21:36)
[2019-06-22 21:46] LABS: Bedside Glucose 132 mg/dL (70-110)
[2019-06-23 02:35] VITALS: BP 120/49; PULSE 82; RESP 18; TEMP 36.8; O2SAT 96
[2019-06-23 06:29] VITALS: PULSE 84
[2019-06-23] MEDS: hydrALAZINE 50 MG Tablet PO ×2 (06:29→15:13)
[2019-06-23 06:36] LABS: Bedside Glucose 101 mg/dL (70-110)
[2019-06-23 07:15] LABS: Prothrombin Time (Protime)PT. 22.6 SECONDS (11.7-14.9)
[2019-06-23 08:35] VITALS: BP 135/62; PULSE 89; RESP 18; TEMP 36.7; O2SAT 97
--- NOTE | 2019-06-23 08:49 | PCM.TXEXTCAR ---
- Diet 06/19/19 17:30 Diet: Calorie Controlled Food consistency:: Regular Liquid Consistency:: Regular/Thin How many daily calories?: 1800 calorie - Routine Orders/Code Status Code Status: Full Code - Therapies Physical Therapy: Eval and Treat Occupational Therapy: Eval and Treat - Allergies/Procedures Done in Hospital Allergies/Adverse Reactions: Allergies mold Adverse Reaction (Verified 06/19/19 10:51) dizzy spells cattle Allergy (Uncoded 06/19/19 10:51) dizzy spells - Type of Care/Length of Stay Estimated LOS: Convalescent Care Less Than 30 days Type of Care Needed: Skilled Rehab Potential: Good Prognosis: Good - Additional Orders/Day of Discharge Day of Discharge: 06/23/19 - Follow Up Care Primary Care Physician: Sarah Hawkins NP-C [Primary Care Provider] - Please follow up with your Primary Care Physician in: 1 week Please Follow Up With: Your own oncologist When: 1 week Please Follow Up With: Daniel Perez MD When: as directed
--- NOTE | 2019-06-23 08:51 | DS.PCM_ITS ---
Discharge Date and Diagnosis - Problem List Patient Problems: Active and Suspected Problems (Last Reviewed 06/02/19 @ 15:12 by Lj Walker DO) Recurrent Clostridioides difficile diarrhea (Acute) Portal vein thrombosis (Acute) Thrombocytopenia (Acute) Date of Admission: 06/19/19 Date of Discharge: 06/23/19 - Primary Discharge Diagnosis Active and Suspected Problems (Last Reviewed 06/02/19 @ 15:12 by Lj Walker DO) Recurrent Clostridioides difficile diarrhea (Acute) Portal vein thrombosis (Acute) Thrombocytopenia (Acute) - Secondary Discharge Diagnosis Chronic Problems (Last Reviewed 06/02/19 @ 15:12 by Lj Walker DO) Hepatocellular carcinoma (Chronic) ESRD (end stage renal disease) (Chronic) hx of PD cath insertion (Chronic) Heart disease (Chronic) Surgically constructed arteriovenous graft (Chronic ~02/2018) 01/16/2018 Hypercholesterolemia (Chronic) History of colectomy (Chronic) Hemorrhoids (Chronic) Acid reflux (Chronic) Hypertension (Chronic) Afib (Chronic) Heart disease (Chronic) Colon cancer (Chronic) Diabetes (Chronic) Hospital Course and Treatment Operations: None Summary of Care Provided: The patient is a 78 year old M with past medical history significant for end- stage renal disease on hemodialysis, previous C. difficile colitis presented with diarrhea and assessment of recurrent C. difficile colitis was made 1. Recurrent C. difficile colitis ~ patient was admitted to regular nursing floor with this being his first recurrence patient was treated with p.o. vancomycin. Plan is to treat for total of 14 days 2. Physical deconditioning ~ requested for PT OT eval patient was discharged to senior living facility for rehab 3. End-stage renal disease ~ on hemodialysis Wednesdays and Fridays consult was placed to nephrology for dialysis orders 4. Chronic A. fib ~rate controlled patient is on systemic anticoagulation with Coumadin with therapeutic INR X 5. History of colon cancer ~status post colectomy currently in remission 6. Diabetes mellitus type II ~Controlled/uncontrolled, patient's oral hypoglycemics held. Placed on long acting insulin, Accu-Cheks a.c. and at bedtime and covered with sliding scale insulin 7. Hypertension ~ blood pressure controlled, home medications continued with dose adjustment as needed 8. History of known portal vein thrombosis ~patient is on warfarin 9. Pancytopenia chronic; stable Patient Problems: Active and Suspected Problems (Last Reviewed 06/02/19 @ 15:12 by Lj Walker DO) Recurrent Clostridioides difficile diarrhea (Acute) Portal vein thrombosis (Acute) Thrombocytopenia (Acute) - Physical Exam General: Alert HEENT: Atraumatic Oral: Moist Mucosa Neck: Supple Lungs: Diminished Neurological: Neuro grossly intact Psych/Mental Status: Normal Affect Vital Signs Temp Pulse Resp BP Pulse Ox 98.2 F 84 18 120/49 L 96 06/23/19 02:35 06/23/19 06:29 06/23/19 02:35 06/23/19 02:35 06/23/19 02:35 Oxygen Delivery Method Room Air Weight: 95.3 kg Body Mass Index (BMI) 29.2 Intake and Output for Last 24 Hours 06/21/19 06/22/19 06/23/19 23:59 23:59 23:59 Intake Total 1300 / 1750 1500 / 1500 350 / 350 Balance 1300 / 1750 1500 / 1500 350 / 350 Laboratory Tests Past 24 Hrs 06/23/19 06:31 PT 22.6 H INR 2.0 POC Glucose 06/23/19 06/22/19 06/22/19 06:28 21:39 16:56 POC Glucose 101 132 H 72 06/22/19 06/22/19 11:32 06:25 POC Glucose 153 H 105 Discharge Activity: Return to Normal Activity Home Medications: Medications to take at Discharge carvedilol 25 mg tablet 25 mg PO BID 01/09/18 insulin aspart (U-100) 100 unit/mL (3 mL) subcutaneous pen 10 unit SC TIDCM ml 01/09/18 Glipizide [Glipizide ER] 2.5 mg PO DAILY 06/02/19 Simvastatin 20 mg PO DAILY 06/02/19 Ferrous Sulfate 325 mg PO DAILY 06/19/19 Warfarin Sodium 6 mg PO TUTHSA 06/19/19 Warfarin Sodium 7 mg PO SUMOWEFR 06/19/19 hydrALAZINE [Apresoline] 50 mg PO TID 06/19/19 Vancomycin [Vancocin] 125 mg PO Q6H #50 cap 06/21/19 Following Prescrptions Were Given to Patient: Vancomycin [Vancocin] 125 mg PO Q6H #50 cap Prescription Printed Primary Care Physician: Sarah Hawkins NP-C [Primary Care Provider] - Please follow up with your Primary Care Physician in: 1 week Please Follow Up With: Your own oncologist When: 1 week Please Follow Up With: Daniel Perez MD When: as directed Disposition: Custodial facility Minutes spent on discharge:: 45 Patient Condition:: Stable Medical Necessity - Tobacco Use Smoking Status: Former smoker Tobacco Use: Non-smoker Meaningful Use Info Meaningful Use Diagnoses (Choose all that apply): None applicable Code Visit Inpatient E&M: 58690 Disch Hosp
--- NOTE | 2019-06-23 10:42 | CASEMGMT ---
Addendum entered by Alexus Mata 06/23/19 11:48: RELL received message from Poly at [facility] stating pre-cert is still pending. Original Note: Social Work Note RELL faxed updated clinicals to [facility]. Physician states pt is ready for discharge once pre-cert has been obtained. Plan: [facility] pending pre-cert. Alexus Mata RESTAURANT HOST, VASCULAR TECHNOLOGIST SONOGRAPHER
[2019-06-23 11:51] LABS: Bedside Glucose 117 mg/dL (70-110)
--- NOTE | 2019-06-23 12:03 | PCM.PN.BLA ---
Progress Note patient was seen on HD today at dry weight diarrhea better see orders/ flowsheets will check with Dr Fernandez if we still need to give epogen with active tumor.
--- NOTE | 2019-06-23 13:52 | CASEMGMT ---
Social Work Note SW received message from Poly at [facility] stating pre-cert has been obtained and pt can discharge to [facility] today. Physician updated. RN updated. RN states pt will be done with dialysis around 2:30pm and pt states his will transport pt. SW met with pt and introduced self and role at [facility]. Pt is alert and orientated x3, is currently receiving dialysis. SW informed pt that pre-cert has been obtained and pt can discharge today. Pt confirms that his is able to transport pt. RELL faxed completed discharge paperwork to [facility] including transfer to [facility] to [facility], signed medication list and any scripts. Original in SNF folder and copy on pt's chart. RELL completed convalescent 7000 in [facility]. Original in SNF folder and copy on pt's chart. RELL placed a call to Poly at [facility] and updated her that pt's will be transporting pt after pt has dialysis. Plan: Discharge to [facility] skilled today with pt's transporting Alexus Adolfo JIG BORE OPERATOR, SECURITY SOLUTIONS ENGINEER
[2019-06-23 13:57] LABS: Carcinoembryonic Antigen 3.6 ng/mL (0.0-4.7)
[2019-06-23 14:33] VITALS: BP 137/68; PULSE 89; RESP 22; TEMP 36.7
[2019-06-23 15:13] VITALS: PULSE 93
[2019-06-23] MEDS: Carvedilol 25 MG Tablet PO (15:14)
[2019-06-23] MEDS: Ferrous Sulfate 325 MG Tablet PO (15:14)
[2019-06-23] MEDS: Lidocaine/Prilocaine HCl 5 GM Tube TOPICAL (15:18)
[2019-06-23 15:20] VITALS: BP 125/66; PULSE 93; RESP 18; TEMP 36.6; O2SAT 96
--- NOTE | 2019-06-23 15:37 | NURSING ---
report called to [facility] for discharge; spoke with NERY Perez.
[2019-06-23 15:56] LABS: Bedside Glucose 103 mg/dL (70-110)
--- NOTE | 2019-06-23 16:09 | DIALYSIS ---
HD x3.5 hours completed, tolerated well, UF 1200mL using CritLine, accessed via LFA AVF using 15G needles, after pulling needles stasis achieved in less than 10 mins each site
== END 2019-06-23 17:45 | disposition skilled nursing facility (03) | DRG 371 ==
LOC: ED 12:11 → MS3 17:23
PROVIDERS: Family Medicine; Hospitalist; Physician Assistant; Admitting Provider Internal Medicine; Emergency Provider Emergency Medicine; Family Provider Nurse Practitioner; PCP Nurse Practitioner; Referring Provider Internal Medicine; Visit Provider Internal Medicine
DX: A04.71 Enterocolitis due to Clostridium difficile, recurrent (principal); N18.6 End stage renal disease; I81 Portal vein thrombosis; I48.20 Chronic atrial fibrillation, unspecified; D61.818 Other pancytopenia; I13.11 Hypertensive heart and chronic kidney disease without heart failure, with stage 5 chronic kidney disease, or end stage renal disease; E11.22 Type 2 diabetes mellitus with diabetic chronic kidney disease; E78.00 Pure hypercholesterolemia, unspecified; I51.9 Heart disease, unspecified; Z79.01 Long term (current) use of anticoagulants; Z99.2 Dependence on renal dialysis; Z90.49 Acquired absence of other specified parts of digestive tract; Z85.038 Personal history of other malignant neoplasm of large intestine; Z85.05 Personal history of malignant neoplasm of liver; Z87.891 Personal history of nicotine dependence; Z79.4 Long term (current) use of insulin
CPT/HCPCS: 36415; 71045; 71260; 74177; 80048; 81001; 82378; 82962; 85025; 85027; 85610; 85730; 87493; 93005; 97110; 97162; 97165; 97535; 99284; J7030; Q9967; A4216